=== PATIENT | female | born 1965 | race Hispanic/Latino ===

== ENCOUNTER 2019-03-13 00:55 | Observation (INO) | payer BC, OTHER, SELFPAY ==
[2019-03-13] MEDS ORDERED: ONDANSETRON 4 MG (ODT) TAB ONE (01:28)
[2019-03-13] MEDS ORDERED: ACETAMINOPHEN 500 MG TAB ONE (01:28)
[2019-03-13 02:01] LABS: Urine Bacteria LOADED /HPF (<20); Urine Culture Reflex Order REFLEXED
[2019-03-13] MEDS ORDERED: CEFTRIAXONE/SWI 1gm 1 GM/10 ML SYR ONE ×2 (02:22→03:14)
[2019-03-13] MEDS ORDERED: NA CHLORIDE 0.9% 2,000 ML ONE (02:22)
[2019-03-13 02:33] LABS: Absolute Lymphocytes (CBC) 0.4 K/uL (0.7-4.9); Basophils % 0.5 % (0-1.3); Hematocrit 43.7 % (36.0-45.0); Lymphocytes % 5.6 % (15.3-44.8); MPV 10.4 fL (7.6-11.3); RBC Red Blood Cell Count 4.65 M/uL (3.86-4.86)
[2019-03-13 02:38] LABS: Protime INR 1.03
[2019-03-13 02:51] LABS: ALT/SGPT 22 U/L (12-78); AST/SGOT 19 U/L (15-37); Albumin 3.2 g/dL (3.4-5.0); Alkaline Phosphatase 79 U/L (45-117); BUN Blood Urea Nitrogen 9 mg/dL (7-18); Bicarbonate 25 mmol/L (21-32); Bilirubin Direct 0.2 mg/dL (0-0.2); Bilirubin Total 0.6 mg/dL (0.2-1.0); CKMB Creatine Kinase MB < 1.0 ng/mL (0.3-3.6); Creatine Phosphokinase 62 U/L (26-192); Glucose Level 118 mg/dL (74-106); Lipase 79 U/L (73-393); Potassium 3.6 mmol/L (3.5-5.1); Protein, Total 7.9 g/dL (6.4-8.2); Sodium Level 139 mmol/L (136-145); Troponin (Emerg Dept Use Only) < 0.02 ng/mL (0.0-0.045)
[2019-03-13 02:55] LABS: Blood Morphology Comment NOT SEEN (NOT SEEN); Platelet Estimate DECR; Urine White Blood Cell Casts OK
--- NOTE | 2019-03-13 03:09 | EDPHYS ---
Physician Documentation [facility] Name: Gaby Wheeler Age: 53 yrs Sex: Female : 1965 Arrival Date: 03/13/2019 Time: 00:59 Bed 8 Private MD: ED Physician Estevan Disla HPI: 03/13 01:57 This 53 yrs old Female presents to ER via Ambulatory with complaints of Fever, rusty Doesn't Feel Right. 01:57 The patient reports fever, that was measured at 102 degrees Fahrenheit. Onset: The rusty symptoms/episode began/occurred 3 day(s) ago. Modifying factors: there are no obvious modifying factors. Associated signs and symptoms: Pertinent positives: arthralgias, backache, chills, cough. Severity of symptoms: At their worst the symptoms were. The patient has not experienced similar symptoms in the past. 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 - Social history:: Smoking status: Patient/guardian denies using tobacco. - Ebola Screening: : Patient negative for fever greater than or equal to 101.5 degrees Fahrenheit, and additional compatible Ebola Virus Disease symptoms. - Family history:: not pertinent. ROS: 01:57 Eyes: Negative for injury, pain, redness, and discharge, ENT: Negative for injury, rusty pain, and discharge, Neck: Negative for injury, pain, and swelling, Cardiovascular: Negative for chest pain, palpitations, and edema, Respiratory: Negative for shortness of breath, cough, wheezing, and pleuritic chest pain, Abdomen/GI: Negative for abdominal pain, nausea, vomiting, diarrhea, and constipation, Back: Negative for injury and pain, : Negative for injury, bleeding, discharge, and swelling, MS/Extremity: Negative for injury and deformity, Skin: Negative for injury, rash, and discoloration, Neuro: Negative for headache, weakness, numbness, tingling, and seizure, Psych: Negative for depression, anxiety, suicide ideation, homicidal ideation, and hallucinations, Allergy/Immunology: Negative for hives, rash, and allergies, Endocrine: Negative for neck swelling, polydipsia, polyuria, polyphagia, and marked weight changes, Hematologic/Lymphatic: Negative for swollen nodes, abnormal bleeding, and unusual bruising. 01:57 Constitutional: Positive for body aches, chills, malaise. Exam: :57 Constitutional: This is a well developed, well nourished patient who is awake, alert, rusty and in no acute distress. Head/Face: Normocephalic, atraumatic. Eyes: Pupils equal round and reactive to light, extra-ocular motions intact. Lids and lashes normal. Conjunctiva and sclera are non-icteric and not injected. Cornea within normal limits. Periorbital areas with no swelling, redness, or edema. ENT: Nares patent. No nasal discharge, no septal abnormalities noted. Tympanic membranes are normal and external auditory canals are clear. Oropharynx with no redness, swelling, or masses, exudates, or evidence of obstruction, uvula midline. Mucous membranes moist. Neck: Trachea midline, no thyromegaly or masses palpated, and no cervical lymphadenopathy. Supple, full range of motion without nuchal rigidity, or vertebral point tenderness. No Meningismus. Chest/axilla: Normal chest wall appearance and motion. Nontender with no deformity. No lesions are appreciated. Respiratory: Lungs have equal breath sounds bilaterally, clear to auscultation and percussion. No rales, rhonchi or wheezes noted. No increased work of breathing, no retractions or nasal flaring. Abdomen/GI: Soft, non-tender, with normal bowel sounds. No distension or tympany. No guarding or rebound. No evidence of tenderness throughout. Back: No spinal tenderness. No costovertebral tenderness. Full range of motion. Skin: Warm, dry with normal turgor. Normal color with no rashes, no lesions, and no evidence of cellulitis. MS/ Extremity: Pulses equal, no cyanosis. Neurovascular intact. Full, normal range of motion. Neuro: Awake and alert, GCS 15, oriented to person, place, time, and situation. Cranial nerves II-XII grossly intact. Motor strength 5/5 in all extremities. Sensory grossly intact. Cerebellar exam normal. Normal gait. Psych: Awake, alert, with orientation to person, place and time. Behavior, mood, and affect are within normal limits. 01:57 Cardiovascular: Rate: tachycardic, Rhythm: regular. Vital Signs: 01:13 BP 149 / 96; Pulse 147; Resp 20 S; Temp 100.4(O); Pulse Ox 100% on R/A; Weight 77.11 kg jd3 (R); Height 5 ft. 1 in. (154.94 cm) (R); Pain 7/10; 01:23 Pulse 123; jd3 02:49 BP 127 / 80; Pulse 109; Resp 17 S; Pulse Ox 98% on R/A; jd3 04:16 BP 110 / 70; Pulse 97; Resp 17 S; Temp 98.0(TE); Pulse Ox 98% on R/A; jd3 01:13 Body Mass Index 32.12 (77.11 kg, 154.94 cm) jd3 01:13 pt coughing and restless jd3 01:23 pt sitting still resting in bed. jd3 MDM: 01:26 Patient medically screened. [facility] 03:05 Data reviewed: vital signs, nurses notes, lab test result(s), EKG, radiologic studies, [facility] CT scan, plain films. 03/13 01:11 Order name: Flu; Complete Time: 03:02 03/13 01:11 Order name: Strep; Complete Time: 03:02 03/13 01:37 Order name: Urine Microscopic Only; Complete Time: 03:02 ar 03/13 01:39 Order name: Basic Metabolic Panel; Complete Time: 03:02 [facility] 03/13 01:39 Order name: Blood Culture Adult (2) [facility] 03/13 01:39 Order name: CBC with Diff; Complete Time: 03:02 [facility] 03/13 01:39 Order name: Ckmb; Complete Time: 03:02 [facility] 03/13 01:39 Order name: CPK; Complete Time: 03:02 [facility] 03/13 01:39 Order name: Lactate; Complete Time: 03:02 [facility] 03/13 01:39 Order name: LFT's; Complete Time: 03:02 [facility] 03/13 01:39 Order name: Lipase; Complete Time: 03:02 [facility] 03/13 01:39 Order name: Procalcitonin; Complete Time: 03:02 [facility] 03/13 01:39 Order name: Protime (+inr); Complete Time: 03:02 [facility] 03/13 01:39 Order name: Ptt, Activated; Complete Time: 03:02 [facility] 03/13 01:37 Order name: Urine Dipstick-Ancillary (obtain specimen); Complete Time: 01:36 [facility] 03/13 01:37 Order name: Urine Test (obtain specimen); Complete Time: 01:36 [facility] 03/13 01:39 Order name: Troponin (emerg Dept Use Only); Complete Time: 03:02 [facility] 03/13 01:39 Order name: Chest Single View XRAY [facility] 03/13 01:40 Order name: CT Stone Protocol [facility] 03/13 01:46 Order name: Throat Culture [facility] 03/13 02:03 Order name: Urine Culture [facility] 03/13 02:55 Order name: CBC Smear Scan; Complete Time: 03:02 [facility] 03/13 04:20 Order name: Comprehensive Metabolic Panel [facility] 03/13 04:21 Order name: CONS Pharmacy Consult [facility] 03/13 04:21 Order name: CONS Physician Consult [facility] 03/13 01:39 Order name: Accucheck; Complete Time: 02:31 [facility] 03/13 01:39 Order name: Cardiac monitoring; Complete Time: 02:47 [facility] 03/13 01:39 Order name: EKG - Nurse/Tech; Complete Time: 02:47 [facility] 03/13 01:39 Order name: IV Saline Lock - Large Bore; Complete Time: 02:31 [facility] 03/13 01:39 Order name: Labs collected and sent; Complete Time: 02:31 [facility] 03/13 01:39 Order name: O2 Per Protocol; Complete Time: 02:31 [facility] 03/13 01:39 Order name: O2 Sat Monitoring; Complete Time: 02:31 [facility] 03/13 01:39 Order name: Urine Dipstick-Ancillary (obtain specimen); Complete Time: 02:31 [facility] Administered Medications: 01:28 Drug: Zofran 4 mg Route: PO; jd3 02:25 Follow up: Response: No adverse reaction jd3 01:29 Drug: Tylenol 1000 mg Route: PO; jd3 02:25 Follow up: Response: No adverse reaction jd3 02:32 Drug: NS 0.9% (30 ml/kg) 30 ml/kg Route: IV; Rate: bolus; Site: right forearm; jd3 04:25 Follow up: Response: No adverse reaction; IV Status: Completed infusion; IV Intake: jd3 2000ml 02:32 Drug: Rocephin 1 grams Route: IV; Rate: per protocol; Site: right forearm; jd3 02:35 Follow up: Response: No adverse reaction; IV Status: Completed infusion jd3 03:16 Drug: Rocephin 1 grams Route: IV; Rate: per protocol; Site: right forearm; jd3 03:19 Follow up: Response: No adverse reaction; IV Status: Completed infusion jd3 Disposition: 03/13/19 03:08 Hospitalization ordered by Nettie John for Inpatient Admission. Preliminary diagnosis are Fever, unspecified, Acute tubulo-interstitial nephritis, Weakness. - Bed requested for Telemetry/MedSurg (Inpatient). - Status is Inpatient Admission. jd3 - Condition is Stable. - Problem is new. - Symptoms have improved. UTI on Admission? Yes Signatures: Dispatcher [employer] EDMS Margot Smiley RN RN mw Anderson, Corey, MD MD cha Davies, Jonathon, RN RN jd3 Robles, Autumn ar5 Corrections: (The following items were deleted from the chart) 04:03 03:08 Hospitalization Ordered by Nettie John MD for Inpatient Admission. Preliminary mw diagnosis is Fever, unspecified; Acute tubulo-interstitial nephritis; Weakness. Bed requested for Telemetry/MedSurg (Inpatient). Status is Inpatient Admission. Condition is Stable. Problem is new. Symptoms have improved. UTI on Admission? Yes. rusty 04:35 04:03 03/13/2019 03:08 Hospitalization Ordered by Nettie John MD for Inpatient jd3 Admission. Preliminary diagnosis is Fever, unspecified; Acute tubulo-interstitial nephritis; Weakness. Bed requested for Telemetry/MedSurg (Inpatient). Status is Inpatient Admission. Condition is Stable. Problem is new. Symptoms have improved. UTI on Admission? Yes. mw
--- NOTE | 2019-03-13 03:09 | ER ---
Nurse's Notes [facility] Name: Gaby Wheeler Age: 53 yrs Sex: Female : 1965 Arrival Date: 03/13/2019 Time: 00:59 Bed 8 Private MD: Diagnosis: Fever, unspecified;Acute tubulo-interstitial nephritis;Weakness Presentation: 03/13 01:09 Presenting complaint: Patient states: "I have had a headache since Friday as well as jd3 chills and general body aches. I last took Ibuprofen at 1730 on 03/12/19.". Transition of care: patient was not received from another setting of care. Onset of symptoms was March 10, 2019. Risk Assessment: Do you want to hurt yourself or someone else? Patient reports no desire to harm self or others. Initial Sepsis Screen: Does the patient meet any 2 criteria? HR > 90 bpm. No. Patient's initial sepsis screen is negative. Does the patient have a suspected source of infection? No. Patient's initial sepsis screen is negative. Care prior to arrival: None. 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 - Social history:: Smoking status: Patient/guardian denies using tobacco. - Ebola Screening: : Patient negative for fever greater than or equal to 101.5 degrees Fahrenheit, and additional compatible Ebola Virus Disease symptoms. - Family history:: not pertinent. Screenin:14 Abuse screen: Denies threats or abuse. Nutritional screening: No deficits noted. jd3 Tuberculosis screening: No symptoms or risk factors identified. Fall Risk Ambulatory Aid- None/Bed Rest/Nurse Assist (0 pts). Gait- Normal/Bed Rest/Wheelchair (0 pts) Mental Status- Oriented to own ability (0 pts). Total Bright Fall Scale indicates No Risk (0-24 pts). Assessment: 01:29 General: Appears in no apparent distress. uncomfortable, Behavior is calm, cooperative, jd3 appropriate for age. Pain: Complains of pain in head Quality of pain is described as aching, pressure. Neuro: Level of Consciousness is awake, alert, obeys commands, Oriented to person, place, time, situation. Cardiovascular: Denies chest pain, Heart tones S1 S2 present Capillary refill < 3 seconds Patient's skin is warm and dry. Respiratory: Reports cough that is persistent Airway is patent Respiratory effort is even, unlabored, Respiratory pattern is regular, symmetrical, Breath sounds are clear bilaterally. Denies shortness of breath. GI: Abdomen is round non-distended, Bowel sounds present X 4 quads. Abd is soft and non tender X 4 quads. Reports nausea, Patient currently denies abdominal pain, vomiting. : No signs and/or symptoms were reported regarding the genitourinary system. EENT: No signs and/or symptoms were reported regarding the EENT system. Derm: Skin is intact, Skin is dry, Skin is normal, Skin temperature is warm. Musculoskeletal: Circulation, motion, and sensation intact. Range of motion: intact in all extremities. 02:49 Reassessment: Patient appears in no apparent distress at this time. Patient and/or jd3 family updated on plan of care and expected duration. Pain level reassessed. Patient is alert, oriented x 3, equal unlabored respirations, skin warm/dry/pink. Patient states feeling better. 04:16 Reassessment: Patient appears in no apparent distress at this time. Patient and/or jd3 family updated on plan of care and expected duration. Pain level reassessed. Patient is alert, oriented x 3, equal unlabored respirations, skin warm/dry/pink. Patient states feeling better. Vital Signs: 01:13 BP 149 / 96; Pulse 147; Resp 20 S; Temp 100.4(O); Pulse Ox 100% on R/A; Weight 77.11 kg jd3 (R); Height 5 ft. 1 in. (154.94 cm) (R); Pain 7/10; 01:23 Pulse 123; jd3 02:49 BP 127 / 80; Pulse 109; Resp 17 S; Pulse Ox 98% on R/A; jd3 04:16 BP 110 / 70; Pulse 97; Resp 17 S; Temp 98.0(TE); Pulse Ox 98% on R/A; jd3 01:13 Body Mass Index 32.12 (77.11 kg, 154.94 cm) jd3 01:13 pt coughing and restless jd3 01:23 pt sitting still resting in bed. jd3 ED Course: 00:59 Patient arrived in ED. cl3 01:09 Sage Carroll, JERALD is Primary Nurse. jd3 01:11 Triage completed. jd3 01:14 Arm band placed on. jd3 01:14 Patient has correct armband on for positive identification. Bed in low position. Call jd3 light in reach. Side rails up X 1. 01:26 Estevan Disla MD is Attending Physician. rusty 02:12 Inserted saline lock: 20 gauge in right forearm, using aseptic technique. Blood jd3 collected. 02:41 CT Stone Protocol In Process Unspecified. EDMS 03:06 Chest Single View XRAY In Process Unspecified. EDMS 03:06 Nettie John MD is Hospitalizing Provider. rusty 04:27 No provider procedures requiring assistance completed. Patient admitted, IV remains in jd3 place. Administered Medications: 01:28 Drug: Zofran 4 mg Route: PO; jd3 02:25 Follow up: Response: No adverse reaction jd3 01:29 Drug: Tylenol 1000 mg Route: PO; jd3 02:25 Follow up: Response: No adverse reaction jd3 02:32 Drug: NS 0.9% (30 ml/kg) 30 ml/kg Route: IV; Rate: bolus; Site: right forearm; jd3 04:25 Follow up: Response: No adverse reaction; IV Status: Completed infusion; IV Intake: jd3 2000ml 02:32 Drug: Rocephin 1 grams Route: IV; Rate: per protocol; Site: right forearm; jd3 02:35 Follow up: Response: No adverse reaction; IV Status: Completed infusion jd3 03:16 Drug: Rocephin 1 grams Route: IV; Rate: per protocol; Site: right forearm; jd3 03:19 Follow up: Response: No adverse reaction; IV Status: Completed infusion jd3 Intake: 04:25 IV: 2000ml; Total: 2000ml. jd3 Outcome: 03:08 Decision to Hospitalize by Provider. rusty 04:27 Admitted to Med/surg accompanied by tech, via wheelchair, room 427, with chart, Report jd3 called to Emani MARQUES 04:27 Condition: stable 04:27 Instructed on the need for admit, Demonstrated understanding of instructions. 04:35 Patient left the ED. jd3 Signatures: Dispatcher [employer] Estevan Urbina MD MD cha Davies, Jonathon, RN RN Ade Augustin cl3 Corrections: (The following items were deleted from the chart) 01:18 01:13 BP 163 / 111; Pulse 147bpm; Resp 20bpm; Spontaneous; Pulse Ox 100% RA; Temp jd3 100.4F Oral; 77.11 kg Reported; Height 5 ft. 1 in. Reported; BMI: 32.1; Pain 7/10; jd3 01:23 01:13 BP 149 / 96; Pulse 136bpm; Resp 20bpm; Spontaneous; Pulse Ox 100% RA; Temp 100.4F jd3 Oral; 77.11 kg Reported; Height 5 ft. 1 in. Reported; BMI: 32.1; Pain 7/10; jd3
[2019-03-13] MEDS ORDERED: MORPHINE 2 MG/ML SYR IV PRN (04:18)
[2019-03-13] MEDS ORDERED: ONDANSETRON 4 MG/2 ML VIAL IV PRN (04:18)
[2019-03-13 04:53] VITALS: BMI 30.8
[2019-03-13] MEDS: NA CHLORIDE 0.9% 1,000 ML IV SCH ×4 (04:57→23:53)
[2019-03-13] MEDS ORDERED: ACETAMINOPHEN 650MG/RECT SUPP PR ONE (05:26)
--- NOTE | 2019-03-13 06:45 | P.HP ---
Certification for Inpatient Patient admitted to: Observation With expected LOS: <2 Midnights Patient will require the following post-hospital care: None Practitioner: I am a practitioner with admitting privileges, knowledge of patient current condition, hospital course, and medical plan of care. Services: Services provided to patient in accordance with Admission requirements found in Title 42 Section 412.3 of the Code of Federal Regulations Patient History Date of Service: 03/13/19 Reason for admission: Febrile/UTI/pyelonephritis History of Present Illness: Patient is a 53-year-old female with a history of a prior left-sided nephrectomy for renal mass. Patient came to the hospital with abdominal pain/ headache/fever. Patient has been having headaches for the last couple of days. Patient's symptoms were worsening and was having some generalized body aches as well as flank tenderness. Patient started having fevers at home, and these were up to 102. Pain was generalized and she was feeling nauseated and not really able to take anything down. Decision was made to come into the ER for further evaluation. In the ER patient had CT stone protocol which revealed right perinephric stranding. Patient was felt to have pyelonephritis with fever of 102 him was admitted to the hospital for further treatment. No evidence of kidney stones noted on the CT scan. Chest x-ray was unremarkable. Blood cultures and urine cultures are pending at this time. Allergies No Known Allergies Allergy (Verified 07/19/15 15:04) Home Medications: Levothyroxine [Synthroid*] 1 tab PO DAILY 03/13/19 Lisinopril 1 tab PO DAILY 03/13/19 Simvastatin 1 tab PO DAILY 03/13/19 - Past Medical/Surgical History Has patient received pneumonia vaccine in the past: No Diabetic: No -: hypothyroidism -: HTN -: Renal mass 07/21 -: Cholecystectomy -: Tonsillectomy -: Laparoscopic surgery on fallopian tubes -: Bilateral tubal ligation -: Renal mass 07/21 (kidney removed) - Family History Father Medical History: Other (see notes) Notes: cirrrosis Mother Medical History: Hypertension, Diabetes, Kidney disease Notes: ESRD - Social History Smoking Status: Never smoker Alcohol use: Yes CD- Drugs: No Caffeine use: Yes Place of Residence: Home Review of Systems 10-point ROS is otherwise unremarkable Physical Examination - Vital Signs Temperature: 103 F Blood Pressure: 142/91 Pulse: 107 Respirations: 16 Pulse Ox (%): 99 - Physical Exam General: Alert, In no apparent distress, Oriented x3 HEENT: Atraumatic, PERRLA, Mucous membr. moist/pink, EOMI, Sclerae nonicteric Neck: Supple, 2+ carotid pulse no bruit, No LAD, Without JVD or thyroid abnormality Respiratory: Clear to auscultation bilaterally, Normal air movement Cardiovascular: Regular rate/rhythm, Normal S1 S2, No murmurs Gastrointestinal: Normal bowel sounds, Soft and benign, Non-distended, Tenderness (Mild right-sided tenderness) Musculoskeletal: No clubbing, No swelling, No tenderness Integumentary: No rashes Neurological: Normal gait, Normal speech, Normal strength at 5/5 x4 extr, Normal tone, Sensation intact, Cranial nerves 3-12 intact, Normal affect Lymphatics: No axilla or inguinal lymphadenopathy - Studies Laboratory Data (last 24 hrs) 03/13/19 02:12: PT 12.1, INR 1.03, APTT 29.6 03/13/19 02:12: WBC 7.7, Hgb 14.6, Hct 43.7, Plt Count 101 L 03/13/19 02:12: Sodium 139, Potassium 3.6, BUN 9, Creatinine 1.16, Glucose 118 H , Total Bilirubin 0.6, AST 19, ALT 22, Alkaline Phosphatase 79, Lipase 79 Microbiology Data (last 24 hrs): 03/13/19 01:09 Throat Group A Streptococcus Rapid Screen - Final 03/13/19 01:09 Nasopharnyx Influenza Type A Antigen Screen - Final 03/13/19 01:09 Nasopharnyx Influenza Type B Antigen Screen - Final Assessment & Plan - Problems (Diagnosis) (1) Pyelonephritis of right kidney Current Visit: Yes Status: Acute (2) History of left nephrectomy Current Visit: Yes Status: Acute (3) Fever Current Visit: Yes Status: Acute - Plan Plan: 1. IV hydration 2. Pain control 3. Antipyretics 4. IV antibiotics 5. Urine and blood culture pending 6. Monitor hemodynamics closely 7. Monitor renal function closely 8. Diet as tolerated 9. GI and DVT prophylaxis Discharge Plan: Home Plan to discharge in: Greater than 2 days - Advance Directives Does patient have a Living Will: No Does patient have a Durable POA for Healthcare: No - Code Status/Comfort Care Code Status Assessed: Yes Code Status: Full Code Critical Care: No Time Spent Managing PTS Care (In Minutes): 45
[2019-03-13] MEDS ORDERED: ACETAMINOPHEN 500 MG TAB PO ONE (06:47)
--- NOTE | 2019-03-13 11:16 | P.PN ---
Subjective Date of Service: 03/13/19 Chief Complaint: Febrile/UTI/pyelonephritis. hx of left neprhectomy for mass 2016 Subjective: Doing well (feel fine , now afebrile -wants to eat - no nx or vx , nio flank pain now) Review of Systems 10-point ROS is otherwise unremarkable Physical Examination - Vital Signs Temperature: 98.1 F Blood Pressure: 112/67 Pulse: 112 Respirations: 20 Pulse Ox (%): 97 - Physical Exam General: Alert, In no apparent distress, Oriented x3 HEENT: Atraumatic, Normocephalic, PERRLA, Mucous membr. moist/pink Neck: Supple, 2+ carotid pulse no bruit, JVD not distended Respiratory: Clear to auscultation bilaterally, Normal air movement Cardiovascular: No edema, Normal pulses, Regular rate/rhythm Gastrointestinal: Normal bowel sounds, Soft and benign, No tenderness Integumentary: No rashes, No breakdown Neurological: Normal gait, Normal speech External genitalia: No edema, No masses, Non-tender - Studies Laboratory Data (last 24 hrs) 03/13/19 02:12: PT 12.1, INR 1.03, APTT 29.6 03/13/19 02:12: WBC 7.7, Hgb 14.6, Hct 43.7, Plt Count 101 L 03/13/19 02:12: Sodium 139, Potassium 3.6, BUN 9, Creatinine 1.16, Glucose 118 H , Total Bilirubin 0.6, AST 19, ALT 22, Alkaline Phosphatase 79, Lipase 79 Microbiology Data (last 24 hrs): 03/13/19 01:09 Throat Group A Streptococcus Rapid Screen - Final 03/13/19 01:09 Nasopharnyx Influenza Type A Antigen Screen - Final 03/13/19 01:09 Nasopharnyx Influenza Type B Antigen Screen - Final Medications List Reviewed: Yes Assessment & Plan - Problems (Diagnosis) (1) History of left nephrectomy Current Visit: Yes Status: Acute (2) Pyelonephritis of right kidney Current Visit: Yes Status: Acute (3) Hypothyroid Current Visit: No Status: Acute Discharge Plan: Home Plan to discharge in: 48 Hours - Code Status/Comfort Care Code Status Assessed: Yes Code Status: Full Code Physician Review: Patient Assessed, Agree with Above Assessment and Plan Physician Review Additional Text: # Right pyelo - noted on CT with UTI on UA -follow urine cx - will start abx with levaquin now -c/w IVF - c/w tylenol prn # HTN -controlled # DVT prop -sc hep # Dispo - will dc home after urine c/s to adjust abx obtained pt and spouse at bedside d/w Time Spent Managing Pts Care (In Minutes): 30
--- NOTE | 2019-03-13 11:21 | RAD REPORT ---
EXAM DESCRIPTION: [facility] Single View03/13/2019 3:06 am CLINICAL HISTORY: cough COMPARISON: none FINDINGS: The lungs appear clear of acute infiltrate. The heart is normal size IMPRESSION: No acute abnormalities displayed
[2019-03-13] MEDS: Levofloxacin 750mg IV 750 MG/150 ML BAG IV SCH (11:46)
[2019-03-13] MEDS: ACETAMINOPHEN 500 MG TAB PO PRN ×2 (15:35→20:35)
--- NOTE | 2019-03-13 17:18 | EKG ---
Test Date: 2019-03-13 Test Time: 02:41:25 Collections Clerk: KENN MEASUREMENT RESULTS: Intervals: Rate: 107 MT: 138 QRSD: 70 QT: 334 QTc: 445 [place]: P: 59 MT: 138 QRS: 29 T: 44 INTERPRETIVE STATEMENTS: Sinus tachycardia with premature atrial complexes Otherwise normal ECG Compared to ECG 11/01/2011 15:24:27 Atrial premature complex(es) now present Sinus rhythm no longer present Electronically Signed On 03-13-19 17:17:25 EDGER FEEDER by Ronald Philip
[2019-03-13] MEDS ORDERED: ATORVASTATIN 10 MG TAB PO SCH (21:00)
[2019-03-13 23:31] VITALS: O2SAT 100
[2019-03-14] MEDS: ACETAMINOPHEN 500 MG TAB PO PRN ×2 (02:54→14:08)
[2019-03-14 06:15] LABS: Absolute Lymphocytes (CBC) 0.9 K/uL (0.7-4.9); Basophils % 0.3 % (0-1.3); Hematocrit 36.3 % (36.0-45.0); Lymphocytes % 15.5 % (15.3-44.8); MPV 10.9 fL (7.6-11.3); RBC Red Blood Cell Count 3.88 M/uL (3.86-4.86)
[2019-03-14] MEDS ORDERED: LEVOTHYROXINE SOD 0.1 MG TAB PO SCH (06:30)
[2019-03-14 06:33] LABS: Albumin 2.6 g/dL (3.4-5.0); Bilirubin Total 0.4 mg/dL (0.2-1.0); Potassium 3.3 mmol/L (3.5-5.1); Protein, Total 6.5 g/dL (6.4-8.2)
[2019-03-14 06:52] LABS: Blood Morphology Comment NOT SEEN (NOT SEEN); Platelet Estimate DECR
[2019-03-14] MEDS ORDERED: lisinopriL 10 MG TAB PO SCH (09:00)
[2019-03-14] MEDS ORDERED: HOME MED 1 EA UNK (Simvastatin [Simvastatin] 1 TAB) PO SCH (09:00)
[2019-03-14] MEDS ORDERED: HOME MED 1 EA UNK (Lisinopril [Lisinopril] 1 TAB) PO SCH (09:00)
[2019-03-14] MEDS: Levofloxacin 750mg IV 750 MG/150 ML BAG IV SCH (12:00)
--- NOTE | 2019-03-14 12:19 | P.DS ---
Admission Date: 03/13/19 Discharge Date: 03/14/19 Disposition: DC HOME/HOME HEALTH CARE Reason for Admission: Febrile/UTI/pyelonephritis. 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 She was started on antibiotics . Her urine cx grow mixed [place] but her rapid strep screen was positive despite absence of any respiratory symptoms . she has been started on levaquin now for 10 days course . She remained afebrile with improvement in her symptoms and wbc trend . she will be dc home today Vital Signs/Physical Exam: Temp Pulse Resp BP Pulse Ox 97.6 F 80 18 128/64 96 03/14/19 08:00 03/14/19 08:57 03/14/19 08:00 03/14/19 08:57 03/14/19 08:00 General: Alert, In no apparent distress, Oriented x3 HEENT: Atraumatic, Normocephalic Neck: Supple, 2+ carotid pulse no bruit Respiratory: Clear to auscultation bilaterally, Normal air movement Cardiovascular: No edema, Regular rate/rhythm, Normal S1 S2 Gastrointestinal: Normal bowel sounds, Soft and benign Neurological: Normal gait, Normal speech, Normal strength at 5/5 x4 extr Laboratory Data at Discharge: WBC 6.1 K/uL (4.3-10.9) D 03/14/19 05:37 Hgb 12.4 g/dL (12.0-15.0) 03/14/19 05:37 Hct 36.3 % (36.0-45.0) D 03/14/19 05:37 Plt Count 88 K/uL (152-406) L 03/14/19 05:37 PT 12.1 SECONDS (9.5-12.5) 03/13/19 02:12 INR 1.03 03/13/19 02:12 APTT 29.6 SECONDS (24.3-36.9) 03/13/19 02:12 Sodium 140 mmol/L (136-145) 03/14/19 05:37 Potassium 3.3 mmol/L (3.5-5.1) L 03/14/19 05:37 BUN 6 mg/dL (7-18) L 03/14/19 05:37 Creatinine 0.95 mg/dL (0.55-1.3) 03/14/19 05:37 Glucose 97 mg/dL (74-106) 03/14/19 05:37 Total Bilirubin 0.4 mg/dL (0.2-1.0) 03/14/19 05:37 AST 20 U/L (15-37) 03/14/19 05:37 ALT 21 U/L (12-78) 03/14/19 05:37 Alkaline Phosphatase 60 U/L (45-117) 03/14/19 05:37 Lipase 79 U/L (73-393) 03/13/19 02:12 Home Medications: Levothyroxine [Synthroid*] 1 tab PO DAILY 03/13/19 Simvastatin 1 tab PO DAILY 03/13/19 lisinopriL [Lisinopril] 1 tab PO DAILY 03/13/19 Levofloxacin [Levaquin] 500 mg PO DAILY #10 tablet 03/14/19 New Medications: Levofloxacin [Levaquin] 500 mg PO DAILY #10 tablet Patient Discharge Instructions: continue regular fluid intake Diet: Low sodium Activity: Ad rose Time spent managing pt's care (in minutes): 35
[2019-03-14 14:11] VITALS: BP 129/86; TEMP 98.4
--- NOTE | 2019-03-16 15:15 | RAD REPORT ---
EXAM DESCRIPTION: CT - Stone Protocol - 03/13/2019 6:14 am CLINICAL HISTORY: Abd pain;Flank pain;Fever TECHNIQUE: Contiguous axial images obtained through the abdomen and pelvis without IV contrast. Praneeth nal and sagittal reformatted images were provided. This exam was performed according to our departmental dose-optimization program, which includes autom ated exposure control, adjustment of the mA and/or kV according to patient size and/or use of iterati ve reconstruction technique. COMPARISON: None available for comparison. FINDINGS: Lung bases: Clear Liver: The liver is enlarged. Gallbladder and biliary system: Prior cholecystectomy. Pancreas: Grossly unremarkable Spleen: Grossly unremarkable Adrenals: Unremarkable Kidneys: The left kidney is surgically absent. Minimal right perinephric stranding. No calculi. No hy dronephrosis. Bowel: Moderate stool within the proximal large bowel. Colonic diverticula without adjacent inflammat ory change. No obstruction. No appreciable mucosal thickening. Appendix: Normal caliber appendix. No findings to suggest acute appendicitis. Urinary bladder: Moderate circumferential urinary bladder wall thickening. Reproductive: 2.4 x 2.1 x 2.2 cm left adnexal cyst. Nabothian cysts at the level of the cervix. The r ight ovary is unremarkable as visualized. Lymph nodes: No pathologically enlarged lymph nodes. Peritoneum: No focal fluid collection. No free air. Vessels: Minimal atherosclerotic disease. No abdominal aortic aneurysm. Abdominal wall: Tiny fat-containing umbilical hernia. Bones: Multilevel spondylosis. No acute fracture. IMPRESSION: 1. Mild right perinephric stranding. This is nonspecific and may be chronic. Acute sup erimposed inflammatory process not excluded. 2. Moderate circumferential urinary bladder wall thickening. Please correlate clinically for cystit is. 3. 2.4 cm probably benign left ovarian cyst. No follow-up imaging is recommended. Reference: J Am C oll Radiol 2013;10:675-681 4. Other findings as above. Electronically signed by: Jus Miguel MD 03/13/2019 3:12 AM [employer] Due to temporary technical issues with the PACS/Fluency reporting system, reports are being signed by the in house radiologist as a courtesy to ensure prompt reporting. The interpreting radiologist is f ully responsible for the content of the report.
== END 2019-03-14 14:42 | disposition home or self-care (01) ==
LOC: ER 00:55 → ERHOLD 04:22 → 4TH 04:25
PROVIDERS: ADMIT Hospitalist; ATTEND Hospitalist
DX: N10 Acute pyelonephritis (principal); E03.9 Hypothyroidism, unspecified; I10 Essential (primary) hypertension; Z90.5 Acquired absence of kidney
CPT/HCPCS: 36415; 71045; 74176; 76377; 80048; 80053; 80076; 81015; 82550; 82553; 83605; 83690; 84145; 84484; 85025; 85610; 85730; 87040; 87070; 87077; 87081; 87086; 87088; 87186; 87804; 93005; 96361; 96365; 96366; 96374; 96375; 99285; G0378; J0696; J2405; J7030

== ENCOUNTER 2020-03-02 15:34 | Emergency (ER) | payer SELFPAY ==
[2020-03-02] MEDS ORDERED: ONDANSETRON 4 MG/2 ML VIAL ONE (16:14)
[2020-03-02] MEDS ORDERED: MORPHINE 2 MG/ML SYR ONE (16:14)
[2020-03-02 16:22] LABS: Urine Bacteria <20 /HPF (<20); Urine RBC <5 /HPF (NONE SEEN)
[2020-03-02 16:22] LABS: Urine Blood 1+ (NEG); Urine Glucose NEGATIVE (NEG); Urine Protein NEGATIVE (NEG); Urine Specific Gravity 1.015 (1.005-1.030); Urine pH 6.5 (5.0-7.0)
[2020-03-02 16:23] LABS: Absolute Lymphocytes (CBC) 0.8 K/uL (0.7-4.9); Basophils % 0.6 % (0-1.3); Hematocrit 40.4 % (36.0-45.0); Lymphocytes % 9.9 % (15.3-44.8); MPV 10.5 fL (7.6-11.3); RBC Red Blood Cell Count 4.51 M/uL (3.86-4.86)
[2020-03-02 16:40] LABS: Albumin 3.8 g/dL (3.4-5.0); Bilirubin Direct 0.1 mg/dL (0-0.2); Bilirubin Total 0.7 mg/dL (0.2-1.0); Potassium 3.5 mmol/L (3.5-5.1); Protein, Total 8.7 g/dL (6.4-8.2)
--- NOTE | 2020-03-02 17:18 | RAD REPORT ---
EXAM DESCRIPTION: CT - Abdomen Pelvis Wo Contrast - 03/02/2020 4:58 pm CLINICAL HISTORY: Abdominal pain COMPARISON: 2019 TECHNIQUE: Computed axial tomography of the abdomen and pelvis was obtained. IV and oral contrast we re not requested. All CT scans are performed using dose optimization technique as appropriate and may include automated exposure control or mA/KV adjustment according to patient size. FINDINGS: The evaluation of solid organs, vessels and bowel is limited secondary to the lack of con trast administration. Cholecystectomy. Left nephrectomy The liver, spleen, pancreas, adrenals and right kidney appear grossly normal. The appendix is normal. Diverticula stem from the colon. Mild stranding adjacent to the sigmoid colon. 4 centimeter ground-glass opacity right lower lobe 7.5 x 3.7 centimeter left adnexal mass IMPRESSION: Mild sigmoid diverticulitis 7.5 x 3.7 centimeter left adnexal mass. Ultrasound recommended Mild right lower lobe ground-glass opacity may indicate pneumonia or pneumonitis.
[2020-03-02] MEDS ORDERED: METRONIDAZOLE 500mg IVPB 500 MG/100 ML BAG IV ONE (17:55)
--- NOTE | 2020-03-02 18:39 | RAD REPORT ---
EXAM DESCRIPTION: US - Transvaginal Study Probe - 03/02/2020 6:23 pm CLINICAL HISTORY: Pelvic pain COMPARISON: CT abdomen March 02, 2020 FINDINGS: The uterus measures 9 x 4 x 4cm. A fibroid is not seen. The endometrial stripe measures 3 millimeters The right ovary was not visualized secondary to overlying bowel gas. The right adnexal unremarkable The left ovary measures 9 x 5 x 3 centimeters. It contains blood flow. Several complex cystic contain ing low level echoes. The largest measures 4.2 centimeters No significant free fluid is seen. IMPRESSION: Enlarged left ovary. It contains multiple complex cysts. Low level echoes indicate that these probably are hemorrhagic cysts. The largest measures 4.2 centimeters. It is recommended that the patient a followup ultrasound in a couple of months to assess stability/re solution
--- NOTE | 2020-03-02 18:45 | EDPHYS ---
Physician Documentation [facility] Name: Gaby Wheeler Age: 54 yrs Sex: Female : 1965 Arrival Date: 03/02/2020 Time: 15:36 Bed 19 Private MD: ED Physician Nettie Finch HPI: 03/02 16:00 This 54 yrs old Female presents to ER via Ambulatory with complaints of cp Abdominal Pain. 16:00 The patient presents with abdominal pain in the lower abdomen, in the left lower cp quadrant. Onset: The symptoms/episode began/occurred 2 day(s) ago. Associated signs and symptoms: Pertinent positives: nausea, Pertinent negatives: constipation, diarrhea, dysuria, hematuria, vomiting. The symptoms are described as constant. Historical: - Allergies: 15:46 No Known Allergies; jd3 - Home Meds: 15:46 lisinopril 30 mg Oral tab 1 tab once daily [Active]; jd3 - PMHx: 15:46 Hypertension; Hypothyroidism; jd3 - PSHx: 15:46 Cholecystectomy; Tubal ligation; left kidney removed; jd3 - Immunization history:: Adult Immunizations up to date. - Social history:: Smoking status: Patient denies any tobacco usage or history of. ROS: 16:01 Constitutional: Negative for body aches, fever, poor PO intake. cp 16:01 Cardiovascular: Negative for chest pain. 16:01 Respiratory: Negative for cough, shortness of breath, wheezing. 16:01 Abdomen/GI: Positive for abdominal pain, nausea, of the suprapubic area and left lower quadrant, Negative for vomiting, diarrhea, constipation. 16:01 All other systems are negative. Exam: 16:04 Head/Face: Normocephalic, atraumatic. cp 16:04 Constitutional: The patient appears in no acute distress, alert, awake, non-toxic, well developed, well nourished. 16:04 Eyes: Periorbital structures: appear normal, Conjunctiva: normal, no exudate, no injection, Sclera: no appreciated abnormality, Lids and lashes: appear normal, bilaterally. 16:04 ENT: External ear(s): are unremarkable, Nose: is normal, Posterior pharynx: Airway: no evidence of obstruction, patent. 16:04 Chest/axilla: Inspection: normal, Palpation: is normal, no crepitus, no tenderness. 16:04 Cardiovascular: Rate: tachycardic, Rhythm: regular. 16:04 Respiratory: the patient does not display signs of respiratory distress. 16:04 Abdomen/GI: Inspection: abdomen appears normal, Bowel sounds: active, all quadrants, Palpation: soft, in all quadrants, mild abdominal tenderness, in the suprapubic area and left lower quadrant, rebound tenderness, is not appreciated, voluntary guarding, is not appreciated, involuntary guarding, is not appreciated. 16:04 Back: CVA tenderness, is absent. Vital Signs: 15:45 BP 122 / 91; Pulse 106; Resp 18 S; Temp 99.4(O); Pulse Ox 97% on R/A; Weight 80.74 kg jd3 (R); Height 5 ft. 1 in. (154.94 cm) (R); Pain 6/10; 17:00 BP 113 / 80; Pulse 100; Resp 18; Pulse Ox 100% ; bp 18:00 BP 114 / 83; Pulse 101; Resp 16; Pulse Ox 100% ; bp 15:45 Body Mass Index 33.63 (80.74 kg, 154.94 cm) jd3 MDM: 15:44 Patient medically screened. cp 16:00 Differential diagnosis: diverticulitis, non-specific abd pain, Pyelonephritis, cp Ureterolithiasis, urinary tract infection, ovarian cyst, ovarian mass. 18:45 Data reviewed: vital signs, nurses notes, lab test result(s), radiologic studies, CT cp scan, ultrasound. 18:45 Counseling: I had a detailed discussion with the patient and/or guardian regarding: the cp historical points, exam findings, and any diagnostic results supporting the discharge/admit diagnosis, lab results, radiology results, the need for outpatient follow up, a news reporter, an OB/Gyne specialist, to return to the emergency department if symptoms worsen or persist or if there are any questions or concerns that arise at home. Response to treatment: the patient's symptoms have markedly improved after treatment, and as a result, I will discharge patient. ED course: VSS. Pain improved with meds. Will discharge to home for continued monitoring. 03/02 15:48 Order name: Basic Metabolic Panel; Complete Time: 16:47 cp 03/02 16:48 Interpretation: Normal except: CRE 1.53; GFR 36. cp 03/02 15:48 Order name: CBC with Diff; Complete Time: 16:47 cp 03/02 16:48 Interpretation: Normal except: MCV 89.6; PLT 124; ANKITA% 84.4; LYM% 9.9. cp 03/02 15:48 Order name: Hepatic Function; Complete Time: 16:47 cp 03/02 15:48 Order name: Lipase; Complete Time: 16:47 cp 03/02 15:48 Order name: Urine Microscopic Only; Complete Time: 16:47 cp 03/02 16:18 Order name: Urine Dipstick--Ancillary (enter results); Complete Time: 16:47 eb 03/02 16:18 Order name: Urine --Ancillary (enter results); Complete Time: 16:47 03/02 16:24 Order name: Urine Culture EDCO 03/02 16:59 Order name: Abdomen ; Complete Time: 17:22 [facility] 03/02 17:24 Order name: US Transvaginal Study (Probe); Complete Time: 18:40 03/02 15:48 Order name: IV Saline Lock; Complete Time: 15:58 03/02 15:48 Order name: Labs collected and sent; Complete Time: 15:58 03/02 15:48 Order name: Urine Dipstick-Ancillary (obtain specimen); Complete Time: 16:11 03/02 15:48 Order name: Urine Test (obtain specimen); Complete Time: 16:11 cp Administered Medications: 16:00 Drug: Zofran (Ondansetron) 4 mg Route: IVP; Site: right antecubital; bp 19:00 Follow up: Response: No adverse reaction bp 16:00 Drug: morphine 2 mg Route: IVP; Site: right antecubital; bp 18:59 Follow up: Response: Pain is decreased bp 17:35 Drug: metroNIDAZOLE 500 mg Volume: 100 ml; Route: IVPB; Infused Over: 30 mins; Site: bp right antecubital; 18:59 Follow up: IV Status: Completed infusion; IV Intake: 100ml bp 17:46 CANCELLED (Physician Discretion): Cipro 500 mg PO once cp 18:50 Drug: Hydrocodone-Acetaminophen (7.5 mg-325 mg) 1 tabs Route: PO; bp 18:57 Follow up: Response: Pain is decreased bp 18:50 Drug: Cipro 500 mg Route: PO; bp 18:57 Follow up: Response: Medication administered at discharge. bp Disposition: 19:05 Chart complete. cp 03/03 11:09 Co-signature as Attending Physician, Nettie Finch MD. ma2 Disposition: 03/02/20 18:45 Discharged to Home. Impression: Diverticulitis of large intestine without perforation or abscess without bleeding, Unspecified ovarian cysts - left. - Condition is Stable. - Discharge Instructions: High-Fiber Diet, Diverticulitis, Ovarian Cyst. - Prescriptions for Zofran 4 mg Oral Tablet - take 1 tablet by ORAL route every 12 hours As needed; 20 tablet. Cipro 500 mg Oral Tablet - take 1 tablet by ORAL route every 12 hours for 10 days; 20 tablet. Metronidazole 500 mg Oral Tablet - take 1 tablet by ORAL route every 8 hours; 30 tablet. Tylenol- Codeine #3 300-30 mg Oral Tablet - take 2 tablets by ORAL route every 8 hours As needed; 15 tablet. - Medication Reconciliation Form, Thank You Letter, Antibiotic Education, Prescription Opioid Use form. - Follow up: Carolyn Rangel MD; When: 1 week; Reason: left ovarian cysts. Follow up: David Giles MD; When: 2 - 3 days; Reason: diverticulitis. - Problem is new. - Symptoms have improved. Signatures: Dispatcher [employer] EDMS Estevan Dominguez PA PA cp Davies, Jonathon, RN RN jd3 Peltier, Brian, RN RN bp Alzahri, Mohammad, MD MD ma2 Corrections: (The following items were deleted from the chart) 03/02 16:59 15:49 Abdomen Pelvis W Con+CT.RAD.BRZ ordered. EDCO EDMS 17:46 17:46 Cipro 500 mg PO once ordered. cp cp 19:00 18:45 03/02/2020 18:45 Discharged to Home. Impression: Diverticulitis of large bp intestine without perforation or abscess without bleeding; Unspecified ovarian cysts - left. Condition is Stable. Forms are Medication Reconciliation Form, Thank You Letter, Antibiotic Education, Prescription Opioid Use. Follow up: Carolyn Rangel; When: 1 week; Reason: left ovarian cysts. Follow up: David Giles; When: 2 - 3 days; Reason: diverticulitis. Problem is new. Symptoms have improved. cp
--- NOTE | 2020-03-02 18:45 | ER ---
Nurse's Notes [facility] Name: Gaby Wheeler Age: 54 yrs Sex: Female : 1965 Arrival Date: 03/02/2020 Time: 15:36 Bed 19 Private MD: Diagnosis: Diverticulitis of large intestine without perforation or abscess without bleeding;Unspecified ovarian cysts-left Presentation: 03/02 15:44 Chief complaint: Patient states: "I am having lower stomach pain and nausea since jd3 Friday.". Coronavirus screen: At this time, the client does not indicate any symptoms associated with coronavirus-19. Ebola Screen: Patient negative for fever greater than or equal to 101.5 degrees Fahrenheit, and additional compatible Ebola Virus Disease symptoms. Initial Sepsis Screen: Does the patient meet any 2 criteria? No. Patient's initial sepsis screen is negative. Does the patient have a suspected source of infection? No. Patient's initial sepsis screen is negative. Risk Assessment: Do you want to hurt yourself or someone else? Patient reports no desire to harm self or others. Onset of symptoms was February 28, 2020. 15:44 Method Of Arrival: Ambulatory j 15:44 Acuity: RAFA 3 jd3 Triage Assessment: 15:45 General: Appears in no apparent distress. uncomfortable, obese, Behavior is calm, bp cooperative, appropriate for age. Pain: Complains of pain in left lower quadrant and suprapubic area. EENT: No deficits noted. Neuro: No deficits noted. Cardiovascular: Rhythm is sinus tachycardia. Respiratory: No deficits noted. GI: Abdomen is non-distended, Reports lower abdominal pain, nausea. : No signs and/or symptoms were reported regarding the genitourinary system. Derm: No deficits noted. Musculoskeletal: No deficits noted. Historical: - Allergies: 15:46 No Known Allergies; jd3 - Home Meds: 15:46 lisinopril 30 mg Oral tab 1 tab once daily [Active]; jd3 - PMHx: 15:46 Hypertension; Hypothyroidism; jd3 - PSHx: 15:46 Cholecystectomy; Tubal ligation; left kidney removed; jd3 - Immunization history:: Adult Immunizations up to date. - Social history:: Smoking status: Patient denies any tobacco usage or history of. Screenin:45 Abuse screen: Denies threats or abuse. Denies injuries from another. Nutritional bp screening: No deficits noted. Tuberculosis screening: No symptoms or risk factors identified. Fall Risk None identified. Assessment: 15:45 General: SEE TRIAGE NOTE. bp 17:00 Reassessment: Patient appears in no apparent distress at this time. No changes from bp previously documented assessment. Patient is alert, oriented x 3, equal unlabored respirations, skin warm/dry/pink. PT RETURNED FROM CT. 17:30 Reassessment: U/S PENDING FOR R/O TORSION. bp 18:09 Reassessment: Patient appears in no apparent distress at this time. No changes from bp previously documented assessment. U/S AT B/S. 18:57 Reassessment: PT D/C HOME AMBULATORY, DX WITH DIVERTICULITIS WITHOUT PERFORATION. bp Vital Signs: 15:45 BP 122 / 91; Pulse 106; Resp 18 S; Temp 99.4(O); Pulse Ox 97% on R/A; Weight 80.74 kg jd3 (R); Height 5 ft. 1 in. (154.94 cm) (R); Pain 6/10; 17:00 BP 113 / 80; Pulse 100; Resp 18; Pulse Ox 100% ; bp 18:00 BP 114 / 83; Pulse 101; Resp 16; Pulse Ox 100% ; bp 15:45 Body Mass Index 33.63 (80.74 kg, 154.94 cm) jd3 ED Course: 15:36 Patient arrived in ED. ds1 15:38 Estevan Dominguez PA is PHCP. cp 15:38 Nettie Finch MD is Attending Physician. cp 15:45 Triage completed. jd3 15:45 Patient has correct armband on for positive identification. Bed in low position. Call bp light in reach. Side rails up X2. 15:46 Arm band placed on. jd3 15:57 Shimon Owens, JERALD is Primary Nurse. bp 16:05 Inserted saline lock: 20 gauge in right antecubital area, using aseptic technique. dh4 Blood collected. 16:59 Abdomen In Process Unspecified. EDMS 18:23 US Transvaginal Study (Probe) In Process Unspecified. EDMS 18:44 Carolyn Rangel MD is Referral Physician. cp 18:44 David Giles MD is Referral Physician. cp 18:57 No provider procedures requiring assistance completed. IV discontinued, intact, bp bleeding controlled, No redness/swelling at site. Pressure dressing applied. Administered Medications: 16:00 Drug: Zofran (Ondansetron) 4 mg Route: IVP; Site: right antecubital; bp 19:00 Follow up: Response: No adverse reaction bp 16:00 Drug: morphine 2 mg Route: IVP; Site: right antecubital; bp 18:59 Follow up: Response: Pain is decreased bp 17:35 Drug: metroNIDAZOLE 500 mg Volume: 100 ml; Route: IVPB; Infused Over: 30 mins; Site: bp right antecubital; 18:59 Follow up: IV Status: Completed infusion; IV Intake: 100ml bp 17:46 CANCELLED (Physician Discretion): Cipro 500 mg PO once cp 18:50 Drug: Hydrocodone-Acetaminophen (7.5 mg-325 mg) 1 tabs Route: PO; bp 18:57 Follow up: Response: Pain is decreased bp 18:50 Drug: Cipro 500 mg Route: PO; bp 18:57 Follow up: Response: Medication administered at discharge. bp Intake: 18:59 IV: 100ml; Total: 100ml. bp Outcome: 18:45 Discharge ordered by MD. cp 18:57 Discharged to home ambulatory. bp 18:57 Condition: stable 18:57 Discharge instructions given to patient, Instructed on discharge instructions, follow up and referral plans. medication usage, Demonstrated understanding of instructions, follow-up care, medications, Prescriptions given X 4. 19:00 Patient left the ED. bp Addendum: 03/06/2020 07:47 Addendum: Culture Results: Positive urine culture. No further action required. Bacteria s s sensitive to prescribed antibiotic. Signatures: [facility]patcher [facility] Sonya Herman ds1 Cari Sanchez RN RN ss Estevan Dominguez, MARIE PA Sage Salazar RN RN Shimon Simental RN RN Ha Romo 4 Corrections: (The following items were deleted from the chart) 03/02 16:59 16:58 In radiology for Abdomen Pelvis W Con+CT.RAD.BRZ. EDGA EDMS
[2020-03-02] MEDS ORDERED: CIPROFLOXACIN HCL 500 MG TAB ONE (19:04)
[2020-03-02] MEDS ORDERED: HYDROCODONE/APAP 7.5/325 MG TAB ONE (19:05)
[2020-03-02 21:29] VITALS: TEMP 99.4
[2020-03-02 21:32] VITALS: O2SAT 100
[2020-03-02 21:34] VITALS: BP 114/83
== END 2020-03-02 19:00 | disposition home or self-care (01) ==
LOC: ER 15:34
DX: K57.32 Diverticulitis of large intestine without perforation or abscess without bleeding (principal); N83.202 Unspecified ovarian cyst, left side; I10 Essential (primary) hypertension; E03.9 Hypothyroidism, unspecified
CPT/HCPCS: 36415; 74176; 76830; 80048; 80076; 81003; 81015; 81025; 83690; 85025; 87077; 87086; 87088; 87186; 96365; 96375; 99284; J2270; J2405

== ENCOUNTER 2020-03-14 07:23 | Emergency (ER) | payer SELFPAY ==
[2020-03-14] MEDS ORDERED: KETOROLAC 30 MG/ML INJ ONE (07:58)
--- NOTE | 2020-03-14 08:25 | EDPHYS ---
Physician Documentation [facility] Name: Gaby Wheeler Age: 54 yrs Sex: Female : 1965 Arrival Date: 03/14/2020 Time: 07:24 Bed 18 Private MD: ED Physician Nettie Finch HPI: 03/14 07:49 This 54 yrs old Female presents to ER via Wheelchair with complaints of Knee ma2 Pain. 07:49 The patient presents with decreased range of motion. The complaints affect the medial ma2 aspect of left knee. Onset: The symptoms/episode began/occurred gradually, 2 day(s) ago. Associated signs and symptoms: Pertinent negatives numbness, swelling, tingling, vomiting, warmth. Severity of symptoms: At their worst the symptoms were moderate, in the emergency department the symptoms are unchanged. The patient has not experienced similar symptoms in the past. Historical: - Allergies: 07:42 No Known Allergies; iw - Home Meds: 07:42 None [Active]; iw - PMHx: 07:42 Hypertension; Hypothyroidism; iw - PSHx: 07:42 Cholecystectomy; Tubal ligation; left kidney removed; iw - Immunization history:: Adult Immunizations not up to date. - Social history:: Smoking status: Patient denies any tobacco usage or history of. Patient/guardian denies using alcohol, street drugs, The patient lives with family. - Family history:: not pertinent. ROS: 07:49 Constitutional: Negative for fever, chills, and weight loss. ma2 07:49 All other systems are negative. Exam: 07:49 Constitutional: This is a well developed, well nourished patient who is awake, alert, ma2 and in no acute distress. Head/Face: Normocephalic, atraumatic. Eyes: Pupils equal round and reactive to light, extra-ocular motions intact. Lids and lashes normal. Conjunctiva and sclera are non-icteric and not injected. Cornea within normal limits. Periorbital areas with no swelling, redness, or edema. ENT: Nares patent. No nasal discharge, no septal abnormalities noted. Tympanic membranes are normal and external auditory canals are clear. Oropharynx with no redness, swelling, or masses, exudates, or evidence of obstruction, uvula midline. Mucous membranes moist. Neck: Trachea midline, no thyromegaly or masses palpated, and no cervical lymphadenopathy. Supple, full range of motion without nuchal rigidity, or vertebral point tenderness. No Meningismus. Chest/axilla: Normal chest wall appearance and motion. Nontender with no deformity. No lesions are appreciated. Cardiovascular: Regular rate and rhythm with a normal S1 and S2. No gallops, murmurs, or rubs. Normal PMI, no JVD. No pulse deficits. Respiratory: Lungs have equal breath sounds bilaterally, clear to auscultation and percussion. No rales, rhonchi or wheezes noted. No increased work of breathing, no retractions or nasal flaring. Abdomen/GI: Soft, non-tender, with normal bowel sounds. No distension or tympany. No guarding or rebound. No evidence of tenderness throughout. Skin: Warm, dry with normal turgor. Normal color with no rashes, no lesions, and no evidence of cellulitis. MS/ Extremity: Pulses equal, no cyanosis. Neurovascular intact. Full, normal range of motion. Neuro: Awake and alert, GCS 15, oriented to person, place, time, and situation. Cranial nerves II-XII grossly intact. Motor strength 5/5 in all extremities. Sensory grossly intact. Cerebellar exam normal. Normal gait. Vital Signs: 07:40 BP 140 / 90; Pulse 89; Resp 16 S; Temp 97.3; Pulse Ox 100% on R/A; Weight 80.74 kg; iw Height 5 ft. 1 in. (154.94 cm); Pain 10/10; 08:56 BP 116 / 82; Pulse 77; Resp 16; Temp 97.5; Pulse Ox 100% ; bp 07:40 Body Mass Index 33.63 (80.74 kg, 154.94 cm) iw MDM: 07:32 Patient medically screened. ma2 07:49 Differential diagnosis: dislocation, contusion, abrasion, tendonitis. ma2 08:24 Data reviewed: vital signs, nurses notes. Counseling: I had a detailed discussion with ma2 the patient and/or guardian regarding: the historical points, exam findings, and any diagnostic results supporting the discharge/admit diagnosis, the presence of at least one elevated blood pressure reading (>120/80) during this emergency department visit, the need for outpatient follow up. Response to treatment: the patient's symptoms have markedly improved after treatment. 03/14 08:38 Order name: IVAN GAONA Administered Medications: 07:49 Drug: TORadol 60 mg Route: IM; Site: right gluteus; bp 08:58 Follow up: Response: Pain is decreased bp Disposition: 03/14/20 08:24 Discharged to Home. Impression: Pain in left knee. - Condition is Stable. - Discharge Instructions: Knee Pain, [id number]. - Prescriptions for Diclofenac Sodium 75 mg Oral Tablet Sustained Release - take 1 tablet by ORAL route 2 times per day; 30 tablet. - Work release form, Medication Reconciliation Form, Thank You Letter, Antibiotic Education, Prescription Opioid Use form. - Follow up: Private Physician; When: Tomorrow; Reason: Continuance of care. Signatures: Dispatcher [employer] Deisi Chamberlain RN RN iw Peltier, Brian, RN RN Nettie Rodríguez MD MD ma2 Corrections: (The following items were deleted from the chart) 08:58 08:24 03/14/2020 08:24 Discharged to Home. Impression: Pain in left knee. Condition is bp Stable. Prescriptions for Diclofenac Sodium 75 mg Oral Tablet Sustained Release - take 1 tablet by ORAL route 2 times per day; 30 tablet. and Forms are Medication Reconciliation Form, Thank You Letter, Antibiotic Education, Prescription Opioid Use. Follow up: Private Physician; When: Tomorrow; Reason: Continuance of care. ma2
--- NOTE | 2020-03-14 08:25 | ER ---
Nurse's Notes [facility] Name: Gaby Wheeler Age: 54 yrs Sex: Female : 1965 Arrival Date: 03/14/2020 Time: 07:24 Bed 18 Private MD: Diagnosis: Pain in left knee Presentation: 03/14 07:40 Chief complaint: Patient states: left knee pain since Friday, has swelling and felt a iw pop, can't put weight on it. Coronavirus screen: At this time, the client does not indicate any symptoms associated with coronavirus-19. Ebola Screen: Patient negative for fever greater than or equal to 101.5 degrees Fahrenheit, and additional compatible Ebola Virus Disease symptoms Patient denies exposure to infectious person. Patient denies travel to an Ebola-affected area in the 21 days before illness onset. No symptoms or risks identified at this time. Initial Sepsis Screen: Does the patient meet any 2 criteria? No. Patient's initial sepsis screen is negative. Does the patient have a suspected source of infection? No. Patient's initial sepsis screen is negative. Risk Assessment: Do you want to hurt yourself or someone else? Patient reports no desire to harm self or others. Onset of symptoms was March 12, 2020. 07:40 Method Of Arrival: Wheelchair iw 07:40 Acuity: RAFA 4 iw Triage Assessment: 07:45 General: Appears distressed, uncomfortable, obese, Behavior is cooperative, appropriate bp for age, anxious. Pain: Complains of pain in left knee. EENT: No deficits noted. Neuro: No deficits noted. Cardiovascular: No deficits noted. Respiratory: No deficits noted. GI: No signs and/or symptoms were reported involving the gastrointestinal system. : No signs and/or symptoms were reported regarding the genitourinary system. Derm: No deficits noted. Musculoskeletal: Range of motion: limited in left knee Reports pain in left knee. Historical: - Allergies: 07:42 No Known Allergies; iw - Home Meds: 07:42 None [Active]; iw - PMHx: 07:42 Hypertension; Hypothyroidism; iw - PSHx: 07:42 Cholecystectomy; Tubal ligation; left kidney removed; iw - Immunization history:: Adult Immunizations not up to date. - Social history:: Smoking status: Patient denies any tobacco usage or history of. Patient/guardian denies using alcohol, street drugs, The patient lives with family. - Family history:: not pertinent. Screenin:45 Abuse screen: Denies threats or abuse. Denies injuries from another. Nutritional bp screening: No deficits noted. Tuberculosis screening: No symptoms or risk factors identified. Fall Risk None identified. Assessment: 07:45 General: SEE TRIAGE NOTE. bp 08:56 Reassessment: PT D/C HOME AMBULATORY WITH FAMILY, DX WITH LEFT KNEE PAIN. bp Vital Signs: 07:40 BP 140 / 90; Pulse 89; Resp 16 S; Temp 97.3; Pulse Ox 100% on R/A; Weight 80.74 kg; iw Height 5 ft. 1 in. (154.94 cm); Pain 10/10; 08:56 BP 116 / 82; Pulse 77; Resp 16; Temp 97.5; Pulse Ox 100% ; bp 07:40 Body Mass Index 33.63 (80.74 kg, 154.94 cm) iw ED Course: 07:24 Patient arrived in ED. ag5 07:32 Nettie Finch MD is Attending Physician. maSue 07:35 Shimon Owens, RN is Primary Nurse. bp 07:41 Triage completed. iw 07:42 Arm band placed on. iw 07:45 Patient has correct armband on for positive identification. Bed in low position. Call bp light in reach. Side rails up X2. 08:56 No provider procedures requiring assistance completed. Patient did not have IV access bp during this emergency room visit. Administered Medications: 07:49 Drug: TORadol 60 mg Route: IM; Site: right gluteus; bp 08:58 Follow up: Response: Pain is decreased bp Outcome: 08:24 Discharge ordered by . maSue 08:56 Discharged to home ambulatory. bp 08:56 Condition: stable 08:56 Discharge instructions given to patient, Instructed on discharge instructions, follow up and referral plans. medication usage, Demonstrated understanding of instructions, follow-up care, medications, Prescriptions given X 1. 08:58 Patient left the ED. bp Signatures: Deisi Hall RN JERALD Shimon Owens RN RN bp Alzahri, Mohammad, MD MD ma2 Gaskin, Ajare ag5
--- NOTE | 2020-03-14 08:37 | RAD REPORT ---
EXAM DESCRIPTION: RAD - Knee Left 3 View - 03/14/2020 8:27 am CLINICAL HISTORY: Left knee pain FINDINGS: No fracture or dislocation is seen. No significant bone or joint abnormality seen
== END 2020-03-14 08:58 | disposition home or self-care (01) ==
LOC: ER 07:23
DX: M25.562 Pain in left knee (principal); I10 Essential (primary) hypertension
CPT/HCPCS: 96372; 99283

== ENCOUNTER 2020-04-13 22:39 | Inpatient (IN) | payer BC, SELFPAY ==
[2020-04-13] MEDS ORDERED: ONDANSETRON 4 MG/2 ML VIAL ONE (23:48)
[2020-04-13] MEDS ORDERED: NA CHLORIDE 0.9% 3,000 ML ONE (23:48)
[2020-04-13 23:59] LABS: Absolute Lymphocytes (CBC) 0.5 K/uL (0.7-4.9); Basophils % 0.2 % (0-1.3); Hematocrit 42.9 % (36.0-45.0); Lymphocytes % 11.7 % (15.3-44.8); MPV 9.6 fL (7.6-11.3); RBC Red Blood Cell Count 4.67 M/uL (3.86-4.86)
[2020-04-14 00:16] LABS: ALT/SGPT 28 U/L (12-78); AST/SGOT 53 U/L (15-37); Alkaline Phosphatase 103 U/L (45-117); Amylase 64 U/L (25-115); BUN Blood Urea Nitrogen 18 mg/dL (7-18); Bicarbonate 20 mmol/L (21-32); Bilirubin Direct 0.2 mg/dL (0-0.2); Bilirubin Total 0.9 mg/dL (0.2-1.0); CKMB Creatine Kinase MB 4.4 ng/mL (0.3-3.6); Creatine Phosphokinase 637 U/L (26-192); Glucose Level 81 mg/dL (74-106); Lipase 139 U/L (73-393); Protein, Total 8.8 g/dL (6.4-8.2); Sodium Level 134 mmol/L (136-145); Troponin (Emerg Dept Use Only) < 0.02 ng/mL (0.0-0.045)
[2020-04-14 00:28] LABS: Protime INR 1.01
[2020-04-14 00:54] LABS: Urine Blood TRACE (NEG); Urine Glucose NEGATIVE (NEG); Urine Protein 2+ (NEG); Urine Specific Gravity 1.015 (1.005-1.030); Urine pH 5.5 (5.0-7.0)
[2020-04-14 01:13] LABS: Barbiturates NEGATIVE (NEGATIVE); Benzodiazepines NEGATIVE (NEGATIVE); Cocaine NEGATIVE (NEGATIVE); METHAMPHETAM NEGATIVE (NEGATIVE); Methadone NEGATIVE (NEGATIVE); Opiates NEGATIVE (NEGATIVE); Phencyclidine NEGATIVE (NEGATIVE); THC Cannibis NEGATIVE (NEGATIVE)
[2020-04-14] MEDS ORDERED: POTASSIUM CL SA 10 MEQ TAB PO ONE (01:23)
[2020-04-14] MEDS ORDERED: KCL 20 MEQ/100 mL IVPB 20 MEQ/100 ML BAG IV ONE (01:24)
[2020-04-14] MEDS ORDERED: CIPROFLOXACIN 400mg IV 400 MG/200 ML BAG IV ONE (01:24)
[2020-04-14 01:46] LABS: Urine Amorphous Sediment 2+ /HPF (NONE SEEN); Urine Bacteria >50 /HPF (<20); Urine Coarse Granular Casts FEW /LPF (NONE SEEN); Urine Mucus 2+ /HPF (NONE SEEN)
[2020-04-14] MEDS ORDERED: ONDANSETRON 4 MG/2 ML VIAL ONE (03:02)
--- NOTE | 2020-04-14 05:45 | EDPHYS ---
Physician Documentation [facility] Name: Gaby Wheeler Age: 54 yrs Sex: Female : 1965 Arrival Date: 04/13/2020 Time: 22:44 Bed 2 Private MD: ED Physician Chan Zuluaga HPI: 04/13 23:43 This 54 yrs old Female presents to ER via Wheelchair with complaints of pkl Nausea, Chills. 23:43 The patient presents with abdominal pain in the lower abdomen. Onset: The pkl symptoms/episode began/occurred just prior to arrival, 2 hour(s) ago. Associated signs and symptoms: Pertinent positives: nausea, vomiting, and diarrhea. diagnosed with Diverticulitis 2 months ago. Historical: - Allergies: 23:28 No Known Allergies; sg - PMHx: 23:28 Hypertension; Hypothyroidism; sg - PSHx: 23:28 Cholecystectomy; Tubal ligation; left kidney removed; sg - Immunization history:: Adult Immunizations not up to date. - Social history:: Smoking status: Patient denies any tobacco usage or history of. ROS: 23:43 Eyes: Negative for injury, pain, redness, and discharge, ENT: Negative for injury, pkl pain, and discharge, Neck: Negative for injury, pain, and swelling, Cardiovascular: Negative for chest pain, palpitations, and edema, Respiratory: Negative for shortness of breath, cough, wheezing, and pleuritic chest pain. 23:43 Abdomen/GI: Positive for abdominal pain, of the right lower quadrant and left lower quadrant. 23:43 Abdomen/GI: Positive for nausea, vomiting, and diarrhea. 23:43 Back: Negative for acute changes. pkl 23:43 : Negative for urinary symptoms. 23:43 MS/extremity: Negative for acute changes. 23:43 Skin: Negative for rash. 23:43 Neuro: Negative for altered mental status. Exam: 23:43 Head/Face: Normocephalic, atraumatic. Eyes: Pupils equal round and reactive to light, pkl extra-ocular motions intact. Lids and lashes normal. Conjunctiva and sclera are non-icteric and not injected. Cornea within normal limits. Periorbital areas with no swelling, redness, or edema. ENT: Nares patent. No nasal discharge, no septal abnormalities noted. Tympanic membranes are normal and external auditory canals are clear. Oropharynx with no redness, swelling, or masses, exudates, or evidence of obstruction, uvula midline. Mucous membranes moist. Neck: Trachea midline, no thyromegaly or masses palpated, and no cervical lymphadenopathy. Supple, full range of motion without nuchal rigidity, or vertebral point tenderness. No Meningismus. Chest/axilla: Normal chest wall appearance and motion. Nontender with no deformity. No lesions are appreciated. Cardiovascular: Regular rate and rhythm with a normal S1 and S2. No gallops, murmurs, or rubs. Normal PMI, no JVD. No pulse deficits. Respiratory: Lungs have equal breath sounds bilaterally, clear to auscultation and percussion. No rales, rhonchi or wheezes noted. No increased work of breathing, no retractions or nasal flaring. 23:43 Abdomen/GI: Bowel sounds: normal, Palpation: soft, mild abdominal tenderness, in the right lower quadrant and left lower quadrant. 23:43 Back: Exam negative for acute changes. 23:43 : Exam negative for acute changes. 23:43 Musculoskeletal/extremity: Exam is negative for acute changes. 23:43 Skin: Exam negative for rash. 23:43 Neuro: Orientation: is normal, Mentation: is normal, Cranial nerves: grossly normal, Motor: is normal. Vital Signs: 23:23 BP 90 / 58; Pulse 146; Resp 18; Temp 97.7; Pulse Ox 100% on R/A; Weight 83.91 kg (R); sg Pain 8/10; 23:54 BP 83 / 65; Pulse 142; Resp 18; Pulse Ox 95% on R/A; mg2 04/14 01:01 BP 108 / 75; Pulse 128; Resp 18; Pulse Ox 98% on R/A; mg2 02:13 BP 108 / 79; Pulse 131; Resp 18; Pulse Ox 100% on R/A; mg2 03:27 BP 114 / 79; Pulse 130; Resp 18; Pulse Ox 97% on R/A; mg2 MDM: 04/13 23:35 Patient medically screened. pkl 04/14 05:40 Data reviewed: vital signs, nurses notes, lab test result(s), radiologic studies, CT pkl scan. ED course: Talked to Dr. Gallardo, admit to hospitalist ( Dr. Vasquez Curtis ). 04/13 23:39 Order name: Amylase, Serum; Complete Time: 01:00 mg2 04/13 23:39 Order name: Basic Metabolic Panel; Complete Time: :00 mg2 04/13 23:39 Order name: Blood Culture Adult (2) mg2 04/13 23:39 Order name: CBC with Diff; Complete Time: 01:00 mg2 04/13 23:39 Order name: Ckmb; Complete Time: 01:00 mg2 04/13 23:39 Order name: CPK; Complete Time: 01:00 mg2 04/13 23:39 Order name: Lactate; Complete Time: 01:00 mg2 04/13 23:39 Order name: LFT's; Complete Time: :00 mg2 04/13 23:39 Order name: Lipase; Complete Time: :00 mg2 04/13 23:39 Order name: Procalcitonin; Complete Time: 01:00 mg2 04/13 23:39 Order name: Protime (+inr); Complete Time: 01:00 mg2 04/13 23:39 Order name: Ptt, Activated; Complete Time: 01:00 mg2 04/13 23:39 Order name: Troponin (emerg Dept Use Only); Complete Time: 01:00 mg2 04/13 23:39 Order name: Urine Microscopic Only; Complete Time: 02:52 mg2 04/13 23:39 Order name: Chest Single View XRAY mg2 04/13 23:40 Order name: ETOH Level; Complete Time: 01:00 mg2 04/13 23:40 Order name: UDS; Complete Time: 02:52 mg2 04/13 23:46 Order name: Glucose, Ancillary Testing; Complete Time: 01:00 EDMS 04/14 00:51 Order name: Urine Dipstick--Ancillary (enter results); Complete Time: 01:00 mw2 04/14 01:47 Order name: Urine Culture EDMS 04/14 02:36 Order name: Abdomen EDMS 04/14 03:49 Order name: Lactate Sepsis 2 HR Follow-up; Complete Time: 04:25 EDMS 04/14 05:29 Order name: COVID-19 pkl 04/14 05:29 Order name: Flu pkl 04/14 06:50 Order name: COVID-19/FLU A+B EDMS 04/14 08:57 Order name: Lactate EDMS 04/13 23:39 Order name: Accucheck; Complete Time: 23:42 mg2 04/13 23:39 Order name: Cardiac monitoring; Complete Time: 23:42 mg2 04/13 23:39 Order name: EKG - Nurse/Tech; Complete Time: 23:50 mg2 04/13 23:39 Order name: IV Saline Lock - Large Bore; Complete Time: 23:43 mg2 04/13 23:39 Order name: Labs collected and sent; Complete Time: 23:43 mg2 04/13 23:39 Order name: O2 Per Protocol; Complete Time: 23:43 mg2 04/13 23:39 Order name: O2 Sat Monitoring; Complete Time: 23:43 mg2 04/13 23:39 Order name: Urine Dipstick-Ancillary (obtain specimen); Complete Time: : mg2 Administered Medications: 04/13 23:42 Drug: NS 0.9% (30 ml/kg) 30 ml/kg Route: IV; Rate: bolus; Site: right antecubital; mg2 23:42 Drug: Zofran (Ondansetron) 4 mg Route: IVP; Site: right antecubital; mg2 04/14 01:01 Follow up: Response: No adverse reaction mg2 01:14 Drug: Ciprofloxacin 400 mg Volume: 200 ml; Route: IVPB; Infused Over: 60 mins; Site: mg2 right antecubital; 02:13 Follow up: Response: No adverse reaction; IV Status: Completed infusion; IV Intake: rr5 200ml 01:15 Drug: Potassium Chloride 20 mEq Route: IV; Rate: calculated rate; Site: right mg2 antecubital; 06:16 Follow up: Response: No adverse reaction mg2 01:15 Drug: K-Dur 40 mEq Route: PO; mg2 06:15 Follow up: Response: No adverse reaction mg2 05:40 Drug: Zosyn 3.375 grams Route: IVPB; Infused Over: 60 mins; Site: right antecubital; mg2 Disposition: 04/14/20 05:44 Hospitalization ordered by Vasquez Curtis for Inpatient Admission. Preliminary diagnosis is Acute sigmoid diverticulitis with localized perforation. - Bed requested for Telemetry/MedSurg (Inpatient). - Status is Inpatient Admission. jl7 - Condition is Stable. - Problem is new. - Symptoms are unchanged. Signatures: Dispatcher [employer] EDMaxx Gomez RN Chan Lloyd MD MD pkl Mateo Kumar, KALSOMINER-C KALSOMINER-Cla1 Lyn Rankin, JERALD RN cg En Neri RN RN jl7 Gabrielle Davison Michele, RN RN [facility] Vasquez Miranda RN rr5 Corrections: (The following items were deleted from the chart) 02:36 0107 23:42 Abdomen Pelvis W Con+CT.RAD.BRZ ordered. EDME EDMS 04/14 05:56 05:30 Influenza Screen (A ordered. EDMS EDMS 05:57 05:30 CORONAVIRUS ordered. EDME EDMS 06:29 05:44 Hospitalization Ordered by Vasquez Curtis MD for Inpatient Admission. Preliminary cg diagnosis is Acute sigmoid diverticulitis with localized perforation. Bed requested for Telemetry/MedSurg (Inpatient). Status is Inpatient Admission. Condition is Stable. Problem is new. Symptoms are unchanged. pk 08:00 06:29 04/14/2020 05:44 Hospitalization Ordered by Vasquez Curtis MD for Inpatient eb Admission. Preliminary diagnosis is Acute sigmoid diverticulitis with localized perforation. Bed requested for [facility] ER HOLD. Status is Inpatient Admission. Condition is Stable. Problem is new. Symptoms are unchanged. cg 12:06 08:00 04/14/2020 05:44 Hospitalization Ordered by Vasquez Curtis MD for Inpatient jl7 Admission. Preliminary diagnosis is Acute sigmoid diverticulitis with localized perforation. Bed requested for Telemetry/MedSurg (Inpatient). Status is Inpatient Admission. Condition is Stable. Problem is new. Symptoms are unchanged. eb
--- NOTE | 2020-04-14 05:45 | ER ---
Nurse's Notes [facility] Name: Gaby Wheeler Age: 54 yrs Sex: Female : 1965 Arrival Date: 04/13/2020 Time: 22:44 Bed 2 Private MD: Diagnosis: Acute sigmoid diverticulitis with localized perforation Presentation: 04/13 23:23 Chief complaint: Patient states: around 9 pm tonight I started having lower abdominal sg cramping with nausea and diarrhea. I took some left over flagyl and cipro because I didn't finish the abx, then I had 4 beers I didn't even think about the alcohol and flagyl not mixing. I have also had some chills but no fever. 23:23 Acuity: RAFA 3 sg 23:23 Coronavirus screen: Client denies travel out of the [place] in the last 14 days. diarrhea, sg nausea, Client presents with at least one sign or symptom that may indicate coronavirus-19. Standard/surgical mask placed on the client. Provider contacted for isolation considerations. Ebola Screen: Patient negative for fever greater than or equal to 101.5 degrees Fahrenheit, and additional compatible Ebola Virus Disease symptoms Patient denies exposure to infectious person. Patient denies travel to an Ebola-affected area in the 21 days before illness onset. No symptoms or risks identified at this time. Initial Sepsis Screen: Does the patient meet any 2 criteria? Systolic BP < 90 mmHg. HR > 90 bpm. Does the patient have a suspected source of infection? Yes: Acute abdominal pain. Risk Assessment: Do you want to hurt yourself or someone else? Patient reports no desire to harm self or others. Onset of symptoms was April 13, 2020. Care prior to arrival: None. Transition of care: patient was not received from another setting of care. 23:23 Method Of Arrival: Wheelchair sg Historical: - Allergies: 23:28 No Known Allergies; sg - PMHx: 23:28 Hypertension; Hypothyroidism; sg - PSHx: 23:28 Cholecystectomy; Tubal ligation; left kidney removed; sg - Immunization history:: Adult Immunizations not up to date. - Social history:: Smoking status: Patient denies any tobacco usage or history of. Screenin:27 Abuse screen: Denies threats or abuse. Denies injuries from another. Nutritional sg screening: No deficits noted. Tuberculosis screening: No symptoms or risk factors identified. Never had TB. Fall Risk None identified. Assessment: 23:27 Reassessment: a code sepsis has been activated. sg 23:31 General: Appears in no apparent distress. comfortable, Behavior is calm, cooperative. mg2 Pain: Complains of pain in abdomen. Neuro: Level of Consciousness is awake, alert, obeys commands, Oriented to person, place, time, situation. Cardiovascular: Capillary refill < 3 seconds Patient's skin is warm and dry. Respiratory: Airway is patent Respiratory effort is even, unlabored, Respiratory pattern is regular, symmetrical. GI: Abdomen is non-distended, Reports lower abdominal pain, upper abdominal pain, nausea. : No signs and/or symptoms were reported regarding the genitourinary system. EENT: No signs and/or symptoms were reported regarding the EENT system. Derm: Skin is intact, is healthy with good turgor, Skin is pink, warm \T\ dry. normal. Musculoskeletal: Circulation, motion, and sensation intact. Capillary refill < 3 seconds. 04/14 02:14 Reassessment: Patient appears in no apparent distress at this time. Patient and/or mg2 family updated on plan of care and expected duration. Pain level reassessed. Patient is alert, oriented x 3, equal unlabored respirations, skin warm/dry/pink. 03:02 Reassessment: ct infomed patient completed oral contrast. mg2 03:27 Reassessment: Patient appears in no apparent distress at this time. Patient and/or mg2 family updated on plan of care and expected duration. Pain level reassessed. Patient is alert, oriented x 3, equal unlabored respirations, skin warm/dry/pink. Vital Signs: 04/13 23:23 BP 90 / 58; Pulse 146; Resp 18; Temp 97.7; Pulse Ox 100% on R/A; Weight 83.91 kg (R); sg Pain 8/10; 23:54 BP 83 / 65; Pulse 142; Resp 18; Pulse Ox 95% on R/A; mg2 04/14 01:01 BP 108 / 75; Pulse 128; Resp 18; Pulse Ox 98% on R/A; mg2 02:13 BP 108 / 79; Pulse 131; Resp 18; Pulse Ox 100% on R/A; mg2 03:27 BP 114 / 79; Pulse 130; Resp 18; Pulse Ox 97% on R/A; mg2 ED Course: 04/13 22:44 Patient arrived in ED. cl3 23:17 Genaro Sahni, RN is Primary Nurse. mg2 23:24 Triage completed. sg 23:26 Arm band placed on. sg 23:30 Inserted saline lock: 20 gauge in right antecubital area, using aseptic technique. mg2 Blood collected. 23:31 Patient has correct armband on for positive identification. mg2 23:31 No provider procedures requiring assistance completed. mg2 23:35 Chan Zuluaga MD is Attending Physician. pkl 23:41 phototypesetting equipment monitor on. Pulse ox on. NIBP on. mh5 23:52 EKG done, by ED staff, reviewed by Chan Zuluaga MD. mh5 04/14 00:08 Chest Single View XRAY In Process Unspecified. EDMS 00:27 Notified ED physician of a critical lab result(s). Lactate 2.6. sg 00:50 Straight cath inserted, using sterile technique, 16 Fr. mg2 04:37 Abdomen In Process Unspecified. EDMS 05:42 Vasquez Curtis MD is Hospitalizing Provider. pkl 06:19 Patient admitted, IV remains in place. mg2 07:00 Report received from JERALD Thakkar. jl7 Administered Medications: 04/13 23:42 Drug: NS 0.9% (30 ml/kg) 30 ml/kg Route: IV; Rate: bolus; Site: right antecubital; mg2 23:42 Drug: Zofran (Ondansetron) 4 mg Route: IVP; Site: right antecubital; mg2 04/14 01:01 Follow up: Response: No adverse reaction mg2 01:14 Drug: Ciprofloxacin 400 mg Volume: 200 ml; Route: IVPB; Infused Over: 60 mins; Site: mg2 right antecubital; 02:13 Follow up: Response: No adverse reaction; IV Status: Completed infusion; IV Intake: rr5 200ml 01:15 Drug: Potassium Chloride 20 mEq Route: IV; Rate: calculated rate; Site: right mg2 antecubital; 06:16 Follow up: Response: No adverse reaction mg2 01:15 Drug: K-Dur 40 mEq Route: PO; mg2 06:15 Follow up: Response: No adverse reaction mg2 05:40 Drug: Zosyn 3.375 grams Route: IVPB; Infused Over: 60 mins; Site: right antecubital; mg2 Intake: 02:13 IV: 200ml; Total: 200ml. rr5 Outcome: 05:44 Decision to Hospitalize by Provider. dana 12:05 Admitted to Med/surg accompanied by tech, via wheelchair, room 217, with chart, Report jl7 called to JERALD Randolph 12:05 Condition: stable 12:05 Discharge instructions given to patient, Instructed on the need for admit, Demonstrated understanding of instructions. 12:06 Patient left the ED. ninfa Signatures: Dispatcher [employer] EDMaxx Gomez, RN RN sg Chan Zuluaga MD MD pkl Martinez, Maria En Figueroa RN RN jl7 Genaro Sahni RN RN mg2 Vasquez Miranda RN RN rr5 Ade Walters cl3 Corrections: (The following items were deleted from the chart) 06:19 01:00 Straight cath inserted, using sterile technique, 16 Fr. mg2 mg2
[2020-04-14] MEDS ORDERED: PIPER/TAZO/NS 3.375gm 3.375 GM/100 ML BAG ONE ×2 (05:47→09:08)
[2020-04-14] MEDS: NA CHLORIDE 0.9% 1,000 ML IV SCH ×3 (06:43→16:35)
[2020-04-14] MEDS ORDERED: ONDANSETRON 4 MG/2 ML VIAL IV PRN (06:43)
[2020-04-14] MEDS ORDERED: HYDROMORPHONE HCL 1 MG/ML INJ IV PRN (06:43)
[2020-04-14] MEDS ORDERED: ACETAMINOPHEN 650MG/RECT SUPP PR PRN (06:43)
[2020-04-14 06:50] LABS: SARS-COV-2 RT PCR NEGATIVE (NEGATIVE)
[2020-04-14 07:03] VITALS: BMI 34.9
--- NOTE | 2020-04-14 07:11 | P.HP ---
Certification for Inpatient Patient admitted to: Inpatient With expected LOS: >2 Midnights Practitioner: I am a practitioner with admitting privileges, knowledge of patient current condition, hospital course, and medical plan of care. Services: Services provided to patient in accordance with Admission requirements found in Title 42 Section 412.3 of the Code of Federal Regulations Patient History Date of Service: 04/14/20 Reason for admission: acute sigmoid diverticulitis with perforation History of Present Illness: 54yo F, PMH: HTN, Hypothyroidism who presents to ED with abdominal pain since 9pm yesterday, associated with chills and nausea. Pain is a dull/achy feeling. She reports feels similar but worse compared to prior episodes of diverticulitis. She denies vomiting, diarrhea, chest pain, shortness of breath. Her last bowel movement was yesterday and reportedly normal. In the ED, she was noted to be hypotensive 80s/60s. She had leftover Cipro and Flagyl from prior episode and took 1 of each along with drinking 2-4 beers. Labwork notable for elevated creatinine (1.8), hypokalemia, mild acidosis, and elevated pro calcitonin. Allergies No Known Allergies Allergy (Verified 07/19/15 15:04) Home Medications: Levothyroxine [Synthroid*] 1 tab PO DAILY 03/13/19 Simvastatin 1 tab PO DAILY 03/13/19 Losartan Potassium 50 mg PO DAILY 04/14/20 - Past Medical/Surgical History Diabetic: No -: hypothyroidism -: HTN -: Renal mass 07/21 -: Cholecystectomy -: Tonsillectomy -: Laparoscopic surgery on fallopian tubes -: Bilateral tubal ligation -: Renal mass 07/21 (kidney removed) - Family History Father -: Other (see notes) Notes: cirrrosis Mother -: Hypertension, Diabetes, Kidney disease Notes: ESRD - Social History Smoking Status: Never smoker Alcohol use: Yes CD- Drugs: No Caffeine use: Yes Place of Residence: Home Review of Systems 10-point ROS is otherwise unremarkable Physical Examination - Physical Exam General: Alert, In no apparent distress, Oriented x3 HEENT: Sclerae nonicteric Respiratory: Clear to auscultation bilaterally, Normal air movement Cardiovascular: No edema, Regular rate/rhythm Gastrointestinal: Hypoactive, Soft and benign, Tenderness (lower abdomen) Musculoskeletal: No tenderness Integumentary: No rashes, No significant lesion Neurological: Normal speech, Normal affect - Studies Laboratory Data (last 24 hrs) 04/13/20 23:50: PT 11.9, INR 1.01, APTT 23.7 L 04/13/20 23:30: WBC 4.4, Hgb 14.2, Hct 42.9, Plt Count 174 04/13/20 23:30: Sodium 134 L, Potassium 3.0 L, BUN 18, Creatinine 1.88 H, Glucose 81, Total Bilirubin 0.9, AST 53 H, ALT 28, Alkaline Phosphatase 103, Amylase 64, Lipase 139 Assessment and Plan - Advance Directives Does patient have a Living Will: No Does patient have a Durable POA for Healthcare: No Physician Review Additional Text: Sepsis secondary to Acute Sigmoid Diverticulitis with perforation h/o diverticulitis HTN Hypothyroidism b/l ground glass opacities was hypotensive and tachycardic on presentation to ED, BP responded well to sepsis bolus repeat lactate NPO, IVF, continue Zosyn general surgery consulted serial abdominal exams, pain control hold home BP meds b/l GGOs - negative rapid COVID test, pt denies SOB, no cough VTE: SCDs Code: full Dispo: hospitalization > 2days, anticipate dc home Time Spent Managing Pts Care (In Minutes): 60
[2020-04-14] MEDS ORDERED: NA CHLORIDE 0.9% 1,000 ML ONE (07:29)
[2020-04-14] MEDS ORDERED: INFLUENZA VACCINE (for 3y+) 0.5 ML DOSE IMVAC ONE (08:00)
--- NOTE | 2020-04-14 08:53 | RAD REPORT ---
EXAM DESCRIPTION: RAD - Chest Single View - 04/14/2020 12:03 am CLINICAL HISTORY: MALAISE Chest pain. COMPARISON: Chest Single View dated 03/13/2019 FINDINGS: Portable technique limits examination quality. The lungs are grossly clear. The heart is normal in size. No displaced fractures. IMPRESSION: No acute intrathoracic process suspected.
[2020-04-14] MEDS: PIPER/TAZO/NS 3.375gm 3.375 GM/100 ML BAG IVPB SCH ×2 (09:00→16:35)
[2020-04-14] MEDS ORDERED: HYDROMORPHONE HCL 1 MG/ML INJ ONE (09:08)
--- NOTE | 2020-04-14 09:26 | CON ---
Date of Consultation: 04/14/2020 Brief Hpi: The patient is a 54-year-old female, who presents to the hospital with a recurrent episod e of sigmoid diverticulitis. Her first episode was back in 2016. She had a colonoscopy which confir med the diagnosis at that time with Dr. Barrera. She subsequently developed several [facility] of [facility]i culitis[facility] She was started on Cipro and Flagyl, but stat es she felt better after she went home and did not complete the course of antibiotics. She continued to not modify her diet and had worsening pain yesterday. She drank alcohol to confound the situatio n late last evening and her pain got significantly worse and as such, she came to the emergency room with the above-stated complaints. Past Medical History: Significant for hypertension, hypothyroidism. She had a left kidney tumor, ch olelithiasis and recurrent diverticulitis. Past Surgical History: Cholecystectomy, tubal ligation, left nephrectomy, tonsillectomy, laparoscopi c surgery on fallopian tubes and bilateral/tubal ligation. Family History: Significant for cirrhosis in her father. Diabetes, kidney disease and end-stage peggy al disease in her mother. Home Medications: Include Synthroid, simvastatin, lisinopril. Allergies: NO KNOWN DRUG ALLERGIES. Social History: She admits to tobacco usage and alcohol usage recreationally. She denies recreation al drug use. Review of Systems: Ten-point review of systems other than HPI, denies. Physical Examination: Vital Signs: At the time of examination, her pulse is 98, respiratory rate is 20, SpO2 98% on room a ir. General: She is awake, alert, oriented. Psychiatric: She is appropriate conversive. HEENT: Normocephalic. Sclerae icteric. Mucous membranes moist. Oropharynx clear. Neck: Supple. No JVD. Chest: Normal expansion and excursion. Pulmonary: Clear to auscultation bilaterally but decreased breath sounds bilaterally. Abdomen: Soft with minimal left lower quadrant tenderness to palpation. No rebound. No guarding. No focal peritonitis. Obese generally. There are well-healed surgical scars evident. There are no peritoneal signs. Extremities: No clubbing, cyanosis, or edema. Skin: Warm, dry. Laboratory Data: Reveals a white blood count 4.4, hemoglobin is 14.2, hematocrit 42.9, platelet coun t is 174, neutrophils 87%. Her PT 11.9, INR 1.01, PTT is 23.7. Sodium is 134, potassium 3.0, chlori de 101, carbon dioxide 20, BUN 18, creatinine 1.8, glucose is 81. Lactic acid was 2.6. On admission , total bilirubin 0.9, direct bilirubin 0.2, AST 53, ALT 28, alkaline phosphatase 103. Her lipase wa s 139. Procalcitonin 0.6. Her UA showed 10 to 20 squamous cells. The white blood cells evident gre ater than 50 bacteria consistent with UTI. COVID was negative. Serum alcohol level is 27 with the n ormal range being less than 10. She had imaging performed, which included CT abdomen and pelvis, whi ch was officially read as acute sigmoid diverticulitis with localized perforation. There may be an i ntramural abscess. There were increased multifocal ground-glass infiltrates in the visualized lung b ases, could be typical appearance of COVID pneumonia, although other etiologies are possible. Assessment And Plan: This is a 54-year-old female who presents with recurrent episodes of sigmoid di verticulitis with micro perforation. Because her clinical exam is unconcerning at this time, I recom mend n.p.o., nonoperative management with IV fluids, hydration, electrolyte correction, medical manag ement, and antibiotics with Zosyn 3.375 IV q.6. Renal dosing as needed and serial exams. I have exp lained the risks, benefits, and alternatives of the above-stated plan. The patient agrees to as kun cated. The patient will need a colonoscopy as an outpatient. I have reviewed this with the patient as well. She can follow up with Dr. Barrera or myself, but I have referred her to see Dr. Barrera for this apparently. Additionally, she agrees to get a colonoscopy as an outpatient should she continue this episode and successfully be treated with nonope rative management. SIDNEY/PARAG Voice ID: [id number] Report ID: [id number]
--- NOTE | 2020-04-14 11:20 | RAD REPORT ---
EXAM DESCRIPTION: Abdomen Pelvis Wo Contrast ADDENDUM #1 Receipt of report is confirmed by Dr. Zuluaga at 5:28 AM 04/14/2020. Electronically signed by: Anamika Ashley MD 04/14/2020 7:08 AM SENIOR MEDICAL DIRECTOR End of Addendum CLINICAL HISTORY: ABD PAIN TECHNIQUE: Axial computed tomography images of the abdomen and pelvis without intravenous contrast. Sagittal and coronal reformatted images were created and reviewed. This CT exam was performed usi ng one or more of the following dose reduction techniques: automated exposure control, adjustment o f the mA and/or kV according to patient size, and/or use of iterative reconstruction technique. Ora l contrast was administered. COMPARISON: 03/02/2020 FINDINGS: Limitations: None. Lung bases: Increased groundglass infiltrates present in the lung bases. Pleural space: No abnormality noted. Heart: No abnormality noted. Mediastinum: No abnormality noted. ABDOMEN: Liver: Lack of intravenous contrast limits detection of some masses. No abnormality noted. Gallbladder and bile ducts: No calcified stones or surrounding fluid. Pancreas: Lack of intravenous contrast limits detection of some masses. No pancreatic mass, ca lcification, inflammation or ductal dilation noted. Spleen: No abnormality noted. Adrenals: Visualized portions appear normal. Kidneys and ureters: Left nephrectomy. Right kidney appears normal. Stomach and bowel: There is moderate thickening and mild surrounding inflammation of the proxima l sigmoid colon. There is a focus of heterogeneous low-density which may be within the proximal sig moid wall image 61/100. There are diverticula. There are multiple collections of extraluminal gas along the mesenteric surface of the inflamed sigmoid. PELVIS: Appendix: No findings to suggest acute appendicitis. Bladder: Appears normal for the degree of filling. No stones or inflammation. No large mass. Masses may not be detected in the absence of opacification. Reproductive: No abnormalities noted. ABDOMEN and PELVIS: Intraperitoneal space: No free intraperitoneal air or fluid. Bones/joints: No acute change noted. Soft tissues: No abnormality noted. Vasculature: No abdominal aortic aneurysm. Lymph nodes: No pathologically enlarged lymph nodes. IMPRESSION: 1. There is acute sigmoid diverticulitis with localized perforation. There may be an intramural abscess. Consider further assessment with IV contrast. 2. There are increased multifocal groundglass infiltrates in the visualized lung bases. Infiltrat es have the typical appearance of covid pneumonia although other infectious etiologies are possible. Electronically signed by: Anamika Ashley MD 04/14/2020 5:18 AM SENIOR MEDICAL DIRECTOR Due to temporary technical issues with the PACS/Fluency reporting system, reports are being signed by the in house radiologist without review as a courtesy to ensure prompt reporting. The interpreting r adiologist is fully responsible for the content of the report.
--- NOTE | 2020-04-14 16:52 | P.INFCA ---
Sepsis Focused Assessment - Focused Assessment Complete? Sepsis Focused Assessment Completed?: Yes - Sepsis Screen Result Severe Sepsis: Positive Septic Shock: Negative - Evaluation Current stage of sepsis: Ruled out Reason for ruling out sepsis: blood pressure and HR improved with IVF - Vital Signs Reviewed: Yes Temperature: 96.9 F Heart rate: 93 Blood Pressure: 121/76 Respiratory Rate: 18 O2 Sat by Pulse Oximetry: 96 - Examination Heart: Regular rate/rhythm Lungs: Clear bilaterally Peripheral pulses: 3+ Normal Peripheral pulse location: Radial Capillary refill: <2 Seconds Skin examination: Normal turgor
[2020-04-14] MEDS ORDERED: KCL 20 MEQ/100 mL IVPB 20 MEQ/100 ML BAG IV SCH (22:00)
--- NOTE | 2020-04-14 22:32 | EKG ---
Test Date: 2020-04-13 Test Time: 23:46:56 Senior C Software Engineer: RYAN MEASUREMENT RESULTS: Intervals: Rate: 138 WV: 150 QRSD: 70 QT: 374 QTc: 566 [place]: P: 53 WV: 150 QRS: 78 T: 59 INTERPRETIVE STATEMENTS: Sinus tachycardia Otherwise normal ECG Compared to ECG 03/13/2019 02:41:25 Atrial premature complex(es) no longer present Electronically Signed On 04-14-20 22:29:35 CORRECTIONS SERGEANT by Chico Lund
[2020-04-15] MEDS: PIPER/TAZO/NS 3.375gm 3.375 GM/100 ML BAG IVPB SCH ×3 (00:31→16:11)
[2020-04-15] MEDS: NA CHLORIDE 0.9% 1,000 ML IV SCH ×4 (04:50→21:50)
[2020-04-15 06:09] LABS: Absolute Lymphocytes (CBC) 1.1 K/uL (0.7-4.9); Basophils % 0.4 % (0-1.3); Hematocrit 34.6 % (36.0-45.0); Lymphocytes % 8.8 % (15.3-44.8); MPV 10.5 fL (7.6-11.3); RBC Red Blood Cell Count 3.74 M/uL (3.86-4.86)
[2020-04-15 06:26] LABS: Magnesium 1.8 mg/dL (1.8-2.4); Potassium 3.3 mmol/L (3.5-5.1)
[2020-04-15] MEDS ORDERED: MAGNESIUM SULFATE 1 gm IVPB 1 GM/100 ML BAG IV ONE (08:00)
[2020-04-15] MEDS: KCL 20 MEQ/100 mL IVPB 20 MEQ/100 ML BAG IV SCH ×2 (09:36→11:58)
[2020-04-15 10:22] LABS: Blood Morphology Comment NOT SEEN (NOT SEEN); Platelet Estimate ADEQ
--- NOTE | 2020-04-15 16:03 | P.PN ---
Subjective Date of Service: 04/15/20 Chief Complaint: acute sigmoid diverticulitis with perforation Subjective: Other (slight improvement. feeling better, less pain. +BM today with some abdominal pain. no nausea. thirsty) Review of Systems 10-point ROS is otherwise unremarkable Physical Examination - Vital Signs Temperature: 97.3 F Blood Pressure: 132/86 Pulse: 101 Respirations: 18 Pulse Ox (%): 99 - Physical Exam General: Alert, In no apparent distress HEENT: Sclerae nonicteric Respiratory: Clear to auscultation bilaterally Cardiovascular: No edema, Regular rate/rhythm Gastrointestinal: Soft and benign, Non-distended, Tenderness (mild-mod LLQ) Musculoskeletal: No tenderness Integumentary: No significant lesion Neurological: Normal speech, Normal affect Assessment & Plan Physician Review Additional Text: Sepsis secondary to Acute Sigmoid Diverticulitis with perforation h/o diverticulitis HTN Hypothyroidism b/l ground glass opacities was hypotensive and tachycardic on presentation to ED, BP responded well to sepsis bolus repeat lactate improved NPO, IVF, continue Zosyn, can give ice chips general surgery consulted serial abdominal exams, pain control hold home BP meds for now b/l GGOs - negative rapid COVID test, pt denies SOB, no cough UA appears contaminated, no urinary symptoms VTE: lovenox Code: full Dispo: hospitalization > 2days, anticipate dc home Time Spent Managing Pts Care (In Minutes): 35
[2020-04-15] MEDS ORDERED: KCL 20 MEQ/100 mL IVPB 20 MEQ/100 ML BAG IV SCH (22:00)
[2020-04-16] MEDS: PIPER/TAZO/NS 3.375gm 3.375 GM/100 ML BAG IVPB SCH ×3 (00:15→16:24)
[2020-04-16] MEDS: NA CHLORIDE 0.9% 1,000 ML IV SCH (04:16)
[2020-04-16 05:56] LABS: Absolute Lymphocytes (CBC) 1.5 K/uL (0.7-4.9); Basophils % 0.3 % (0-1.3); Hematocrit 33.7 % (36.0-45.0); MPV 9.9 fL (7.6-11.3); RBC Red Blood Cell Count 3.68 M/uL (3.86-4.86)
[2020-04-16 06:34] LABS: Magnesium 2.3 mg/dL (1.8-2.4); Potassium 3.5 mmol/L (3.5-5.1)
[2020-04-16] MEDS ORDERED: D5 0.45 NS 1,000 ML IV SCH (07:00)
[2020-04-16] MEDS ORDERED: KCL 20 MEQ/100 mL IVPB 20 MEQ/100 ML BAG IV SCH (07:00)
[2020-04-16] MEDS: ENOXAPARIN 40 MG/0.4 ML SQ SCH (08:04)
--- NOTE | 2020-04-16 11:45 | RAD REPORT ---
EXAM DESCRIPTION: RAD - Abdomen Acute Series - 04/16/2020 7:56 am CLINICAL HISTORY: sigmoid diverticulitis, local perf Abdominal pain COMPARISON: Chest Single View dated 04/13/2020; Chest Single View dated 03/13/2019; Abdomen Pelvis Wo Contrast dated 04/14/2020 FINDINGS: The lungs are clear. The heart is normal size. No free intraperitoneal air or bowel obstruction. Cholecystectomy clips. No pathologic calcifications . IMPRESSION: No acute abnormality detected.
[2020-04-16] MEDS: D5 0.45 NS 1,000 ML IV SCH ×2 (16:25→22:03)
--- NOTE | 2020-04-16 16:58 | P.PN ---
Subjective Date of Service: 04/16/20 Chief Complaint: acute sigmoid diverticulitis with perforation Subjective: Improving (Abdominal x-ray with no free air. Patient feeling significantly better. She reports no pain since yesterday. Remains afebrile.) Review of Systems 10-point ROS is otherwise unremarkable Physical Examination - Vital Signs Temperature: 97.6 F Blood Pressure: 142/94 Pulse: 82 Respirations: 18 Pulse Ox (%): 97 - Physical Exam General: Alert, In no apparent distress HEENT: Sclerae nonicteric Respiratory: Clear to auscultation bilaterally Cardiovascular: No edema, Regular rate/rhythm Gastrointestinal: Soft and benign, Non-distended, No tenderness Musculoskeletal: No tenderness Integumentary: No rashes Neurological: Normal speech, Normal affect - Studies Microbiology Data (last 24 hrs): 04/14/20 00:45 Clean Catch Urine Magazine Count - Final <10,000 CFU/ML. 04/14/20 00:45 Clean Catch Urine - Final MIXED SHAWN. Assessment & Plan Physician Review Additional Text: Sepsis secondary to Acute Sigmoid Diverticulitis with perforation h/o diverticulitis A KI HTN Hypothyroidism b/l ground glass opacities was hypotensive and tachycardic on presentation to ED, BP responded well to sepsis bolus Pain significantly improved, start clear liquid diet, had IV fluids to 50 cc/hr Continue Zosyn General surgery consulted Serial abdominal exams A KI likely prerenal, has improved with IV fluid hydration. b/l GGOs - negative rapid COVID test, pt denies SOB, no cough UA appears contaminated, no urinary symptoms VTE: lovenox Code: full Dispo: hospitalization > 2days, anticipate dc home Time Spent Managing Pts Care (In Minutes): 35
[2020-04-17] MEDS: PIPER/TAZO/NS 3.375gm 3.375 GM/100 ML BAG IVPB SCH ×2 (00:43→09:48)
[2020-04-17 05:12] LABS: Absolute Lymphocytes (CBC) 1.8 K/uL (0.7-4.9); Basophils % 0.5 % (0-1.3); Hematocrit 34.6 % (36.0-45.0); Lymphocytes % 18.4 % (15.3-44.8); MPV 9.8 fL (7.6-11.3)
[2020-04-17 05:13] LABS: Magnesium 2.5 mg/dL (1.8-2.4); Potassium 3.6 mmol/L (3.5-5.1)
[2020-04-17] MEDS ORDERED: POTASSIUM 25 MEQ EFFERV TAB PO ONE (09:00)
[2020-04-17] MEDS: ENOXAPARIN 40 MG/0.4 ML SQ SCH (09:00)
--- NOTE | 2020-04-17 10:37 | P.PN ---
Subjective Date of Service: 04/17/20 Chief Complaint: acute sigmoid diverticulitis with perforation Subjective: Improving (Patient now pain free, feeling well) Physical Examination - Vital Signs Temperature: 97.1 F Blood Pressure: 144/93 Pulse: 84 Respirations: 16 Pulse Ox (%): 94 - Physical Exam General: Alert, In no apparent distress, Cooperative HEENT: Mucous membr. moist/pink Gastrointestinal: Soft and benign, No tenderness, No masses, No rebound, No guarding - Studies Microbiology Data (last 24 hrs): 04/14/20 00:45 Clean Catch Urine [place] Count - Final <10,000 CFU/ML. 04/14/20 00:45 Clean Catch Urine - Final MIXED SHAWN. Assessment And Plan - Current Problems (Diagnosis) (1) Diverticulitis Onset Date: 07/20/15 Current Visit: No Status: Acute Plan: - Advance to low residue diet - continue 2 weeks of antibiotics - follow up in clinic for colonoscopy - Physician Review Additional Text: Sepsis secondary to Acute Sigmoid Diverticulitis with perforation h/o diverticulitis A KI HTN Hypothyroidism b/l ground glass opacities was hypotensive and tachycardic on presentation to ED, BP responded well to sepsis bolus Pain significantly improved, start clear liquid diet, had IV fluids to 50 cc/hr Continue Zosyn General surgery consulted Serial abdominal exams A KI likely prerenal, has improved with IV fluid hydration. b/l GGOs - negative rapid COVID test, pt denies SOB, no cough UA appears contaminated, no urinary symptoms VTE: lovenox Code: full Dispo: hospitalization > 2days, anticipate dc home
[2020-04-17 11:11] VITALS: O2SAT 96
[2020-04-17 11:59] VITALS: BP 145/98; TEMP 97.4
--- NOTE | 2020-04-20 13:19 | P.DS ---
Admission Date: 04/14/20 Discharge Date: 04/17/20 Disposition: ROUTINE DISCHARGE Discharge Condition: GOOD Reason for Admission: acute sigmoid diverticulitis with localized perforation Consultations: General Surgery - Dr. Gallardo Procedures: CXR (04/13): No acute intrathoracic process suspected. Lungs are grossly clear. CT Abd/Pelvis (04/13): Acute sigmoid diverticulitis with localized perforation. There may be an intramural abscess. Increased multifocal groundglass infiltrates int he visualized lung bases. Infiltrates have the typical appearance of COVID pneuomonia although other infectious etiologies are possible. Acute Abd Series (04/16): No acute abnormality detected Problem List: Sepsis secondary to Acute Sigmoid Diverticulitis with perforation h/o diverticulitis DOREEN on CKDII HTN Hypothyroidism b/l ground glass opacities Brief History of Present Illness: 54yo F, PMH: HTN, Hypothyroidism who presents to ED with abdominal pain since 9pm yesterday, associated with chills and nausea. Pain is a dull/achy feeling. She reports feels similar but worse compared to prior episodes of diverticulitis. She denies vomiting, diarrhea, chest pain, shortness of breath. Her last bowel movement was yesterday and reportedly normal. In the ED, she was noted to be hypotensive 80s/60s. She had leftover Cipro and Flagyl from p rior episode and took 1 of each along with drinking 2-4 beers. Labwork notable for elevated creatinine (1.8), hypokalemia, mild acidosis, and elevated pro calcitonin. CT revealed acute sigmoid diverticulitis with localized perforation. Hospital Course: Patient was admitted, received IVF, antibiotics, and general surgery was consulted. She was medically managed and had resolution of pain. Her diet was advanced to low residue / soft diet which she tolerated well. She remained afebrile, her inflammatory markers were downtrending and she was discharged home with 2 weeks of antibiotics. She is to f/u with Dr. Gallardo in ~2 weeks. Her Cr improved from ~1.8 to 1.3 with IVF hydration, indicating a prerenal /hypovolemia cause of her DOREEN. Her Cr remained ~1.3 which may be her baseline. It was recommended to f/u with PCP in the next few weeks to further monitor. CT on admission revealed b/l GGOs with appearance similar to that of COVID-19 pneumonia, however patient's rapid PCR was negative, denied any SOB or cough, and she was not treated for COVID-19. Vital Signs/Physical Exam: Temp Pulse Resp BP Pulse Ox 97.4 F 85 16 145/98 H 97 04/17/20 11:59 04/17/20 11:59 04/17/20 11:59 04/17/20 11:59 04/17/20 11:59 General: Alert, In no apparent distress, Oriented x3 HEENT: Sclerae nonicteric Respiratory: Clear to auscultation bilaterally, Normal air movement Cardiovascular: No edema, Regular rate/rhythm Gastrointestinal: Soft and benign, Non-distended, No tenderness Musculoskeletal: No tenderness Integumentary: No rashes Neurological: Normal speech, Normal affect Laboratory Data at Discharge: WBC 9.6 K/uL (4.3-10.9) D 04/17/20 04:15 Hgb 11.8 g/dL (12.0-15.0) L 04/17/20 04:15 Hct 34.6 % (36.0-45.0) L 04/17/20 04:15 Plt Count 148 K/uL (152-406) L 04/17/20 04:15 PT 11.9 SECONDS (9.5-12.5) 04/13/20 23:50 INR 1.01 04/13/20 23:50 APTT 23.7 SECONDS (24.3-36.9) L 04/13/20 23:50 Sodium 139 mmol/L (136-145) 04/17/20 04:15 Potassium 3.6 mmol/L (3.5-5.1) 04/17/20 04:15 BUN 7 mg/dL (7-18) 04/17/20 04:15 Creatinine 1.37 mg/dL (0.55-1.3) H 04/17/20 04:15 Glucose 111 mg/dL (74-106) H 04/17/20 04:15 Magnesium 2.5 mg/dL (1.8-2.4) H 04/17/20 04:15 Total Bilirubin 0.9 mg/dL (0.2-1.0) 04/13/20 23:30 AST 53 U/L (15-37) H 04/13/20 23:30 ALT 28 U/L (12-78) 04/13/20 23:30 Alkaline Phosphatase 103 U/L (45-117) 04/13/20 23:30 Amylase 64 U/L (25-115) 04/13/20 23:30 Lipase 139 U/L (73-393) 04/13/20 23:30 Home Medications: Levothyroxine [Synthroid*] 1 tab PO DAILY 03/13/19 Simvastatin 1 tab PO DAILY 03/13/19 Losartan Potassium 50 mg PO DAILY 04/14/20 levoFLOXacin [Levaquin] 750 mg PO DAILY 14 Days #14 tab 04/17/20 metroNIDAZOLE [Flagyl] 500 mg PO Q8H 14 Days #42 tablet 04/17/20 New Medications: metroNIDAZOLE [Flagyl] 500 mg PO Q8H 14 Days #42 tablet levoFLOXacin [Levaquin] 750 mg PO DAILY 14 Days #14 tab Patient Discharge Instructions: you were diagnosed with sigmoid diverticulitis with a contained perforation. You are discharged home with 2 weeks of antibiotics. Please follow up with Dr. Gallardo in 2 weeks. Diet: Regular (low residue diete) Activity: Ad rose Followup: Kip Gallardo MD [ACTIVE - CAN ADMIT] - NONE,NONE [Primary Care Provider] - Time spent managing pt's care (in minutes): 45
== END 2020-04-17 15:23 | disposition home or self-care (01) | DRG 872 ==
LOC: ER 22:39 → ERHOLD 04-14 06:03 → 2ND 04-14 08:30
PROVIDERS: ADMIT Hospitalist; ATTEND Hospitalist
DX: A41.9 Sepsis, unspecified organism (principal); K57.20 Diverticulitis of large intestine with perforation and abscess without bleeding; E87.2 Acidosis; N17.9 Acute kidney failure, unspecified; I12.9 Hypertensive chronic kidney disease with stage 1 through stage 4 chronic kidney disease, or unspecified chronic kidney disease; N18.2 Chronic kidney disease, stage 2 (mild); E87.6 Hypokalemia; E03.9 Hypothyroidism, unspecified; Z90.49 Acquired absence of other specified parts of digestive tract; Z98.51 Tubal ligation status; Z79.890 Hormone replacement therapy; Z79.899 Other long term (current) drug therapy; Z20.822 Contact with and (suspected) exposure to COVID-19
CPT/HCPCS: 0240U; 36415; 51702; 71045; 74022; 74176; 80048; 80076; 80307; 80320; 81003; 81015; 82150; 82550; 82553; 82947; 83605; 83690; 83735; 84132; 84145; 84484; 85025; 85610; 85730; 86140; 87040; 87086; 87088; 93005; 96365; 96375; 99285; J0744; J1170; J1650; J2405; J2543; J3475; J3480; J7030; J7799

== ENCOUNTER 2020-06-19 18:21 | Inpatient (IN) | payer BC ==
[2020-06-19] MEDS ORDERED: NA CHLORIDE 0.9% 1,000 ML ONE (22:29)
[2020-06-19] MEDS ORDERED: ONDANSETRON 4 MG/2 ML VIAL ONE (22:29)
[2020-06-19] MEDS ORDERED: MORPHINE 4 MG/ML SYR ONE (22:29)
[2020-06-19 22:52] LABS: Absolute Lymphocytes (CBC) 1.7 K/uL (0.7-4.9); Basophils % 0.6 % (0-1.3); Hematocrit 36.9 % (36.0-45.0); Lymphocytes % 9.9 % (15.3-44.8); MPV 9.8 fL (7.6-11.3); RBC Red Blood Cell Count 4.04 M/uL (3.86-4.86)
[2020-06-19 23:06] LABS: Albumin 3.4 g/dL (3.4-5.0); Bilirubin Direct 0.3 mg/dL (0-0.2); Bilirubin Total 0.9 mg/dL (0.2-1.0); Potassium 3.5 mmol/L (3.5-5.1); Protein, Total 9.8 g/dL (6.4-8.2)
[2020-06-20] MEDS ORDERED: MORPHINE 4 MG/ML SYR ONE (00:45)
--- NOTE | 2020-06-20 00:45 | ER ---
Nurse's Notes [facility] Name: Gaby Wheeler Age: 54 yrs Sex: Female : 1965 Arrival Date: 06/19/2020 Time: 18:25 Bed 7 Private MD: Diagnosis: Diverticulitis of large intestine with perforation and abscess without bleeding Presentation: 06/19 19:07 Chief complaint: Patient states: Lower abdominal pain, in the middle started Friday and ca1 has gotten worse since. Reports N/V/constipation. Coronavirus screen: Client denies travel out of the [place] in the last 14 days. nausea, vomiting. Client presents with at least one sign or symptom that may indicate coronavirus-19. Standard/surgical mask placed on the client. Provider contacted for isolation considerations. Ebola Screen: Patient negative for fever greater than or equal to 101.5 degrees Fahrenheit, and additional compatible Ebola Virus Disease symptoms Patient denies exposure to infectious person. Patient denies travel to an Ebola-affected area in the 21 days before illness onset. No symptoms or risks identified at this time. Initial Sepsis Screen: Does the patient meet any 2 criteria? No. Patient's initial sepsis screen is negative. Does the patient have a suspected source of infection? No. Patient's initial sepsis screen is negative. Risk Assessment: Do you want to hurt yourself or someone else? Patient reports no desire to harm self or others. Onset of symptoms was June 19, 2020. 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 - Social history:: Smoking status: Patient denies any tobacco usage or history of. Screenin:10 Abuse screen: Denies threats or abuse. Denies injuries from another. Nutritional rr5 screening: No deficits noted. Tuberculosis screening: No symptoms or risk factors identified. Fall Risk IV access (20 points). Total Bright Fall Scale indicates No Risk (0-24 pts). Assessment: 22:09 General: Appears in no apparent distress. uncomfortable, Behavior is calm, cooperative, rr5 appropriate for age. Pain: Complains of pain in abdomen. Neuro: Level of Consciousness is awake, alert, obeys commands, Oriented to person, place, time. Cardiovascular: Capillary refill < 3 seconds Patient's skin is warm and dry. Respiratory: Airway is patent Respiratory effort is even, unlabored, Respiratory pattern is regular, symmetrical. GI: Abdomen is round Abd is soft and non tender Reports lower abdominal pain, constipation, nausea, vomiting. : No signs and/or symptoms were reported regarding the genitourinary system. EENT: No signs and/or symptoms were reported regarding the EENT system. Derm: Skin is intact, is healthy with good turgor, Skin temperature is warm. Musculoskeletal: Capillary refill < 3 seconds. 23:02 Reassessment: Patient appears in no apparent distress at this time. Patient is alert, rr5 oriented x 3, equal unlabored respirations, skin warm/dry/pink. Patient states symptoms have improved. 06/20 00:00 Reassessment: Patient and/or family updated on plan of care and expected duration. Pain ea level reassessed. Patient is alert, oriented x 3, equal unlabored respirations, skin warm/dry/pink. 02:00 Reassessment: Patient and/or family updated on plan of care and expected duration. Pain ea level reassessed. Patient is alert, oriented x 3, equal unlabored respirations, skin warm/dry/pink. Vital Signs: 06/19 19:07 BP 126 / 85; Pulse 124; Resp 16 S; Temp 100(TE); Pulse Ox 97.1% on R/A; Weight 77.11 kg ca1 (R); Height 5 ft. 1 in. (154.94 cm) (R); Pain 10/10; 22:16 BP 121 / 75; Pulse 116; Resp 17; Pulse Ox 98% ; rr5 22:50 BP 101 / 71; Pulse 116; Resp 18; Pulse Ox 100% ; ea 06/20 00:30 BP 109 / 79; Pulse 105; Resp 18; Pulse Ox 99% ; ea 01:00 BP 108 / 76; Pulse 106; Resp 16; Pulse Ox 98% on R/A; ea 04:00 BP 111 / 79; Pulse 111; Resp 19; Pulse Ox 100% on R/A; ea 06/19 19:07 Body Mass Index 32.12 (77.11 kg, 154.94 cm) ca1 ED Course: 06/19 18:25 Patient arrived in ED. mr 19:09 Triage completed. ca1 19:10 Arm band placed on right wrist. ca1 22:00 Inserted saline lock: 20 gauge in right antecubital area, using aseptic technique. rr5 ,using aseptic technique. inserted by armida MARQUES Blood collected. 22:04 Estevan Dominguez PA is PHCP. cp 22:04 Cody Vazquez MD is Attending Physician. cp 22:07 Vasquez Miranda RN is Primary Nurse. rr5 22:10 Patient has correct armband on for positive identification. Placed in gown. Bed in low rr5 position. Call light in reach. Pulse ox on. NIBP on. 23:51 CT Abd/Pelvis - IV Contrast Only In Process Unspecified. EDMS 06/20 00:44 Vasquez Curtis MD is Hospitalizing Provider. cp 01:40 Inserted saline lock: 20 gauge in left hand, using aseptic technique. rr5 01:40 First set of blood cultures drawn by me. rr5 05:58 No provider procedures requiring assistance completed. Patient admitted, IV remains in ea place. 07:45 Awaiting: RN on 4th floor unavailable for report at this time. tw2 08:42 Report given to JERALD Clarke. tw2 Administered Medications: 06/19 22:10 Drug: NS 0.9% 1000 ml Route: IV; Rate: 1 bolus; Site: right antecubital; rr5 23:00 Follow up: Response: No adverse reaction; IV Status: Completed infusion; IV Intake: rr5 1000ml 22:11 Drug: Zofran (Ondansetron) 4 mg Route: IVP; Site: right antecubital; rr5 23:10 Follow up: Response: No adverse reaction rr5 22:13 Drug: morphine 4 mg {Note: rass 0.} Route: IVP; Site: right antecubital; rr5 23:15 Follow up: Response: No adverse reaction; Pain is decreased; RASS: Alert and Calm (0) rr5 23:10 Drug: NS 0.9% 1000 ml Route: IV; Rate: 1 bolus; Site: right antecubital; ea 06/20 01:39 Follow up: Response: No adverse reaction; IV Status: Completed infusion; IV Intake: ea 1000ml 00:39 Dru.375 grams of (Zosyn 3.375 grams, NS 0.9% 100 ml) Route: IVPB; Infused Over: 60 rr5 mins; Site: right antecubital; 01:41 Follow up: Response: No adverse reaction; IV Status: Completed infusion ea 00:39 Drug: morphine 4 mg {Note: rass 0.} Route: IVP; Site: right antecubital; rr5 01:41 Follow up: Response: No adverse reaction ea 01:30 Drug: Dilaudid 0.5 mg {Note: rass 0.} Route: IVP; Site: right antecubital; rr5 06:01 Follow up: Response: No adverse reaction ea 01:52 Drug: NS 0.9% 1000 ml Route: IV; Rate: 100 ml/hr; Site: right antecubital; rr5 06:02 Follow up: Response: No adverse reaction; IV Status: Infusion continued upon admission ea Intake: 06/19 23:00 IV: 1000ml; Total: 1000ml. rr5 06/20 01:39 IV: 1000ml; Total: 2000ml. ea Outcome: 00:45 Decision to Hospitalize by Provider. cp 05:58 Admitted to ER Hold. Please see [facility] for further documentation. ea 05:58 Condition: stable 05:58 Instructed on the need for admit, Demonstrated understanding of instructions. 08:56 Patient left the ED. tw2 Signatures: Dispatcher [employer] Cate Elizabeth Corey, PA PA cp Wise, Tara, RN RN tw2 Armida Peterson RN RN ea Roque, Raymond RN RN rr5 Faby Paz RN RN ca1
--- NOTE | 2020-06-20 00:45 | EDPHYS ---
Physician Documentation [facility] Name: Gaby Wheeler Age: 54 yrs Sex: Female : 1965 Arrival Date: 06/19/2020 Time: 18:25 Bed 7 Private MD: ED Physician Cody Vazquez HPI: 06/19 22:10 This 54 yrs old Female presents to ER via Ambulatory with complaints of cp Abdominal Pain, Vomiting, Constipation. 22:10 The patient presents with abdominal pain in the lower abdomen. Onset: The cp symptoms/episode began/occurred 3 day(s) ago. The symptoms do not radiate. Associated signs and symptoms: Pertinent positives: constipation, nausea, Pertinent negatives: blood in stools, diarrhea, dysuria, fever, vomiting. The symptoms are described as constant. 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 - Social history:: Smoking status: Patient denies any tobacco usage or history of. ROS: 22:11 Constitutional: Negative for body aches, chills, fever, poor PO intake. cp 22:11 Cardiovascular: Negative for chest pain, edema, palpitations. 22:11 Respiratory: Negative for cough, shortness of breath, wheezing. 22:11 Abdomen/GI: Positive for abdominal pain, nausea, constipation, Negative for vomiting, diarrhea, black/tarry stool, rectal bleeding. 22:11 Back: Negative for radiated pain. 22:11 : Negative for urinary symptoms. 22:11 Neuro: Negative for altered mental status. 22:11 All other systems are negative. Exam: 22:12 Head/Face: Normocephalic, atraumatic. cp 22:12 Constitutional: The patient appears in no acute distress, alert, awake, non-toxic, well developed, well nourished, uncomfortable. 22:12 Eyes: Periorbital structures: appear normal, Conjunctiva: normal, no exudate, no injection, Sclera: no appreciated abnormality, Lids and lashes: appear normal, bilaterally. 22:12 ENT: External ear(s): are unremarkable, Nose: is normal, Mouth: Lips: moist, Oral mucosa: moist, Posterior pharynx: Airway: no evidence of obstruction, patent. 22:12 Chest/axilla: Inspection: normal, Palpation: is normal, no crepitus, no tenderness. 22:12 Cardiovascular: Rate: tachycardic, Rhythm: regular, Edema: is not appreciated, JVD: is not appreciated. 22:12 Respiratory: the patient does not display signs of respiratory distress, Respirations: normal, no use of accessory muscles, no retractions, labored breathing, is not present, Breath sounds: are clear throughout, no decreased breath sounds, no stridor, no wheezing. 22:12 Abdomen/GI: Inspection: abdomen appears normal, Bowel sounds: active, all quadrants, Palpation: soft, in all quadrants, moderate abdominal tenderness, in the suprapubic area, rebound tenderness, is not appreciated, involuntary guarding, is not appreciated. Vital Signs: 19:07 BP 126 / 85; Pulse 124; Resp 16 S; Temp 100(TE); Pulse Ox 97.1% on R/A; Weight 77.11 kg ca1 (R); Height 5 ft. 1 in. (154.94 cm) (R); Pain 10/10; 22:16 BP 121 / 75; Pulse 116; Resp 17; Pulse Ox 98% ; rr5 22:50 BP 101 / 71; Pulse 116; Resp 18; Pulse Ox 100% ; ea 06/20 00:30 BP 109 / 79; Pulse 105; Resp 18; Pulse Ox 99% ; ea 01:00 BP 108 / 76; Pulse 106; Resp 16; Pulse Ox 98% on R/A; ea 04:00 BP 111 / 79; Pulse 111; Resp 19; Pulse Ox 100% on R/A; ea 06/19 19:07 Body Mass Index 32.12 (77.11 kg, 154.94 cm) ca1 MDM: 06/19 22:09 Patient medically screened. cp 23:00 Differential diagnosis: appendicitis, bowel obstruction, diverticulitis, non-specific cp abd pain, Pyelonephritis, Ureterolithiasis, urinary tract infection. 06/20 00:53 Physician consultation: Zach Lake MD was contacted at 00:45, regarding consult, cp patient's condition, and will see patient later today, wants IV antibiotics and patient admitted to hospitalist. 00:55 Data reviewed: vital signs, nurses notes, lab test result(s), radiologic studies, CT cp scan, and as a result, I will admit patient. Counseling: I had a detailed discussion with the patient and/or guardian regarding: the historical points, exam findings, and any diagnostic results supporting the discharge/admit diagnosis, lab results, radiology results, the need for further work-up and treatment in the hospital. Physician consultation: Mateo GLORIA was contacted at 00:50, regarding admission, to the medical/surgical unit. patient's condition. 06/19 19:45 Order name: Basic Metabolic Panel tw4 06/19 19:45 Order name: CBC with Diff tw4 06/19 19:45 Order name: Hepatic Function; Complete Time: 23:54 tw4 06/19 23:54 Interpretation: Normal except: AST 73; ALK 211; BILID 0.3; TP 9.8; GLOB 6.4; A/G 0.5. cp 06/19 19:45 Order name: Lipase; Complete Time: 23:54 tw4 06/19 22:05 Order name: Urine Microscopic Only 06/19 23:34 Order name: Basic Metabolic Panel; Complete Time: 23:54 EDIL 06/19 23:34 Order name: CBC with Automated Diff; Complete Time: 23:54 EDMS 06/19 23:55 Interpretation: Normal except: WBC 17.20; ANKITA% 82.8; LYM% 9.9; NEUT A 14.2. cp 06/20 00:34 Order name: Urine Dipstick--Ancillary (enter results) tt3 06/20 00:34 Order name: Urine --Ancillary (enter results) tt3 06/20 00:47 Order name: COVID-19 : Document "Date of Symptom Onset" if Symptomatic. rr5 06/20 01:02 Order name: Lactate la1 06/20 01:34 Order name: Blood Culture Adult (2) la1 06/20 02:01 Order name: Urine Culture EDIL 06/20 02:31 Order name: SARS-COV-2 RT PCR EDMS 06/20 04:15 Order name: CBC with Automated Diff EDMS 06/20 04:15 Order name: CBC with Automated Diff EDMS 06/20 04:15 Order name: CBC with Automated Diff EDMS 06/20 04:16 Order name: Urinalysis EDMS 06/20 04:16 Order name: CBC with Automated Diff EDMS 06/20 04:16 Order name: CBC with Automated Diff EDMS 06/20 04:16 Order name: CBC with Automated Diff EDMS 06/20 04:16 Order name: Comprehensive Metabolic Panel EDMS 06/20 04:16 Order name: Comprehensive Metabolic Panel EDMS 06/20 04:16 Order name: Comprehensive Metabolic Panel EDMS 06/20 04:16 Order name: Comprehensive Metabolic Panel EDMS 06/20 04:16 Order name: Comprehensive Metabolic Panel EDMS 06/20 04:16 Order name: Magnesium EDMS 06/20 04:16 Order name: Magnesium EDMS 06/20 04:16 Order name: Magnesium EDMS 06/19 19:45 Order name: IV Saline Lock; Complete Time: 22:16 tw4 06/19 19:45 Order name: Labs collected and sent; Complete Time: 22:16 tw4 06/19 22:05 Order name: Urine Test (obtain specimen); Complete Time: 00:40 cp 06/19 22:05 Order name: Urine Dipstick-Ancillary (obtain specimen); Complete Time: 00:40 cp 06/19 22:15 Order name: CT Abd/Pelvis - IV Contrast Only cp 06/20 00:44 Order name: NPO; Complete Time: 00:45 cp 06/20 04:15 Order name: CONS Physician Consult EDMS 06/20 04:15 Order name: NPO EDMS 06/20 04:16 Order name: Magnesium EDMS 06/20 04:16 Order name: Magnesium EDMS Administered Medications: 06/19 22:10 Drug: NS 0.9% 1000 ml Route: IV; Rate: 1 bolus; Site: right antecubital; rr5 23:00 Follow up: Response: No adverse reaction; IV Status: Completed infusion; IV Intake: rr5 1000ml 22:11 Drug: Zofran (Ondansetron) 4 mg Route: IVP; Site: right antecubital; rr5 23:10 Follow up: Response: No adverse reaction rr5 22:13 Drug: morphine 4 mg {Note: rass 0.} Route: IVP; Site: right antecubital; rr5 23:15 Follow up: Response: No adverse reaction; Pain is decreased; RASS: Alert and Calm (0) rr5 23:10 Drug: NS 0.9% 1000 ml Route: IV; Rate: 1 bolus; Site: right antecubital; ea 06/20 01:39 Follow up: Response: No adverse reaction; IV Status: Completed infusion; IV Intake: ea 1000ml 00:39 Dru.375 grams of (Zosyn 3.375 grams, NS 0.9% 100 ml) Route: IVPB; Infused Over: 60 rr5 mins; Site: right antecubital; 01:41 Follow up: Response: No adverse reaction; IV Status: Completed infusion ea 00:39 Drug: morphine 4 mg {Note: rass 0.} Route: IVP; Site: right antecubital; rr5 01:41 Follow up: Response: No adverse reaction ea 01:30 Drug: Dilaudid 0.5 mg {Note: rass 0.} Route: IVP; Site: right antecubital; rr5 06:01 Follow up: Response: No adverse reaction ea 01:52 Drug: NS 0.9% 1000 ml Route: IV; Rate: 100 ml/hr; Site: right antecubital; rr5 06:02 Follow up: Response: No adverse reaction; IV Status: Infusion continued upon admission ea Disposition: 01:00 Chart complete. gabriela 06/21 08:23 Co-signature as Attending Physician, Cody Vazquez MD I agree with the assessment and tw4 plan of care. Disposition: 06/20/20 00:45 Hospitalization ordered by Vasquez Curtis for Inpatient Admission. Preliminary diagnosis is Diverticulitis of large intestine with perforation and abscess without bleeding. - Bed requested for Telemetry/MedSurg (Inpatient). - Status is Inpatient Admission. tw2 - Condition is Stable. - Problem is new. - Symptoms have improved. Signatures: Dispatcher [employer] EDMS Margot Smiley RN RN Maxx Keyes RN Estevan Franco PA PA cp Wise, Tara, RN RN tw2 Arimda Peterson RN RN ea Wadley, Terrence, MD MD tw4 Vasquez Miranda RN RN rr5 Acob, Faby, RN RN ca1 Corrections: (The following items were deleted from the chart) 03 01:38 00:48 CORONAVIRUS ordered. EDMS EDMS 02:04 00:45 Hospitalization Ordered by Vasquez Curtis MD for Inpatient Admission. Preliminary sg diagnosis is Diverticulitis of large intestine with perforation and abscess without bleeding. Bed requested for Telemetry/MedSurg (Inpatient). Status is Inpatient Admission. Condition is Stable. Problem is new. Symptoms have improved. cp 06:27 02:04 06/20/2020 00:45 Hospitalization Ordered by Vasquez Curtis MD for Inpatient mw Admission. Preliminary diagnosis is Diverticulitis of large intestine with perforation and abscess without bleeding. Bed requested for [facility] ER HOLD. Status is Inpatient Admission. Condition is Stable. Problem is new. Symptoms have improved. sg 08:56 06:27 06/20/2020 00:45 Hospitalization Ordered by Vasquez Curtis MD for Inpatient tw2 Admission. Preliminary diagnosis is Diverticulitis of large intestine with perforation and abscess without bleeding. Bed requested for Telemetry/MedSurg (Inpatient). Status is Inpatient Admission. Condition is Stable. Problem is new. Symptoms have improved. mw
[2020-06-20] MEDS ORDERED: PIPER/TAZO/NS 3.375gm 3.375 GM/100 ML BAG ONE (00:49)
[2020-06-20 01:07] LABS: Urine Specific Gravity 1.015 (1.005-1.030)
[2020-06-20 01:08] LABS: Urine Blood NEGATIVE (NEG); Urine Glucose NEGATIVE (NEG); Urine Protein NEGATIVE (NEG)
[2020-06-20] MEDS ORDERED: NA CHLORIDE 0.9% 1,000 ML ONE ×3 (01:34→05:28)
[2020-06-20] MEDS ORDERED: HYDROMORPHONE HCL 0.5 MG/0.5 ML INJ ONE (01:36)
--- NOTE | 2020-06-20 01:58 | P.HP ---
Certification for Inpatient Patient admitted to: Inpatient With expected LOS: >2 Midnights Patient will require the following post-hospital care: None Practitioner: I am a practitioner with admitting privileges, knowledge of patient current condition, hospital course, and medical plan of care. Services: Services provided to patient in accordance with Admission requirements found in Title 42 Section 412.3 of the Code of Federal Regulations <Mateo Kumar - Last Filed: 06/20/20 01:55> Patient History Date of Service: 06/20/20 Primary Care Provider: [facility] Reason for admission: Diverticulitis with abscess History of Present Illness: 54-year-old female with history of hypertension, hyperlipidemia, hypothyroidism, diverticulitis presents emergency department for abdominal pain. Patient reports lower abdominal pain worsening over the course of the last 3 days. Patient with history of diverticulitis with perforation/abscess which was medically managed in the past. Workup in the emergency department reveals white blood cell count 17.2 CT significant for complex hypodense fluid collection within the left adnexa closely communicated with the sigmoid colon with minimal surrounding left pericolonic inflammation. Findings suspicious for residual acute diverticulitis and diverticular abscess. General surgery was consulted while patient is in the emergency department, patient will be admitted for further evaluation and management. Patient without severe sepsis or septic shoc k at this time. - Past Medical/Surgical History Diabetic: No -: hypothyroidism -: HTN -: Renal mass 07/21 -: Diverticulitis with abscess/perforation -: Cholecystectomy -: Tonsillectomy -: Laparoscopic surgery on fallopian tubes -: Bilateral tubal ligation -: Renal mass 07/21 (kidney removed) Psychosocial/ Personal History: Patient lives at home with her family - Family History Father -: Other (see notes) Notes: cirrrosis Mother -: Hypertension, Diabetes, Kidney disease Notes: ESRD - Social History Smoking Status: Never smoker Alcohol use: Yes CD- Drugs: No Caffeine use: Yes Place of Residence: Home <Mateo Kumar - Last Filed: 06/20/20 01:55> Date of Service: 06/20/20 <Vasquez Curtis - Last Filed: 06/20/20 13:27> Allergies No Known Allergies Allergy (Verified 07/19/15 15:04) Home Medications: Levothyroxine [Synthroid*] 1 tab PO DAILY 03/13/19 Simvastatin 1 tab PO DAILY 03/13/19 Losartan Potassium 50 mg PO DAILY 04/14/20 levoFLOXacin [Levaquin] 750 mg PO DAILY 14 Days #14 tab 04/17/20 metroNIDAZOLE [Flagyl] 500 mg PO Q8H 14 Days #42 tablet 04/17/20 Review of Systems Gastrointestinal: Abdominal Pain, Constipation, Other (Patient reports small amount of bright red blood with her most recent bowel movement.) Genitourinary: Frequency <Mateo Kumar - Last Filed: 06/20/20 01:55> Physical Examination - Physical Exam General: Alert, In no apparent distress HEENT: Atraumatic, PERRLA, Mucous membr. moist/pink Neck: Supple, 2+ carotid pulse no bruit, No LAD Respiratory: Clear to auscultation bilaterally, Normal air movement Cardiovascular: Regular rate/rhythm, Normal S1 S2 Gastrointestinal: Normal bowel sounds, Non-distended, No masses, No rebound, No guarding, Tenderness (Mild left lower quadrant and suprapubic tenderness) Musculoskeletal: No tenderness Integumentary: No rashes Neurological: Normal speech, Normal strength at 5/5 x4 extr, Normal tone, Normal affect - Studies Laboratory Data (last 24 hrs) 06/19/20 22:30: WBC 17.20 H, Hgb 12.3, Hct 36.9, Plt Count 232 06/19/20 22:30: Sodium 136, Potassium 3.5, BUN 11, Creatinine 1.16, Glucose 96, Total Bilirubin 0.9, AST 73 H, ALT 63, Alkaline Phosphatase 211 H, Lipase 72 L <Mateo Kumar - Last Filed: 06/20/20 01:55> - Studies Laboratory Data (last 24 hrs) 06/19/20 22:30: WBC 17.20 H, Hgb 12.3, Hct 36.9, Plt Count 232 06/19/20 22:30: Sodium 136, Potassium 3.5, BUN 11, Creatinine 1.16, Glucose 96, Total Bilirubin 0.9, AST 73 H, ALT 63, Alkaline Phosphatase 211 H, Lipase 72 L <Vasquez Curtis - Last Filed: 06/20/20 13:27> Assessment and Plan - Plan Assessment Abdominal pain, leukocytosis secondary to Acute diverticulitis with abscess Hypertension, hyperlipidemia, hypothyroidism Plan Abdominal pain, leukocytosis secondary to Acute diverticulitis with abscess: NPO, IV antibiotics with Zosyn, p.r.n. pain and nausea medications. General surgery consulted, appreciate further input from general surgery. DVT prophylaxis with SCDs in case of need for surgical intervention. Hypertension, hyperlipidemia, hypothyroidism: Chronic, stable. Will need to hold home medications at this time, restart when appropriate. Discharge Plan: Home Plan to discharge in: 72 Hours - Advance Directives Does patient have a Living Will: No Does patient have a Durable POA for Healthcare: No - Code Status/Comfort Care Code Status Assessed: Yes (Full code) Critical Care: No Time Spent Managing Pts Care (In Minutes): 55 <Mateo Kumar - Last Filed: 06/20/20 01:55> - Plan Plan of care reviewed as noted above by Mateo Kumar and agree with plan. Acute diverticulitis with possible abscess. Similar presentation ~2 months ago NPO, IV antibiotics, General Surgery consulted pt feels slightly better this morning - slight nausea, pain controlled with pain medication so far <Vasquez Curtis - Last Filed: 06/20/20 13:27>
[2020-06-20 02:00] LABS: Urine Bacteria 20-50 /HPF (<20); Urine RBC <5 /HPF (NONE SEEN)
[2020-06-20] MEDS ORDERED: HYDROMORPHONE HCL 1 MG/ML INJ IV PRN (04:15)
[2020-06-20] MEDS: NA CHLORIDE 0.9% 1,000 ML IV SCH ×3 (04:15→16:03)
[2020-06-20] MEDS: ONDANSETRON 4 MG/2 ML VIAL IV PRN ×4 (04:27→23:45)
[2020-06-20] MEDS ORDERED: HYDROMORPHONE HCL 1 MG/ML INJ ONE ×2 (04:47→07:53)
[2020-06-20 05:29] VITALS: BMI 29.5
[2020-06-20 05:43] LABS: Absolute Lymphocytes (CBC) 1.4 K/uL (0.7-4.9); Basophils % 0.3 % (0-1.3); Hematocrit 31.3 % (36.0-45.0); MPV 9.2 fL (7.6-11.3); RBC Red Blood Cell Count 3.38 M/uL (3.86-4.86)
[2020-06-20 05:58] LABS: Albumin 2.5 g/dL (3.4-5.0); Bilirubin Total 1.6 mg/dL (0.2-1.0); Magnesium 2.2 mg/dL (1.8-2.4); Potassium 3.7 mmol/L (3.5-5.1); Protein, Total 7.3 g/dL (6.4-8.2)
[2020-06-20] MEDS: PIPER/TAZO/NS 3.375gm 3.375 GM/100 ML BAG IVPB SCH ×4 (06:30→17:00)
[2020-06-20] MEDS ORDERED: KCL 20 MEQ/100 mL IVPB 20 MEQ/100 ML BAG IV SCH (09:00)
[2020-06-20] MEDS: HYDROMORPHONE HCL 1 MG/ML INJ IV PRN ×4 (10:12→23:44)
--- NOTE | 2020-06-20 11:49 | RAD REPORT ---
EXAM DESCRIPTION: CT - Abdomen Pelvis W Contrast - 06/20/2020 6:22 am CLINICAL HISTORY: 54 years, Female, lower abdomen pain COMPARISON: 04/14/2020-03/02/2020 TECHNIQUE: Contrast-enhanced images of the abdomen and pelvis were performed utilizing 5 mm slice th ickness at 5 mm interval reconstruction from the lung bases to the ischial tuberosities after the adm inistration of IV contrast. In addition multiplanar reformats in the coronal and sagittal plane were obtained and reviewed. An individualized dose optimization technique, Automated Exposure Control, was utilized for the perfo rmed procedure. FINDINGS: The lung bases demonstrate to be clear. The liver, pancreas, spleen and adrenal glands demonstrate to be unremarkable, no focal lesions are n oted. Surgical clips within the gallbladder fossa corresponding to previous cholecystectomy. There is no significant biliary duct dilatation. The right kidney demonstrate normal uptake of contrast media. No nephrolithiasis and/or hydronephro sis was identified. There is a status post left nephrectomy and possible adrenalectomy. Grossly the unopacified stomach, small bowel and large bowel demonstrate to be within normal limits. There is no evidence for bowel dilatation and/or free air. The appendix is unremarkable. Again there is a complex hypodense lesion within the left adnexa close communicated with the sigmoid colon minima l surrounding left pericolonic inflammatory changes, best identified on axial image 61/[id number]/94 and c oronal image 47/[id number]/122 findings suggest communication with a diverticulum on coronal CT series im age 52/122 and axial image 61/94-63/94 for which diverticular abscess could be of consideration, less likely adnexal lesion. The urinary bladder demonstrate to be unremarkable. The uterus is unremarkable. The aorta demonst rate to be normal. There is no retroperitoneal lymphadenopathy. There is no evidence for ascites. T he rest of the soft tissue and bony structures are within normal limits. IMPRESSION: Again there is a complex hypodense fluid collection within the left adnexa close communi cated with the sigmoid colon minimal surrounding left pericolonic inflammatory changes, suspicious fo r residual acute diverticulitis and diverticular abscess. Status post left nephrectomy and possible adrenalectomy. Status post cholecystectomy. Electronically signed by: Demarco Granger MD 06/20/2020 12:08 AM CDT Due to temporary technical issues with the PACS/Fluency reporting system, reports are being signed by the in house radiologist without review as a courtesy to ensure prompt reporting. The interpreting r adiologist is fully responsible for the content of the report.
[2020-06-20] MEDS ORDERED: ACETAMINOPHEN 500 MG TAB PO PRN (16:28)
--- NOTE | 2020-06-20 20:05 | RAD REPORT ---
EXAM DESCRIPTION: US - Transvaginal Study Probe - 06/20/2020 7:52 pm CLINICAL HISTORY: rule out ovarian abscess vs diverticular abscess Pelvic pain. COMPARISON: Transvaginal Study Probe dated 03/02/2020; Abdomen Pelvis W Contrast dated 06/19/2020; Abdomen Pelvis Wo Contrast dated 03/02/2020; Abdomen Pelvis Wo Contrast dated 04/14/2020 FINDINGS: The uterus is normal in size, shape and echotexture. The uterus measures 8.9 x 3.4 cm. Sma ll fibroid suspected submucosal location the inferior aspect uterus 12 mm. The endometrial stripe measures 3 mm, normal. Complex appearing collection is present in the left adnexa. This collection measures approximately 7. 5 x 5.6 cm. Neither ovary could be well seen due to excessive bowel gas shadowing. IMPRESSION: Complex left adnexal collection is noted measuring 7.5 x 5.6 cm. This may represent adiel diverticular abscess.Neither ovary could be identified confidently by ultrasound due to excessive sha dowing. MRI female pelvis protocol may be of value for better visualization of the gynecologic struct ures.
--- NOTE | 2020-06-20 21:52 | CON ---
Date of Consultation: 06/20/2020 Brief History Of Present Illness: The patient is a 54-year-old female known to me from prev ious admission in February, who was admitted at that time with an episode of diverticulitis with dive rticular abscess in the area of the sigmoid colon. She was treated with antibiotics, improved subseq uently and was discharged home on p.o. antibiotics. She did well and ultimately became pain-free and she was instructed to follow up with Dr. Barrera for followup colonoscopy or my clinic to discuss furth er workup for her diverticulitis including colonoscopy. However, she did not schedule colonoscopy wi either myself or Dr. Barrera and as such, she returns with recurrence of her abdominal pain beginning approximately 2 to 3 days ago. It was similarly located in the left lower quadrant. She has had de creased bowel function, increasing abdominal pain similar to her previous episode. Past Medical History: Significant for hypothyroidism, hypertension, renal mass, diverticulitis with abscess. Past Surgical History: Cholecystectomy, tonsillectomy, laparoscopic surgery, fallopian tubes, bilate ral tubal ligation. She has had a nephrectomy. Social History: She denies smoking. She drank alcohol previous, but denies current use. She denies recreational drug use. Family History: Significant for hypertension, diabetes, and kidney disease in her mother as well as end-stage renal disease and father had cirrhosis. Allergies: NO KNOWN DRUG ALLERGIES. Home Medications: Included Synthroid, simvastatin, losartan, Levaquin and Flagyl. Levaquin and Flag yl were completed back in April. Review of Systems: Ten-point review of systems other than HPI, she admits to abdominal pain and constipation and a small amount of bright red blood per rectum on her last bowel movement, which was firm at that time. She has increased urination as well. Physical Examination: Vital Signs: At the time of my examination, her vital signs were a BMI of 29. Her blood pressure 14 1/83, heart rate was 113, respiratory rate 18, temperature 100.7, SpO2 95% on room air. General: She is awake, alert, oriented. Psychiatric: She is appropriate, conversive. HEENT: Normocephalic. Sclerae anicteric. Mucous membranes are moist. Oropharynx clear. Neck: Supple without JVD. Chest: Normal expansion and excursion. Cardiovascular: Regular rhythm but increased rate with mild tachycardia. Abdomen: Soft with mild left lower quadrant tenderness to palpation. No focal peritonitis. No rebo und. No guarding. Extremities: No clubbing, cyanosis, or edema. Skin: Warm and dry. Laboratory Data: Reveals a white blood count of 13.7, hemoglobin of 10.0, hematocrit of 31.3, platel et count was 178. Her neutrophils are 81%. Her sodium of 140, potassium 3.7, chloride 108, carbon d ioxide 25, BUN 9, creatinine 0.9, glucose was 105. Lactic acid of 0.8. Her total bilirubin was 1.6. Her direct component is 0.3. 60, alkaline phosphatase 176, lipase is 72 on admission. UA is currently pending, but she had 20 to 50 bacteria evident. Her COVID was negative. Her imaging included a CT of the abdomen and pelvis, officially read as complex hypodense fluid collection withi n the left adnexa, close communication with the sigmoid colon. Minimal surrounding left pericolonic inflammatory changes suspicious for residual acute diverticulitis and diverticular abscess, status po st left nephrectomy, possible adrenalectomy, status post cholecystectomy. Assessment And Plan: This is a 54-year-old female who comes in with signs and symptoms of possible d iverticular abscess/adnexal fluid collection. 1.IV fluid hydration. 2.Antibiotic coverage, Zosyn 3.375 IV q.6. 3.Serial abdominal exams. 4.We will consider transvaginal ultrasound to better define the fluid collection to see if there is any evidence of a communication or association with the adnexal fluid collection. I have explained t he risks, benefits, and alternatives of the above stated plan. The patient agrees to proceed as kun cated. I have already discussed the plan for outpatient colonoscopy and reiterated the need to have this done should she complete this course of antibiotics and improve without need for emergency surge ry. The patient agreed to proceed as indicated. Thank you for this interesting consult. SIDNEY/PARAG Voice ID: [id number] Report ID: [id number]
[2020-06-21] MEDS: HYDROMORPHONE HCL 1 MG/ML INJ IV PRN ×8 (01:55→22:47)
[2020-06-21] MEDS: PIPER/TAZO/NS 3.375gm 3.375 GM/100 ML BAG IVPB SCH ×3 (01:56→17:49)
[2020-06-21] MEDS: NA CHLORIDE 0.9% 1,000 ML IV SCH ×3 (02:58→13:35)
[2020-06-21 05:44] LABS: Absolute Lymphocytes (CBC) 1.3 K/uL (0.7-4.9); Basophils % 0.1 % (0-1.3); Lymphocytes % 7.6 % (15.3-44.8); MPV 8.8 fL (7.6-11.3); RBC Red Blood Cell Count 3.07 M/uL (3.86-4.86)
[2020-06-21 06:02] LABS: Albumin 2.4 g/dL (3.4-5.0); Bilirubin Total 1.2 mg/dL (0.2-1.0); Magnesium 2.1 mg/dL (1.8-2.4); Protein, Total 7.3 g/dL (6.4-8.2)
[2020-06-21] MEDS ORDERED: ERTAPENEM SODIUM 1 GM VIAL IVPB ONE (08:38)
[2020-06-21] MEDS ORDERED: ERTAPENEM NA 1 GM in NA CHLORIDE 0.9% 100 ML IVPB ONE (09:00)
--- NOTE | 2020-06-21 10:08 | P.PN ---
Subjective Date of Service: 06/21/20 Primary Care Provider: [place] rojas Chief Complaint: Diverticulitis with abscess Subjective: New changes (Patient continues to have LLQ abdominal pain, no significant change, no nausea. emesis.) Physical Examination - Vital Signs Temperature: 99.2 F Blood Pressure: 108/71 Pulse: 114 Respirations: 19 Pulse Ox (%): 94 - Physical Exam General: Alert, In no apparent distress, Cooperative HEENT: Normocephalic Gastrointestinal: Other (soft, mild LLQ TTP, ND, no guarding, no rebound. ) Musculoskeletal: No clubbing, No swelling, No contractures, No erythema, No tenderness Neurological: Normal gait, Normal speech Assessment And Plan - Current Problems (Diagnosis) (1) Pericolonic abscess due to diverticulitis Current Visit: Yes Status: Acute Plan: - continue zosyn - administer one dose of invanz 1 gram - serial exams - pelvic MRI to better define pelvic abscess - diverticular vs ovarian pathology - continue medical management (2) Diverticulitis Onset Date: 07/20/15 Current Visit: No Status: Acute
[2020-06-21 10:48] LABS: Blood Morphology Comment NOT SEEN (NOT SEEN); Platelet Estimate ADEQ; White Blood Cell Scan OK (OK)
[2020-06-21] MEDS ORDERED: INFLUENZA VACCINE (for 3y+) 0.5 ML DOSE IMVAC ONE (11:00)
[2020-06-21] MEDS: ONDANSETRON 4 MG/2 ML VIAL IV PRN (11:06)
[2020-06-21] MEDS ORDERED: NA CHLORIDE 0.9% 1,000 ML IV SCH (14:43)
--- NOTE | 2020-06-21 14:48 | P.PN ---
Subjective Date of Service: 06/21/20 Primary Care Provider: [place] rojas Chief Complaint: Diverticulitis with abscess Subjective: Other (nausea improved, but pain continues, feels pain med is not lasting long enough. but states she is able to fall asleep, but awakens to pain. WBC higher today) Review of Systems 10-point ROS is otherwise unremarkable Physical Examination - Vital Signs Temperature: 99 F Blood Pressure: 120/76 Pulse: 107 Respirations: 18 Pulse Ox (%): 96 Assessment & Plan Physician Review Additional Text: Physical Exam Gen: appears uncomfortable HEENT: Normal conjunctiva, sclerae anicteric CV: Regular rate and rhythm, no murmur Pulm: Clear to auscultation bilaterally, no wheeze Abd: mod TTP in lower abdomen / suprapubic region, no rebound Ext: no edema, no rash Problem List: Abdominal pain, leukocytosis secondary to Acute diverticulitis with possible abscess Hypertension Hyperlipidemia Hypothyroidism -NPO, IV zosyn, dilaudid for pain control -general surgery - Dr. Gallardo consulted - MRI pelvis ordered for today to further delineate abscess/mass in the pelvis. Recommended 1 dose of Invanz today as well given worsening leukocytosis -continue to monitor closely -will decrease IVF today 150 -> 100 ml/hr Dispo: anticipate dc home in 2-3 days Time Spent Managing Pts Care (In Minutes): 35
[2020-06-21] MEDS ORDERED: LORazepam 2 MG/ML VIAL IV ONE (15:32)
--- NOTE | 2020-06-21 17:04 | RAD REPORT ---
EXAM DESCRIPTION: MRI - Pelvis W/Wo Cont - 06/21/2020 4:23 pm CLINICAL HISTORY: eval lower pelvis mass COMPARISON: Transvaginal Study Probe dated 06/20/2020; Abdomen Pelvis W Contrast dated 06/19/2020 TECHNIQUE: Multiplanar imaging of the pelvis performed using T1 weighted, T1 stir, T2 and T1 fat sat uration sequencing. Post-contrast T1 fat saturation sequencing performed. A 17 milliliter MultiHance contrast volume was utilized. FINDINGS: Prior imaging shows left adnexal mass. Patient has a past history of tubal ligation. Right deviation of the uterus is identified. There are multiple small to moderate size nabothian cyst s identifiable. Right ovarian tissue is difficult to uniquely identified. Fluid-filled structures jaci ng the right lateral superior margin of the uterus appear to be a serpiginous tubular structure. A ri ght-sided hydrosalpinx is suspected. There is no wall thickening edema or enhancement characteristics . The large left adnexal mass seen on prior imaging is seen to be a dilated tubular structure. Internal content is more heterogeneous than seen on the right. Post-contrast imaging shows the there is enhan cement along the wall of this tubular mass complex. Separate ovarian tissue is difficult to identifie d. Edema and enhancement is seen in the soft tissues immediately adjacent to the large tubular mass. No abnormal free fluid collection. Diverticulosis is present in the sigmoid colon. Grider of the sigmo id colon are prominent there is questionable low-level enhancement along the wall of the sigmoid colo n. The colon abuts the complex tubular mass of the adnexa. Any enhancement of the colon wall is far l ess pronounced than seen in the tubular mass. IMPRESSION: Previously detailed 7-8 centimeter complex left adnexal masses seen on MR imaging as a d ilated tubular mass with vigorous enhancement of the grider and surrounding tissues. Left-sided salpingitis/ pyosalpinx is favored. Diverticular abscess is not currently suspected. Patient does have sigmoid diverticulosis and some low level signal and enhancement of the sigmoid col on suspected to be secondary to the TR[employer]IC process. Ovarian tissue is not clearly defined.
[2020-06-21 21:39] VITALS: O2SAT 94
[2020-06-21 21:40] VITALS: BP 147/85; TEMP 99
--- NOTE | 2020-06-21 22:14 | P.DS ---
Admission Date: 06/20/20 Discharge Date: 06/21/20 Primary Care Provider: Matthew xie Disposition: TRANSFER TO [facility] Discharge Condition: FAIR Reason for Admission: Diverticulitis with abscess Consultations: General surgery: Dr. Gallardo Procedures: CT abdomen pelvis FINDINGS: The lung bases demonstrate to be clear. The liver, pancreas, spleen and adrenal glands demonstrate to be unremarkable, no focal lesions are noted. Surgical clips within the gallbladder fossa corresponding to previous cholecystectomy. There is no significant biliary duct dilatation. The right kidney demonstrate normal uptake of contrast media. No nephrolithiasis and/or hydronephrosis was identified. There is a status post left nephrectomy and possible adrenalectomy. Grossly the unopacified stomach, small bowel and large bowel demonstrate to be within normal limits. There is no evidence for bowel dilatation and/or free air. The appendix is unremarkable. Again there is a complex hypodense lesion within the left adnexa close communicated with the sigmoid colon minimal surrounding left pericolonic inflammatory changes, best identified on axial image 61/94- 70/94 and coronal image 47/[id number]/122 findings suggest communication with a diverticulum on coronal CT series image 51/122 and axial image 61/94-63/94 for which diverticular abscess could be of consideration, less likely adnexal lesion. The urinary bladder demonstrate to be unremarkable. The uterus is unremarkable. The aorta demonstrate to be normal. There is no retroperitoneal lymphadenopathy. There is no evidence for ascites. The rest of the soft tissue and bony structures are within normal limits. IMPRESSION: Again there is a complex hypodense fluid collection within the left adnexa close communicated with the sigmoid colon minimal surrounding left pericolonic inflammatory changes, suspicious for residual acute diverticulitis and diverticular abscess. Status post left nephrectomy and possible adrenalectomy. Status post cholecystectomy. Transvaginal ultrasound FINDINGS: The uterus is normal in size, shape and echotexture. The uterus measures 8.9 x 3.4 cm. Small fibroid suspected submucosal location the inferior aspect uterus 12 mm. The endometrial stripe measures 3 mm, normal. Complex appearing collection is present in the left adnexa. This collection measures approximately 7.5 x 5.6 cm. Neither ovary could be well seen due to excessive bowel gas shadowing. IMPRESSION: Complex left adnexal collection is noted measuring 7.5 x 5.6 cm. This may represent peridiverticular abscess.Neither ovary could be identified confidently by ultrasound due to excessive shadowing. MRI female pelvis protocol may be of value for better visualization of the gynecologic structures. Pelvic MRI FINDINGS: Prior imaging shows left adnexal mass. Patient has a past history of tubal ligation. Right deviation of the uterus is identified. There are multiple small to moderate size nabothian cysts identifiable. Right ovarian tissue is difficult to uniquely identified. Fluid-filled structures along the right lateral superior margin of the uterus appear to be a serpiginous tubular structure. A right-sided hydrosalpinx is suspected. There is no wall thickening edema or enhancement characteristics. The large left adnexal mass seen on prior imaging is seen to be a dilated tu bular structure. Internal content is more heterogeneous than seen on the right. Post-contrast imaging shows the there is enhancement along the wall of this tubular mass complex. Separate ovarian tissue is difficult to identified. Edema and enhancement is seen in the soft tissues immediately adjacent to the large tubular mass. No abnormal free fluid collection. Diverticulosis is present in the sigmoid colon. Grider of the sigmoid colon are prominent there is questionable low-level enhancement along the wall of the sigmoid colon. The colon abuts the complex tubular mass of the adnexa. Any enhancement of the colon wall is far less pronounced than seen in the tubular mass. IMPRESSION: Previously detailed 7-8 centimeter complex left adnexal masses seen on MR imaging as a dilated tubular mass with vigorous enhancement of the grider and surrounding tissues. Left-sided salpingitis/ pyosalpinx is favored. Diverticular abscess is not currently suspected. Patient does have sigmoid diverticulosis and some low level signal and enhancement of the sigmoid colon suspected to be secondary to the DRIVE THRU ORDER TAKER process. Ovarian tissue is not clearly defined. Medical problem list Abdominal pain, leukocytosis secondary to Acute salpingitis verses pyosalpinx Hypertension Hyperlipidemia Hypothyroidism Brief History of Present Illness: 54-year-old female with history of hypertension, hyperlipidemia, hypothyroidism, diverticulitis presents emergency department for abdominal pain. Patient reports lower abdominal pain worsening over the course of the last 3 days. Patient with history of diverticulitis with perforation/abscess which was medically managed in the past. Workup in the emergency department reveals white blood cell count 17.2 CT significant for complex hypodense fluid collection within the left adnexa closely communicated with the sigmoid colon with minimal surrounding left pericolonic inflammation. Findings suspicious for residual acute diverticulitis and diverticular abscess. General surgery was consulted while patient is in the emergency department, patient will be admitted for further evaluation and management. Patient without severe sepsis or septic shock at this time. Hospital Course: Patient was admitted to the hospital for suspected diverticulitis with abscess without perforation or hemorrhage. Patient was started on IV Zosyn on day of admission, patient was seen by general surgery next day who reviewed CT scan and was questioning the diagnosis of diverticular abscess, pelvic ultrasound was ordered which was ambiguous but recommended MRI of the pelvis, MRI pelvis performed which demonstrated suspected salpingitis verses pyosalpinx, there was no diverticulitis noted. Patient required DRIVE THRU ORDER TAKER surgery services, on-call clutch mechanic was consulted and stated that patient would benefit from transfer for higher level of care. Case was discussed with patient who is amenable with transfer to [facility] for further management of her care. Patient stable at this time on the general medical floor. Blood pressure 130/76, heart rate 98, respiratory rate 18 temperature 99. Patient awake, alert, oriented x3, still with some suprapubic in generalized lower abdominal pain/tenderness without guarding rebound tenderness noted. Patient accepted to [facility] for further management. Vital Signs/Physical Exam: Temp Pulse Resp BP Pulse Ox 99.0 F 105 H 17 147/85 H 94 06/21/20 20:00 06/21/20 20:00 06/21/20 21:06 06/21/20 20:00 06/21/20 21:06 General: Alert, In no apparent distress HEENT: Atraumatic, PERRLA, EOMI Neck: Supple, JVD not distended Respiratory: Clear to auscultation bilaterally, Normal air movement Cardiovascular: Regular rate/rhythm, Normal S1 S2 Capillary refill: <2 Seconds Gastrointestinal: Normal bowel sounds, No rebound, No guarding, Tenderness Musculoskeletal: No tenderness Integumentary: No rashes Neurological: Normal speech, Normal tone, Normal affect Lymphatics: No axilla or inguinal lymphadenopathy Laboratory Data at Discharge: WBC 17.50 K/uL (4.3-10.9) H D 06/21/20 05:14 Hgb 9.5 g/dL (12.0-15.0) L 06/21/20 05:14 Hct 28.0 % (36.0-45.0) L 06/21/20 05:14 Plt Count 187 K/uL (152-406) 06/21/20 05:14 Sodium 140 mmol/L (136-145) 06/21/20 05:14 Potassium 4.0 mmol/L (3.5-5.1) 06/21/20 05:14 BUN 6 mg/dL (7-18) L 06/21/20 05:14 Creatinine 0.92 mg/dL (0.55-1.3) 06/21/20 05:14 Glucose 88 mg/dL (74-106) 06/21/20 05:14 Magnesium 2.1 mg/dL (1.8-2.4) 06/21/20 05:14 Total Bilirubin 1.2 mg/dL (0.2-1.0) H 06/21/20 05:14 AST 24 U/L (15-37) 06/21/20 05:14 ALT 39 U/L (12-78) 06/21/20 05:14 Alkaline Phosphatase 154 U/L (45-117) H 06/21/20 05:14 Lipase 72 U/L (73-393) L 06/19/20 22:30 Home Medications: Levothyroxine [Synthroid*] 1 tab PO DAILY 03/13/19 Simvastatin 1 tab PO DAILY 03/13/19 Lisinopril [Zestril] 1 tab PO DAILY 06/20/20 Physician Discharge Instructions: Patient was admitted to the hospital for suspected diverticulitis with abscess without perforation or hemorrhage. Patient was started on IV Zosyn on day of admission, patient was seen by general surgery next day who reviewed CT scan and was questioning the diagnosis of diverticular abscess, pelvic ultrasound was ordered which was ambiguous but recommended MRI of the pelvis, MRI pelvis performed which demonstrated suspected salpingitis verses pyosalpinx, there was no diverticulitis noted. Patient required DRIVE THRU ORDER TAKER surgery services, on-call clutch mechanic was consulted and stated that patient would benefit from transfer for higher level of care. Case was discussed with patient who is amenable with transfer to [facility] for further management of her care. Patient stable at this time on the general medical floor. Blood pressure 130/76, heart rate 98, respiratory rate 18 temperature 99. Patient awake, alert, oriented x3, still with some suprapubic in generalized lower abdominal pain/tenderness without guarding rebound tenderness noted. Patient accepted to [facility] for further management. Diet: npo Activity: Bedrest Followup: NONE,NONE [Primary Care Provider] - Time spent managing pt's care (in minutes): 55
== END 2020-06-21 23:00 | disposition short-term general hospital (02) | DRG 759 ==
LOC: ER 18:21 → ERHOLD 06-20 04:15 → 4TH 06-20 07:40
PROVIDERS: ADMIT Hospitalist; ATTEND Hospitalist
DX: N70.01 Acute salpingitis (principal); I10 Essential (primary) hypertension; E78.5 Hyperlipidemia, unspecified; K59.00 Constipation, unspecified; E03.9 Hypothyroidism, unspecified; Z79.890 Hormone replacement therapy; Z79.899 Other long term (current) drug therapy; Z90.49 Acquired absence of other specified parts of digestive tract; Z98.51 Tubal ligation status; Z20.822 Contact with and (suspected) exposure to COVID-19
CPT/HCPCS: 36415; 72197; 74177; 76830; 80048; 80053; 80076; 81003; 81015; 81025; 83605; 83690; 83735; 85025; 87040; 87086; 87088; 96361; 96365; 96375; 99285; A9577; J1170; J1335; J2405; J2543; J3480; J7030; Q9967; U0003

== ENCOUNTER 2021-01-28 11:37 | Emergency (ER) | payer BC ==
--- NOTE | 2021-01-28 12:18 | ER ---
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 No new foods or meds. No cough or fever. Coronavirus screen: Vaccine status: Patient reports being unvaccinated. Client denies travel out of the [place] in the last 14 days. At this time, the client does not indicate any symptoms associated with coronavirus-19. Ebola Screen: Patient denies travel to an Ebola-affected area in the 21 days before illness onset. Onset: The symptoms/episode began/occurred suddenly. Anaphylaxis evaluation, no signs or symptoms of anaphylaxis were noted. Initial Sepsis Screen: Does the patient meet any 2 criteria? No. Patient's initial sepsis screen is negative. Does the patient have a suspected source of infection? No. Patient's initial sepsis screen is negative. Risk Assessment: Do you want to hurt yourself or someone else? Patient reports no desire to harm self or others. Onset of symptoms was January 28, 2021. 11:49 Method Of Arrival: Ambulatory 1 11:49 Acuity: RAFA 4 ll1 Triage Assessment: 13:05 General: Appears in no apparent distress. Behavior is calm, cooperative. 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 - Social history:: Smoking status: Patient denies any tobacco usage or history of. - Family history:: not pertinent. Screenin:55 Abuse screen: Denies threats or abuse. Denies injuries from another. Nutritional ch5 screening: No deficits noted. Tuberculosis screening: No symptoms or risk factors identified. Fall Risk None identified. Assessment: 11:53 Respiratory: No deficits noted. Reports itching and swelling in face. ch5 12:23 Pain: Denies pain. Respiratory: Airway is patent Trachea midline Respiratory effort is tw5 even, unlabored, Breath sounds are clear. Respiratory: Airway Trachea Respiratory effort is. GI: EENT: Throat is clear with gag reflex present. 13:02 Reassessment: Patient states feeling better. Patient states symptoms have improved. tw5 Vital Signs: 11:49 Resp 17; Temp 98.4; Weight 76.2 kg; Height 5 ft. 1 in. (154.94 cm); Pain 0/10; ll1 11:53 BP 165 / 114; Pulse 114; Resp 22; Temp 98; Pulse Ox 96% ; Pain 0/10; ch5 12:23 BP 130 / 78; Pulse 106; Resp 18; Pulse Ox 96% on R/A; tw5 13:02 BP 139 / 87; Pulse 107; Resp 14; Temp 98.9; Pulse Ox 96% on R/A; Pain 0/10; tw5 11:49 Body Mass Index 31.74 (76.20 kg, 154.94 cm) ll1 ED Course: 11:40 Patient arrived in ED. ds1 11:44 Estevan Disla MD is Attending Physician. rusty 11:45 Roger Alvarez RN is Primary Nurse. ch5 11:47 Patient has correct armband on for positive identification. Placed in gown. Bed in low mh5 position. Call light in reach. Side rails up X 1. Warm blanket given. hall monitor on. Pulse ox on. NIBP on. 11:52 Triage completed. ll1 11:55 No provider procedures requiring assistance completed. Inserted saline lock: 20 gauge ch5 in right hand, using aseptic technique. 12:15 Axel Hernandez MD is Referral Physician. rusty 13:02 IV discontinued, intact, bleeding controlled, No redness/swelling at site. Pressure tw5 dressing applied. 13:05 Arm band placed on. tw5 Administered Medications: 12:25 Drug: prednisoLONE Liquid 60 mg Route: PO; tw5 13:04 Follow up: Response: No adverse reaction tw5 12:28 Drug: Benadryl (diphenhydrAMINE) 50 mg Route: IVP; Site: right hand; tw5 13:04 Follow up: Response: No adverse reaction tw5 12:28 Drug: SOLU-Medrol (methylPrednisoLONE) 125 mg Route: IVP; Site: right hand; tw5 13:04 Follow up: Response: No adverse reaction tw5 12:30 Drug: Pepcid (famotidine) 40 mg Route: IVP; Site: right hand; tw5 13:04 Follow up: Response: No adverse reaction tw5 Outcome: 12:17 Discharge ordered by . rusty 13:04 Discharged to home ambulatory, with family. tw5 13:04 Condition: good 13:04 Discharge instructions given to patient, Instructed on discharge instructions, follow up and referral plans. medication usage, Demonstrated understanding of instructions, Prescriptions given X 4. 13:05 Patient left the ED. tw5 Signatures: Estevan Disla MD MD cha Sanford, Demi dsJackelin Bauer 5 Estefania Walters RN RN ll1 Roger Alvarez RN RN ch5 Armando, Pham tw5
--- NOTE | 2021-01-28 12:18 | EDPHYS ---
Physician Documentation [facility] Name: Gaby Wheeler Age: 55 yrs Sex: Female : 1965 Arrival Date: 01/28/2021 Time: 11:40 Bed 2 Private MD: RICARDO Physician Estevan Disla HPI: 01/28 12:09 This 55 yrs old Female presents to ER via Ambulatory with complaints of rusty Allergic Reaction. 12:09 The patient presents with localized swelling. Onset: The symptoms/episode rusty began/occurred just prior to arrival. Associated signs and symptoms: The patient has no apparent associated signs or symptoms. Possible causes: CUCUMBERS, LEMON. At home the patient or guardian has treated the symptoms with nothing. The patient has not experienced similar symptoms in the past. 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 - Social history:: Smoking status: Patient denies any tobacco usage or history of. - Family history:: not pertinent. ROS: 12:09 Constitutional: Negative for fever, chills, and weight loss, Eyes: Negative for injury, rusty pain, redness, and discharge, Neck: Negative for injury, pain, and swelling, Cardiovascular: Negative for chest pain, palpitations, and edema, Respiratory: Negative for shortness of breath, cough, wheezing, and pleuritic chest pain, Abdomen/GI: Negative for abdominal pain, nausea, vomiting, diarrhea, and constipation, Back: Negative for injury and pain, : Negative for injury, bleeding, discharge, and swelling, MS/Extremity: Negative for injury and deformity, Skin: Negative for injury, rash, and discoloration, Neuro: Negative for headache, weakness, numbness, tingling, and seizure, Psych: Negative for depression, anxiety, suicide ideation, homicidal ideation, and hallucinations, Allergy/Immunology: Negative for hives, rash, and allergies, Endocrine: Negative for neck swelling, polydipsia, polyuria, polyphagia, and marked weight changes, Hematologic/Lymphatic: Negative for swollen nodes, abnormal bleeding, and unusual bruising. 12:09 ENT: Positive for rhinorrhea, SUBMENTAL SWELLING. Exam: 12:09 Constitutional: This is a well developed, well nourished patient who is awake, alert, rusty and in no acute distress. Eyes: Pupils equal round and reactive to light, extra-ocular motions intact. Lids and lashes normal. Conjunctiva and sclera are non-icteric and not injected. Cornea within normal limits. Periorbital areas with no swelling, redness, or edema. ENT: Nares patent. No nasal discharge, no septal abnormalities noted. Tympanic membranes are normal and external auditory canals are clear. Oropharynx with no redness, swelling, or masses, exudates, or evidence of obstruction, uvula midline. Mucous membranes moist. Neck: Trachea midline, no thyromegaly or masses palpated, and no cervical lymphadenopathy. Supple, full range of motion without nuchal rigidity, or vertebral point tenderness. No Meningismus. Chest/axilla: Normal chest wall appearance and motion. Nontender with no deformity. No lesions are appreciated. Cardiovascular: Regular rate and rhythm with a normal S1 and S2. No gallops, murmurs, or rubs. Normal PMI, no JVD. No pulse deficits. Respiratory: Lungs have equal breath sounds bilaterally, clear to auscultation and percussion. No rales, rhonchi or wheezes noted. No increased work of breathing, no retractions or nasal flaring. Abdomen/GI: Soft, non-tender, with normal bowel sounds. No distension or tympany. No guarding or rebound. No evidence of tenderness throughout. Back: No spinal tenderness. No costovertebral tenderness. Full range of motion. Skin: Warm, dry with normal turgor. Normal color with no rashes, no lesions, and no evidence of cellulitis. MS/ Extremity: Pulses equal, no cyanosis. Neurovascular intact. Full, normal range of motion. Neuro: Awake and alert, GCS 15, oriented to person, place, time, and situation. Cranial nerves II-XII grossly intact. Motor strength 5/5 in all extremities. Sensory grossly intact. Cerebellar exam normal. Normal gait. Psych: Awake, alert, with orientation to person, place and time. Behavior, mood, and affect are within normal limits. 12:09 Head/face: Noted is swelling, that is mild, of the right jaw and left jaw. Vital Signs: 11:49 Resp 17; Temp 98.4; Weight 76.2 kg; Height 5 ft. 1 in. (154.94 cm); Pain 0/10; ll1 11:53 BP 165 / 114; Pulse 114; Resp 22; Temp 98; Pulse Ox 96% ; Pain 0/10; ch5 12:23 BP 130 / 78; Pulse 106; Resp 18; Pulse Ox 96% on R/A; tw5 13:02 BP 139 / 87; Pulse 107; Resp 14; Temp 98.9; Pulse Ox 96% on R/A; Pain 0/10; tw5 11:49 Body Mass Index 31.74 (76.20 kg, 154.94 cm) ll1 MDM: 11:44 Patient medically screened. rusty 12:14 Differential diagnosis: anaphylaxis, angioedema, bronchospasm, Hereditary Angioedema rusty Mastocystosis non IgE mediated drug reaction Status Asthmaticus urticaria, Vocal Cord Dysfunction. Data reviewed: vital signs, nurses notes. Data interpreted: cardiac monitor: rate is 114 beats/min, rhythm is regular, Pulse oximetry: on room air is 96 %. Counseling: I had a detailed discussion with the patient and/or guardian regarding: the historical points, exam findings, and any diagnostic results supporting the discharge/admit diagnosis, the need for outpatient follow up, for definitive care, an allergy/licensing specialist, a family practitioner. Administered Medications: 12:25 Drug: prednisoLONE Liquid 60 mg Route: PO; tw5 13:04 Follow up: Response: No adverse reaction tw5 12:28 Drug: Benadryl (diphenhydrAMINE) 50 mg Route: IVP; Site: right hand; tw5 13:04 Follow up: Response: No adverse reaction tw5 12:28 Drug: SOLU-Medrol (methylPrednisoLONE) 125 mg Route: IVP; Site: right hand; tw5 13:04 Follow up: Response: No adverse reaction tw5 12:30 Drug: Pepcid (famotidine) 40 mg Route: IVP; Site: right hand; tw5 13:04 Follow up: Response: No adverse reaction tw5 Disposition Summary: 01/28/21 12:17 Discharge Ordered Location: Home rusty Problem: new rusty Symptoms: have improved rusty Condition: Stable rusty Diagnosis - Allergy to other foods rusty - Other allergy rusty Followup: rusty - With: Private Physician - When: 2 - 3 days - Reason: Recheck today's complaints, Continuance of care, Re-evaluation by your physician Followup: rusty - With: Axel Hernandez MD - When: 2 - 3 days - Reason: Recheck today's complaints, Re-evaluation by your physician Discharge Instructions: - Discharge Summary Sheet rusty - Allergies, Adult rusty - Food Allergy rusty - Angioedema rusty - Angioedema, [id number] [facility] - Food Choices for Other Food Allergens [facility] Forms: - Medication Reconciliation Form [facility] - Thank You Letter [facility] - Antibiotic Education [facility] - Prescription Opioid Use [facility] Prescriptions: - EpiPen 2-Santana - inject 1 applicatorful by SUBCUTANEOUS route as directed; 1 Applicator; [facility] Refills: 0, Product Selection Permitted - Benadryl 25 mg Oral Capsule - take 2 capsule by ORAL route every 6 hours As needed; 36 tablet; Refills: 0, [facility] Product Selection Permitted - Pepcid 20 mg Oral Tablet - take 1 tablet by ORAL route every 12 hours for 15 days; 30 tablet; Refills: 0, [facility] Product Selection Permitted - Prednisone 20 mg Oral Tablet - take 2 tablets by ORAL route once daily for 5 days; 10 tablet; Refills: 0, [facility] Product Selection Permitted Signatures: Estevan Disla MD MD cha Lewis, Lynsay, RN RN ll1 Pham Robetrs tw5
[2021-01-28] MEDS ORDERED: prednisoLONE 15 MG/5 ML OSYR ONE (12:45)
[2021-01-28] MEDS ORDERED: METHYLPREDNISOLONE 125 MG INJ ONE (12:45)
[2021-01-28] MEDS ORDERED: FAMOTIDINE 20 MG/2 ML VIAL IV ONE (12:45)
[2021-01-28] MEDS ORDERED: DIPHENHYDRAMINE 50 MG/ML VIAL ONE (12:45)
[2021-01-28 13:28] VITALS: O2SAT 96
[2021-01-28 13:31] VITALS: BP 139/87; TEMP 98.9
== END 2021-01-28 13:05 | disposition home or self-care (01) ==
LOC: ER 11:37
DX: T78.1XXA Other adverse food reactions, not elsewhere classified, initial encounter (principal); X58.XXXA Exposure to other specified factors, initial encounter
CPT/HCPCS: 96375; 96374; 99284; J1200; J2930; J7510

== ENCOUNTER 2021-07-22 04:40 | Emergency (ER) | payer BC, SELFPAY ==
[2021-07-22] MEDS ORDERED: NA CHLORIDE 0.9% 2,000 ML ONE (06:05)
[2021-07-22] MEDS ORDERED: MORPHINE 4 MG/ML SYR ONE ×2 (06:05→08:12)
[2021-07-22] MEDS ORDERED: ONDANSETRON 4 MG/2 ML VIAL ONE (06:05)
[2021-07-22 06:30] LABS: Albumin 3.5 g/dL (3.4-5.0); Bilirubin Total 0.7 mg/dL (0.2-1.0); Potassium 3.8 mmol/L (3.5-5.1); Protein, Total 8.8 g/dL (6.4-8.2)
[2021-07-22 06:31] LABS: Absolute Lymphocytes (CBC) 1.7 K/uL (0.7-4.9); Hematocrit 44.6 % (36.0-45.0); Lymphocytes % 12.3 % (15.3-44.8); MPV 8.9 fL (7.6-11.3); RBC Red Blood Cell Count 4.91 M/uL (3.86-4.86)
[2021-07-22 06:44] LABS: Protime INR 1.06
[2021-07-22] MEDS ORDERED: METRONIDAZOLE 500mg IVPB 500 MG/100 ML BAG IV ONE (06:46)
[2021-07-22] MEDS ORDERED: CIPROFLOXACIN 400mg IV 400 MG/200 ML BAG IV ONE (06:46)
[2021-07-22 07:27] LABS: Urine Blood Trace-intact (Negative); Urine Glucose Negative (Negative); Urine Protein Negative (Negative); Urine Specific Gravity 1.015 (1.005-1.030)
[2021-07-22 07:32] LABS: Urine Specific Gravity/Preg 1.015 (1.005-1.030)
[2021-07-22 07:35] LABS: Urine Bacteria <20 /HPF (<20); Urine RBC <5 /HPF (NONE SEEN)
[2021-07-22] MEDS ORDERED: NA CHLORIDE 0.9% 1,000 ML ONE (07:56)
[2021-07-22] MEDS ORDERED: CEFTRIAXONE 1000 MG/VIAL ONE (07:56)
[2021-07-22] MEDS ORDERED: NA CHLORIDE 0.9% 500 ML ONE (08:12)
[2021-07-22 08:19] LABS: SARS-COV-2 RT PCR NEGATIVE (NEGATIVE)
--- NOTE | 2021-07-22 08:29 | RAD REPORT ---
EXAM DESCRIPTION: CT - Abdomen Pelvis W Contrast - 07/22/2021 6:31 am CLINICAL HISTORY: Abdominal pain COMPARISON: 2020 TECHNIQUE: Computed axial tomography of the abdomen pelvis was obtained. 100 cc Isovue-300 was admin istered intravenously. Oral contrast was not requested which limits evaluation of bowel. All CT scans are performed using dose optimization technique as appropriate and may include automated exposure control or mA/KV adjustment according to patient size. FINDINGS: Hepatomegaly with fatty infiltration. Cholecystectomy Spleen, pancreas and adrenals unremarkable Left nephrectomy 3.4 centimeter intermediate density mass right kidney. Diverticula stem from the colon. Mild stranding adjacent to the sigmoid colon. 4.5 centimeter heterog eneous mass left at adnexa. It probably contains a small amount of air. It contains low and intermedi ate density areas. 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 Unusual appearing infection is anothe r consideration and should be correlated clinically and with appropriate lab. Mild sigmoid diverticulitis. 4.5 centimeter heterogeneous mass within the left adnexal abuts the sigm oid colon. This may represent an abscess secondary to the diverticulitis. However, as it has decrease d in size from the prior exam it is possible that this is a chronic phlegmonous collection.
--- NOTE | 2021-07-22 08:48 | ER ---
Nurse's Notes [facility] Name: Gaby Wheeler Age: 55 yrs Sex: Female : 1965 Arrival Date: 07/22/2021 Time: 04:44 Bed 19 Private MD: Diagnosis: Abdominal tenderness;Fever, unspecified;Elevated white blood cell count;Diverticulitis of large intestine with perforation and abscess without bleeding-4.5 cm mass/phlegmonous, left adenxal;Other specified disorders of kidney and ureter-3.4 cm right renal mass Presentation: 07/22 04:53 Chief complaint: Chief complaint: Patient states: "I have a history of diverticulitis, tw5 this feels like every other time I have had it". Coronavirus screen: Vaccine status: Patient reports being unvaccinated. Ebola Screen: Patient negative for fever greater than or equal to 101.5 degrees Fahrenheit, and additional compatible Ebola Virus Disease symptoms Patient denies exposure to infectious person. Patient denies travel to an Ebola-affected area in the 21 days before illness onset. Initial Sepsis Screen: Does the patient meet any 2 criteria? RR > 20 per min. HR > 90 bpm. Does the patient have a suspected source of infection? Yes: Acute abdominal pain. Initial Sepsis Screen: If YES to both, name of provider notified: Kee Curtis MD Risk Assessment: Do you want to hurt yourself or someone else? Patient reports no desire to harm self or others. Onset of symptoms was July 21, 2021. 04:53 Acuity: RAFA 3 tw5 04:53 Method Of Arrival: Ambulatory tw5 Triage Assessment: 04:53 General: Appears uncomfortable, ill, Behavior is calm, cooperative, appropriate for age.tw5 04:57 Pain: Complains of pain in suprapubic area Pain currently is 10 out of 10 on a pain tw5 scale. GI: Reports nausea, vomiting. 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 - Social history:: Smoking status: Patient denies any tobacco usage or history of. - Family history:: not pertinent. - Hospitalizations: : No recent hospitalization is reported. Screenin:37 Abuse screen: Denies threats or abuse. Denies injuries from another. Nutritional kaiser screening: No deficits noted. Tuberculosis screening: No symptoms or risk factors identified. Fall Risk None identified. IV access (20 points). Assessment: 05:10 General: See triage assessment.. ll3 06:30 Reassessment: Pt sates when she wiped after giving a urine sample she had blood on the ll3 toilet paper, states she hasn't had a menstrual cycle in years. 07:37 GI: Bowel sounds present X 4 quads. Abd is soft Abdomen is tender to palpation. kaiser Vital Signs: 04:53 BP 164 / 99; Pulse 143; Resp 20; Temp 98.7(O); Pulse Ox 96% on R/A; Weight 81.65 kg; tw5 Height 5 ft. 0 in. (152.40 cm); Pain 10/10; 06:40 Temp 100.4(O); ll3 07:36 BP 131 / 84; Pulse 120; Resp 18; Pulse Ox 96% on R/A; kaiser 04:53 Body Mass Index 35.15 (81.65 kg, 152.40 cm) tw5 ED Course: 04:44 Patient arrived in ED. bp1 04:56 Triage completed. tw5 04:57 Arm band placed on right wrist. tw5 04:59 Kee Curtis MD is Attending Physician. rn 06:06 Inserted saline lock: 22 gauge in right forearm, using aseptic technique. Blood ds4 collected. 06:32 CT Abd/Pelvis - IV Contrast Only In Process Unspecified. EDMS 07:03 Booker Hodges, JERALD is Primary Nurse. ll3 07:28 Attending Physician role handed off by Kee Curtis MD rusty 07:28 Estevan Disla MD is Attending Physician. rusty 07:37 Patient has correct armband on for positive identification. Bed in low position. kaiser 07:37 No provider procedures requiring assistance completed. Inserted saline lock: 20 gauge kaiser in left antecubital area, using aseptic technique. 07:38 Urine --Ancillary (enter results) Sent. kaiser 07:38 COVID-19/FLU A+B (Document "Date of Onset" if Symptomatic) Sent. kaiser 10:04 Patient transferred, IV remains in place. kaiser Administered Medications: 06:15 Drug: NS 0.9% (30 ml/kg) 30 ml/kg Route: IV; Rate: bolus; Site: right wrist; ll3 09:11 Follow up: IV Status: Completed infusion kaiser 06:15 Drug: morphine 4 mg Route: IVP; Site: right wrist; ll3 07:38 Follow up: Response: No adverse reaction kaiser 06:16 Drug: Zofran (Ondansetron) 4 mg Route: IVP; Site: right wrist; ll3 08:37 Follow up: Response: No adverse reaction kaiser 07:20 Drug: Flagyl (metroNIDAZOLE) 500 mg Volume: 100 ml; Route: IVPB; Rate: 200 ml/hr; ll3 Infused Over: 30 mins; Site: right forearm; 09:11 Follow up: IV Status: Completed infusion kaiser 07:38 Drug: Cipro (ciprofloxacin) 400 mg Volume: 200 ml; Route: IVPB; Infused Over: 60 mins; kaiser Site: left antecubital; 09:11 Follow up: IV Status: Completed infusion kaiser 08:30 Drug: Rocephin (cefTRIAXone) 2 grams Route: IV; Rate: per protocol; Site: left kaiser antecubital; 09:10 Follow up: IV Status: Completed infusion kaiser 10:00 CANCELLED (Duplicate Order): morphine 4 mg Sub-Q once; RASS on ADMIN: Combtv4, Very kaiser Agttd3, Agttd2, Rstlss1, AlertClm0, Drwsy-1, Lt Sdtn-2, Mod Sdtn-3, Dp Sdtn-4, UnArsble-5 10:01 Drug: morphine 4 mg Route: IVP; Site: left antecubital; kaiser 10:01 Follow up: Response: No adverse reaction kaiser Outcome: 08:47 ER care complete, transfer ordered by . rusty 10:04 Transferred to [facility]. kaiser 10:04 Condition: good 10:04 Instructed on the need for transfer. 10:09 Patient left the ED. kaiser Signatures: Dispatcher [employer] EDMS Estevan Disla MD MD cha Nieto, Roman, MD MD rn Swanson, Donovan ds4 Tara Barlow Tiffany tw5 Booker Hodges RN RN ll3 Faith Lynn RN RN kaiser Corrections: (The following items were deleted from the chart) 04:57 04:53 Chief complaint: tw5 tw5 07:15 07:04 Temp 100.4F Oral; christine3 3
--- NOTE | 2021-07-22 08:48 | EDPHYS ---
Physician Documentation [facility] Name: Gaby Wheeler Age: 55 yrs Sex: Female : 1965 Arrival Date: 07/22/2021 Time: 04:44 Bed 19 Private MD: RICARDO Physician Estevan Disla HPI: 07/22 05:15 This 55 yrs old Female presents to ER via Ambulatory with complaints of rn Abdominal Pain. 05:15 The patient presents with abdominal pain in the lower abdomen, in the left lower rn quadrant. Onset: The symptoms/episode began/occurred yesterday. The symptoms do not radiate. Associated signs and symptoms: Pertinent positives: nausea and vomiting, Pertinent negatives: blood in stools, fever. The symptoms are described as crampy, intermittent, sharp. Modifying factors: The symptoms are alleviated by nothing, the symptoms are aggravated by movement, touching the area. Severity of pain: At its worst the pain was moderate in the emergency department the pain is unchanged. The patient has experienced similar episodes in the past. The patient has not recently seen a physician. Pt reports thinks has diverticulitis again, states this would be 6th episode. No previous surgery for diverticulitis. Reports chills and malaise. No blood in stool. . 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 - Social history:: Smoking status: Patient denies any tobacco usage or history of. - Family history:: not pertinent. - Hospitalizations: : No recent hospitalization is reported. ROS: 05:15 Constitutional: + chills Eyes: Negative for injury, pain, redness, and discharge, ENT: rn Negative for injury, pain, and discharge, Cardiovascular: Negative for chest pain, palpitations, and edema, Respiratory: Negative for shortness of breath, cough, wheezing, and pleuritic chest pain, Abdomen/GI: + abd pain with nausea/vomiting Back: Negative for injury and pain, : Negative for injury, bleeding, discharge, and swelling, MS/Extremity: Negative for injury and deformity, Skin: Negative for injury, rash, and discoloration, Neuro: Negative for headache, numbness, tingling, and seizure. Exam: 05:15 Constitutional: This is a well developed, well nourished patient who is awake, alert, rn appears to be in pain Head/Face: Normocephalic, atraumatic. Eyes: Periorbital areas with no swelling, redness, or edema. ENT: dry MM Cardiovascular: Tachycardic, regular. No pulse deficits. Respiratory: No increased work of breathing, no retractions or nasal flaring. Abdomen/GI: soft, + suprapubic and LLQ tenderness, no rebound Skin: Warm, dry MS/ Extremity: Pulses equal, no cyanosis. Neuro: Awake and alert, GCS 15 Vital Signs: 04:53 BP 164 / 99; Pulse 143; Resp 20; Temp 98.7(O); Pulse Ox 96% on R/A; Weight 81.65 kg; tw5 Height 5 ft. 0 in. (152.40 cm); Pain 10/10; 06:40 Temp 100.4(O); ll3 07:36 BP 131 / 84; Pulse 120; Resp 18; Pulse Ox 96% on R/A; kaiser 04:53 Body Mass Index 35.15 (81.65 kg, 152.40 cm) tw5 MDM: 04:59 Patient medically screened. rn 07/22 05:01 Order name: CBC with Diff; Complete Time: 08:05 rn 07/22 05:01 Order name: CMP; Complete Time: 08:05 rn 07/22 05:01 Order name: Lipase; Complete Time: 08:05 rn 07/22 05:01 Order name: Blood Culture Adult (2) rn 07/22 05:01 Order name: Lactate; Complete Time: 08:05 rn 07/22 05:01 Order name: Protime (+inr); Complete Time: 08:05 rn 07/22 05:01 Order name: Ptt, Activated; Complete Time: 08:05 rn 07/22 05:01 Order name: Urine Culture rn 07/22 05:01 Order name: Urine Microscopic Only; Complete Time: 08:05 rn 07/22 05:01 Order name: COVID-19/FLU A+B (Document "Date of Onset" if Symptomatic); Complete Time: rn 08:39 07/22 07:27 Order name: Urine Dipstick-Ancillary; Complete Time: 08:05 EDMS 07/22 07:28 Order name: Urine --Ancillary (enter results) em1 07/22 08:19 Order name: Lactate kaiser 07/22 05:01 Order name: CT Abd/Pelvis - IV Contrast Only; Complete Time: 08:39 rn 07/22 05:01 Order name: IV Saline Lock; Complete Time: 06:05 rn 07/22 05:01 Order name: Labs collected and sent; Complete Time: 06:06 rn 07/22 05:01 Order name: Accucheck; Complete Time: 06:56 rn 07/22 05:01 Order name: Cardiac monitoring; Complete Time: 06:56 rn 07/22 05:01 Order name: EKG - Nurse/Tech; Complete Time: 06:05 rn 07/22 05:01 Order name: IV Saline Lock - Large Bore; Complete Time: 06:05 rn 07/22 05:01 Order name: O2 Per Protocol; Complete Time: 06:05 rn 07/22 05:01 Order name: O2 Sat Monitoring; Complete Time: 06:05 rn 07/22 05:01 Order name: Urine Dipstick-Ancillary (obtain specimen); Complete Time: 07:39 rn Administered Medications: 06:15 Drug: NS 0.9% (30 ml/kg) 30 ml/kg Route: IV; Rate: bolus; Site: right wrist; ll3 09:11 Follow up: IV Status: Completed infusion kaiser 06:15 Drug: morphine 4 mg Route: IVP; Site: right wrist; ll3 07:38 Follow up: Response: No adverse reaction kaiser 06:16 Drug: Zofran (Ondansetron) 4 mg Route: IVP; Site: right wrist; ll3 08:37 Follow up: Response: No adverse reaction kaiser 07:20 Drug: Flagyl (metroNIDAZOLE) 500 mg Volume: 100 ml; Route: IVPB; Rate: 200 ml/hr; ll3 Infused Over: 30 mins; Site: right forearm; 09:11 Follow up: IV Status: Completed infusion kaiser 07:38 Drug: Cipro (ciprofloxacin) 400 mg Volume: 200 ml; Route: IVPB; Infused Over: 60 mins; kaiser Site: left antecubital; 09:11 Follow up: IV Status: Completed infusion kaiser 08:30 Drug: Rocephin (cefTRIAXone) 2 grams Route: IV; Rate: per protocol; Site: left kaiser antecubital; 09:10 Follow up: IV Status: Completed infusion kaiser 10:00 CANCELLED (Duplicate Order): morphine 4 mg Sub-Q once; RASS on ADMIN: Combtv4, Very kaiser Agttd3, Agttd2, Rstlss1, AlertClm0, Drwsy-1, Lt Sdtn-2, Mod Sdtn-3, Dp Sdtn-4, UnArsble-5 10:01 Drug: morphine 4 mg Route: IVP; Site: left antecubital; kaiser 10:01 Follow up: Response: No adverse reaction kaiser Disposition Summary: 07/22/21 08:47 Transfer Ordered Transfer Location: [facility] Reason: Higher level of care rusty Condition: Fair rusty Problem: new rusty Symptoms: have improved rusty Accepting Physician: to [facility](07/22/21 10:09) kaiser Diagnosis - Abdominal tenderness rusty - Fever, unspecified rusty - Elevated white blood cell count rusty - Diverticulitis of large intestine with perforation and abscess without bleeding - rusty 4.5 cm mass/phlegmonous, left adenxal - Other specified disorders of kidney and ureter - 3.4 cm right renal mass rusty Forms: - Medication Reconciliation Form rusty - SBAR form rusty Signatures: Dispatcher [employer] Estevan Urbina MD MD cha Nieto, Roman, MD MD rn Wood, Tiffany [facility] Booker Hodges RN RN [facility] Jose De JesusStagerFaith RN RN kaiser Corrections: (The following items were deleted from the chart) 10:00 09:59 morphine 4 mg Sub-Q once; RASS on ADMIN: Combtv4, Very Agttd3, Agttd2, Rstlss1, kaiser AlertClm0, Drwsy-1, Lt Sdtn-2, Mod Sdtn-3, Dp Sdtn-4, UnArsble-5 ordered. kaiser 10:09 08:47 to [facility] kaiser
[2021-07-22 10:35] VITALS: O2SAT 96
[2021-07-22 10:36] VITALS: TEMP 100.4
[2021-07-22 10:37] VITALS: BP 131/84
== END 2021-07-22 10:09 | disposition short-term general hospital (02) ==
LOC: ER 04:40
DX: K57.20 Diverticulitis of large intestine with perforation and abscess without bleeding (principal); N28.89 Other specified disorders of kidney and ureter; D72.829 Elevated white blood cell count, unspecified; R50.9 Fever, unspecified; I10 Essential (primary) hypertension
CPT/HCPCS: 0240U; 36415; 74177; 80053; 81003; 81015; 81025; 83605; 83690; 85025; 85610; 85730; 87040; 87086; 87088; 93005; 99285; J0744; J2405; J7030; J7040; Q9967

== ENCOUNTER 2021-10-18 11:50 | Emergency (ER) | payer SELFPAY ==
[2021-10-18] MEDS ORDERED: ACETAMINOPHEN 500 MG TAB ONE (12:19)
[2021-10-18] MEDS ORDERED: ONDANSETRON 4 MG (ODT) TAB ONE (12:19)
[2021-10-18] MEDS ORDERED: IBUPROFEN 200 MG TAB PO ONE (12:29)
[2021-10-18] MEDS ORDERED: BEBTELOVIMAB 175 MG/2 ML VIAL IV ONE (13:48)
--- NOTE | 2021-10-18 14:38 | ER ---
Nurse's Notes [facility] Name: Gaby Wheeler Age: 56 yrs Sex: Female : 1965 Arrival Date: 10/18/2021 Time: 11:55 Bed 9 Private MD: Diagnosis: COVID 19 infection;Nausea with vomiting, unspecified Presentation: 10/18 12:04 Chief complaint: Patient states: nausea, chill, headaches, achy since last night. iw Coronavirus screen: Client presents with at least one sign or symptom that may indicate coronavirus-19. Ebola Screen: Patient negative for fever greater than or equal to 101.5 degrees Fahrenheit, and additional compatible Ebola Virus Disease symptoms Patient denies exposure to infectious person. Patient denies travel to an Ebola-affected area in the 21 days before illness onset. No symptoms or risks identified at this time. Initial Sepsis Screen: Does the patient meet any 2 criteria? No. Patient's initial sepsis screen is negative. Does the patient have a suspected source of infection? No. Patient's initial sepsis screen is negative. Risk Assessment: Do you want to hurt yourself or someone else? Patient reports no desire to harm self or others. Onset of symptoms was October 18, 2021. 12:04 Method Of Arrival: Ambulatory iw 12:04 Acuity: RAFA 4 iw Triage Assessment: 15:13 General: Appears in no apparent distress. comfortable, Behavior is calm, cooperative, ld1 appropriate for age. Pain: Denies pain. 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 - Social history:: Smoking status: Patient denies any tobacco usage or history of. Screenin:34 Abuse screen: Denies threats or abuse. Denies injuries from another. Nutritional ld1 screening: No deficits noted. Tuberculosis screening: No symptoms or risk factors identified. Fall Risk None identified. Assessment: 12:34 Reassessment: See triage assessment. ld1 13:40 Reassessment: Pt gave verbal consent for Bebtelovimab infusion. ld1 Vital Signs: 12:04 BP 129 / 88; Pulse 125; Resp 16; Temp 98.4; Pulse Ox 98% on R/A; iw 14:02 BP 129 / 84; Pulse 104; Resp 18; Pulse Ox 98% on R/A; ld1 14:35 BP 126 / 81; Pulse 93; Resp 18; Pulse Ox 96% on R/A; ld1 15:12 BP 124 / 83; Pulse 91; Resp 18; Pulse Ox 96% on R/A; ld1 ED Course: 11:55 Patient arrived in ED. am2 12:05 Triage completed. iw 12:05 Arm band placed on. iw 12:09 Agustín Medina MD is Attending Physician. jr11 12:10 Linh Chand RN is Primary Nurse. ld1 12:34 Patient has correct armband on for positive identification. Bed in low position. Call ld1 light in reach. Side rails up X2. youth nutritional monitor on. Pulse ox on. NIBP on. Door closed. Noise minimized. Warm blanket given. 12:34 No provider procedures requiring assistance completed. ld1 14:02 Inserted saline lock: 20 gauge in right antecubital area, using aseptic technique. ld1 15:13 IV discontinued, intact, bleeding controlled, No redness/swelling at site. ld1 Administered Medications: 12:20 Drug: Zofran (Ondansetron) 4 mg Route: PO; iw 12:25 Not Given (Physician Discretion): Tylenol 1000 mg PO once iw 12:25 Drug: Ibuprofen 600 mg Route: PO; iw 14:02 Drug: misc 175 mg Route: IV; Rate: calculated rate; Site: right antecubital; ld1 Medication: 12:34 VIS not applicable for this client. ld1 Outcome: 14:38 Discharge ordered by . jr11 15:13 Discharged to home ambulatory, with family. ld1 15:13 Condition: stable 15:13 Discharge instructions given to patient, Instructed on discharge instructions, follow up and referral plans. medication usage, Demonstrated understanding of instructions, follow-up care, medications, Prescriptions given X 1. 15:13 Patient left the ED. ld1 Signatures: Deisi Hall RN RN iw Nuvia Matson am2 Linh Chand RN RN ld1 Agustín Medina MD MD jr11 Corrections: (The following items were deleted from the chart) 12:20 12:20 Tylenol 1000 mg PO iw iw
--- NOTE | 2021-10-18 14:38 | EDPHYS ---
Physician Documentation [facility] Name: Gaby Wheeler Age: 56 yrs Sex: Female : 1965 Arrival Date: 10/18/2021 Time: 11:55 Bed 9 Private MD: ED Physician Agustín Medina HPI: 10/18 13:25 This 56 yrs old Female presents to ER via Ambulatory with complaints of r/o jr11 covid. 13:25 Patient is a 56-year-old female here with runny nose congestion body aches, dry cough, jr11 for 1 day, has been tested positive on home exam for COVID-19. Patient is unvaccinated. Patient also with nausea, had 1 episode of emesis, no chest pain or shortness of breath.. Onset: The symptoms/episode began/occurred 2 day(s) ago. Severity of symptoms: At their worst the symptoms were moderate in the emergency department the symptoms are unchanged. 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 - Social history:: Smoking status: Patient denies any tobacco usage or history of. ROS: 13:25 All other systems are negative. jr11 Exam: 13:25 Constitutional: This is a well developed, well nourished patient who is awake, alert, jr11 and in no acute distress. Head/Face: Normocephalic, atraumatic. Eyes: Extra-ocular motions intact. Lids and lashes normal. Conjunctiva and sclera are non-icteric and not injected. Cornea within normal limits. Periorbital areas with no swelling, redness, or edema. ENT: Nares patent. No nasal discharge, no septal abnormalities noted. Oropharynx with no redness, swelling, or masses, exudates, or evidence of obstruction, uvula midline. Mucous membranes moist. Neck: Trachea midline, no thyromegaly or masses palpated, and no cervical lymphadenopathy. Supple, full range of motion without nuchal rigidity, or vertebral point tenderness. No Meningismus. Cardiovascular: tachy RRR Respiratory: Lungs have equal breath sounds bilaterally, clear to auscultation and percussion. No rales, rhonchi or wheezes noted. No increased work of breathing, no retractions or nasal flaring. Abdomen/GI: Soft, non-tender, with normal bowel sounds. No distension or tympany. No guarding or rebound. No evidence of tenderness throughout. Back: No spinal tenderness. No costovertebral tenderness. Full range of motion. Skin: Warm, dry with normal turgor. Normal color with no rashes, no lesions, and no evidence of cellulitis. MS/ Extremity: Pulses equal, no cyanosis. Neurovascular intact. Full, normal range of motion. Neuro: Awake and alert, GCS 15, oriented to person, place, time, and situation. No gross motor or sensory deficits. Vital Signs: 12:04 BP 129 / 88; Pulse 125; Resp 16; Temp 98.4; Pulse Ox 98% on R/A; iw 14:02 BP 129 / 84; Pulse 104; Resp 18; Pulse Ox 98% on R/A; ld1 14:35 BP 126 / 81; Pulse 93; Resp 18; Pulse Ox 96% on R/A; ld1 15:12 BP 124 / 83; Pulse 91; Resp 18; Pulse Ox 96% on R/A; ld1 MDM: 12:09 Patient medically screened. jr11 13:25 Differential Diagnosis flu, COVID 19. Data reviewed: vital signs, nurses notes. ED jr11 course: Patient is a 56-year-old female with COVID-19 exposure, likely infection, given that she is unvaccinated, has risk factors of recent surgical procedure with an ostomy, will give monoclonal treatment. ER warnings given will be given with strict return precautions.. 10/18 12:10 Order name: SARS-COV-2 RT PCR (Document "Date of Onset" if Symptomatic) eb Administered Medications: 12:20 Drug: Zofran (Ondansetron) 4 mg Route: PO; iw 12:25 Not Given (Physician Discretion): Tylenol 1000 mg PO once iw 12:25 Drug: Ibuprofen 600 mg Route: PO; iw 14:02 Drug: misc 175 mg Route: IV; Rate: calculated rate; Site: right antecubital; ld1 Disposition Summary: 07/14/22 14:38 Discharge Ordered Location: Home jr11 Condition: Stable jr11 Diagnosis - COVID 19 infection jr11 - Nausea with vomiting, unspecified jr11 Discharge Instructions: - Discharge Summary Sheet jr11 - Nausea and Vomiting, Adult, [id number] jr11 - COVID-19 jr11 - 10 Things You Can Do to Manage Your COVID-19 Symptoms at Home - [facility] [facility] [place] jr11 Forms: - Medication Reconciliation Form jr11 - Thank You Letter jr11 - Antibiotic Education jr11 - Prescription Opioid Use jr11 Prescriptions: - Zofran 4 mg Oral Tablet - take 1 tablet by ORAL route every 12 hours As needed; 6 tablet; Refills: 0, jr11 Product Selection Permitted Signatures: Dispatcher [employer] Deisi Chamberlain RN RN iw Linh Chand RN RN ld1 Agustín Medina MD MD jr11
[2021-10-18 15:24] VITALS: TEMP 98.4
[2021-10-18 15:33] VITALS: O2SAT 96
[2021-10-18 15:39] VITALS: BP 124/83
== END 2021-10-18 15:13 | disposition home or self-care (01) ==
LOC: ER 11:50
DX: U07.1 COVID-19 (principal); I10 Essential (primary) hypertension
CPT/HCPCS: 99284; Q0162; U0003

== ENCOUNTER 2024-12-27 03:03 | Emergency (ER) | payer BC, SELFPAY ==
--- OUTSIDE RECORDS SUMMARY | 2024-12-27 03:25 | XMS REPORT | Continuity of Care Document ---
Author Name Unknown Address [address] [facility] [address] [place] [address] Organization [facility] [place] Address [address] [facility] [address] [place] [address] Care Team Providers Care Outbound Telemarketing Representative Name Role Phone Dhruv-Susanna TILLEY, [facility] Primary Care Physician + [phone] HERMES ALONSO Attending Clinician Unavailable HERMES ALONSO Attending Clinician Unavailable TERENCE BURKS Attending Clinician Unavailable LAWANDA CARLOS Attending Clinician Unavailable SUHAIL QUINN Attending Clinician Unavailable KANDI LOJA Attending Clinician UnavailGIRISH Harmon Attending Clinician Unavailable CJ MATTHEW Attending Clinician Unavailable CJ MATTHEW Attending Clinician Unavailable Kandi Loja MD Attending Clinician [phone] Girish Ramirez MD Attending Clinician +[phone] Hermes Alonso MD Attending Clinician +[phone] Pal Nunez MD Attending Clinician [phone] Alexandria TILLEY, Brent Gwendolyn Attending Clinician [phone] Jonathon Voss MD Attending Clinician [phone] More Gutiérrez MD Attending Clinician Itz MARQUES, Faith Lipscomb Attending Clinician Unavaila wilder Po, [facility] Main Attending Clinician Unavailelvia Garcia MD, [place] Attending Clinician [phone] Mary Bojorquez MD Attending Clinician [phone] NITISH MANCILLA Attending Clinician Unavailab AURY Turner Attending Clinician Unavailable Doctor Unassigned, [place] Attending Clinician U navailable OBSAM, RO[place] Attending Clinician Unavailab mikal GARCIA, [place] Attending Clinician Unavailab Cali Kruse Attending Clinician Unavailable Unknown, Attending Attending Clinician Unavailab Kerrie Jerez MD Attending Clinician [phone] KERRIE BERNAL Attending Clinician Unavailable KERRIE BERNAL Attending Clinician Unavailable Fani White Attending Clinician [phone] RENAE MACARIO Attending Clinician Unavailab RENAE Stovall Attending Clinician Unavailab Renae Stovall DO Attending Clinician [phone] FANI WHITE Attending Clinician Unavailable Justo TILLEY, Bella Whitney Attending Clinician Unavaila PEGGY Mahan Attending Clinician Unavaila Suhail Phelps MD Attending Clinician [phone] Vtc-Lab Attending Clinician Unavailable Kaycee Cuevas MD Attending Clinician [phone] KAYCEE CUEVAS Attending Clinician Unavail able Jmua Brown MD Attending Clinician + [phone] JUMA BROWN Attending Clinician Unavaila JUMA Melendrez Attending Clinician Unavaila Shawna Moeller Attending Clinician BONITA Lazar Attending Clinician Unavailable BONITA BAE Attending Clinician Unavailable [facility] Sleep Lab Attending Clinician Unavaila Bonita Carrillo MD Attending Clinician [phone] NINA JUNIOR Attending Clinician Unavailable Mili Jang NP Attending Clinician [phone] MILI JANG Attending Clinician Unavailable Lucy Murray Attending Clinician [phone] Lab, Ang - Db Attending Clinician Unavailable BONILLA MORROW Attending Clinician Nu olegario Morrow MD, Bonilla Aguillon Attending Clinician Pob, [facility] Main Attending Clinician Unavailabl e Doctor Unassigned, [place] Attending Clinician U navailable 2, [facility] Attending Clinician Unavailable LUCY GRANT Attending Clinician Unavailable Vitaliy TILLEY, Terence Attending Clinician [phone] Pcp, Patient Does Not Have A Attending Clinician Reed TILLEY, Elzbieta Attending Clinician [phone] ELZBIETA MCBRIDE Attending Clinician Unavailable Vtc-Lab Attending Clinician Unavailable Nallely TILLEY, [place] Attending Clinician [phone] Agnieszka Musa LVN Attending Clinician [phone] Gennaro MARQUES, Latrice Attending Clinician Unava judy Laird MD, Chan Whitney Attending Clinician [phone] Bradly Singh Attending Clinician +[phone] Only, [facility] Test Attending Clinician Unavailable Zuri Ferrell RN Attending Clinician Unavailab Max Plummer Attending Clinician + [phone] MAX NIELSON Attending Clinician Unavaila FERNANDO Abdalla Attending Clinician Unavailable Fernando Elena MD Attending Clinician [phone] Shakira Treadwell Attending Clinician [phone] Lillian Hughes RN Attending Clinician UnavailJordyn Carrillo MD Attending Clinician +[phone] Only, [facility] Test Attending Clinician Unavailable Cherri Saucedo MD Attending Clinician + [phone] CONNIE GRIFFIN Attending Clinician Unavailable Annel Trevino MD Attending Clinician [phone] INDU SPICER Attending Clinician Unavailelvia Spicer AGNIndu Mayorga Attending Clinician [phone] Night1, Vls-Fqhlx-5vs Yr Res Attending Clinician Unavailable Nichelle Casas Attending Clinician [phone] Justo TILLEY, Bella Whitney Attending Clinician [phone] PAUL FERGUSON Attending Clinician Unavailable Deonte TILLEY, Ming Attending Clinician [phone] BRADLY GARCIA Attending Clinician Unavailelvia Rodriguez RN, Elizabeth Abdullahi Attending Clinician Unavail able Salas TILLEY, Smiley Malloy Attending Clinician + [phone] Jose TILLEY, Jaylen Attending Clinician [phone] Moises Milligan CRNA Attending Clinician +[phone] Krys Saunders DO Attending Clinician [phone] Shimon Reddy CRNA Attending Clinician [phone] Hi Nam MD Attending Clinician + [phone] Angie TILLEY, Nia Phillips Attending Clinician + [phone] Paris MARQUES, Marjorie Leslie Attending Clinician Unavailable Judah Brito Attending Clinician Unavailable HI NAM Attending Clinician Unavailab Shimon Jean Baptiste MD Attending Clinician +[phone] Jhoana TILLEY, Lawanda Attending Clinician +[phone] TIERRA SHANNON Admitting Clinician Unava ilHERMES Ma Admitting Clinician Unavailable TERENCE BURKS Admitting Clinician Unavailable LAWANDA CARLOS Admitting Clinician Unavailable Pal Nunez MD Admitting Clinician + [phone] AURY BARRERA Admitting Clinician Unavailable KANDI LOJA Admitting Clinician Unavailabl man OBI-SUSANNA ROOPA Admitting Clinician Unavailab FANI Fisher Admitting Clinician Unavailable BONILLA MORROW Admitting Clinician Nu Bonilla Simon MD Admitting Clinician Vitaliy TILLEY, Terence Admitting Clinician [phone] LUIS ALBERTO MARISCAL Admitting Clinician Unavailable CHERRI SAUCEDO Admitting Clinician Unacindy Saucedo MD, Cherri Thakkar Admitting Clinician + [phone] Bella Kemp MD Admitting Clinician [phone] Deonte TILLEY, Ming Admitting Clinician [phone] Jhoana TILLEY, Lawanda Admitting Clinician Payers Payer Name Policy Type Policy Number Effective Date Expirati on Date Source [facility] [id number] 2023 00:00:00 2024-04 00:00:00 [facility] [id number] 2020 00:00:00 Problems Condition Name Condition Details Condition Category Status Onset Date Resolution Date Last Treatment Date Treating Clinician Comments Source Hypoxia Hypoxia Disease Active 9-05 00:00: 00 [facility] Pancreatic mass Pancreatic mass Disease Active 11-22 00:00: 00 [facility] 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 Disease Active 10-19 00:00: 00 [facility] Elevated liver enzymes Elevated liver enzymes Disease Active 09-24 00:00: 00 [facility] Vitamin D deficiency Vitamin D deficiency Disease Active 09-24 00:00: 00 [facility] Class 1 obesity due to excess calories with serious comorbidit y and body mass index (BMI) of 33.0 to 33.9 in adult Class 1 obesity due to excess calories with serious comorbidit y and body mass index (BMI) of 33.0 to 33.9 in adult Disease Active 09-24 00:00: 00 [facility] Acquired hypothyroi dism Acquired hypothyroi dism Disease Active 09-24 00:00: 00 [facility] Essential hypertensi on Essential hypertensi on Disease Active 09-24 00:00: 00 [facility] Type 2 diabetes mellitus without complicati on, without long-term current use of insulin Type 2 diabetes mellitus without complicati on, without long-term current use of insulin Disease Active 09-24 00:00: 00 [facility] Elevated hemoglobin Elevated hemoglobin Disease Active 09-24 00:00: 00 [facility] MARCO (obstructi ve sleep apnea) MARCO (obstructi ve sleep apnea) Disease Active 6-20 00:00: 00 [facility] Type 2 diabetes mellitus without complicati on, without long-term current use of insulin Type 2 diabetes mellitus without complicati on, without long-term current use of insulin Disease Active 6-20 00:00: 00 [facility] Cancer of right kidney Cancer of right kidney Disease Active 2-21 00:00: 00 [facility] Renal cell carcinoma, unspecifie d laterality Renal cell carcinoma, unspecifie d laterality Disease Active 1-03 00:00: 00 Overview: Formattin g of this note might be different from the original. Added automatic ally from request for surgery [id number] [facility] Colostomy status Colostomy status Disease Active 2021-04 0-04 00:00: 00 [facility] Right renal mass Right renal mass Disease Active 9-29 00:00: 00 [facility] Solitary kidney, acquired Solitary kidney, acquired Disease Active 9-29 00:00: 00 [facility] Colostomy in place Colostomy in place Disease Active 9-19 00:00: 00 Overview: Formattin g of this note might be different from the original. Added automatic ally from request for surgery [id number] [facility] Sigmoid diverticul itis Sigmoid diverticul itis Disease Active 5-16 00:00: 00 [facility] Obesity (BMI 30-39.9) Obesity (BMI 30-39.9) Disease Active 3-31 00:00: 00 [facility] Tubo-ovari an abscess Tubo-ovari an abscess Disease Active 3-18 00:00: 00 [facility] Large bowel obstructio n Large bowel obstructio n Disease Resolve d 5-16 00:00: 00 2022-01-03 00:00:00 2022-01-03 11:12:47 Overview: Formattin g of this note might be different from the original. Added automatic ally from request for surgery [id number] [facility] Diverticul itis Diverticul itis Disease Resolve d 4-17 00:00: 00 2022-01-03 00:00:00 2022-01-03 11:13:01 [facility] TOA (tubo-ovar ronaldo abscess) TOA (tubo-ovar ronaldo abscess) Disease Resolve d 8-06 00:00: 00 2022-01-03 00:00:00 2022-01-03 11:12:51 [facility] Diverticul itis of large intestine without perforatio n or abscess without bleeding Diverticul itis of large intestine without perforatio n or abscess without bleeding Disease Resolve d 7-21 00:00: 00 2022-01-03 00:00:00 2022-01-03 11:12:59 [facility] Intractabl e abdominal pain Intractabl e abdominal pain Disease Resolve d 6-30 00:00: 00 2022-01-03 00:00:00 2022-01-03 11:12:41 [facility] Phlegmon Phlegmon Disease Resolve d 6-07 00:00: 00 2022-01-03 00:00:00 2022-01-03 11:12:39 [facility] Encounter for screening colonoscop y Encounter for screening colonoscop y Disease Resolve d 4-28 00:00: 00 2022-01-03 00:00:00 2022-01-03 11:12:53 Overview: Formattin g of this note might be different from the original. Added automatic ally from request for surgery [id number] [facility] Allergies, Adverse Reactions, Alerts Allergy Name Allergy Type Status Severity Reaction(s) Onset Date Inactive Date Treating Clinician Comments Source IODINATE D CONTRAST MEDIA Drug Class Active ITCHING 08-02 00:00: 00 [facility] Iodinate d Contrast Media Propensi ty to adverse reaction s Active Itching 08-02 00:00: 00 [facility] METFORMI N DRUG INGREDI Active Other-Cmnt 01-04 00:00: 00 [facility] Metformi n Propensi ty to adverse reaction s Active Other - See comments 01-04 00:00: 00 gastritis [facility] NO KNOWN ALLERGIE S Drug Class Active [facility] Social History Social Habit Start Date Stop Date Quantity Comments Source History SDOH Social Connections Get Together [facility] History SDOH Social Connections [facility] SDOH Social Connections Membership [facility] History SDOH Social Connections Meetings [facility] History of Occupation [facility] Alcoholic beverage intake 2024-11-18 00:00:00 2024-11-18 00:00:00 .29 /d [facility] History of Social function 2024-07-21 00:00:00 2024-07-21 00:00:00 [facility] Alcohol intake 2023-07-22 00:00:00 2023-07-22 00:00:00 .29 /d [facility] Exposure to SARS-CoV-2 (event) 2022-09-13 00:00:00 2022-09-23 17:12:00 Not sure [facility] History SDOH Alcohol Frequency 2022-04-28 00:00:00 2022-04-28 00:00:00 1 [facility] History SDOH Alcohol Std Drinks 2022-04-28 00:00:00 2022-04-28 00:00:00 0 [facility] History SDOH Alcohol Binge 2022-04-28 00:00:00 2022-04-28 00:00:00 1 [facility] History SDOH Social Connections Phone 2022-04-28 00:00:00 2022-04-28 00:00:00 5 [facility] History SDOH Social Connections Living 2022-04-28 00:00:00 2022-04-28 00:00:00 3 [facility] History SDOH Physical Activity DPW 2022-04-28 00:00:00 2022-04-28 00:00:00 0 [facility] History SDOH Physical Activity MPS 2022-04-28 00:00:00 2022-04-28 00:00:00 0 [facility] History SDOH Financial 2022-04-28 00:00:00 2022-04-28 00:00:00 3 [facility] History SDOH Food Worry 2022-04-28 00:00:00 2022-04-28 00:00:00 2 [facility] History SDOH Food Scarcity 2022-04-28 00:00:00 2022-04-28 00:00:00 2 [facility] History SDOH Transport Med 2022-04-28 00:00:00 2022-04-28 00:00:00 2 [facility] History SDOH Transport Non-Med 2022-04-28 00:00:00 2022-04-28 00:00:00 2 [facility] Tobacco Comment 2021-12-21 00:00:00 2021-12-21 00:00:00 Non smoker [facility] Tobacco use and exposure 2021-12-21 00:00:00 2021-12-21 00:00:00 Smokeless tobacco non-user [facility] Education 2020-09-11 00:00:00 2020-09-11 00:00:00 11 [facility] Alcohol Comment 2020-07-05 00:00:00 2020-07-05 00:00:00 couple beers after work daily [facility] Sex assigned at 1965 00:00:00 1965 00:00:00 [facility] Smoking Status Start Date Stop Date Source Never smoked tobacco [facility] Medications Ordered Medication Name Filled Medication Name Start Date Stop Date Current Medication? Ordering Clinician Indication Dosage Frequency Signature (SIG) Comments Components Source lactulose (CEPHULAC) solution 30 mL lactulose (CEPHULAC) solution 30 mL 12-13 14:00: 00 12-13 20:40 :27 Yes 30mL 30 mL, Oral, DAILY, First dose on Fri12/13/24 at 0900, Until Discontinu ed, Routine [facility] acetaminoph en 500 mg tablet acetaminoph en 500 mg tablet 12-13 00:00: 00 Yes [id number] 1000mg Take 2 tablets by mouth in the morning and 2 tablets at noon and 2 tablets before bedtime. [facility] methocarbam oL 750 mg tablet methocarbam oL 750 mg tablet 12-13 00:00: 00 01-25 04:59 :00 Yes [id number] 750mg Take 1 tablet by mouth every 6 hours. [facility] pregabalin 75 mg capsule pregabalin 75 mg capsule 12-13 00:00: 00 01-13 04:59 :00 Yes [id number] 75mg Take 1 capsule by mouth in the morning and 1 capsule at noon and 1 capsule before bedtime. [facility] acetaminoph en (TYLENOL) tablet 1,000 mg acetaminoph en (TYLENOL) tablet 1,000 mg 12-12 19:00: 00 Yes 1000mg 1,000 mg, Oral, Q8H, First dose (after last modificati on) on 12/12/24 at 1400, Until Discontinu ed, Routine [facility] FENTanyl (PF) (SUBLIMAZE) injection 25 mcg FENTanyl (PF) (SUBLIMAZE) injection 25 mcg 12-12 17:00: 00 12-12 16:17 :00 Yes 25ug 25 mcg, Slow IV Push, ONCE, 1 dose, On 12/12/24 at 1200, Routine [facility] magnesium sulfate in water 2 gram/50 mL (4 %) infusion 2 g magnesium sulfate in water 2 gram/50 mL (4 %) infusion 2 g 12-11 15:30: 00 12-11 17:06 :00 Yes 2g 2 g, Intravenou s, ONCE, 1 dose, On 12/11/24 at 1030, 50 mL [facility] insulin glargine (LANTUS U-100) injection 35 unit [id number] 9-06 14:00: 00 12-13 20:40 :27 Yes 35U 35 unit, Subcutaneo us, DAILY, First dose (after last modificati on) on 12/11/24 at 0900, Until Discontinu ed, Routine [facility] insulin lispro (human) (HumaLOG U-100) injection 12 unit [id number] 9-06 12:30: 00 12-13 20:40 :27 Yes 12U 12 unit, Subcutaneo us, TIDAC, First dose (after last modificati on) on 12/11/24 at 0730, Until Discontinu ed, Routine [facility] HYDROmorpho ne (DILAUDID) tablet 4 mg HYDROmorpho ne (DILAUDID) tablet 4 mg 12-11 11:33: 19 12-13 20:40 :27 Yes 4mg 4 mg, Oral, Q4HPRN, Starting on 12/11/24 at 0633, Until 12/13/24 at 1540, Routine, pain scale 4-10 [facility] methocarbam oL (ROBAXIN) tablet 750 mg methocarbam oL (ROBAXIN) tablet 750 mg 12-10 23:00: 00 Yes 750mg 750 mg, Oral, Q6H, First dose on Fri12/10/24 at 1800, Until Discontinu ed, Routine [facility] HYDROmorpho ne (DILAUDID) tablet 2 mg HYDROmorpho ne (DILAUDID) tablet 2 mg 12-10 22:09: 03 12-11 11:33 :39 Yes 2mg 2 mg, Oral, Q4HPRN, Starting on Fri12/10/24 at 1709, Until 12/11/24 at 0633, Routine, pain scale 4-10 [facility] HYDROmorpho ne (DILAUDID) injection 0.2 mg HYDROmorpho ne (DILAUDID) injection 0.2 mg 12-10 22:08: 39 12-12 12:38 :56 Yes .2mg 0.2 mg, Slow IV Push, Q6HPRN, Starting on Fri12/10/24 at 1708, Until Fri12/12/24 at 0738, Routine, Pain (scale 7-10), second line, Is this medication approved by a Faculty level provider? 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 Restricted medication : [facility] insulin lispro (human) (HumaLOG U-100) injection 10 unit [id number] 9-05 21:30: 00 12-11 04:56 :12 Yes 10U 10 unit, Subcutaneo us, TIDAC, First dose (after last modificati on) on Fri12/10/24 at 1630, Until Discontinu ed, Routine [facility] tc 99m-albumin (DRAXIMAGE MAA) injection 4.8 millicurie 12-10 20:30: 00 12-10 20:42 :00 No [id number] 4.8mCi 4.8 millicurie , Intravenou s, ONCE, 1 dose, On Fri12/10/24 at 1530, Routine [facility] tc 99m-penteti c acid (DRAXIMAGE DTPA) injection 29.9 millicurie 12-10 20:15: 00 12-10 20:00 :00 No [id number] 29.9mCi 29.9 millicurie , Inhalation , ONCE, 1 dose, On Fri12/10/24 at 1515, Routine [facility] lactated ringers IV infusion 1,000 mL 12-10 19:30: 00 12-11 19:29 :00 No 1000mL at 100 mL/hr, 1,000 mL, IV Infusion, CONTINUOUS , Starting on Fri12/10/24 at 1430, Until 12/11/24 at 1429, Routine [facility] lactated ringers IV infusion 500 mL 12-10 15:30: 00 12-10 15:00 :00 No 500mL at 999 mL/hr, 500 mL, IV Infusion, ONCE, 1 dose, On Fri12/10/24 at 1030, STAT [facility] insulin glargine (LANTUS U-100) injection 25 unit [id number] 9-04 16:45: 00 12-10 17:10 :55 Yes 25U 25 unit, Subcutaneo us, DAILY, First dose (after last modificati on) on Fri12/09/24 at 1145, Until Discontinu ed, Routine [facility] insulin lispro (human) (HumaLOG U-100) injection 8 unit [id number] 9-04 16:30: 00 12-10 17:10 :55 Yes 8U 8 unit, Subcutaneo us, TIDAC, First dose (after last modificati on) on Fri12/09/24 at 1130, Until Discontinu ed, Routine [facility] oxyCODONE immediate release tablet 10 mg oxyCODONE immediate release tablet 10 mg 12-09 15:09: 50 12-10 22:09 :48 Yes 10mg 10 mg, Oral, Q4HPRN, Starting on Fri12/09/24 at 1009, Until Fri12/10/24 at 1709, Routine, Pain (scale 4-6), forestry faculty member 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 Restricted medication : [facility] morpHINE (4 mg/mL) injection 4 mg morpHINE (4 mg/mL) injection 4 mg 12-09 15:09: 42 12-10 22:09 :48 Yes 4mg 4 mg, Slow IV Push, Q4HPRN, Starting on Fri12/09/24 at 1009, Until Fri12/10/24 at 1709, Routine, Pain (scale 7-10) [facility] insulin glargine (LANTUS U-100) injection 15 unit [id number] 9-04 01:00: 00 12-09 13:23 :44 Yes 15U 15 unit, Subcutaneo us, BID, First dose (after last modificati on) on Fri12/08/24 at 2000, Until Discontinu ed, Routine [facility] diazePAM (VALIUM) tablet 5 mg diazePAM (VALIUM) tablet 5 mg 12-08 21:30: 00 12-10 22:09 :48 Yes 5mg 5 mg, Oral, TID, First dose on Fri12/08/24 at 1630, Until Discontinu ed, Routine [facility] pregabalin (LYRICA) capsule 75 mg pregabalin (LYRICA) capsule 75 mg 12-08 19:00: 00 Yes 75mg 75 mg, Oral, Q8H, First dose on Fri12/08/24 at 1400, Until Discontinu ed, Routine [facility] Sliding Scale Insulin - Lispro (HumaLOG) [id number] 9-03 17:00: 00 12-13 20:40 :27 Yes Subcutaneo us, TID MEALS+HS, First dose (after last modificati on) on Fri12/08/24 at 1200, Until Discontinu ed, Routine [facility] insulin lispro (human) (HumaLOG U-100) injection 5 unit [id number] 9-03 16:30: 00 12-09 13:23 :44 Yes 5U 5 unit, Subcutaneo us, TIDAC, First dose (after last modificati on) on Fri12/08/24 at 1130, Until Discontinu ed, [facility] polyethylen e glycol 3350 powder 17 g polyethylen e glycol 3350 powder 17 g 12-08 14:00: 00 12-13 20:40 :27 Yes 17g 17 g, Oral, DAILY, First dose on Fri12/08/24 at 0900, Until Discontinu ed, Routine [facility] enoxaparin (LOVENOX) injection 40 mg enoxaparin (LOVENOX) injection 40 mg 12-08 14:00: 00 12-13 20:40 :27 Yes 40mg 40 mg, Subcutaneo us, DAILY, First dose on Fri12/08/24 at 0900, Until Discontinu ed, Routine [facility] docusate (COLACE) capsule 100 mg docusate (COLACE) capsule 100 mg 12-08 14:00: 00 12-13 20:40 :27 Yes 100mg 100 mg, Oral, DAILY, First dose on Fri12/08/24 at 0900, Until Discontinu ed, Routine [facility] spironolact one (ALDACTONE) tablet 150 mg spironolact one (ALDACTONE) tablet 150 mg 12-08 14:00: 00 12-11 03:04 :05 Yes 150mg 150 mg, Oral, DAILY, First dose on Fri12/08/24 at 0900, Until Discontinu ed, Routine [facility] losartan (COZAAR) tablet 50 mg losartan (COZAAR) tablet 50 mg 12-08 14:00: 00 12-11 03:04 :05 Yes 50mg 50 mg, Oral, DAILY, First dose on Fri12/08/24 at 0900, Until Discontinu ed, Routine [facility] magnesium oxide (MAG-OX 400) 400 mg (241.3 mg magnesium) tablet 800 mg magnesium oxide (MAG-OX 400) 400 mg (241.3 mg magnesium) tablet 800 mg 12-08 14:00: 00 12-09 14:20 :00 Yes 800mg 800 mg, Oral, DAILY, 2 doses, First dose on Fri12/08/24 at 0900, Last dose on Fri12/09/24 at 0900, [facility] glargine (LANTUS U-100) injection 10 unit [id number] 9-03 13:00: 00 12-08 15:54 :29 Yes 10U 10 unit, Subcutaneo us, BID, First dose (after last modificati on) on Fri12/08/24 at 0800, Until Discontinu ed, Routine [facility] insulin lispro (human) (HumaLOG U-100) injection 4 unit [id number] 9-03 12:30: 00 12-08 15:54 :29 Yes 4U 4 unit, Subcutaneo us, TIDAC, First dose (after last modificati on) on Fri12/08/24 at 0730, Until Discontinu ed, [facility] levothyroxi ne (SYNTHROID) tablet 125 mcg levothyroxi ne (SYNTHROID) tablet 125 mcg 12-08 11:00: 00 12-13 20:40 :27 Yes 125ug 125 mcg, Oral, QAM-0600, First dose on Fri12/08/24 at 0600, Until Discontinu ed, Routine [facility] insulin NPH (HUMULIN N) injection 5 unit insulin NPH (HUMULIN N) injection 5 unit 12-08 09:15: 00 12-08 08:43 :00 Yes 5U 5 unit, Subcutaneo us, ONCE, 1 dose, On Fri12/08/24 at 0415, Routine [facility] HYDROcodone -acetaminop hen (NORCO 5) 5-325 mg tablet 1 tablet HYDROcodone -acetaminop hen (NORCO 5) 5-325 mg tablet 1 tablet 12-08 08:49: 52 12-09 15:10 :13 Yes 1{tbl} 1 tablet, Oral, Q6HPRN, Starting on Fri12/08/24 at 0349, Until Fri12/09/24 at 1010, Routine, Pain (scale 4-6) [facility] Sliding Scale Insulin - Lispro (HumaLOG) 256387 5663-0 9-03 02:00: 00 12-08 15:54 :29 Yes Subcutaneo us, TID MEALS+HS, First dose on Fri12/07/24 at 2100, Until Discontinu ed, Routine [facility] insulin glargine (LANTUS U-100) injection 10 unit [id number] 0678-0 9-03 02:00: 00 12-08 12:17 :51 Yes 10U 10 unit, Subcutaneo us, QHS, First dose on Fri12/07/24 at 2100, Until Discontinu ed, Routine [facility] gabapentin (NEURONTIN) capsule 100 mg gabapentin (NEURONTIN) capsule 100 mg 12-08 01:00: 00 12-08 15:59 :12 Yes 100mg 100 mg, Oral, TID, First dose on Fri12/07/24 at 2000, Until Discontinu ed, Routine [facility] glucagon HCL injection 1 mg 12-08 00:17: 12 12-13 20:40 :27 No 1mg 1 mg, Intramuscu lar, PRN, Starting on Fri12/07/24 at 1917, Until Fri12/13/24 at 1540, CARI, Low blood sugar, Blood Glucose < or = 70 mg/dL and patient is NPO, unable to swallow or has mental changes. [facility] dextrose 50 % in water (D50W) injection 25 mL 12-08 00:17: 12 12-13 20:40 :27 No 25mL 25 mL, Slow IV Push, PRN, Starting on Fri12/07/24 at 1917, Until Fri12/13/24 at 1540, CARI, Blood Glucose < or = 70 mg/dL and patient is NPO, unable to swallow or has mental status changes. [facility] polyethylen e glycol 3350 powder 17 g polyethylen e glycol 3350 powder 17 g 12-08 00:16: 06 12-13 20:40 :27 Yes 17g 17 g, Oral, QDAILYPRN, Starting on Fri12/07/24 at 1916, Until Fri12/13/24 at 1540, Routine, Constipati on [facility] insulin regular human (HUMULIN R) injection 10 unit 12-08 00:15: 00 12-08 00:09 :00 No 10U 10 unit, IV Push, ONCE, 1 dose, On Fri12/07/24 at 1915, STAT, Indication for insulin: Other (see comments), Other (please specify): Blood glucose 318mg/dl [facility] insulin regular human (HUMULIN R) injection 3 unit 12-07 23:45: 00 12-07 22:51 :00 No 3U 3 unit, Subcutaneo us, ONCE, 1 dose, On Fri12/07/24 at 1845, Routine, Indication for insulin: Hyperglyce shazia [facility] acetaminoph en (TYLENOL) tablet 650 mg acetaminoph en (TYLENOL) tablet 650 mg 12-07 23:00: 00 12-12 12:40 :08 Yes 650mg 650 mg, Oral, Q6H, First dose on Fri12/07/24 at 1800, Until Discontinu ed, Routine [facility] ondansetron (ZOFRAN (PF)) injection 4 mg ondansetron (ZOFRAN (PF)) injection 4 mg 12-07 21:31: 49 12-13 20:40 :27 Yes 4mg 4 mg, Slow IV Push, Q6HPRN, Starting on Fri12/07/24 at 1631, Until 12/13/24 at 1540, Administer over 2-5 Minutes, 2 mL [facility] naloxone (NARCAN) injection 0.4 mg 12-07 21:31: 39 12-13 20:40 :27 No .4mg 0.4 mg, Slow IV Push, PRN, Starting on Fri12/07/24 at 1631, Until 12/13/24 at 1540, Routine, Sedation/R espiratory Depression [facility] morpHINE (4 mg/mL) injection 4 mg morpHINE (4 mg/mL) injection 4 mg 12-07 21:28: 04 12-09 15:10 :13 Yes 4mg 4 mg, Slow IV Push, Q3HPRN, Starting on Fri12/07/24 at 1628, Until Gretta 12/09/24 at 1010, Routine, Pain (scale 7-10) [facility] bupivacaine (preserv free) (SENSORCAIN E MPF) 0.25 % (2.5 mg/mL) injection 12-07 20:37: 00 12-07 22:23 :09 No PRN, Starting on Fri12/07/24 at 1537, Until Fri12/07/24 at 1723, Routine, Intra-op [facility] BUPivacaine liposome (PF) (EXPAREL (PF)) 1.3 % (13.3 mg/mL) injection 12-07 20:37: 00 12-07 22:23 :09 No PRN, Starting on Fri12/07/24 at 1537, Until Fri12/07/24 at 1723, Routine, Intra-op [facility] thrombin topical solution 12-07 17:10: 00 12-07 22:23 :09 No PRN, Starting on Fri12/07/24 at 1210, Until Fri12/07/24 at 1723, Routine, Intra-op [facility] vancomycin (VANCOCIN) injection 12-07 17:09: 00 12-07 22:23 :09 No PRN, Starting on Fri12/07/24 at 1209, Until Fri12/07/24 at 1723, Routine, Intra-op [facility] lidocaine-e pinephrine (XYLOCAINE WITH EPINEPHRINE ) 0.5 %-1:200,000 injection 12-07 16:20: 00 12-07 22:23 :09 No PRN, Starting on Fri12/07/24 at 1120, Until Fri12/07/24 at 1723, Routine, Intra-op [facility] scopolamine transdermal (TRANSDERM- SCOP) patch 1.5 mg 12-07 13:42: 46 12-07 15:43 :48 No 1.5mg 1.5 mg, Transderma l (Apply To Skin), Administer over 72 Hours, Q72H, First dose on Fri12/07/24 at 0845, Until Discontinu ed, Routine, DSU Pre-op [facility] pregabalin (LYRICA) 50 mg capsule 11-26 00:00: 00 12-13 00:00 :00 No [id number] 50mg Take 1 capsule by mouth in the morning and 1 capsule in the evening. [facility] gadobenate dimeglumine (MULTIHANCE -15 mL) injection 15.34 mL 11-25 20:15: 00 11-25 20:00 :00 No [id number] .2mL/kg 15.34 mL (0.2 mL/kg ?76.7 kg), Intravenou s, ONCE, 1 dose, On Gretta 11/25/24 at 1515, Routine [facility] gabapentin 100 mg capsule 2025-0 8-13 00:00: 00 Yes [id number] 100mg Take 1 capsule by mouth in the morning and 1 capsule at noon and 1 capsule in the evening. [facility] sodium,pota ssium,mag sulfates 17.5-3.13-1 .6 gram 10-19 00:00: 00 10-20 04:59 :00 No [id number] 177mL Take 177 mL by mouth once now for 1 dose. [facility] levothyroxi ne 125 mcg tablet 10-18 00:00: 00 Yes [id number] 125ug Take 1 tablet by mouth every morning. [facility] predniSONE 50 mg tablet 10-18 00:00: 00 12-10 00:00 :00 No [id number] 50mg Take 1 tablet by mouth 3 times daily as needed for Other or Itching (contrast allergy). [facility] diazePAM (VALIUM) 10 mg tablet 10-18 00:00: 00 10-19 04:59 :00 No [id number] 10mg Take 1 tablet by mouth once now for 1 dose. [facility] spironolact one 50 mg tablet 09-02 00:00: 00 Yes [id number] 150mg Take 3 tablets by mouth in the morning. [facility] benzoyl peroxide 10 % external wash 09-02 00:00: 00 12-10 00:00 :00 No [id number] Apply daily to the armpits and groin in the shower [facility] clindamycin 1 % lotion 09-02 00:00: 00 12-10 00:00 :00 No [id number] Apply to affected area(s) 2 times daily. [facility] doxycycline hyclate 100 mg tablet 09-02 00:00: 00 12-10 00:00 :00 No [id number] 100mg Take 1 tablet by mouth in the morning and 1 tablet in the evening. [facility] gallium-68 dotatate (NETSPOT) injection 5.17 millicurie 08-25 17:08: 00 08-25 17:10 :00 No [id number] 5.17mCi 5.17 millicurie , Intravenou s, ONCE, 1 dose, On Fri08/25/24 at 1230, Routine [facility] predniSONE 50 mg tablet 08-03 00:00: 00 08-08 04:59 :00 No [id number] 50mg Take 1 tablet by mouth in the morning for 4 days. [facility] diphenhydrA MINE (BENADRYL) tablet 25 mg 08-02 20:15: 00 08-02 20:06 :00 No 25mg 25 mg, Oral, ONCE, 1 dose, On Fri08/02/24 at 1515, CARI [facility] dexamethaso ne sod phos PF injection 10 mg 08-02 20:15: 08-02 20:07 :00 No 10mg 10 mg, Oral, ONCE, 1 dose, On Fri08/02/24 at 1515, 1 mL [facility] famotidine (PEPCID AC) tablet 20 mg 08-02 20:15: 00 08-02 20:06 :00 No 20mg 20 mg, Oral, ONCE, 1 dose, On Fri08/02/24 at 1515, CARI [facility] iopamidol (ISOVUE 370-500 mL) injection 83 mL 08-02 19:31: 00 08-02 19:31 :00 No [id number] 83mL 83 mL, Intravenou s, ONCE, 1 dose, On Fri08/02/24 at 1445, Routine [facility] pioglitazon e (ACTOS) 30 mg tablet 07-16 00:00: 00 Yes [id number] 30mg Take 1 tablet by mouth in the morning. [facility] levothyroxi ne 125 mcg tablet 07-16 00:00: 00 Yes [id number] 125ug Take 1 tablet by mouth every morning. [facility] clindamycin 1 % lotion 06-03 00:00: 00 09-02 00:00 :00 No [id number] Apply to affected area(s) 2 (two) times daily. [facility] benzoyl peroxide 10 % external wash 06-03 00:00: 00 09-02 00:00 :00 No [id number] Apply daily to the armpits and groin in the shower [facility] doxycycline hyclate 100 mg tablet 06-03 00:00: 00 09-02 00:00 :00 No [id number] 100mg Take 1 tablet by mouth in the morning and 1 tablet in the evening. [facility] spironolact one 50 mg tablet 06-03 00:00: 00 09-02 00:00 :00 No [id number] 100mg Take 2 tablets by mouth in the morning. Start taking 1 tablet daily, then in 2 weeks, increase to 2 tablets daily. [facility] ondansetron 4 mg disintegrat ing tablet 05-12 00:00: 00 Yes [id number] 4mg Take 1 tablet by mouth every 12 (twelve) hours as needed for Nausea and Vomiting (N/V). [facility] mupirocin 2 % ointment 05-12 00:00: 00 08-09 00:00 :00 No [id number] Apply to area(s) 3 (three) times daily. [facility] nystatin 100,000 unit/gram powder 05-12 00:00: 00 08-09 00:00 :00 No [id number] Apply to area(s) 2 (two) times daily. [facility] glipiZIDE 5 mg tablet 05-11 00:00: 00 Yes [id number] 5mg Take 1 tablet by mouth 2 (two) times daily before breakfast and dinner. [facility] levothyroxi ne 125 mcg tablet 1- 00:00: 00 07-15 00:00 :00 No [id number] 125ug Take 1 tablet by mouth every morning. [facility] glipiZIDE 5 mg tablet 2023-04 00:00: 00 05-08 00:00 :00 No [id number] 5mg Take 1 tablet by mouth 2 (two) times daily before breakfast and dinner. [facility] levothyroxi ne 125 mcg tablet 2023-04 00:00: 00 Yes [id number] 125ug Take 1 tablet by mouth every morning. [facility] pioglitazon e (ACTOS) 30 mg tablet 01-04 00:00: 00 07-15 00:00 :00 No [id number] 30mg Take 1 tablet by mouth in the morning. [facility] mupirocin 2 % ointment 01-04 00:00: 05-12 00:00 :00 No [id number] Apply to area(s) 3 (three) times daily. [facility] nystatin 100,000 unit/gram powder 01-04 00:00: 05-12 00:00 :00 No [id number] Apply to area(s) 2 (two) times daily. [facility] semaglutide (OZEMPIC) 0.25 mg or 0.5 mg (2 mg/3 mL) PnIj 01-04 00:00: 00 02-04 04:59 :00 No [id number] .25mg inject 0.25 mg under the skin weekly for 30 days. [facility] losartan 50 mg tablet 11-02 00:00: 00 Yes [id number] 50mg Take 1 tablet by mouth in the morning. [facility] LOSARTAN 25 mg tablet 16 00:00: 00 11-02 00:00 :00 No [id number] TAKE ONE TABLET BY MOUTH EVERY MORNING [facility] semaglutide (OZEMPIC) 0.25 mg or 0.5 mg (2 mg/3 mL) PnIj 10-19 00:00: 00 12-19 04:59 :00 No [id number] inject 0.25 mg under the skin weekly for 30 days, THEN 0.5 mg weekly for 30 days. [facility] semaglutide (OZEMPIC) 0.25 mg or 0.5 mg (2 mg/3 mL) PnIj 10-15 00:00: 00 10-19 00:00 :00 No [id number] inject 0.25 mg under the skin weekly for 30 days, THEN 0.5 mg weekly for 30 days. [facility] ergocalcife rol, vitamin d2, 1,250 mcg (50,000 unit) capsule 09-24 00:00: 00 11-17 00:00 :00 No [id number] 68912K Take 1 capsule by mouth weekly. [facility] glipiZIDE 5 mg tablet 09-24 00:00: 00 02-05 00:00 :00 No [id number] 5mg Take 1 tablet by mouth 2 (two) times daily before breakfast and dinner. [facility] levothyroxi ne 125 mcg tablet 09-24 00:00: 00 01-13 00:00 :00 No [id number] 125ug Take 1 tablet by mouth every morning. [facility] metFORMIN 850 mg tablet 09-21 00:00: 00 09-24 00:00 :00 No [id number] Take 1 tablet by mouth every evening for 5 days, THEN 1 tablet 2 (two) times daily with meals for 90 days. [facility] ERGOCALCIFE ROL, VITAMIN D2, 1,250 mcg (50,000 unit) capsule 08-10 00:00: 00 09-24 00:00 :00 No [id number] TAKE 1 CAPSULE BY MOUTH ONCE WEEKLY [facility] LOSARTAN POTASSIUM, BULK, MISC 06-23 14:35: 08 06-23 00:00 :00 No [facility] metFORMIN 850 mg tablet 06-23 00:00: 00 09-21 00:00 :00 No [id number] Take 1 tablet by mouth every evening for 5 days, THEN 1 tablet 2 (two) times daily with meals for 90 days. [facility] ergocalcife rol, vitamin d2, 1,250 mcg (50,000 unit) capsule 06-15 00:00: 00 08-10 00:00 :00 No [id number] 52853D Take 1 capsule by mouth weekly. [facility] LOSARTAN 25 mg tablet 06-10 00:00: 00 10-20 00:00 :00 No [id number] TAKE ONE TABLET BY MOUTH EVERY MORNING [facility] LOSARTAN POTASSIUM, BULK, [facility] 05-29 14:08: 15 Yes [facility] sulfamethox azole-trime thoprim (BACTRIM DS) 800-160 mg per tablet 05-29 00:00: 00 06-15 00:00 :00 No [id number] 1{tbl} Take 1 tablet by mouth in the morning and 1 tablet in the evening. [facility] levothyroxi ne 150 mcg tablet 2022-04 00:00: 00 09-24 00:00 :00 No [id number] TAKE ONE TABLET BY MOUTH EVERY MORNING [facility] levothyroxi ne 150 mcg tablet 2022-04 0- 00:00: 00 04-02 00:00 :00 No [id number] TAKE ONE TABLET BY MOUTH EVERY MORNING [facility] LOSARTAN POTASSIUM, BULK, [facility] 06 11:47: 56 Yes [facility] LOSARTAN 25 mg tablet 8- 00:00: 00 06-10 00:00 :00 No [id number] TAKE ONE TABLET BY MOUTH EVERY MORNING [facility] LEVOTHYROXI NE 150 mcg tablet 8-02 00:00: 00 01-06 00:00 :00 No [id number] TAKE ONE TABLET BY MOUTH EVERY MORNING [facility] levothyroxi ne 150 mcg tablet 6-07 00:00: 00 11-06 00:00 :00 No [id number] 150ug Take 1 tablet by mouth every morning. [facility] losartan 25 mg tablet 15 00:00: 00 11-06 00:00 :00 No [id number] TAKE ONE TABLET BY MOUTH EVERY MORNING [facility] LOSARTAN POTASSIUM, BULK, MISC 05-28 10:50: 55 Yes [facility] levothyroxi ne 150 mcg tablet 05-14 00:00: 00 09-11 00:00 :00 No [id number] 150ug Take 1 tablet by mouth every morning. [facility] losartan 25 mg tablet 05-14 00:00: 00 06-19 00:00 :00 No [id number] 25mg Take 1 tablet by mouth in the morning. [facility] LOSARTAN POTASSIUM, BULK, MISC 04-30 14:38: 09 Yes [facility] KCL (KLOR-CON M20) tablet 40 mEq 04-30 14:15: 00 04-30 14:19 :00 No 40meq 40 mEq, Oral, ONCE, 1 dose, On Fri04/30/22 at 0815, Routine [facility] levothyroxi ne (SYNTHROID) tablet 150 mcg 04-30 12:00: 00 Yes 150ug 150 mcg, Oral, QAM-0600, First dose on Fri04/30/22 at 0600, Until Discontinu ed, Routine [facility] pantoprazol e 40 mg EC tablet 04-30 00:00: 00 05-31 05:59 :00 No [id number] 40mg Take 1 tablet by mouth in the morning for 30 days. [facility] polyethylen e glycol 3350 17 gram powder 04-30 00:00: 00 05-11 05:59 :00 No [id number] 17g Take 1 Packet by mouth in the morning for 10 days. [facility] pantoprazol e (PROTONIX) EC tablet 40 mg 04-29 15:00: 00 Yes 40mg 40 mg, Oral, DAILY, First dose on Fri04/29/22 at 0900, Until Discontinu ed, Routine [facility] polyethylen e glycol 3350 powder 17 g 04-29 15:00: 00 Yes 17g 17 g, Oral, DAILY, First dose on Fri04/29/22 at 0900, Until Discontinu ed, Routine [facility] LOSARTAN POTASSIUM, BULK, MISC 04-29 14:35: 55 Yes [facility] lactated ringers IV infusion 500 mL 04-29 06:00: 00 04-29 06:20 :00 No 500mL at 999 mL/hr, 500 mL, Intravenou s, ONCE, 1 dose, On Fri04/29/22 at 0000, Routine [facility] cefTRIAXone (ROCEPHIN) 2,000 mg in water for injection, sterile 20 mL SIVP syringe 04-29 04:00: 00 04-29 05:55 :26 No 2000mg 2,000 mg, Intravenou s, Q24H ABX, 4 doses, First dose on Fri04/28/22 at 2200, Last dose on Fri05/01/22 at 2200, 20 mL
Reas on for Anti-Infec tive: Documented Infection< br>Documen beatriz Infection Site: Urine
D uration of Therapy: 7 days [facility] ondansetron (ZOFRAN (PF)) injection 4 mg 04-29 03:30: 00 04-29 02:51 :00 No 4mg 4 mg, Slow IV Push, ONCE, On Fri04/28/22 at 2130, For 1 dose
Do ses of ondansetro n 16 mg and above need to be administer ed via IV piggyback. For Dose >=24mg ECG monitoring is advisable.
[facility] ondansetron (ZOFRAN (PF)) injection 4 mg 04-29 01:00: 00 04-29 00:12 :00 No 4mg 4 mg, Slow IV Push, ONCE, On Fri04/28/22 at 1900, For 1 dose
Do ses of ondansetro n 16 mg and above need to be administer ed via IV piggyback. For Dose >=24mg ECG monitoring is advisable.
[facility] HYDROcodone -acetaminop hen 5-325 mg tablet 04-29 00:00: 00 06-15 00:00 :00 No [id number] 1{tbl} Take 1 tablet by mouth every 6 (six) hours as needed for Pain (scale 7-10) for up to 15 doses. Indication s: acute pain [facility] cyclobenzap rine 5 mg tablet 04-29 00:00: 00 05-21 05:59 :00 No [id number] 5mg Take 1 tablet by mouth in the morning and 1 tablet at noon and 1 tablet in the evening. Do all this for 21 days. [facility] gabapentin 300 mg capsule 04-29 00:00: 00 05-21 05:59 :00 No [id number] 300mg Take 1 capsule by mouth at bedtime for 21 days. [facility] lactated ringers IV infusion 500 mL 04-29 00:00: 00 04-29 00:08 :00 No 500mL at 999 mL/hr, 500 mL, Intravenou s, ONCE, 1 dose, On Fri04/28/22 at 1800, Routine [facility] HYDROcodone -acetaminop hen (NORCO 5) 5-325 mg tablet 1 tablet 04-28 22:07: 05 Yes 1{tbl} 1 tablet, Oral, Q6HPRN, Starting on Fri04/28/22 at 1607, Until Discontinu ed, Routine, Pain (scale 7-10) [facility] lactated ringers IV infusion 500 mL 04-28 18:45: 00 04-28 19:06 :00 No 500mL at 999 mL/hr, 500 mL, Intravenou s, ONCE, 1 dose, On Fri04/28/22 at 1245, Routine [facility] lactated ringers IV infusion 1,000 mL 04-28 18:11: 00 04-29 18:47 :02 No 1000mL at 100 mL/hr, 1,000 mL, IV Infusion, CONTINUOUS , Starting on 04/28/22 at 1215, Until 04/29/22 at 1247, CARI [facility] lidocaine (LIDODERM) 5 % (700 mg/patch) patch 1 Patch 04-28 15:30: 00 04-29 05:35 :00 No 1{patch } 1 Patch, Topical, Administer over 12 Hours, ONCE, 1 dose, On Fri04/28/22 at 0930, Routine [facility] acetaminoph en (TYLENOL) tablet 650 mg 04-28 14:45: 00 Yes 650mg 650 mg, Oral, Q6H, First dose on Fri04/28/22 at 0845, Until Discontinu ed, Routine [facility] gabapentin (NEURONTIN) capsule 300 mg 04-28 03:00: 00 05-03 02:59 :00 No 300mg 300 mg, Oral, QHS, 5 doses, First dose on 04/27/22 at 2100, Last dose on Fri05/01/22 at 2100, Routine [facility] cyclobenzap rine (FLEXERIL) tablet 5 mg 04-28 02:00: 00 Yes 5mg 5 mg, Oral, TID, First dose on 04/27/22 at 2000, Until Discontinu ed, Routine [facility] NaCl 0.9% (NS) IV infusion 1,000 mL 04-28 00:15: 00 04-28 13:50 :27 No 1000mL at 50 mL/hr, IV Infusion, CONTINUOUS , Starting on 04/27/22 at 1815, Until Fri04/28/22 at 0750, Routine [facility] HYDROcodone -acetaminop hen (NORCO 5) 5-325 mg tablet 1 tablet 04-27 23:10: 13 04-28 22:07 :44 No 1{tbl} 1 tablet, Oral, Q6HPRN, Starting on 04/27/22 at 1710, Until Fri04/28/22 at 1607, Routine, Pain (scale 4-6), Pain (scale 7-10) [facility] acetaminoph en ADULT [facility] injection 1,000 mg 04-27 21:45: 00 04-27 23:12 :00 No 1000mg 1,000 mg, IV Infusion, at 400 mL/hr Administer over 15 Minutes, ONCE, 1 dose, On 04/27/22 at 1545, Routine
Indicatio n: Perioperat lashaun Patient [facility] HYDROcodone -acetaminop hen (HYCET) 7.5-325 mg/15 mL solution 5 mg 04-27 19:32: 37 04-27 20:52 :59 No 5mg 5 mg, Oral, Q4HPRN, Starting on 04/27/22 at 1332, Until 04/27/22 at 1452, Routine, Pain (scale 1-3), Pain (scale 7-10), Pain (scale 4-6) [facility] FENTanyl 1000 mcg/100 mL 0.9% NaCl [employer] 04-27 14:15: 00 04-27 20:52 :59 No Patient Bolus Dose: 10 mcg
Loc kout Interval: 10 Minutes
Basal Rate: 0 mcg/hr
Four Hour Dose Limit: 200 mcg
IV Infusion, 100 mL, CONTINUOUS , Starting on 04/27/22 at 0815, Until 04/27/22 at 1452 [facility] acetaminoph en ADULT ([facility] injection 1,000 mg 04-27 13:30: 00 04-27 13:09 :00 No 1000mg 1,000 mg, IV Infusion, at 400 mL/hr Administer over 15 Minutes, ONCE, 1 dose, On 04/27/22 at 0730, Routine
Indicatio n: Perioperat lashaun Patient [facility] lactated ringers IV infusion 250 mL 04-27 10:45: 00 04-27 10:45 :00 No 250mL at 999 mL/hr, 250 mL, Intravenou s, ONCE, 1 dose, On 04/27/22 at 0445, Routine [facility] magnesium sulfate in water 2 gram/50 mL (4 %) infusion 2 g 04-27 09:15: 00 04-27 10:48 :00 No 2g 2 g, IV Piggyback, Administer over 60 Minutes, ONCE, 1 dose, On 04/27/22 at 0315, CARI [facility] lactated ringers IV infusion 1,000 mL 04-27 04:00: 00 04-27 18:29 :01 No 1000mL at 75 mL/hr, 1,000 mL, IV Infusion, CONTINUOUS , Starting on Fri04/26/22 at 2200, Until 04/27/22 at 1229, Routine [facility] levothyroxi ne (SYNTHROID) injection 100 mcg 04-27 02:45: 00 04-27 03:07 :00 No 100ug 100 mcg, Intravenou s, ONCE, 1 dose, On Fri04/26/22 at 2045, Routine [facility] chlorhexidi ne (PERIDEX) 0.12 % mouthwash 15 mL 04-27 02:00: 00 Yes 15mL 15 mL, Oral (Swish And Spit Out), BID, First dose on Fri04/26/22 at 1999, Until Discontinu ed, Routine [facility] famotidine (PEPCID (PF)) injection 20 mg 04-27 02:00: 00 04-28 14:30 :44 No 20mg 20 mg, Slow IV Push, Q12H, 6 doses, First dose on Fri04/26/22 at 1999, Last dose on Fri04/29/22 at 0800, Routine
Indicatio n for use: Mechanical Ventilatio n > 48 hours [facility] propofoL IV infusion 04-27 01:48: 33 04-27 14:40 :56 No 5ug/kg/ min 5-50 mcg/kg/min ?77.5 kg (2.325-23. 25 mL/hr, rounded to 2.33-23.25 mL/hr), IV Infusion, TITRATE, Sedation-R ASS score (-1 to -2), Starting on Fri04/26/22 at 1948
In itiate infusion at 10 mcg/kg/min and titrate by 5 mcg/kg/min every 30 seconds to 10 minutes to goal sedation score. Maximum dose = 50 mcg/kg/min . If goal not maintained at maximum allowed dose, contact prescriber . &amp ;nbsp;Tubi ng and unused portions of vials should be discarded after 12 hours.
[facility] FENTanyl PF (SUBLIMAZE (PF)) injection 12.5 mcg 04-27 01:45: 17 04-27 20:52 :59 No 12.5ug 12.5 mcg, Slow IV Push, Q1HPRN, Starting on Fri04/26/22 at 1945, Until 04/27/22 at 1452, Routine, Pain (scale 7-10) [facility] tranexamic acid (CYKLOKAPRO N) 1,000 mg in NaCl 0.9% (NS) 10 mL piggyback 04-26 20:31: 00 04-26 23:38 :58 No IV Piggyback, CONTINUOUS PRN, Starting on Fri04/26/22 at 1431, Until Discontinu ed, Administer over 60 Minutes, 10 mL, Intra-op [facility] Transfuse Plasma (in units)~As soon as possible; Infuse Each Unit Over: 1 Hour 04-26 20:26: 29 04-26 23:38 :57 No Routine [facility] Transfuse Plasma (in units)~As soon as possible; Infuse Each Unit Over: 1 Hour 04-26 20:25: 08 04-26 23:38 :57 No Routine [facility] Transfuse Packed RBC (in units)~As soon as possible; Infuse Each Unit Over: 2 Hours 04-26 20:21: 31 04-26 23:38 :57 No Routine [facility] NORepinephr ine (LEVOPHED) 4 mg in NaCl 0.9% (NS) 250 mL infusion 04-26 19:39: 00 04-26 23:38 :58 No IV Infusion, CONTINUOUS PRN, Starting on Fri04/26/22 at 1339, Intra-op [facility] Transfuse Packed RBC (in units)~As soon as possible; Infuse Each Unit Over: 2 Hours 04-26 19:38: 13 04-26 23:38 :57 No Routine [facility] NORepinephr ine (LEVOPHED) injection 04-26 19:33: 00 04-26 23:38 :58 No Intravenou s, ONCE INTRA PROCEDURE, Starting on Fri04/26/22 at 1333, Until Discontinu ed, Routine, Intra-op [facility] Transfuse Packed RBC (in units)~As soon as possible; Infuse Each Unit Over: 2 Hours 04-26 19:31: 49 04-26 23:38 :57 No Routine [facility] albumin (ALBUTEIN 5 %) 5 % injection 04-26 19:26: 00 04-26 23:38 :58 No IV Infusion, CONTINUOUS PRN, Starting on Fri04/26/22 at 1326, Until Discontinu ed, [facility] 100 mg/mL (10%) syringe 04-26 18:53: 00 04-26 23:38 :58 No Intravenou s, ONCE INTRA PROCEDURE, Starting on Fri04/26/22 at 1253, Until Discontinu ed, Routine, Intra-op [facility] acetaminoph en ADULT (OFIRMEV) injection 04-26 18:35: 00 04-26 23:38 :58 No IV Infusion, Administer over 15 Minutes, ONCE INTRA PROCEDURE, Starting on Fri04/26/22 at 1235, Until Discontinu ed, Routine, Intra-op [facility] sodium bicarbonate 4.2 % (0.5 mEq/mL) injection 04-26 18:05: 00 04-26 23:38 :58 No Slow IV Push, ONCE INTRA PROCEDURE, Starting on Fri04/26/22 at 1205, Until Discontinu ed, Routine, Intra-op [facility] Transfuse Packed RBC (in units)~On hold for procedure; 04/26/2022; Infuse Each Unit Over: 2 Hours 04-26 17:09: 50 04-26 23:38 :57 No CARI [facility] Transfuse Packed RBC (in units)~On hold for procedure; 04/26/2022; Infuse Each Unit Over: 2 Hours 04-26 17:08: 24 04-26 23:38 :57 No CARI [facility] PHENYLephri ne 1000 mcg/10 mL in 0.9% NaCl syringe 04-26 16:28: 00 04-26 23:38 :58 No Slow IV Push, CONTINUOUS PRN, Starting on Fri04/26/22 at 1028, Until Discontinu ed, Routine, Intra-op [facility] PHENYLephri ne 1000 mcg/10 mL in 0.9% NaCl syringe 04-26 16:14: 00 04-26 23:38 :58 No Slow IV Push, ONCE INTRA PROCEDURE, Starting on Fri04/26/22 at 1014, Until Discontinu ed, Routine, Intra-op [facility] ketamine (KETALAR) injection 04-26 15:59: 00 04-26 23:38 :58 No Intravenou s, ONCE INTRA PROCEDURE, Starting on Fri04/26/22 at 0959, Until Discontinu ed, Routine, Intra-op [facility] dexamethaso ne (DECADRON PHOSPHATE) injection 04-26 15:48: 00 04-26 23:38 :58 No IV Push, ONCE INTRA PROCEDURE, Starting on Fri04/26/22 at 0948, Until Discontinu ed, Routine, Intra-op [facility] ceFAZolin (ANCEF) injection 04-26 15:45: 00 04-26 23:38 :58 No Slow IV Push, ONCE INTRA PROCEDURE, Starting on Fri04/26/22 at 0945, Until Discontinu ed, CARI, [facility]-op [facility] HYDROmorphO ne (DILAUDID) injection 04-26 15:38: 00 04-26 23:38 :58 No Slow IV Push, ONCE INTRA PROCEDURE, Starting on Fri04/26/22 at 0938, Until Discontinu ed, Routine, Intra-op [facility] albumin (ALBUMINAR 25%) 25 % injection 04-26 15:15: 00 04-26 23:38 :58 No IV Infusion, CONTINUOUS PRN, Starting on Fri04/26/22 at 0915, Until Discontinu ed, Intra-op [facility] electrolyte -A (PLASMALYTE -A) IV infusion 04-26 15:15: 00 04-26 23:38 :58 No IV Infusion, CONTINUOUS PRN, Starting on Fri04/26/22 at 0915, Until Discontinu ed, Routine, Intra-op [facility] bupivacaine (preserv free) (SENSORCAIN E MPF) 0.25 % (2.5 mg/mL) injection 04-26 15:05: 00 04-27 00:00 :32 No PRN, Starting on Fri04/26/22 at 0905, Until Fri04/26/22 at 1800, Routine, Intra-op [facility] propofoL IV infusion 04-26 14:55: 00 04-26 23:38 :58 No Intravenou s, ONCE INTRA PROCEDURE, Starting on Fri04/26/22 at 0855, Until Discontinu ed, Routine, Intra-op [facility] lactated ringers IV infusion 04-26 14:55: 00 04-26 23:38 :58 No IV Infusion, CONTINUOUS PRN, Starting on Fri04/26/22 at 0855, Until Discontinu ed, Routine, Intra-op [facility] FENTanyl PF (SUBLIMAZE (PF)) injection 04-26 14:54: 00 04-26 23:38 :58 No Slow IV Push, ONCE INTRA PROCEDURE, Starting on Fri04/26/22 at 0854, Until Discontinu ed, Routine, Intra-op [facility] rocuronium (ZEMURON) injection 04-26 14:54: 00 04-26 23:38 :58 No IV Push, ONCE INTRA PROCEDURE, Starting on Fri04/26/22 at 0854, Until Discontinu ed, Routine, Intra-op [facility] lidocaine 1% (XYLOCAINE) 100 mg/10 mL (1 %) injection 04-26 14:54: 00 04-26 23:38 :58 No Slow IV Push, ONCE INTRA PROCEDURE, Starting on Fri04/26/22 at 0854, Until Discontinu ed, Routine, Intra-op [facility] midazolam (VERSED) injection 04-26 14:45: 00 04-26 23:38 :58 No IV Push, ONCE INTRA PROCEDURE, Starting on Fri04/26/22 at 0845, Until Discontinu ed, Routine, Intra-op [facility] sodium chloride 0.9 % irrigation solution 04-26 14:30: 00 04-27 00:00 :32 No PRN, Starting on Fri04/26/22 at 0830, Until Fri04/26/22 at 1800, Intra-op [facility] LOSARTAN POTASSIUM, BULK, MISC 04-26 06:01: 44 Yes [facility] LOSARTAN POTASSIUM, BULK, MISC 04-23 08:39: 37 Yes [facility] levothyroxi ne 150 mcg tablet 04-23 00:00: 00 05-14 00:00 :00 No [id number] 150ug Take 1 tablet by mouth every morning. [facility] losartan 25 mg tablet 04-23 00:00: 00 05-14 00:00 :00 No [id number] 25mg Take 1 tablet by mouth in the morning. [facility] iopamidol (ISOVUE 370-500 mL) injection 85 mL 2021-04 21:15: 00 03-07 20:21 :00 No [id number] 85mL 85 mL, Intravenou s, ONCE, 1 dose, On Gretta 03/07/22 at 1515, [facility]LOV[facility]OX[facility] 40 mg 2021-04 21:00: 00 Yes 40mg 40 mg, Subcutaneo us, Q24H, First dose on 01/12/22 at 1600, Until Discontinu ed, [facility] LOSARTAN POTASSIUM, BULK, MISC 2021-04 16:11: 26 Yes [facility] acetaminoph en 325 mg tablet 2021-04 00:00: 00 01-13 04:59 :00 No [id number] 650mg Take 2 tablets by mouth every 6 (six) hours. [facility] celecoxib 200 mg capsule 2021-04 00:00: 00 02-12 05:59 :00 No [id number] 200mg Take 1 capsule by mouth in the morning for 30 days. [facility] gabapentin 300 mg capsule 2021-04 00:00: 00 02-12 05:59 :00 No [id number] 300mg Take 1 capsule by mouth every 8 (eight) hours for 30 days. [facility] methocarbam oL 500 mg tablet 2021-04 00:00: 00 02-12 05:59 :00 No [id number] 500mg Take 1 tablet by mouth every 8 (eight) hours for 30 days. [facility] HYDROcodone -acetaminop hen 5-325 mg tablet 2021-04 00:00: 00 01-20 04:59 :00 No [id number] 1{tbl} Take 1 tablet by mouth every 6 (six) hours as needed for Pain (scale 7-10) for up to 7 days. Indication s: acute pain [facility] NaCl 0.9% (NS) bolus infusion 500 mL 2021-04 17:15: 00 01-11 16:34 :49 No 500mL at 999 mL/hr, 500 mL, IV Piggyback, ONCE, 1 dose, On 01/11/22 at 1215, Routine [facility] NaCl 0.9% (NS) bolus infusion 500 mL 2021-04 0 00:45: 00 01-11 01:23 :00 No 500mL at 999 mL/hr, 500 mL, IV Piggyback, ONCE, 1 dose, On Gretta 01/10/22 at 1945, STAT [facility] magnesium sulfate in water 4 gram/50 mL (8 %) IV Piggyback 4 g 2021-04 01:45: 00 01-10 02:19 :00 No 4g 4 g, IV Piggyback, ONCE, 1 dose, On Fri01/09/22 at 2045, Routine [facility] alvimopan (ENTEREG) capsule 12 mg 2021-04 01:00: 00 01-16 12:59 :00 No 12mg 12 mg, Oral, BID, 13 doses, First dose (after last modificati on) on Fri01/09/22 at 1999, Last dose on Fri01/15/22 at 1999, Routine
Restricte d use approved by: TERENCE BURKS R. - SURGERY/GE DARA [facility] HYDROcodone -acetaminop hen (NORCO 5) 5-325 mg tablet 1 tablet 2021-04 22:29: 47 Yes 1{tbl} 1 tablet, Oral, Q6HPRN, Starting on Fri01/09/22 at 1729, Until Discontinu ed, Routine, Pain (scale 7-10) [facility] acetaminoph en (TYLENOL) tablet 650 mg 2021-04 21:00: 00 Yes 650mg 650 mg, Oral, Q6H, First dose on Fri01/09/22 at 1600, Until Discontinu ed, Routine [facility] celecoxib (CELEBREX) capsule 200 mg 2021-04 14:00: 00 Yes 200mg 200 mg, Oral, DAILY, First dose on Fri01/09/22 at 0900, Until Discontinu ed, Routine [facility] pantoprazol e (PROTONIX) EC tablet 40 mg 2021-04 14:00: 00 Yes 40mg 40 mg, Oral, DAILY, First dose on Fri01/09/22 at 0900, Until Discontinu ed, Routine
Indicatio n for use: None of the above [facility] allopurinoL (ZYLOPRIM) tablet 100 mg 2021-04 14:00: 00 Yes 100mg 100 mg, Oral, DAILY, First dose on Fri01/09/22 at 0900, Until Discontinu ed, Routine [facility] lactated ringers IV infusion 1,000 mL 2021-04 13:15: 00 01-09 13:40 :00 No 1000mL at 999 mL/hr, 1,000 mL, Intravenou s, ONCE, 1 dose, On Fri01/09/22 at 0815, CARI [facility] levothyroxi ne (SYNTHROID) tablet 150 mcg 2021-04 11:00: 00 Yes 150ug 150 mcg, Oral, QAM-0600, First dose on Fri01/09/22 at 0600, Until Discontinu ed, Routine [facility] ketorolac (TORADOL) injection 15 mg 2021-04 23:00: 00 01-09 16:59 :00 No 15mg 15 mg, Slow IV Push, Q6H, 3 doses, First dose (after last modificati on) on Fri01/08/22 at 1800, Last dose on Fri01/09/22 at 0600, Routine [facility] acetaminoph en ADULT (OFIRMEV) injection 1,000 mg 2021-04 23:00: 00 01-09 16:29 :00 No 1000mg 1,000 mg, IV Infusion, at 400 mL/hr Administer over 15 Minutes, Q6H, 4 doses, First dose on Fri01/08/22 at 1800, Last dose on Fri01/09/22 at 1200, Routine
Indicatio n: Perioperat lashaun Patient [facility] enoxaparin (LOVENOX) injection 40 mg 2021-04 0 22:00: 00 Yes 40mg 40 mg, Subcutaneo us, DAILY, First dose on Fri01/08/22 at 1700, Until Discontinu ed, Routine [facility] Sliding Scale Insulin-Reg ular + Fsbg Testing 2021-04 0- 21:30: 00 01-09 19:46 :49 No Subcutaneo us, AC+HS, First dose on Fri01/08/22 at 1630, Until Discontinu ed, Routine [facility] methocarbam oL (ROBAXIN) tablet 500 mg 2021-04 0-04 19:00: 00 Yes 500mg 500 mg, Oral, Q8H, First dose on Fri01/08/22 at 1400, Until Discontinu ed, Routine [facility] gabapentin (NEURONTIN) capsule 300 mg 2021-04 0 19:00: 00 Yes 300mg 300 mg, Oral, Q8H, First dose on Fri01/08/22 at 1400, Until Discontinu ed, Routine [facility] D5W 0.45% NaCl (1/2NS) 1 L + KCL 20 mEq 2021-04 0- 18:45: 00 01-09 13:12 :42 No IV Infusion, at 75 mL/hr, CONTINUOUS , Starting on Fri01/08/22 at 1345, Until Fri01/09/22 at 0812, Routine [facility] ketorolac (TORADOL) injection 15 mg 2021-04 0 18:45: 00 01-08 22:46 :48 No 15mg 15 mg, Intramuscu lar, Q6H, 4 doses, First dose on Fri01/08/22 at 1345, Last dose on Fri01/09/22 at 0600, Routine [facility] FENTanyl PF (SUBLIMAZE (PF)) injection 25 mcg 2021-04 004 18:37: 31 Yes 25ug 25 mcg, Slow IV Push, Q5MIN PRN, 4 doses, Starting on Fri01/08/22 at 1337, Until Discontinu ed, Routine, Pain (scale 4-6), PACU [facility] glucagon (GLUCAGEN DIAGNOSTIC KIT) injection 1 mg 2021-04 0-04 18:29: 41 Yes 1mg 1 mg, Intramuscu lar, PRN, Starting on Fri01/08/22 at 1329, Until Discontinu ed, CARI, Blood Glucose < or = 70 mg/dL and patient is unable to swallow or has mental changes. [facility] dextrose 50 % in water (D50W) injection 25 mL 2021-04 18:29: 41 Yes 25mL 25 mL, Slow IV Push, PRN, Starting on Fri01/08/22 at 1329, Until Discontinu ed, CARI, Blood Glucose < or = 70 mg/dL and patient is unable to swallow or has mental status changes. [facility] ondansetron (ZOFRAN (PF)) injection 4 mg 2021-04 18:28: 18 Yes 4mg 4 mg, Slow IV Push, Q6HPRN, Starting on Fri01/08/22 at 1328, Until Discontinu ed, Routine, Nausea and Vomiting (N/V) [facility] naloxone (NARCAN) injection 0.1 mg 2021-04 18:23: 35 Yes .1mg 0.1 mg, Slow IV Push, PRN - SEE INSTRUCTIO NS, Starting on Fri01/08/22 at 1323, Until Discontinu ed, Routine, Sedation/R espiratory Depression [facility] morpHINE (2 mg/mL) injection 2 mg 2021-04 18:23: 35 Yes 2mg 2 mg, Slow IV Push, Q4HPRN, Starting on Fri01/08/22 at 1323, Until Discontinu ed, Routine, Pain (scale 7-10) [facility] LOSARTAN POTASSIUM, BULK, MISC 2021-04 13:30: 11 Yes [facility] alvimopan (ENTEREG) capsule 12 mg 2021-04 09:45: 00 01-08 10:46 :00 No 12mg 12 mg, Oral, ONCE, 1 dose, On Fri01/08/22 at 0445, Routine
Restricte d use approved by: TERENCE BURKS R. - SURGERY/GE DARA [facility] celecoxib (CELEBREX) capsule 200 mg 2021-04 09:43: 42 01-08 10:46 :00 No 200mg 200 mg, Oral, O.R. HOLDING ONCE, 1 dose, Starting on Fri01/08/22 at 0443, Until Discontinu ed, Routine, Pain, DSU Pre-op [facility] acetaminoph en (TYLENOL) tablet 1,000 mg 2021-04 0 09:43: 42 01-08 10:46 :00 No 1000mg 1,000 mg, Oral, O.R. HOLDING ONCE, 1 dose, Starting on Fri01/08/22 at 0443, Until Discontinu ed, Routine, Surgery / Procedure, DSU Pre-op [facility] gabapentin (NEURONTIN) tablet 600 mg 2021-04 09:43: 42 01-08 10:45 :00 No 600mg 600 mg, Oral, O.R. HOLDING ONCE, 1 dose, Starting on Fri01/08/22 at 0443, Until Discontinu ed, Routine, Surgery/Pr ocedure, DSU Pre-op [facility] LOSARTAN POTASSIUM, BULK, [facility] 01-02 11:41: 41 Yes [facility] LOSARTAN [facility]OT[facility]UM[facility] 12-21 11:42: 53 Yes [facility] neomycin 500 mg tablet 12-21 00:00: 00 01-12 00:00 :00 No [id number] Take 2 tablets by mouth at 4pm, 2 tablets at 5pm, and 2 tablets at 10pm the day before your surgery. [facility] metroNIDAZO LE (FLAGYL) 500 mg tablet 12-21 00:00: 00 01-12 00:00 :00 No [id number] Take 2 tablets by mouth at 4pm, 2 tablets at 5pm, and 2 tablets at 10pm the day before your surgery [facility] levothyroxi ne 150 mcg tablet 09-21 00:00: 00 04-23 00:00 :00 No [id number] 150ug Take 1 tablet by mouth every morning. [facility] allopurinoL 100 mg tablet 09-21 00:00: 00 01-25 00:00 :00 No [id number] 100mg Take 1 tablet by mouth daily. [facility] losartan 25 mg tablet 6-17 00:00: 00 08-20 00:00 :00 No [id number] 25mg Take 1 tablet by mouth daily. [facility] pantoprazol e 40 mg EC tablet 6-10 00:00: 00 10-15 04:59 :00 No [id number] 40mg Take 1 tablet by mouth daily for 30 days. [facility] Immunizations Ordered Immunization Name Filled Immunization Name Date Status Comments Source Zoster Vaccine Recombinant 2024-05-12 00:00:00 Completed Pneumococcal 20 Conjugate, PCV20 (Prevnar 20) 2023-06-24 00:00:00 Completed [facility] Pneumococcal 20 Conjugate, PCV20 (Prevnar 20) 2023-06-24 00:00:00 Completed [facility] Pneumococcal 20 Conjugate, PCV20 (Prevnar 20) 2023-06-24 00:00:00 Completed [facility] Pneumococcal 20 Conjugate, PCV20 (Prevnar 20) Unknown Completed [facility] Pneumococcal 20 Conjugate, PCV20 (Prevnar 20) Unknown Completed [facility] Pneumococcal 20 Conjugate, PCV20 (Prevnar 20) Unknown Completed [facility] Pneumococcal 20 Conjugate, PCV20 (Prevnar 20) Unknown Completed [facility] Pneumococcal 20 Conjugate, PCV20 (Prevnar 20) Unknown Completed [facility] Pneumococcal 20 Conjugate, PCV20 (Prevnar 20) Unknown Completed [facility] Pneumococcal 20 Conjugate, PCV20 (Prevnar 20) Unknown Completed [facility] Pneumococcal 20 Conjugate, PCV20 (Prevnar 20) Unknown Completed [facility] Pneumococcal 20 Conjugate, PCV20 (Prevnar 20) Unknown Completed [facility] Pneumococcal 20 Conjugate, PCV20 (Prevnar 20) Unknown Completed [facility] Pneumococcal 20 Conjugate, PCV20 (Prevnar 20) Unknown Completed [facility] Pneumococcal 20 Conjugate, PCV20 (Prevnar 20) Unknown Completed [facility] Pneumococcal 20 Conjugate, PCV20 (Prevnar 20) Unknown Completed [facility] Pneumococcal 20 Conjugate, PCV20 (Prevnar 20) Unknown Completed [facility] Pneumococcal 20 Conjugate, PCV20 (Prevnar 20) Unknown Completed [facility] Pneumococcal 20 Conjugate, PCV20 (Prevnar 20) Unknown Completed [facility] Pneumococcal 20 Conjugate, PCV20 (Prevnar 20) Unknown Completed [facility] Pneumococcal 20 Conjugate, PCV20 (Prevnar 20) Unknown Completed [facility] Pneumococcal 20 Conjugate, PCV20 (Prevnar 20) Unknown Completed [facility] Pneumococcal 20 Conjugate, PCV20 (Prevnar 20) Unknown Completed [facility] Pneumococcal 20 Conjugate, PCV20 (Prevnar 20) Unknown Completed [facility] Pneumococcal 20 Conjugate, PCV20 (Prevnar 20) Unknown Completed [facility] Pneumococcal 20 Conjugate, PCV20 (Prevnar 20) Unknown Completed [facility] Vital Signs Vital Name Observation Time Observation Value Comments S ource Respiratory rate 2024-12-20 16:08:00 14 /min [facility] Body height 2024-12-20 16:08:00 152.4 cm [facility] Body weight 2024-12-20 16:08:00 75.297 kg [facility] BMI 2024-12-20 16:08:00 32.42 kg/m2 [facility] Systolic blood pressure 2024-12-13 17:14:00 131 mm[Hg] [facility] Diastolic blood pressure 2024-12-13 17:14:00 94 mm[Hg] [facility] Heart rate 2024-12-13 17:14:00 98 /min [facility] Respiratory rate 2024-12-13 17:14:00 12 /min [facility] Oxygen saturation in Arterial blood by Pulse oximetry 2024-12-13 17:14:00 95 /min [facility] Body temperature 2024-12-13 12:44:00 36.22 Irma [facility] Body height 2024-12-08 02:54:00 152.4 cm [facility] Body weight 2024-12-08 02:54:00 75.297 kg [facility] BMI 2024-12-08 02:54:00 32.42 kg/m2 [facility] Systolic blood pressure 2024-12-08 01:02:00 145 mm[Hg] [facility] Diastolic blood pressure 2024-12-08 01:02:00 89 mm[Hg] [facility] Heart rate 2024-12-08 01:02:00 127 /min [facility] Body temperature 2024-12-08 01:02:00 36.5 Irma [facility] Respiratory rate 2024-12-08 01:02:00 19 /min [facility] Oxygen saturation in Arterial blood by Pulse oximetry 2024-12-08 01:02:00 100 /min [facility] Body height 2024-12-07 13:38:00 152.4 cm [facility] Body weight 2024-12-07 13:38:00 75.5 kg [facility] BMI 2024-12-07 13:38:00 32.42 kg/m2 [facility] Respiratory rate 2024-11-29 16:44:00 16 /min [facility] Body height 2024-11-29 16:44:00 152.4 cm [facility] Body weight 2024-11-29 16:44:00 76.658 kg [facility] BMI 2024-11-29 16:44:00 33.01 kg/m2 [facility] Systolic blood pressure 2024-11-22 18:26:00 163 mm[Hg] [facility] Diastolic blood pressure 2024-11-22 18:26:00 101 mm[Hg] [facility] Heart rate 2024-11-22 18:26:00 95 /min [facility] Body temperature 2024-11-22 18:24:00 36.72 Irma [facility] Respiratory rate 2024-11-22 18:24:00 18 /min [facility] Body height 2024-11-22 18:24:00 152.4 cm [facility] Body weight 2024-11-22 18:24:00 76.658 kg [facility] BMI 2024-11-22 18:24:00 33.01 kg/m2 [facility] Oxygen saturation in Arterial blood by Pulse oximetry 2024-11-22 18:24:00 95 /min [facility] Systolic blood pressure 2024-11-17 18:04:00 106 mm[Hg] [facility] Diastolic blood pressure 2024-11-17 18:04:00 71 mm[Hg] [facility] Heart rate 2024-11-17 18:04:00 76 /min [facility] Respiratory rate 2024-11-17 18:04:00 13 /min [facility] Oxygen saturation in Arterial blood by Pulse oximetry 2024-11-17 18:04:00 98 /min [facility] Body temperature 2024-11-17 17:49:00 35.06 Irma [facility] Body height 2024-11-17 14:00:00 152.4 cm [facility] Body weight 2024-11-17 14:00:00 74.662 kg [facility] BMI 2024-11-17 14:00:00 32.15 kg/m2 [facility] Systolic blood pressure 2024-11-17 17:34:00 101 mm[Hg] [facility] Diastolic blood pressure 2024-11-17 17:34:00 75 mm[Hg] [facility] Heart rate 2024-11-17 17:34:00 96 /min [facility] Respiratory rate 2024-11-17 17:34:00 18 /min [facility] Oxygen saturation in Arterial blood by Pulse oximetry 2024-11-17 17:34:00 98 /min [facility] Body temperature 2024-11-17 14:00:00 35.78 Irma [facility] Body height 2024-11-17 14:00:00 152.4 cm [facility] Body weight 2024-11-17 14:00:00 74.662 kg [facility] BMI 2024-11-17 14:00:00 32.15 kg/m2 [facility] Systolic blood pressure 2024-10-19 19:39:00 161 mm[Hg] Dr. Loja Notified [facility] Diastolic blood pressure 2024-10-19 19:39:00 110 mm[Hg] Dr. Loja Notified [facility] Heart rate 2024-10-19 19:39:00 111 /min [facility] Body temperature 2024-10-19 19:38:00 36.39 Irma [facility] Respiratory rate 2024-10-19 19:38:00 18 /min [facility] Body height 2024-10-19 19:38:00 152.4 cm [facility] Body weight 2024-10-19 19:38:00 75.887 kg [facility] BMI 2024-10-19 19:38:00 32.67 kg/m2 [facility] Oxygen saturation in Arterial blood by Pulse oximetry 2024-10-19 19:38:00 95 /min [facility] Respiratory rate 2024-10-18 16:26:00 12 /min [facility] Body height 2024-10-18 16:26:00 152.4 cm [facility] Body weight 2024-10-18 16:26:00 77.565 kg [facility] BMI 2024-10-18 16:26:00 33.40 kg/m2 [facility] Systolic blood pressure 2024-10-04 17:49:00 129 mm[Hg] [facility] Diastolic blood pressure 2024-10-04 17:49:00 87 mm[Hg] [facility] Heart rate 2024-10-04 17:46:00 120 /min [facility] Body temperature 2024-10-04 17:46:00 36.67 Irma [facility] Body height 2024-10-04 17:46:00 152.4 cm [facility] Body weight 2024-10-04 17:46:00 77.792 kg [facility] BMI 2024-10-04 17:46:00 33.49 kg/m2 [facility] Oxygen saturation in Arterial blood by Pulse oximetry 2024-10-04 17:46:00 95 /min [facility] Systolic blood pressure 2024-09-09 19:30:00 142 mm[Hg] [facility] Diastolic blood pressure 2024-09-09 19:30:00 88 mm[Hg] [facility] Heart rate 2024-09-09 19:30:00 106 /min [facility] Body temperature 2024-09-09 19:30:00 36.17 Irma [facility] Respiratory rate 2024-09-09 19:30:00 16 /min [facility] Body weight 2024-09-09 19:30:00 77.7 kg [facility] BMI 2024-09-09 19:30:00 33.45 kg/m2 [facility] Systolic blood pressure 2024-09-06 18:52:00 130 mm[Hg] [facility] Diastolic blood pressure 2024-09-06 18:52:00 88 mm[Hg] [facility] Heart rate 2024-09-06 18:49:00 118 /min [facility] Body temperature 2024-09-06 18:49:00 37.22 Ir[place] [facility] Body height 2024-09-06 18:49:00 152.4 cm [facility] Body weight 2024-09-06 18:49:00 78.274 kg [facility] BMI 2024-09-06 18:49:00 33.70 kg/m2 [facility] Oxygen saturation in Arterial blood by Pulse oximetry 2024-09-06 18:49:00 97 /min [facility] Systolic blood pressure 2024-08-09 18:51:00 130 mm[Hg] [facility] Diastolic blood pressure 2024-08-09 18:51:00 91 mm[Hg] [facility] Heart rate 2024-08-09 18:51:00 103 /min [facility] Respiratory rate 2024-08-09 18:50:00 18 /min [facility] Body height 2024-08-09 18:50:00 152.4 cm [facility] Body weight 2024-08-09 18:50:00 81.602 kg [facility] BMI 2024-08-09 18:50:00 35.13 kg/m2 [facility] Oxygen saturation in Arterial blood by Pulse oximetry 2024-08-09 18:50:00 96 /min [facility] Systolic blood pressure 2024-08-02 21:10:00 156 mm[Hg] [facility] Diastolic blood pressure 2024-08-02 21:10:00 97 mm[Hg] [facility] Heart rate 2024-08-02 21:10:00 92 /min [facility] Body temperature 2024-08-02 21:10:00 36.83 [place] [facility] Respiratory rate 2024-08-02 21:10:00 18 /min [facility] Oxygen saturation in Arterial blood by Pulse oximetry 2024-08-02 21:10:00 99 /min [facility] Body height 2024-08-02 20:00:00 152.4 cm [facility] Body weight 2024-08-02 20:00:00 82.781 kg [facility] BMI 2024-08-02 20:00:00 35.64 kg/m2 [facility] Systolic blood pressure 2024-07-21 16:29:00 150 mm[Hg] [facility] Diastolic blood pressure 2024-07-21 16:29:00 96 mm[Hg] [facility] Heart rate 2024-07-21 16:23:00 106 /min [facility] Body temperature 2024-07-21 16:23:00 36.67 [place] [facility] Respiratory rate 2024-07-21 16:23:00 16 /min [facility] Body weight 2024-07-21 16:23:00 82.101 kg [facility] BMI 2024-07-21 16:23:00 35.35 kg/m2 [facility] Oxygen saturation in Arterial blood by Pulse oximetry 2024-07-21 16:23:00 94 /min [facility] Systolic blood pressure 2024-05-12 18:51:00 138 mm[Hg] [facility] Diastolic blood pressure 2024-05-12 18:51:00 89 mm[Hg] [facility] Heart rate 2024-05-12 18:50:00 102 /min [facility] Body temperature 2024-05-12 18:50:00 35.89 [place] [facility] Respiratory rate 2024-05-12 18:50:00 18 /min [facility] Body height 2024-05-12 18:50:00 152.4 cm [facility] Body weight 2024-05-12 18:50:00 82.101 kg [facility] BMI 2024-05-12 18:50:00 35.35 kg/m2 [facility] Oxygen saturation in Arterial blood by Pulse oximetry 2024-05-12 18:50:00 98 /min [facility] Systolic blood pressure 2024-02-12 19:48:00 117 mm[Hg] [facility] Diastolic blood pressure 2024-02-12 19:48:00 82 mm[Hg] [facility] Heart rate 2024-02-12 19:48:00 112 /min [facility] Body temperature 2024-02-12 19:48:00 36.06 Ir[place] [facility] Respiratory rate 2024-02-12 19:48:00 17 /min [facility] Body height 2024-02-12 19:48:00 152.4 cm [facility] Body weight 2024-02-12 19:48:00 80.423 kg [facility] BMI 2024-02-12 19:48:00 34.63 kg/m2 [facility] Oxygen saturation in Arterial blood by Pulse oximetry 2024-02-12 19:48:00 98 /min [facility] Systolic blood pressure 2024-01-05 19:30:00 138 mm[Hg] [facility] Diastolic blood pressure 2024-01-05 19:30:00 87 mm[Hg] [facility] Heart rate 2024-01-05 19:30:00 114 /min [facility] Body temperature 2024-01-05 19:30:00 36.33 [place] [facility] Respiratory rate 2024-01-05 19:30:00 18 /min [facility] Body height 2024-01-05 19:30:00 152.4 cm [facility] Body weight 2024-01-05 19:30:00 79.062 kg [facility] BMI 2024-01-05 19:30:00 34.04 kg/m2 [facility] Oxygen saturation in Arterial blood by Pulse oximetry 2024-01-05 19:30:00 98 /min [facility] Systolic blood pressure 2023-12-24 18:48:00 125 mm[Hg] [facility] Diastolic blood pressure 2023-12-24 18:48:00 86 mm[Hg] [facility] Heart rate 2023-12-24 18:48:00 94 /min [facility] Respiratory rate 2023-12-24 18:48:00 16 /min [facility] Body height 2023-12-24 18:48:00 152.4 cm [facility] Body weight 2023-12-24 18:48:00 80.151 kg [facility] BMI 2023-12-24 18:48:00 34.51 kg/m2 [facility] Oxygen saturation in Arterial blood by Pulse oximetry 2023-12-24 18:48:00 98 /min [facility] Systolic blood pressure 2023-11-03 17:56:00 124 mm[Hg] [facility] Diastolic blood pressure 2023-11-03 17:56:00 85 mm[Hg] [facility] Heart rate 2023-11-03 17:54:00 90 /min [facility] Body temperature 2023-11-03 17:54:00 36.28 [place] [facility] Body height 2023-11-03 17:54:00 152.4 cm [facility] Body weight 2023-11-03 17:54:00 80.287 kg [facility] BMI 2023-11-03 17:54:00 34.57 kg/m2 [facility] Oxygen saturation in Arterial blood by Pulse oximetry 2023-11-03 17:54:00 98 /min [facility] Systolic blood pressure 2023-09-25 19:12:00 138 mm[Hg] [facility] Diastolic blood pressure 2023-09-25 19:12:00 96 mm[Hg] [facility] Heart rate 2023-09-25 19:09:00 112 /min [facility] Body temperature 2023-09-25 19:09:00 36.89 [place] [facility] Respiratory rate 2023-09-25 19:09:00 18 /min [facility] Body height 2023-09-25 19:09:00 152.4 cm [facility] Body weight 2023-09-25 19:09:00 79.289 kg [facility] BMI 2023-09-25 19:09:00 34.14 kg/m2 [facility] Oxygen saturation in Arterial blood by Pulse oximetry 2023-09-25 19:09:00 98 /min [facility] Systolic blood pressure 2023-07-22 20:07:00 150 mm[Hg] [facility] Diastolic blood pressure 2023-07-22 20:07:00 89 mm[Hg] [facility] Heart rate 2023-07-22 20:07:00 98 /min [facility] Body temperature 2023-07-22 20:07:00 36.89 [place] [facility] Body weight 2023-07-22 20:07:00 78.518 kg [facility] BMI 2023-07-22 20:07:00 33.81 kg/m2 [facility] Oxygen saturation in Arterial blood by Pulse oximetry 2023-07-22 20:07:00 94 /min [facility] Systolic blood pressure 2023-06-24 19:16:00 137 mm[Hg] [facility] Diastolic blood pressure 2023-06-24 19:16:00 88 mm[Hg] [facility] Heart rate 2023-06-24 19:15:00 102 /min [facility] Body temperature 2023-06-24 19:15:00 36.78 [place] [facility] Respiratory rate 2023-06-24 19:15:00 18 /min [facility] Body height 2023-06-24 19:15:00 152.4 cm [facility] Body weight 2023-06-24 19:15:00 76.839 kg [facility] BMI 2023-06-24 19:15:00 33.08 kg/m2 [facility] Oxygen saturation in Arterial blood by Pulse oximetry 2023-06-24 19:15:00 97 /min [facility] Systolic blood pressure 2023-06-16 20:47:00 154 mm[Hg] [facility] Diastolic blood pressure 2023-06-16 20:47:00 100 mm[Hg] [facility] Heart rate 2023-06-16 20:47:00 101 /min [facility] Body temperature 2023-06-16 20:44:00 36 [place] [facility] Body height 2023-06-16 20:44:00 152.4 cm [facility] Body weight 2023-06-16 20:44:00 77.61 kg [facility] BMI 2023-06-16 20:44:00 33.42 kg/m2 [facility] Oxygen saturation in Arterial blood by Pulse oximetry 2023-06-16 20:44:00 99 /min [facility] Systolic blood pressure 2023-05-29 20:07:00 127 mm[Hg] [facility] Diastolic blood pressure 2023-05-29 20:07:00 87 mm[Hg] [facility] Heart rate 2023-05-29 19:53:00 112 /min [facility] Body temperature 2023-05-29 19:53:00 36.28 [place] [facility] Respiratory rate 2023-05-29 19:53:00 18 /min [facility] Body height 2023-05-29 19:53:00 152.4 cm [facility] Body weight 2023-05-29 19:53:00 77.111 kg [facility] BMI 2023-05-29 19:53:00 33.20 kg/m2 [facility] Systolic blood pressure 2022-11-26 17:38:00 130 mm[Hg] [facility] Diastolic blood pressure 2022-11-26 17:38:00 86 mm[Hg] [facility] Heart rate 2022-11-26 17:38:00 111 /min [facility] Body temperature 2022-11-26 17:38:00 36.94 [place] [facility] Respiratory rate 2022-11-26 17:38:00 18 /min [facility] Body height 2022-11-26 17:38:00 154.9 cm [facility] Body weight 2022-11-26 17:38:00 75.297 kg [facility] BMI 2022-11-26 17:38:00 31.37 kg/m2 [facility] Oxygen saturation in Arterial blood by Pulse oximetry 2022-11-26 17:38:00 98 /min [facility] Systolic blood pressure 2022-09-24 21:08:00 130 mm[Hg] [facility] Diastolic blood pressure 2022-09-24 21:08:00 86 mm[Hg] [facility] Heart rate 2022-09-24 21:08:00 98 /min [facility] Body temperature 2022-09-24 21:07:00 36.22 [place] [facility] Body height 2022-09-24 21:07:00 152.4 cm [facility] Body weight 2022-09-24 21:07:00 75.615 kg [facility] BMI 2022-09-24 21:07:00 32.56 kg/m2 [facility] Oxygen saturation in Arterial blood by Pulse oximetry 2022-09-24 21:07:00 97 /min [facility] Systolic blood pressure 2022-08-20 20:25:00 120 mm[Hg] [facility] Diastolic blood pressure 2022-08-20 20:25:00 82 mm[Hg] [facility] Heart rate 2022-08-20 20:25:00 96 /min [facility] Body temperature 2022-08-20 20:25:00 36.39 [place] [facility] Respiratory rate 2022-08-20 20:25:00 18 /min [facility] Body height 2022-08-20 20:25:00 152.4 cm [facility] Body weight 2022-08-20 20:25:00 74.163 kg [facility] BMI 2022-08-20 20:25:00 31.93 kg/m2 [facility] Oxygen saturation in Arterial blood by Pulse oximetry 2022-08-20 20:25:00 99 /min [facility] Systolic blood pressure 2022-07-22 15:52:00 131 mm[Hg] [facility] Diastolic blood pressure 2022-07-22 15:52:00 87 mm[Hg] [facility] Heart rate 2022-07-22 15:52:00 92 /min [facility] Body temperature 2022-07-22 15:52:00 36.89 [place] [facility] Respiratory rate 2022-07-22 15:52:00 16 /min [facility] Body height 2022-07-22 15:52:00 152.4 cm [facility] Body weight 2022-07-22 15:52:00 72.031 kg [facility] BMI 2022-07-22 15:52:00 31.01 kg/m2 [facility] Oxygen saturation in Arterial blood by Pulse oximetry 2022-07-22 15:52:00 97 /min [facility] Systolic blood pressure 2022-07-15 16:07:00 136 mm[Hg] [facility] Diastolic blood pressure 2022-07-15 16:07:00 83 mm[Hg] [facility] Heart rate 2022-07-15 16:03:00 74 /min [facility] Body temperature 2022-07-15 16:03:00 36.56 [place] [facility] Respiratory rate 2022-07-15 16:03:00 16 /min [facility] Body height 2022-07-15 16:03:00 152.4 cm [facility] Body weight 2022-07-15 16:03:00 72.984 kg [facility] BMI 2022-07-15 16:03:00 31.42 kg/m2 [facility] Oxygen saturation in Arterial blood by Pulse oximetry 2022-07-15 16:03:00 99 /min [facility] Systolic blood pressure 2022-05-28 16:50:00 124 mm[Hg] [facility] Diastolic blood pressure 2022-05-28 16:50:00 80 mm[Hg] [facility] Heart rate 2022-05-28 16:50:00 86 /min [facility] Body temperature 2022-05-28 16:50:00 36.94 [place] [facility] Respiratory rate 2022-05-28 16:50:00 16 /min [facility] Body height 2022-05-28 16:50:00 152.4 cm [facility] Body weight 2022-05-28 16:50:00 72.031 kg [facility] BMI 2022-05-28 16:50:00 31.01 kg/m2 [facility] Oxygen saturation in Arterial blood by Pulse oximetry 2022-05-28 16:50:00 99 /min [facility] Systolic blood pressure 2022-05-14 19:49:00 119 mm[Hg] [facility] Diastolic blood pressure 2022-05-14 19:49:00 88 mm[Hg] [facility] Heart rate 2022-05-14 19:49:00 106 /min [facility] Body temperature 2022-05-14 19:46:00 35.94 [place] [facility] Body height 2022-05-14 19:46:00 152.4 cm [facility] Body weight 2022-05-14 19:46:00 73.211 kg [facility] BMI 2022-05-14 19:46:00 31.52 kg/m2 [facility] Oxygen saturation in Arterial blood by Pulse oximetry 2022-05-14 19:46:00 99 /min [facility] Systolic blood pressure 2022-04-30 17:25:00 153 mm[Hg] [facility] Diastolic blood pressure 2022-04-30 17:25:00 99 mm[Hg] [facility] Heart rate 2022-04-30 17:25:00 110 /min [facility] Body temperature 2022-04-30 17:25:00 37 [place] [facility] Respiratory rate 2022-04-30 17:25:00 16 /min [facility] Oxygen saturation in Arterial blood by Pulse oximetry 2022-04-30 17:25:00 94 /min [facility] Body height 2022-04-26 12:04:00 152.4 cm [facility] Body weight 2022-04-26 12:04:00 77.5 kg [facility] BMI 2022-04-26 12:04:00 33.37 kg/m2 [facility] Respiratory rate 2022-04-26 12:21:00 16 /min [facility] Systolic blood pressure 2022-04-26 12:04:00 151 mm[Hg] [facility] Diastolic blood pressure 2022-04-26 12:04:00 87 mm[Hg] [facility] Heart rate 2022-04-26 12:04:00 93 /min [facility] Body temperature 2022-04-26 12:04:00 36.17 [place] [facility] Body height 2022-04-26 12:04:00 152.4 cm [facility] Body weight 2022-04-26 12:04:00 77.5 kg [facility] BMI 2022-04-26 12:04:00 33.37 kg/m2 [facility] Oxygen saturation in Arterial blood by Pulse oximetry 2022-04-26 12:04:00 99 /min [facility] Systolic blood pressure 2022-04-23 16:29:00 150 mm[Hg] [facility] Diastolic blood pressure 2022-04-23 16:29:00 96 mm[Hg] [facility] Heart rate 2022-04-23 16:20:00 83 /min [facility] Body temperature 2022-04-23 16:20:00 36.17 [place] [facility] Body weight 2022-04-23 16:20:00 77.111 kg [facility] BMI 2022-04-23 16:20:00 33.20 kg/m2 [facility] Oxygen saturation in Arterial blood by Pulse oximetry 2022-04-23 16:20:00 98 /min [facility] Systolic blood pressure 2022-04-04 17:15:00 150 mm[Hg] [facility] Diastolic blood pressure 2022-04-04 17:15:00 94 mm[Hg] [facility] Heart rate 2022-04-04 17:13:00 86 /min [facility] Body temperature 2022-04-04 17:13:00 36.67 [place] [facility] Body height 2022-04-04 17:13:00 152.4 cm [facility] Body weight 2022-04-04 17:13:00 76.204 kg [facility] BMI 2022-04-04 17:13:00 32.81 kg/m2 [facility] Systolic blood pressure 2022-01-25 16:13:00 127 mm[Hg] [facility] Diastolic blood pressure 2022-01-25 16:13:00 75 mm[Hg] [facility] Heart rate 2022-01-25 16:13:00 89 /min [facility] Body height 2022-01-25 16:13:00 152.4 cm [facility] Body weight 2022-01-25 16:13:00 74.526 kg [facility] BMI 2022-01-25 16:13:00 32.09 kg/m2 [facility] Oxygen saturation in Arterial blood by Pulse oximetry 2022-01-25 16:13:00 98 /min [facility] Systolic blood pressure 2022-01-12 17:33:00 116 mm[Hg] [facility] Diastolic blood pressure 2022-01-12 17:33:00 73 mm[Hg] [facility] Heart rate 2022-01-12 17:33:00 93 /min [facility] Body temperature 2022-01-12 17:33:00 36.39 [place] [facility] Respiratory rate 2022-01-12 17:33:00 17 /min [facility] Oxygen saturation in Arterial blood by Pulse oximetry 2022-01-12 17:33:00 99 /min [facility] Body weight 2022-01-12 08:00:00 81.738 kg [facility] BMI 2022-01-12 08:00:00 35.19 kg/m2 [facility] Body height 2022-01-08 21:47:00 152.4 cm [facility] Systolic blood pressure 2022-01-08 10:54:00 170 mm[Hg] [facility] Diastolic blood pressure 2022-01-08 10:54:00 90 mm[Hg] [facility] Heart rate 2022-01-08 10:20:00 102 /min [facility] Body temperature 2022-01-08 10:20:00 36.89 [place] [facility] Respiratory rate 2022-01-08 10:20:00 18 /min [facility] Body height 2022-01-08 10:20:00 152.4 cm [facility] Body weight 2022-01-08 10:20:00 74 kg [facility] BMI 2022-01-08 10:20:00 31.86 kg/m2 [facility] Oxygen saturation in Arterial blood by Pulse oximetry 2022-01-08 10:20:00 99 /min [facility] Systolic blood pressure 2022-01-03 15:30:00 142 mm[Hg] [facility] Diastolic blood pressure 2022-01-03 15:30:00 95 mm[Hg] [facility] Heart rate 2022-01-03 15:30:00 96 /min [facility] Body temperature 2022-01-03 15:30:00 36.72 [place] [facility] Body height 2022-01-03 15:30:00 152.4 cm [facility] Body weight 2022-01-03 15:30:00 76.658 kg [facility] BMI 2022-01-03 15:30:00 33.01 kg/m2 [facility] Systolic blood pressure 2021-12-21 16:36:00 144 mm[Hg] [facility] Diastolic blood pressure 2021-12-21 16:36:00 92 mm[Hg] [facility] Heart rate 2021-12-21 16:36:00 118 /min [facility] Body temperature 2021-12-21 16:36:00 37 [place] [facility] Respiratory rate 2021-12-21 16:36:00 20 /min [facility] Body height 2021-12-21 16:36:00 152.4 cm [facility] Body weight 2021-12-21 16:36:00 76.885 kg [facility] BMI 2021-12-21 16:36:00 33.10 kg/m2 [facility] Oxygen saturation in Arterial blood by Pulse oximetry 2021-12-21 16:36:00 97 /min [facility] Procedures Procedure Date / Time Performed Performing Clinician Source POCT GLUCOSE (AUTOMATED) 2024-12-13 17:13:00 [facility] [facility] POCT GLUCOSE (AUTOMATED) 2024-12-13 12:41:00 Brent Ibrahim [facility] POCT GLUCOSE (AUTOMATED) 2024-12-13 02:08:00 More Gutiérrez [facility] POCT GLUCOSE (AUTOMATED) 2024-12-12 22:19:00 More Gutiérrez [facility] POCT GLUCOSE (AUTOMATED) 2024-12-12 17:32:00 More Gutiérrez [facility] POCT GLUCOSE (AUTOMATED) 2024-12-12 13:13:00 More Gutiérrez [facility] POCT GLUCOSE (AUTOMATED) 2024-12-12 01:25:00 More Gutiérrez [facility] POCT GLUCOSE (AUTOMATED) 2024-12-11 22:23:00 More Gutiérrez [facility] POCT GLUCOSE (AUTOMATED) 2024-12-11 17:16:00 More Gutiérrez [facility] DUPLEX VENOUS LEGS BILATERAL - BY VASCULAR LAB 2024-12-11 15:07:00 Beatriz Matthewsea [facility] POCT GLUCOSE (AUTOMATED) 2024-12-11 13:32:00 More Gutiérrez [facility] MAGNESIUM 2024-12-11 10:31:00 Wilfredo [facility] BASIC METABOLIC PANEL (NA, K , CL, CO2, GLUCOSE, BUN, CREATININE, CA) 2024-12-11 10:31:00 Wilfredo [facility] CBC WITHOUT DIFF 2024-12-11 10:31:00 Wilfredo [facility] POCT GLUCOSE (AUTOMATED) 2024-12-11 01:40:00 Shanika [facility] POCT GLUCOSE (AUTOMATED) 2024-12-10 22:26:00 Shanika [facility] AC PANEL 20 + LACTIC ACID 2024-12-10 21:36:00 Beatriz Matthewsea [facility] NM LUNG VENTILATION AND PERFUSION 12-10 20:54:00 Wilfredo [facility] POCT GLUCOSE (AUTOMATED) 2024-12-10 17:34:00 Shanika [facility] XR CHEST 1 VW 2024-12-10 16:16:12 Wilfredo [facility] MAGNESIUM 2024-12-10 15:51:00 Wilfredo [facility] BASIC METABOLIC PANEL (NA, K , CL, CO2, GLUCOSE, BUN, CREATININE, CA) 2024-12-10 15:51:00 Wilfredo [facility] CBC WITHOUT DIFF 2024-12-10 15:51:00 Wilfredo [facility] HB ECG ROUTINE & RHYTHM STRIP 2024-12-10 15:11:14 Wilfredo [facility] POCT GLUCOSE (AUTOMATED) 2024-12-10 13:20:00 Mougourgrady [facility] POCT GLUCOSE (AUTOMATED) 2024-12-10 01:17:00 Mougouris, [facility] POCT GLUCOSE (AUTOMATED) 2024-12-09 22:16:00 Mougouris, [facility] POCT GLUCOSE (AUTOMATED) 2024-12-09 16:18:00 Mougouris, [facility] POCT GLUCOSE (AUTOMATED) 2024-12-09 12:06:00 [facility] WITH DIFF 2024-12-09 10:38:00 Ibrahim, [facility] POCT GLUCOSE (AUTOMATED) 2024-12-09 01:34:00 Ibrahim, [facility] POCT GLUCOSE (AUTOMATED) 2024-12-08 22:05:00 Ibrahim, [facility] PO[facility]SE (AUTOMATED) 2024-12-08 22:05:00 Ibrahim, [facility] PO[facility]UCOSE (AUTOMATED) 2024-12-08 17:10:00 Ibrahim, [facility] POCT GLUCOSE (AUTOMATED) 2024-12-08 17:10:00 Ibrahim, [facility] POCT GLUCOSE (AUTOMATED) 2024-12-08 13:10:00 Ibrahim, [facility] POCT GLUCOSE (AUTOMATED) 2024-12-08 13:10:00 Ibrahim, [facility] MAGNESIUM 2024-12-08 10:20:00 Pal Nunez [facility] BASIC METABOLIC PANEL (NA, K , CL, CO2, GLUCOSE, BUN, CREATININE, CA) 2024-12-08 10:20:00 Vanna Frausto [facility] CBC WITH DIFF 2024-12-08 10:20:00 Jett Catholic [facility] GLYCOSYLATED HEMOGLOBIN (A1C) 2024-12-08 10:20:00 Pal Nunez [facility] MAGNESIUM 2024-12-08 10:20:00 Pal Nunez [facility] BASIC METABOLIC PANEL (NA, K , CL, CO2, GLUCOSE, BUN, CREATININE, CA) 2024-12-08 10:20:00 Vanna Frausto [facility] CBC WITH DIFF 2024-12-08 10:20:00 Vanna Frausto [facility] GLYCOSYLATED HEMOGLOBIN (A1C) 2024-12-08 10:20:00 Pal Nunez [facility] POCT GLUCOSE (AUTOMATED) 2024-12-08 08:16:00 Pal Nunez [facility] POCT GLUCOSE (AUTOMATED) 2024-12-08 08:16:00 Pal Nunez [facility] HB ECG ROUTINE & RHYTHM STRIP 2024-12-08 04:52:38 Pal Nunez [facility] HB ECG ROUTINE & RHYTHM STRIP 2024-12-08 04:52:38 Pal Nunez [facility] POCT GLUCOSE (AUTOMATED) 2024-12-08 00:30:00 Pal Nunez [facility] POCT GLUCOSE (AUTOMATED) 2024-12-08 00:30:00 Pal Nunez [facility] POCT GLUCOSE (AUTOMATED) 2024-12-08 00:21:00 Pal Nunez [facility] POCT GLUCOSE (AUTOMATED) 2024-12-08 00:21:00 Pal Nunez [facility] POCT GLUCOSE (AUTOMATED) 2024-12-07 23:32:00 Pal Nunez [facility] POCT GLUCOSE (AUTOMATED) 2024-12-07 23:32:00 Pal Nunez [facility] POCT GLUCOSE (AUTOMATED) 2024-12-07 22:24:00 Pal Nunez [facility] POCT GLUCOSE (AUTOMATED) 2024-12-07 22:24:00 Pal Nunez [facility] FL TIME OR (NON-REPORTABLE) 2024-12-07 20:25:03 Ashley [facility] FL TIME OR (NON-REPORTABLE) 2024-12-07 20:25:03 Ashley [facility] SURGICAL PATHOLOGY EXAM 2024-12-07 18:45:00 Ashley [facility] SURGICAL PATHOLOGY EXAM 2024-12-07 18:45:00 Ashley [facility] FL TIME OR (NON-REPORTABLE) 2024-12-07 18:10:25 Ashley [facility] FL TIME OR (NON-REPORTABLE) 2024-12-07 18:10:25 Ashley [facility] XR CERVICAL SPINE 1 VW 2024-12-07 17:27:50 Ashley [facility] XR CERVICAL SPINE 1 VW 2024-12-07 17:27:50 Ashley [facility] [id number] - AL CHEN BX/EXC ISPI N EO IDRL XMED CERVICAL 2024-12-07 15:22:00 Ashley [facility] [id number] - AL ARTHRD PST/PSTLAT TQ 1NTRSPC CRV BELW C2 SEGMENT 2024-12-07 15:22:00 Ashley [facility] [id number] - [place] ARTHRODESIS PST/P STLAT TQ 1NTRSPC EA ADDL NTRSPC 2024-12-07 15:22:00 Ashley [facility] [id number] - AL POSTERIOR SEGMENT AL INSTRUMENTATION 3-6 VRT SEG 2024-12-07 15:22:00 Ashley [facility] 03220 - AL STEREOTACTIC COMP UTER ASSISTED PX SPINAL 2024-12-07 15:22:00 Ashley [facility] 67424 - AL AUTOGRAFT SPINE S URGERY LOCAL FROM SAME INCISION 2024-12-07 15:22:00 Ashley [facility] 52487 - AL CHEN BX/EXC ISPI N EO IDRL XMED CERVICAL 2024-12-07 15:22:00 Ashley [facility] 98786 - AL ARTHRD PST/PSTLAT TQ 1NTRSPC CRV BELW C2 SEGMENT 2024-12-07 15:22:00 Ashley [facility] 01010 - [place] ARTHRODESIS PST/P [facility]AT [facility] NTR[facility] 2024-12-07 15:22:00 Ashley [facility] 09055 - AL POSTERIOR SEGMENT AL INSTRUMENTATION 3-6 VRT SEG 2024-12-07 15:22:00 Ashley [facility] 48059 - AL STEREOTACTIC COMP UTER ASSISTED PX SPINAL 2024-12-07 15:22:00 Ashley [facility] 98867 - AL AUTOGRAFT SPINE S URGERY LOCAL FROM SAME INCISION 2024-12-07 15:22:00 Ashley [facility] CT CERVICAL SPINE WO CONTRAST 2024-12-07 14:58:00 Ashley [facility] CT CERVICAL SPINE WO CONTRAST 2024-12-07 14:58:00 Ashley [facility] POCT GLUCOSE (AUTOMATED) 2024-12-07 14:07:00 Ashley [facility] POCT GLUCOSE (AUTOMATED) 2024-12-07 14:07:00 Ashley [facility] HB ABO GROUPING 2024-12-07 14:02:00 Maryellen [facility] HB ABO GROUPING 2024-12-07 14:02:00 Maryellen [facility] CREATININE 2024-12-01 19:15:00 Ashley [facility] HB ABO GROUPING 2024-12-01 19:13:00 Maryellen [facility] MR CERVICAL SPINE W WO CONTRAST 20:00:00 Aury Barrera [facility] ENDOSCOPY PROCEDURE DOCUMENTATION 814 15:36:03 Doctor Unassigned, [place] [facility] POCT GLUCOSE (AUTOMATED) 2024-11-17 17:53:00 [facility] 2024-11-17 17:53:00 [facility] ESOPHAGOGASTRODUODENOSCOPY 2024-11-17 15:25:00 Ottoniellorena [facility] COLONOSCOPY 2024-11-17 15:25:00 Ottoniellorena [facility] POCT GLUCOSE (AUTOMATED) 2024-11-17 14:02:00 Ottoniellorena [facility] POCT GLUCOSE (AUTOMATED) 2024-11-17 14:02:00 Ottoniellorena [facility] SCANNED LAB RESULTS 2024-09-20 13:56:48 Doctor Unassigned, [place] [facility] PET DOTATATE TUMOR IMAGING 2024-08-25 18:26:00 Hermes Alonso [facility] MATTIE,POST-VOID RES,US,NON-IMAGING 07-21 16:33:00 Suhail Quinn [facility] VARICELLA-ZOSTER VACCINE, (SHINGRIX) 50 MCG/0.5 ML, IM 2024-05-12 19:24:16 Objosé luis-Susanna [facility] FREE T4 2024-02-25 18:13:00 Objosé luis-Susanna [facility] THYROID STIMULATING HORMONE 2024-02-25 18:13:00 Radha [facility] COMP. METABOLIC PANEL (06930) 2024-02-25 18:13:00 Radha [facility] CBC WITH DIFF 2024-02-25 18:13:00 [facility] GLYCOSYLATED HEMOGLOBIN (A1C) 2024-02-25 18:13:00 [facility] VITAMIN D, 25-OH 2024-02-25 18:13:00 josé luis-Susanna [facility] FREE T3 2024-02-25 18:13:00 Obi-Susanna [facility] SLEEP LAB RESULTS 2024-01-05 17:35:30 Juma Brown [facility] FREE T4 2023-10-15 18:44:00 Obi-Susanna, [facility] THYROID STIMULATING HORMONE 2023-10-15 18:44:00 Radha [facility] COMP. METABOLIC PANEL (23740) 2023-10-15 18:44:00 Radha [facility] GLYCOSYLATED HEMOGLOBIN (A1C) 2023-10-15 18:44:00 Radha [facility] FREE T3 2023-10-15 18:44:00 Radha [facility] US RETROPERITONEAL LIMITED 2023-09-08 18:17:14 Bonilla Morrow [facility] BI YANNA GUIDED CORE BREAST B IOPSY RIGHT 2023-07-28 19:52:36 Radha [facility] BI ULTRASOUND BREAST COMPLET E BILATERAL 2023-07-16 20:15:15 Radha [facility] BI DIAGNOSTIC TOMOSYNTHESIS BILATERAL 2023-07-16 19:14:05 Radha [facility] PNEUMOCOCCAL 20 CONJUGATE (P REVNAR 20) VACCINE 2023-06-24 19:47:15 Radha [facility] PATIENT FINANCIAL POLICY 2022-08-20 19:13:15 Doctor Unassigned, [place] [facility] CT ABDOMEN PELVIS WO CONTRAST 2022-07-19 18:02:56 Terence Burks [facility] PHOSPHORUS 2022-04-30 11:42:00 Rj Zhang [facility] BASIC METABOLIC PANEL (NA, K , CL, CO2, GLUCOSE, BUN, CREATININE, CA) 2022-04-30 11:42:00 Oumar Browning [facility] CBC WITH DIFF 2022-04-30 11:42:00 Oumar Browning [facility] PHOSPHORUS 2022-04-29 11:13:00 Rj Zhang [facility] MAGNESIUM 2022-04-29 11:13:00 Oumar Browning [facility] BASIC METABOLIC PANEL (NA, K , CL, CO2, GLUCOSE, BUN, CREATININE, CA) 2022-04-29 11:13:00 Oumar Browning [facility] CBC WITHOUT DIFF 2022-04-29 11:13:00 Rj Zhang [facility] PHOSPHORUS 2022-04-29 11:13[facility]00 [facility] 2022-04-29 11:13:00 Nallely [facility] BASIC METABOLIC PANEL (NA, K , CL, CO2, GLUCOSE, BUN, CREATININE, CA) 2022-04-29 11:13:00 Oumar Browning [facility] CBC WITHOUT DIFF 2022-04-29 11:13:00 Vicente [facility] CBC WITHOUT DIFF 2022-04-29 05:36:00 Vicente [facility] CBC WITHOUT DIFF 2022-04-29 05:36:00 Vicente [facility] PREPARE PACKED RBC 2022-04-29 01:51:46 Vicente [facility] PREPARE PACKED RBC 2022-04-29 01:51:46 Vicente [facility] FERRITIN SERUM 2022-04-28 22:24:00 Vicente [facility] IRON PANEL 2022-04-28 22:24:00 Vicente [facility] CBC WITHOUT DIFF 2022-04-28 22:24:00 Vicente [facility] FERRITIN SERUM 2022-04-28 22:24:00 Vicente [facility] IRON PANEL 2022-04-28 22:24:00 Vicente [facility] CBC WITHOUT DIFF 2022-04-28 22:24:00 Vicente [facility] PREPARE PACKED RBC 2022-04-28 18:19:32 Vicente [facility] PREPARE PACKED RBC 2022-04-28 18:19:32 Rj Zhang [facility] PHOSPHORUS 2022-04-28 10:11:00 Rj Zhang [facility] BASIC METABOLIC PANEL (NA, K , CL, CO2, GLUCOSE, BUN, CREATININE, CA) 2022-04-28 10:11:00 Rj Zhang [facility] CBC WITH DIFF 2022-04-28 10:11:00 Vicente [facility] EXTRA TUBE LAV 2022-04-28 10:11:00 Bonilla Morrow [facility] PHOSPHORUS 2022-04-28 10:11:00 Vicente [facility] BASIC METABOLIC PANEL (NA, K , CL, CO2, GLUCOSE, BUN, CREATININE, CA) 2022-04-28 10:11:00 Rj Zhang [facility] CBC WITH DIFF 2022-04-28 10:11:00 Rj Zhang [facility] EXTRA TUBE LAV 2022-04-28 10:11:00 Bonilla Morrow [facility] BASIC METABOLIC PANEL (NA, K , CL, CO2, GLUCOSE, BUN, CREATININE, CA) 2022-04-27 22:57:00 Fadia Gamez [facility] BASIC METABOLIC PANEL (NA, K , CL, CO2, GLUCOSE, BUN, CREATININE, CA) 2022-04-27 22:57:00 Fadia Gamez [facility] AC PANEL 20 + LACTIC ACID 2022-04-27 18:03:00 River Villareal [facility] AC PANEL 20 + LACTIC ACID 2022-04-27 18:03:00 River Villareal [facility] XR CHEST 1 VW 2022-04-27 11:00:00 Fadia Gamez [facility] XR CHEST 1 VW 2022-04-27 11:00:00 Franco [facility] PROTHROMBIN TIME / INR 2022-04-27 10:10:00 Fadia Gamez [facility] ACTIVATED PARTIAL THRMPLAS SERGIO 2022-04-08 1 10:10:00 Fadia Gamez [facility] FIBRINOGEN 2022-04-27 10:10:00 Franco [facility] PROTHROMBIN TIME / INR 2022-04-27 10:10:00 Franco [facility] ACTIVATED PARTIAL THRMPLAS SERGIO 2 1 10:10:00 Franco [facility] FIBRINOGEN 2022-04-27 10:10:00 Franco [facility] AC PANEL 20 + LACTIC ACID 2022-04-27 09:36:00 Norui [facility] AC PANEL 20 + LACTIC ACID 2022-04-27 09:36:00 Franco [facility] PHOSPHORUS 2022-04-27 08:14:00 Vicente [facility] MAGNESIUM 2022-04-27 08:14:00 Vicente [facility] BASIC METABOLIC PANEL (NA, K , CL, CO2, GLUCOSE, BUN, CREATININE, CA) 2022-04-27 08:14[facility]00 [facility] 2022-04-27 08:14[facility]00 [facility] 2022-04-27 08:14:00 Vicente [facility] MAGNESIUM 2022-04-27 08:14:00 Vicente [facility] BASIC METABOLIC PANEL (NA, K , CL, CO2, GLUCOSE, BUN, CREATININE, CA) 2022-04-27 08:14:00 Vicente [facility] CBC WITH DIFF 2022-04-27 08:14:00 Vicente [facility] PREPARE PLATELETS 2022-04-27 02:39:32 Norui [facility] PREPARE PLATELETS 2022-04-27 02:39:32 Franco [facility] AC PANEL 21 + LACTIC ACID 2022-04-27 00:10:00 Franco [facility] AC PANEL 21 + LACTIC ACID 2022-04-27 00:10:00 Franco [facility] XR CHEST 1 VW 2022-04-27 00:09:55 Nohrn, [facility] XR CHEST 1 VW 2022-04-27 00:09:55 Franco [facility] BASIC METABOLIC PANEL (NA, K , CL, CO2, GLUCOSE, BUN, CREATININE, CA) 2022-04-27 00:08:00 Franco [facility] CBC WITH DIFF 2022-04-27 00:08:00 Franco [facility] PROTHROMBIN TIME / INR 2022-04-27 00:08:00 Franco [facility] ACTIVATED PARTIAL THRMPLAS SERGIO 2 1 00:08:00 Franco [facility] FIBRINOGEN 2022-04-27 00:08:00 Franco [facility] BASIC METABOLIC PANEL (NA, K , CL, CO2, GLUCOSE, BUN, CREATININE, CA) 2022-04-27 00:08:00 Franco [facility] CBC WITH DIFF 2022-04-27 00:08:00 Franco [facility] PROTHROMBIN TIME / INR 2022-04-27 00:08:00 Franco [facility] ACTIVATED PARTIAL THRMPLAS SERGIO 2 1 00:08:00 Franco [facility] FIBRINOGEN 2022-04-27 00:08:00 Franco [facility] PREPARE PACKED RBC 2022-04-26 23:47:04 Leticia [facility] PREPARE PACKED RBC 2022-04-26 23:47:04 Leticia [facility] TRANSFUSE PLASMA 2022-04-26 21:37:00 Leticia [facility] TRANSFUSE PLASMA 2022-04-26 21:37:00 Leticia [facility] ABG+COOX+NA+K+GLU+CA2+ 2022-04-26 21:31:00 [facility]+COOX+NA+K+GLU+CA2+ 2022-04-26 21:31:00 [facility] TRAN[facility]AS[facility] 2022-04-26 21:04:00 Leticia [facility] TRANSFUSE PLASMA 2022-04-26 21:04:00 Leticia [facility] TRANSFUSE PACKED RBC 2022-04-26 20:59:00 Leticia [facility] TRANSFUSE PACKED RBC 2022-04-26 20:59:00 Leticia [facility] ABG+COOX+NA+K+GLU+CA2+ 2022-04-26 20:23:00 [facility] ABG+COOX+NA+K+GLU+CA2+ 2022-04-26 20:23:00 [facility] PREP[facility]ASMA 2022-04-26 20:15:39 [facility] PREPARE PLASMA 2022-04-26 20:15:39 Leticia [facility] PROTHROMBIN TIME / INR 2022-04-26 20:14:00 [facility] 2022-04-26 20:14:00 [facility] FIBRIN[facility]EN 2022-04-26 20:14:00 [facility] PROTHROMBIN [facility] / INR 2022-04-26 20:14:00 [facility] THROM[facility] 2022-04-26 20:14:00 [facility] FIBRIN[facility]EN 2022-04-26 20:14:00 [facility] CBC WITH DIFF 2022-04-26 20:13:00 [facility] CBC WITH DIFF 2022-04-26 20:13:00 [facility] TRANSFUSE PACKED RBC 2022-04-26 19:49:00 [facility]icia [facility] TRANSFUSE PACKED RBC 2022-04-26 19:49:00 Leticia [facility] ABG+COOX+NA+K+GLU+CA2+ 2022-04-26 19:35:00 [facility]X+NA+K+GLU+CA2+ 2022-04-26 19:35:00 [facility] TRANSF[facility]ACKED RBC 2022-04-26 19:32:00 [facility]icia [facility] TRANSFUSE PACKED RBC 2022-04-26 19:32:00 Leticia [facility] PREPARE PACKED RBC 2022-04-26 19:25:42 Leticia [facility] PREPARE PACKED RBC 2022-04-26 19:25:42 Leticia [facility] TRANSFUSE PACKED RBC 2022-04-26 19:07:00 Leticia [facility] TRANSFUSE PACKED RBC 2022-04-26 19:07:00 Leticia [facility] TRANSFUSE PACKED RBC 2022-04-26 18:53:00 Leticia [facility] TRANSFUSE PACKED RBC 2022-04-26 18:53:00 [facility] CBC WITH DIFF 2022-04-26 18:47:00 Bonilla Morrow [facility] CBC WITH DIFF 2022-04-26 18:47:00 Bonilla Morrow [facility] ABG+COOX+NA+K+GLU+CA2+ 2022-04-26 18:35:00 [facility] ABG+COOX+NA+K+GLU+CA2+ 2022-04-26 18:35:00 Bonilla Morrow [facility] ABG+COOX+NA+K+GLU+CA2+ 2022-04-26 17:29:00 Bonilla Morrow [facility] ABG+COOX+NA+K+GLU+CA2+ 2022-04-26 17:29:00 Bonilla Morrow [facility] PREPARE PACKED RBC 2022-04-26 17:02:44 [facility] PREPARE PACKED RBC 2022-04-26 17:02:44 Leticia [facility] ABG+COOX+NA+K+GLU+CA2+ 2022-04-26 16:30:00 Bonilla Morrow [facility] ABG+COOX+NA+K+GLU+CA2+ 2022-04-26 16:30:00 Bonilla Morrow [facility] CENTRAL LINE 2022-04-26 15:15:00 [facility] INTUBATION 2022-04-26 14:58:00 [facility] ARTERIAL LINE 2022-04-26 14:56:00 [facility] LAPAROSCOPIC ROBOTIC ASSISTE D PARTIAL NEPHRECTOMY 2022-04-26 14:22:00 Bonilla Morrow [facility] LAPAROSCOPIC ROBOTIC ASSISTE D PARTIAL NEPHRECTOMY 2022-04-26 14:22:00 Bonilla Morrowolas [facility] HB ABO GROUPING 2022-04-26 12:15:00 Kolby Carr [facility] HB ABO GROUPING 2022-04-26 12:15:00 Kolby Carr [facility] ASSIGNMENT OF BENEFITS 2022-04-26 12:00:19 Doctor Unassigned, [place] [facility] MEDICAL RELEASE/CLEARANCE FORMS 05:01:00 Doctor Unassigned, [place] [facility] PHOSPHORUS 2022-01-12 10:41:00 Rabia Cerda [facility] MAGNESIUM 2022-01-12 10:41:00 Prashant [facility] BASIC METABOLIC PANEL (NA, K , CL, CO2, GLUCOSE, BUN, CREATININE, CA) 2022-01-12 10:41:00 [facility] WITH DIFF 2022-01-12 10:41:00 [facility] WITH [facility]FF 2022-01-11 11:34:00 Olinda Kevin [facility] BASIC METABOLIC PANEL (NA, K , CL, CO2, GLUCOSE, BUN, CREATININE, CA) 2022-01-11 10:32:00 Herberth [facility] POCT GLUCOSE (AUTOMATED) 2022-01-09 16:35:00 V[place]iy [place] [facility] POCT GLUCOSE (AUTOMATED) 2022-01-09 16:35:00 Vitaliy [facility] POCT GLUCOSE (AUTOMATED) 2022-01-09 13:51:00 Vitaliy [facility] POCT GLUCOSE (AUTOMATED) 2022-01-09 13:51:00 Vitaliy [facility] PHOSPHORUS 2022-01-09 10:52:00 [facility] MAGNESIUM 2022-01-09 10:52:00 [facility] BASIC METABOLIC PANEL (NA, K , CL, CO2, GLUCOSE, BUN, CREATININE, CA) 2022-01-09 10:52:00 [facility] CBC WITH DIFF 2022-01-09 10:52:00 [facility] PHOSPHORUS 2022-01-09 10:52:00 [facility] MAGNESIUM 2022-01-09 10:52:00 [facility] BASIC METABOLIC PANEL (NA, K , CL, CO2, GLUCOSE, BUN, CREATININE, CA) 2022-01-09 10:52:00 [facility] CBC WITH DIFF 2022-01-09 10:52:00 [facility] POCT GLUCOSE (AUTOMATED) 2022-01-09 01:40:00 Vitaliy [facility] POCT GLUCOSE (AUTOMATED) 2022-01-09 01:40:00 Vitaliy [facility] POCT GLUCOSE (AUTOMATED) 2022-01-08 20:29:00 Vitaliy [facility] POCT GLUCOSE (AUTOMATED) 2022-01-08 20:29:00 Vitaliy [facility] SURGICAL PATHOLOGY EXAM 2022-01-08 15:54:00 Vitaliy [facility] COLOSTOMY CLOSURE 2022-01-08 12:05:00 Phatanichelle, [facility] COLONOSCOPY 2022-01-08 12:05:00 Vitaliy [facility] COLOSTOMY CLOSURE 2022-01-08 12:05:00 Phatak, [facility] COLONOSCOPY 2022-01-08 12:05:00 Vitaliy [facility] HB ABO GROUPING 2022-01-08 10:40:00 Phatak, [facility] HB ABO GROUPING 2022-01-08 10:40:00 Phatanichelle, [facility] CONSENT/REFUSAL FOR DIAGNOSI S AND TREATMENT 2022-01-08 10:25:09 Doctor Unassigned, [place] [facility] CONSENT/REFUSAL FOR DIAGNOSI S AND TREATMENT 2022-01-08 10:25:09 Doctor Unassigned, [place] [facility] ASSIGNMENT OF BENEFITS 2022-01-08 10:17:32 Doctor Unassigned, [place] [facility] ASSIGNMENT OF BENEFITS 2022-01-08 10:17:32 Doctor Unassigned, [place] [facility] HOSPITAL ADMISSION 2022-01-08 05:01:00 Doctor Unassigned, [place] [facility] DISCLOSURE AND CONSENT, MEDI FRANCESCO AND SURGICAL PROCEDURES 2021-12-24 05:01:00 Doctor Unassigned, [place] [facility] DISCLOSURE AND CONSENT, MEDI FRANCESCO AND SURGICAL PROCEDURES 2021-12-24 05:01:00 Doctor Unassigned, [place] [facility] Encounters Start Date/Time End Date/Time Encounter Type Admission Type Attending [facility] Care Facility Care Department Encounter ID Source 2024-12-25 10:50:37 Outpatient [facility] ANABELLE [id number] [facility] 2024-11-22 14:19:56 Inpatient R HERMES ALONSO RAJ [facility] KINDRA [id number] [facility] 2021-08-15 15:57:35 Inpatient R VITALIY [facility] KINDRA [id number] [facility] 2021-08-15 14:29:18 Inpatient VITALIY [facility] KINDRA [id number] [facility] 2021-02-05 13:33:58 Emergency [facility] [id number] [facility] 2021-02-05 04:59:43 Emergency [facility] [id number] [facility] 2021-02-04 23:27:18 Emergency [facility] [id number] [facility] 2021-02-04 15:58:03 Outpatient R TERENCE BURKS [facility] GIE [id number] [facility] 2020-06-22 00:16:00 Inpatient U LAWANDA CARLOS [facility] 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 [id number] [facility] 2024-11-19 00:00:00 2024-12-25 18:32:08 Patient Secure Kandi Dodge [facility] 1.2.840.114 350.1.13.10 4.2.7.2.686 [id number] [facility] 2024-12-22 00:00:00 2024-12-23 09:21:01 Telephone Girish Ramirez [facility] 1.2840.114 350.1.13.10 4.2.7.2.686 [id number] [facility] 2024-12-20 00:00:00 2024-12-21 13:32:02 Telephone Hermes Alonso [facility] 1.2.840.114 350.1.13.10 4.2.7.2.686 [id number] [facility] 2024-12-20 12:30:00 2024-12-20 11:49:38 Office [facility] 1.2.840.114 350.1.13.10 4.2.7.2.686 [id number] [facility] 2024-12-07 08:19:00 2024-12-13 15:28:00 Hospital Encounter Marielle Ramirez Girish Nunez, Pal Ibrahim, Brent Gwendolyn Voss, More Ellis [facility] 1.2.840.114 350.1.13.10 4.2.7.2.686 [id number] [facility] 2024-11-09 00:00:00 2024-12-11 18:27:15 Patient [facility] 1.2840.114 350.1.13.10 4.2.7.2.686 [id number] [facility] 2024-12-09 12:00:00 2024-12-09 12:00:00 Outpatient Marielle RAMIREZ [facility] [id number] [facility] 2024-12-07 10:50:00 2024-12-07 20:03:00 Surgery Taisha Ramirezhi [facility] 1.2840.114 350.1.13.10 4.2.7.2.686 [id number] [facility] 2024-11-03 00:00:00 2024-12-04 18:17:47 Patient Secure g Freedom Kandi [facility] 1.2840.114 350.1.13.10 4.2.7.2.686 [id number] [facility] 2024-12-03 00:00:00 2024-12-03 10:21:32 Telephone Faith Mobley Heather J [facility] [place] 1.2840.114 350.1.13.10 4.2.7.2.686 [id number] [facility] 2024-12-01 13:45:00 2024-12-01 14:00:00 Director Money Visit Thea Cartagena Lab Main Objosé luis-Roopa Mullins, Adc Lab Main [facility] 1.2.840.114 350.1.13.10 4.2.7.2.686 [id number] [facility] 2024-11-29 00:00:00 2024-11-29 15:39:46 Case Management Mary Bojorquez [facility] 1.2.840.114 350.1.13.10 4.2.7.2.686 [id number] [facility] 2024-11-29 00:00:00 2024-11-29 14:32:58 Prep for Procedure Girish Ramirez [facility] 1.2.840.114 350.1.13.10 4.2.7.2.686 [id number] [facility] 2024-11-29 14:00:00 2024-11-29 14:00:00 Outpatient NITISH ROJAS [facility] [id number] [facility] 2024-11-29 12:30:00 2024-11-29 12:49:30 Office Visit Girish Champagne [facility] 1.2840.114 350.1.13.10 4.2.7.2.686 [id number] [facility] 2024-11-25 12:53:00 2024-11-25 23:59:00 Hospital Encounter AURY DIETRICH [facility] 1.2.840.114 350.1.13.10 4.2.7.2.686 [id number] [facility] 2024-11-22 13:30:00 2024-11-22 14:09:05 Office Visit Hermes Villarreal [facility] 1.2.840.114 350.1.13.10 4.2.7.2.686 [id number] [facility] 2024-10-19 00:00:00 2024-11-20 18:24:37 Patient Secure Msg Bernardoi-Roopa Mullins [facility] NAL BUILDING 1.284.114 350.1.13.10 4.2.7.2.686 [id number] [facility] 2024-10-20 00:00:00 2024-11-20 18:22:26 Patient Secure Msg Doctor Unassigned, [place] Doctor Unassigned, [place] [facility] 1.284.114 350.1.13.10 4.2.7.2.686 [id number] [facility] 2024-11-18 00:00:00 2024-11-19 02:04:34 Orders Only Doctor Unassigned, [place] Doctor Unassigned, [place] [facility] 1..114 350.1.13.10 4.2.7.2.686 [id number] [facility] 2024-11-17 08:46:00 2024-11-17 13:37:00 Hospital En[facility] [id number] 2024-11-17 11:09:00 2024-11-17 12:39:00 Surgery Kandi Loja [facility] 1.84.114 350.1.13.10 4.2.7.2.686 [id number] [facility] 2024-11-16 00:00:00 2024-11-17 12:01:19 Patient Secure Msg Girish Ramirez [facility] 1.284.114 350.1.13.10 4.2.7.2.686 [id number] [facility] 2024-10-12 00:00:00 2024-11-13 18:23:18 Patient Secure Msg Doctor Unassigned, [place] Doctor Unassigned, [place] [facility] 1.2840.114 350.1.13.10 4.2.7.2.686 [id number] [facility] 2024-10-19 15:00:00 2024-10-19 15:56:51 Office Visit Kandi Rivas [facility] 1.2.840.114 350.1.13.10 4.2.7.2.686 [id number] [id number] [facility] 2024-10-18 12:00:00 2024-10-18 13:13:40 Office Visit Girish Champagne [facility] 1.2840.114 350.1.13.10 4.2.7.2.686 [id number] [facility] 2024-09-09 00:00:00 2024-10-16 18:47:20 Patient Secure Msg Doctor Unassigned, [place] Doctor Unassigned, [place] [facility] [place] 1.2840.114 350.1.13.10 4.2.7.2.686 [id number] [facility] 2024-10-14 13:50:36 2024-10-14 23:59:00 Hospital Encounter R OBI-SUSANNA , ROOPA OBI-SUSANNA , [place] [facility] 1.2840.114 350.1.13.10 4.2.7.2.686 [id number] [facility] 2024-10-04 13:00:00 2024-10-04 13:15:00 Office Visit Hermes Villarreal [facility] 1.2840.114 350.1.13.10 4.2.7.2.686 [id number] [facility] 2024 00:00:00 2024 22:11:57 Telephone Cali Smith Colin 1.2.840.114 350.1.13.10 4.2.7.2.686 [id number] [facility] 2024-09-20 00:00:00 2024 02:05:29 Orders Only Doctor Unassigned, [place] Doctor Unassigned, [place] [facility] 1.2.840.114 350.1.13.10 4.2.7.2.686 [id number] [facility] 2024-09-20 00:00:00 2024-09-20 08:58:07 Telephone Faith Mobley Heather J 1.2.840.114 350.1.13.10 4.2.7.2.686 [id number] [facility] 2024-09-16 00:00:00 2024-09-16 00:00:00 Outpatient R [facility]AN[id number] 2024-09-09 15:00:00 2024-09-09 16:00:00 Office Visit R Cali Smith Unknown, Attending Cali Smith 1.2.840.114 350.1.13.10 4.2.7.2.686 [id number] [facility] 2024-09-09 14:00:00 2024-09-09 14:00:00 Outpatient R OBI-SUSANNA , ROOPA OBI-SUSANNA , [place] [facility] [id number] [facility] 2024-09-09 14:00:00 2024-09-09 14:00:00 Outpatient R OBI-SUSANNA , ROOPA OBI-SUSANNA , [facility] [id number] [facility] 2024-09-07 00:00:00 2024-09-08 15:58:02 Telephone Kandi Loja [facility] 1.2.840.114 350.1.13.10 4.2.7.2.686 [id number] [facility] 2024-09-06 14:00:00 2024-09-06 14:08:09 Office Visit Hermes Villarreal [facility] 1.2.840.114 350.1.13.10 4.2.7.2.686 [id number] [facility] 2024-09-02 10:30:00 2024-09-02 11:02:08 Office Visit Kerrie Collins [facility] 1.840.114 350.1.13.10 4.2.7.2.686 [id number] [facility] 2024-08-25 11:25:22 2024-08-25 23:59:00 Hospital Encounter Marielle HERMES ALONSO RAJ [facility] 1.2.840.114 350.1.13.10 4.2.7.2.686 [id number] [facility] 2024-08-25 00:00:00 2024-08-25 00:00:00 Outpatient HERMES VILLARREAL RAJ [facility] [id number] [facility] 2024-07-21 00:00:00 2024-08-21 18:14:26 Patient Secure Msg Radha [facility] 1.2.840.114 350.1.13.10 4.2.7.2.686 [id number] [facility] 2024-08-09 14:15:00 2024-08-09 14:55:46 Outpatient R HERMES ALONSO RAJ [facility] [id number] [facility] 2024-08-09 14:15:00 2024-08-09 14:55:46 Office Visit Hermes Alonso [facility] 1..114 350.1.13.10 4.2.7.2.686 [id number] [facility] 2024-08-04 00:00:00 2024-08-05 08:46:14 Telephone Fani White [facility] PROFESSIO NAL [facility] 1.2.114 350.1.13.10 4.2.7.2.686 [id number] [facility] 2024-08-02 15:02:00 2024-08-02 16:12:00 Emergency X RENAE MACARIO SANDRA [facility] ERT [id number] [facility] 2024-08-02 15:02:00 2024-08-02 16:12:00 Emergency Renae Macario [facility] 1.284.114 350.1.13.10 4.2.7.2.686 [id number] [facility] 2024-08-02 14:00:57 2024-08-02 15:01:00 Outpatient R FANI WHITE [facility] [id number] [facility] 2024-08-02 14:00:57 2024-08-02 15:01:00 Hospital Encounter Fani White [facility] 1.840.114 350.1.13.10 4.2.7.2.686 [id number] [facility] 2020-11-12 00:00:00 2024-07-29 21:45:11 Letter (Out) Bella Kemp [facility] 1.2.840.114 350.1.13.10 4.2.7.2.686 [id number] [facility] 2024-07-21 12:15:00 2024-07-21 12:30:00 Director Money Visit Pob, Adc Lab Main VaibhavRobi dubonth Pob, Adc Lab Main [facility] 1.20.114 350.1.13.10 4.2.7.2.686 [id number] [facility] 2024-07-21 11:30:00 2024-07-21 12:23:14 Outpatient R [facility] [id number] [facility] 2024-07-21 11:30:00 2024-07-21 12:23:14 Office Visit Kai [facility] 1..114 350.1.13.10 4.2.7.2.686 [id number] [facility] 2024-07-21 12:15:00 2024-07-21 12:15:00 Outpatient R [facility] [id number] [facility] 2024-07-15 00:00:00 2024-07-16 05:07:14 Refill Roopa [facility] 1..114 350.1.13.10 4.2.7.2.686 [id number] [facility] 2024-06-03 11:30:00 2024-06-03 11:45:00 Director Money Visit Vtc-Lab Kaycee Cuevas Ky[facility] 1..114 350.1.13.10 4.2.7.2.686 [id number] [facility] 2024-06-03 11:30:00 2024-06-03 11:30:00 Outpatient R KAYCEE CUEVAS [facility] [id number] [facility] 2024-06-03 09:45:00 2024-06-03 10:53:35 Office Visit Kerrie Bernal [facility] 1..114 350.1.13.10 4.2.7.2.686 [id number] [facility] 2024-06-03 09:45:00 2024-06-03 10:53:35 Outpatient R KERRIE BERNALBRUCE ReddingKE [facility] [id number] [facility] 2024-06-03 09:45:00 2024-06-03 09:45:00 Outpatient R KERRIE BERNALBRUCE ReddingKE [facility] [id number] [facility] 2024-01-05 00:00:00 2024-05-22 06:54:11 Orders Only Juma Brown [facility] 1..114 350.1.13.10 4.2.7.2.686 [id number] [facility] 2024-05-12 13:00:00 2024-05-12 13:31:56 Outpatient R OBI-SUSANNA ROOPA OBI-SUSANNA ROOPA [facility] [id number] [facility] 2024-05-12 13:00:00 2024-05-12 13:31:56 [facility] 1.20.114 350.1.13.10 4.2.7.2.686 [id number] [facility] 2024-05-08 00:00:00 2024-05-11 09:50:23 Refill [facility] 1.2.840.114 350.1.13.10 4.2.7.2.686 [id number] [facility] 2024-04-13 14:40:00 2024-04-13 14:40:00 Outpatient R OBI-SUSANNA , ROOPA OBI-SUSANNA , [place] [facility] [id number] [facility] 2024-02-25 12:04:55 2024-02-25 23:59:00 Hospital Encounter Obi-Susanna , Roopa [facility] 1.0.114 350.1.13.10 4.2.7.2.686 [id number] [facility] 2024-02-25 12:04:08 2024-02-25 23:59:00 Outpatient R OBI-SUSANNA , [facility] [id number] [facility] 2024-02-25 12:04:08 2024-02-25 23:59:00 Hospital Encounter Obi-Susanna , Roopa [facility] 1..114 350.1.13.10 4.2.7.2.686 [id number] [facility] 2024-02-25 12:15:00 2024-02-25 12:30:00 Director Money Visit Pob, Adc Lab Main Obi-Susanna , Roopa Pob, Adc Lab Main [facility] PROFESS[facility] BU[facility] 1.0.114 350.1.13.10 4.2.7.2.686 [id number] [facility] 2024-01-08 00:00:00 2024-02-14 18:27:28 Patient Secure Msg Doctor Unassigned, [place] Doctor Unassigned, [place] [facility] 1.0.114 350.1.13.10 4.2.7.2.686 [id number] [facility] 2024-02-12 14:00:00 2024-02-12 14:30:00 Office Visit Juma Brown [facility] 1.2.840.114 350.1.13.10 4.2.7.2.686 [id number] [facility] 2024-02-12 14:00:00 2024-02-12 14:00:00 Outpatient R JUMA BROWN STRATXBradly [facility] [id number] [facility] 2024-02-06 00:00:00 2024-02-06 11:50:31 [facility] 1.2.840.114 350.1.13.10 4.2.7.2.686 [id number] [facility] 2024-01-28 00:00:00 2024-01-28 09:34:30 Patient Outreach Shawna Cam Jocelyn [facility] 1.2.840.114 350.1.13.10 4.2.7.2.686 [id number] [facility] 2024-01-27 00:00:00 2024-01-27 16:25:29 Telephone [facility] 1.2.840.114 350.1.13.10 4.2.7.2.686 [id number] [facility] 2024-01-27 00:00:00 2024-01-27 00:00:00 Outpatient [id number] 2024-01-27 00:00:2024-01-27 00:00:00 Outpatient R OBI-ROOPA MULLINS OBI-SUSANNA [facility] [id number] [facility] 2024-01-26 00:00:00 2024-01-26 09:03:12 Patient Outreach [facility] 1.2.840.114 350.1.13.10 4.2.7.2.686 [id number] [facility] 2024-01-21 00:00:00 2024-01-26 08:22:[address] [facility] BUILDING 1.2.840.114 350.1.13.10 4.2.7.2.686 [id number] [facility] 2024-01-23 00:00:00 2024-01-25 21:48:[address] [facility] BU[facility] 1.2.840.114 350.1.13.10 4.2.7.2.686 [id number] [facility] 2024-01-14 00:00:00 2024-01-15 17:03:03 Refill [facility] 1.2.840.114 350.1.13.10 4.2.7.2.686 [id number] [facility] 2024-01-15 15:00:00 2024-01-15 15:00:00 Outpatient R BONITA BAE VIVIAN [facility] [id number] [facility] 2024-01-06 00:00:00 2024-01-06 11:03:[address] Obi-Susanna [facility] BUILDING 1.2.840.114 350.1.13.10 4.2.7.2.686 [id number] [facility] 2024-01-05 14:40:00 2024-01-05 14:53:21 Outpatient R OBI-SUSANNA , ROOPA OBI-SUSANNA , ROOPA [facility] [id number] [facility] 2024-01-05 14:40:00 2024-01-05 14:53:21 Office Visit [facility]opa [facility] 1.2.840.114 350.1.13.10 4.2.7.2.686 [id number] [facility] 2023-12-30 15:00:00 2023-12-30 15:15:00 Director Money Visit [facility] Juma Brown [facility] 1.2.840.114 350.1.13.10 4.2.7.2.686 [id number] [facility] 2023-12-30 15:00:00 2023-12-30 15:00:00 Outpatient R JUMA BROWN STRAHIL [facility] [id number] [facility] 2023-12-30 14:40:00 2023-12-30 14:40:00 Outpatient R OBI-SUSANNA ROOPA OBI-SUSANNA , ROOPA [facility] [id number] [facility] 2023-12-24 14:00:00 2023-12-24 14:30:00 Office Visit Juma Brown [facility] 1.2.840.114 350.1.13.10 4.2.7.2.686 [id number] [facility] 2023-12-24 14:00:00 2023-12-24 14:00:00 Outpatient R JUANIS BROWNL MOLINA, MOISÉSTXBradly [facility] [id number] [facility] 2023-10-20 00:00:00 2023-11-22 18:22:04 Patient Secure Msg Dhruv-Roopa Mullins [facility] 1.2.840.114 350.1.13.10 4.2.7.2.686 [id number] [facility] 2023-10-22 00:00:00 2023-11-22 18:18:06 Patient Secure Msg Bonita Bae [facility] 1.2.840.114 350.1.13.10 4.2.7.2.686 [id number] [facility] 2023-11-03 13:00:00 2023-11-03 13:30:00 [facility] 1..840.114 350.1.13.10 4.2.7.2.686 [id number] [facility] 2023-11-03 13:00:00 2023-11-03 13:00:00 Outpatient MILI HART LOVEMan [facility] [id number] [facility] 2023-10-29 00:00:00 2023-10-29 14:59:13 Telephone Mili Jang [facility] 1..840.114 350.1.13.10 4.2.7.2.686 [id number] [facility] 2023-10-22 09:00:00 2023-10-22 09:00:00 Outpatient MILI HART LOVEMan [facility] [id number] [facility] 2023-10-21 00:00:00 2023-10-21 11:55:33 [facility] 1.84.114 350.1.13.10 4.2.7.2.686 [id number] [facility] 2023-10-17 00:00:00 2023-10-20 08:32:38 Patient Secure Msg [facility] 1.84.114 350.1.13.10 4.2.7.2.686 [id number] [facility] 2023-10-16 14:00:00 2023-10-16 14:00:00 Outpatient MILI HART [facility] [id number] [facility] 2023-10-15 13:30:00 2023-10-15 13:47:52 Outpatient R OBI-SUSANNA [facility] OBI-SUSANNA [facility] [id number] [facility] 2023-10-15 13:30:00 2023-10-15 13:47:52 Director Money Visit Lab, Delfino Glass [facility]bi[facility]Susanna , [facility] 1.840.114 350.1.13.10 4.2.7.2.686 [id number] [facility] 2023-10-13 15:00:00 2023-10-13 15:00:00 Outpatient R MILI JANG [facility] [id number] [facility] 2023-09-25 14:40:00 2023-09-25 14:40:00 Office Visit Radha [facility] NAL BUILDING 1.2.840.114 350.1.13.10 4.2.7.2.686 [id number] [facility] 2023-09-25 14:40:00 2023-09-25 14:39:27 Outpatient R OBI-SUSANNAROOPA TatumI-SUSANNA [facility] [id number] [facility] 2023-09-22 00:00:00 2023-09-22 10:40:43 [facility] 1.2.840.114 350.1.13.10 4.2.7.2.686 [id number] [facility] 2023-09-08 12:50:11 2023-09-08 23:59:00 Outpatient R TREBONILLA TRIPATHI [facility] [id number] [facility] 2023-09-08 12:50:11 2023-09-08 23:59:00 Hospital Encounter Bonilla [facility]row [facility] 1.2.840.114 350.1.13.10 4.2.7.2.686 [id number] [facility] 2023-09-08 14:00:00 2023-09-08 14:15:00 Director Money Visit Bob, Thea Lab Main Radha [facility] BUILDING 1.2.840.114 350.1.13.10 4.2.7.2.686 [id number] [facility] 2023-09-08 14:00:00 2023-09-08 14:00:00 Outpatient R OBI-SUSANNAROOPA TatumI-SUSANNA [facility] [id number] [facility] 2023-09-08 12:49:44 2023-09-08 12:49:44 Hospital Encounter Bonilla [facility] 1.2.840.114 350.1.13.10 4.2.7.2.686 [id number] [facility] 2023-08-09 00:00:00 2023-08-11 08:35:26 Mili Espitia [facility] MULTISPEC IALTY [facility] .114 350.1.13.10 4.2.7.2.686 [id number] [facility] 2023-07-30 00:00:00 2023-07-30 00:00:00 Telephone [facility] 1..114 350.1.13.10 4.2.7.2.686 [id number] [facility] 2023-07-28 11:54:59 2023-07-28 23:59:00 Outpatient R [facility] [id number] [facility] 2023-07-28 11:54:59 2023-07-28 23:59:00 [facility] ..114 350.1.13.10 4.2.7.2.686 [id number] [facility] 2023-07-22 15:30:00 2023-07-22 15:40:12 Outpatient R BONILLA MORROW [facility] [id number] [facility] 2023-07-22 15:30:00 2023-07-22 15:40:12 Office Visit Bonilla Morrow [facility] ..114 350.1.13.10 4.2.7.2.686 [id number] [facility] 2023-07-17 00:00:00 2023-07-17 00:00:00 Telephone [facility] BUILDING .0.114 350.1.13.10 4.2.7.2.686 [id number] [facility] 2023-07-16 13:17:24 2023-07-16 23:59:00 Outpatient R OBI-SUSANNA , ROOPA OBI-SUSANNA , [facility] [id number] [facility] 2023-07-16 13:17:24 2023-07-16 23:59:00 Hospital [facility] 1.2.840.114 350.1.13.10 4.2.7.2.686 [id number] [facility] 2023-07-16 13:16:40 2023-07-16 13:16:40 Outpatient R OBI-SUSANNA , ROOPA OBI-SUSANNA , [facility] [id number] [facility] 2023-07-16 13:16:40 2023-07-16 13:16:40 Hospital Encounter Obi-Susanna , [facility] 1.2.840.114 350.1.13.10 4.2.7.2.686 [id number] [facility] 2023-07-01 00:00:00 2023-07-01 00:00:00 Telephone Obi-Susanna , [facility] 1.2.840.114 350.1.13.10 4.2.7.2.686 [id number] [facility] 2023-06-27 14:08:07 2023-06-27 23:59:00 Outpatient R OBI-SUSANNA , ROOPA OBI-SUSANNA , [facility] [id number] [facility] 2023-06-26 00:00:00 2023-06-26 00:00:00 Outpatient R OBI-SUSANNA , ROOPA OBI-SUSANNA , ROOPA [facility] [id number] [facility] 2023-06-24 14:20:00 2023-06-24 15:00:00 Outpatient R OBI-SUSANNA , ROOPA OBI-SUSANNA , ROOPA [facility] [id number] [facility] 2023-06-24 14:20:00 2023-06-24 15:00:00 Office Visit Obi-Susanna [facility] 1.2.840.114 350.1.13.10 4.2.7.2.686 [id number] [facility] 2023-06-24 14:20:00 2023-06-24 14:20:00 Outpatient R OBI-SUSANNA , ROOPA OBI-SUSANNA , ROOPA [facility] [id number] [facility] 2023-06-24 14:20:00 2023-06-24 14:20:00 Outpatient R OBI-SUSANNA , ROOPA OBI-SUSANNA , ROOP[place] [facility] [id number] [facility] 2023-06-16 16:00:00 2023-06-16 16:30:00 Office Visit Mili Jang [facility] .2.840.114 350.1.13.10 4.2.7.2.686 [id number] [facility] 2023-06-16 16:00:00 2023-06-16 16:00:00 [facility] [id number] [facility] 2023-06-16 16:00:00 2023-06-16 16:00:00 Out[facility] [id number] [facility] 2023-06-13 14:45:00 2023-06-13 15:00:00 Director Money Visit Pob, Adc Lab Main Mili Jang [facility] BUILDING 1.840.114 350.1.13.10 4.2.7.2.686 [id number] [facility] 2023-06-11 00:00:00 2023-06-11 00:00:00 RefLucy Yin [facility]ISPEC [facility] 1.840.114 350.1.13.10 4.2.7.2.686 [id number] [facility] 2023-06-02 00:00:00 2023-06-02 00:00:00 Patient Secure Msg Doctor Unassigned, [place] [facility] 1.84.114 350.1.13.10 4.2.7.2.686 [id number] [facility] 2023-05-30 00:00:00 2023-05-30 00:00:00 Telephone [facility] [place] [facility] 1.840.114 350.1.13.10 4.2.7.2.686 [id number] [facility] 2023-05-29 15:15:00 2023-05-29 15:30:00 Director Money Visit 2, Adc Lab Bonita Bae [facility] 1.840.114 350.1.13.10 4.2.7.2.686 [id number] [facility] 2023-05-29 14:00:00 2023-05-29 14:45:43 Outpatient R BONITA BAE [facility] [id number] [facility] 2023-05-29 14:00:00 2023-05-29 14:45:43 Office Visit CrBonita suh [facility] BUILDING 1.114 350.1.13.10 4.2.7.2.686 [id number] [facility] 2023-05-27 13:15:00 2023-05-27 13:15:00 Outpatient R BONILLA MORROW [facility] [id number] [facility] 2023-05-27 00:00:00 2023-05-27 00:00:00 Patient Secure Msg Doctor Unassigned, [place] [facility] BUILDING 1.114 350.1.13.10 4.2.7.2.686 [id number] [facility] 2023-04-29 14:30:00 2023-04-29 14:30:00 Outpatient LUCY ZAMORANO [facility] [id number] [facility] 2023-04-28 13:30:00 2023-04-28 13:30:00 Outpatient R [facility] [id number] [facility] 2023-04-02 00:00:00 2023-04-02 00:00:00 Rita Grant [facility] CENTER [facility] 1.114 350.1.13.10 4.2.7.2.686 [id number] [facility] 2023-03-16 00:00:00 2023-03-16 00:00:00 Patient Secure Msg Vitaliy [facility] 1.114 350.1.13.10 4.2.7.2.686 [id number] [facility] 2023-02-14 00:00:00 2023-02-14 00:00:00 Patient Secure Msg Pcp, Patient Does Not Have A [facility] 1.114 350.1.13.10 4.2.7.2.686 [id number] [facility] 2023-01-30 00:00:00 2023-01-30 00:00:00 [facility] 1.0.114 350.1.13.10 4.2.7.2.686 [id number] [facility] 2023-01-04 00:00:00 2023-01-04 00:00:00 Refmai Grant [facility] MULTISPEC IALTY [facility] 1..114 350.1.13.10 4.2.7.2.686 [id number] [facility] 2022-12-27 00:00:00 2022-12-27 00:00:00 [facility] 1..114 350.1.13.10 4.2.7.2.686 [id number] [facility] 2022-11-26 13:00:00 2022-11-26 13:29:41 Outpatient R BONILLA MORROW [facility] [id number] [facility] 2022-11-26 13:00:00 2022-11-26 13:29:41 [facility] 1..114 350.1.13.10 4.2.7.2.686 [id number] [facility] 2022-11-06 00:00:00 2022-11-06 00:00:00 [facility] 1..114 350.1.13.10 4.2.7.2.686 [id number] [facility] 2022-11-06 00:00:00 2022-11-06 00:00:00 [facility] 1..840.114 350.1.13.10 4.2.7.2.686 [id number] [facility] 2022-09-24 16:30:00 2022-09-24 16:30:00 Office Visit OctavioaltheaYosepha [facility] MULTISPEC IALTY [facility] 1.2840.114 350.1.13.10 4.2.7.2.686 [id number] 312 [id number] [facility] 2022-09-24 16:30:00 2022-09-24 16:27:40 [id number] 2022-09-20 13:15:00 2022-09-20 13:30:00 Director Money Visit Pob, Adc Lab [facility] 1.840.114 350.1.13.10 4.2.7.2.686 [id number] [facility] 2022-09-20 13:15:00 2022-09-20 13:15:00 Outpatient R LUCY GRANT [facility] [id number] [facility] 2022-09-11 00:00:00 2022-09-11 00:00:00 [facility] 1.2840.114 350.1.13.10 4.2.7.2.686 [id number] [facility] 2022-09-09 00:00:00 2022-09-09 00:00:00 [facility]phone [facility] [place] [facility] 1.2840.114 350.1.13.10 4.2.7.2.686 [id number] [facility] 2022-08-29 00:00:00 2022-08-29 00:00:00 Patient Secure Msg Doctor Unassigned, [place] [facility] 1.0.114 350.1.13.10 4.2.7.2.686 [id number] [facility] 2022-08-20 15:00:00 2022-08-20 15:15:00 Office Visit Elzbieta Mcbride [facility] OFF[facility] BUILDING 1..114 350.1.13.10 4.2.7.2.686 [id number] [facility] 2022-08-20 15:00:00 2022-08-20 15:00:00 Outpatient R REED [facility] [id number] [facility] 2022-08-20 00:00:00 2022-08-20 00:00:00 Orders Only Doctor Unassigned, [place] [facility] 1.0114 350.1.13.10 4.2.7.2.686 [id number] [facility] 2022-07-22 11:15:00 2022-07-22 11:24:32 Outpatient R [facility] [id number] [facility] 2022-07-22 11:15:00 2022-07-22 11:24:32 Office Visit Vitaliy [facility] 1.114 350.1.13.10 4.2.7.2.686 [id number] [facility] 2022-07-19 12:46:20 2022-07-19 23:59:00 Outpatient R [facility] [id number] [facility] 2022-07-19 12:46:20 2022-07-19 23:59:00 Hospital Encounter [facility]iy [facility] 1.0.114 350.1.13.10 4.2.7.2.686 [id number] [facility] 2022-07-15 11:15:00 2022-07-15 11:37:10 Outpatient R TERENCE BURKS [facility] [id number] [facility] 2022-07-15 11:15:00 2022-07-15 11:37:10 Office Visit Terence Burks [facility] 1.2.840.114 350.1.13.10 4.2.7.2.686 [id number] [facility] 2022-07-09 00:00:00 2022-07-09 00:00:00 Refill Rudy [facility] MULTISPEC IALTY [facility] 1.2.840.114 350.1.13.10 4.2.7.2.686 [id number] 312 [id number] [facility] 2022-06-18 00:00:00 2022-06-18 00:00:00 [facility] 1.2.840.114 350.1.13.10 4.2.7.2.686 [id number] [facility] 2022-06-18 00:00:00 2022-06-18 00:00:00 Refill Bonilla Morrow [facility] 1.2.840.114 350.1.13.10 4.2.7.2.686 [id number] [facility] 2022-05-28 11:00:00 2022-05-28 11:15:00 Office Visit Bonilla Morrow [facility] 1.2.840.114 350.1.13.10 4.2.7.2.686 [id number] [facility] 2022-05-28 11:00:00 2022-05-28 11:00:00 Outpatient R BONILLA MORROW [facility] [id number] [facility] 2022-05-14 14:15:00 2022-05-14 14:30:00 Director Money Visit V[facility] 1.2.840.114 350.1.13.10 4.2.7.2.686 [id number] [facility] 2022-05-14 13:30:00 2022-05-14 14:25:22 [facility] [place] [facility] 1.2.840.114 350.1.13.10 4.2.7.2.686 [id number] [facility] 2022-05-14 14:15:00 2022-05-14 14:15:00 Outpatient R [facility] [id number] [facility] 2022-05-06 00:00:00 2022-05-06 00:00:00 Case Management Oumar Browning [facility] 1.2.840.114 350.1.13.10 4.2.7.2.686 [id number] [facility] 2022-05-01 00:00:00 2022-05-01 00:00:00 Transition of Care Agnieszka Musa [facility] 1.2.840.114 350.1.13.10 4.2.7.2.686 [id number] [facility] 2022-04-26 06:01:00 2022-04-30 14:38:00 Inpatient R BONILLA MORROW [facility] [id number] [facility] 2022-04-26 06:01:00 2022-04-30 14:38:00 Hospital Encounter Bonilla Morrow [facility] 1.2.840.114 350.1.13.10 4.2.7.2.686 [id number] [facility] 2022-04-26 08:49:00 2022-04-26 17:39:00 Anesthesia Event Latrice Burdick, Chan M [facility] 1.2.840.114 350.1.13.10 4.2.7.2.686 [id number] [facility] 2022-04-26 08:30:00 2022-04-26 13:16:00 Surgery Bonilla Morrow [facility] 1.2.840.114 350.1.13.10 4.2.7.2.686 [id number] [facility] 2022-04-26 00:00:00 2022-04-26 00:00:00 Orders Only Doctor Unassigned, [place] [facility] 1.2.840.114 350.1.13.10 4.2.7.2.686 [id number] [facility] 2022-04-23 10:30:00 2022-04-23 10:45:00 Office Visit Bonilla Morrow [facility] 1.2840.114 350.1.13.10 4.2.7.2.686 [id number] [facility] 2022-04-23 10:30:00 2022-04-23 10:30:00 Outpatient R BONILLA MORROW [facility] [id number] [facility] 2022-04-23 10:30:00 2022-04-23 10:30:00 Outpatient R CRISTHIANBONILLA [facility] [id number] [facility] 2022-04-10 00:00:00 2022-04-10 00:00:00 Patient Secure Msg Doctor Unassigned, [place] [facility] 1.2.840.114 350.1.13.10 4.2.7.2.686 [id number] [facility] 2022-04-04 10:45:00 2022-04-04 11:50:04 Outpatient R BONILLA MORROW [facility] [id number] [facility] 2022-04-04 10:45:00 2022-04-04 11:50:04 Office Visit Bonilla Morrow [facility] 1.2.840.114 350.1.13.10 4.2.7.2.686 [id number] [facility] 2022-03-20 00:00:00 2022-03-20 00:00:00 Patient Secure Msg GarciaBradly [facility] MULTISPEC [facility]ALTY [facility] 1.20.114 350.1.13.10 4.2.7.2.686 [id number] [facility] 2022-03-07 13:16:23 2022-03-07 23:59:00 Outpatient R BONILLA MORROW [facility] [id number] [facility] 2022-03-07 13:16:23 2022-03-07 23:59:00 Hospital Encounter Bonilla Morrow [facility] 1.0.114 350.1.13.10 4.2.7.2.686 [id number] [facility] 2022-02-01 00:00:00 2022-02-01 00:00:00 Orders Only Doctor Unassigned, [place] [facility] 1.2840.114 350.1.13.10 4.2.7.2.686 [id number] [facility] 2022-01-28 00:00:00 2022-01-28 00:00:00 Case Management Terence Burks [facility] 1.2840.114 350.1.13.10 4.2.7.2.686 [id number] [facility] 2022-01-25 11:30:00 2022-01-25 12:07:20 Outpatient R [facility]Y [facility] [id number] [facility] 2022-01-25 11:30:00 2022-01-25 12:07:20 Office Visit Vitaliy [facility] 1.2.840.114 350.1.13.10 4.2.7.2.686 [id number] [facility] 2022-01-14 00:00:00 2022-01-14 00:00:00 Transition of Care MusaAgnieszka blackwell 1.2.840.114 350.1.13.10 4.2.7.2.686 [id number] [facility] 2022-01-08 05:17:00 2022-01-12 16:11:00 Inpatient R VITALIY [facility] [id number] [facility] 2022-01-08 05:17:00 2022-01-12 16:11:00 Hospital Encounter [facility] 1.2.840.114 350.1.13.10 4.2.7.2.686 [id number] [facility] 2022-01-08 07:00:00 2022-01-08 10:55:00 Surgery [facility] 1.2.840.114 350.1.13.10 4.2.7.2.686 [id number] [facility] 2022-01-08 00:00:00 2022-01-08 00:00:00 Orders Only Doctor Unassigned, [place] [facility] 1.2.840.114 350.1.13.10 4.2.7.2.686 [id number] [facility] 2022-01-03 10:15:00 2022-01-03 15:45:56 Outpatient R BONILLA MORROW [facility] [id number] [facility] 2022-01-03 10:15:00 2022-01-03 15:45:56 Office Visit TreBonilla tripathi [facility] 1.2.840.114 350.1.13.10 4.2.7.2.686 [id number] [facility] 2022-01-03 11:15:00 2022-01-03 11:30:00 Laboratory Only Only, [facility] Test Cristhian [facility] 1.2840.114 350.1.13.10 4.2.7.2.686 [id number] [facility] 2022-01-03 11:15:00 2022-01-03 11:15:00 Outpatient R BONILLA MORROW [facility] [id number] [facility] 2022-01-03 00:00:00 2022-01-03 00:00:00 Letter (Out) Zuri Ferrell [facility] 1.2840.114 350.1.13.10 4.2.7.2.686 [id number] [facility] 2021-12-21 11:00:00 2021-12-21 11:30:00 Office Visit [facility]iy [facility] 1.2840.114 350.1.13.10 4.2.7.2.686 [id number] [facility] 2021-12-21 11:00:00 2021-12-21 11:00:00 Outpatient R [facility]ITALIY [facility] [id number] [facility] 2021-12-05 00:00:00 2021-12-05 00:00:00 Patient [facility] 1.2840.114 350.1.13.10 4.2.7.2.686 [id number] [facility] 2021-10-31 00:00:00 2021-10-31 00:00:00 Patient Secure Nathaniel Kohlerhans Whitney [facility] 1.2840.114 350.1.13.10 4.2.7.2.686 [id number] [facility] 2021-10-23 00:00:00 2021-10-23 00:00:00 [facility] 1.2840.114 350.1.13.10 4.2.7.2.686 [id number] [facility] 2021-10-18 10:45:00 2021-10-18 10:45:00 Outpatient Marielle BONILLA MORROW [facility] [id number] [facility] 2021-10-18 00:00:00 2021-10-18 00:00:00 [facility] 1.2840.114 350.1.13.10 4.2.7.2.686 [id number] [facility] 2021-10-10 00:00:00 2021-10-10 00:00:00 Patient Secure Msg Burks [facility] 1.2840.114 350.1.13.10 4.2.7.2.686 [id number] [facility] 2021-09-13 15:00:00 2021-09-13 15:00:00 Outpatient R MAX NIELSON [facility] [id number] [facility] 2021-09-12 00:00:00 2021-09-12 00:00:00 Telephone Vitaliy [facility] 1.2840.114 350.1.13.10 4.2.7.2.686 [id number] [facility] 2021-09-10 20:25:00 2021-09-11 01:12:00 Emergency X FERNANDO ELENA [facility] ERT [id number] [facility] 2021-09-10 20:25:00 2021-09-11 01:12:00 Emergency Fernando Elena [facility] 1.2.840.114 350.1.13.10 4.2.7.2.686 [id number] [facility] 2021-09-11 00:00:00 2021-09-11 00:00:00 Telephone Vitaliy [facility] 1.2.840.114 350.1.13.10 4.2.7.2.686 [id number] [facility] 2021-09-10 00:00:00 2021-09-10 00:00:00 Patient Secure Msg Vitaliy [facility] 1.2.840.114 350.1.13.10 4.2.7.2.686 [id number] [facility] 2021-09-07 10:30:00 2021-09-07 11:00:00 Office Visit Vitaliy [facility] 1.2.840.114 350.1.13.10 4.2.7.2.686 [id number] [facility] 2021-09-07 10:30:00 2021-09-07 10:30:00 Outpatient R [facility] [id number] [facility] 2021-09-07 00:00:00 2021-09-07 00:00:00 Orders Only Doctor Unassigned, [place] [facility] 1.2.840.114 350.1.13.10 4.2.7.2.686 [id number] [facility] 2021-09-07 00:00:00 2021-09-07 00:00:00 Telephone [facility]italiy [facility] 1.2.840.114 350.1.13.10 4.2.7.2.686 [id number] [facility] 2021-08-30 00:00:00 2021-08-30 00:00:00 Telephone [facility]italiy [facility] 1.2.840.114 350.1.13.10 4.2.7.2.686 [id number] [facility] 2021-08-28 00:00:00 2021-08-28 00:00:00 Transition of Care Agnieszka Musa [facility] 1.2.840.114 350.1.13.10 4.2.7.2.686 [id number] [facility] 2021-08-20 15:28:00 2021-08-27 18:00:00 Inpatient X VITALIY [facility] [id number] [facility] 2021-08-20 15:28:00 2021-08-27 18:00:00 Hospital Encounter Shakira Arenas [facility] 1.2.840.114 350.1.13.10 4.2.7.2.686 [id number] [facility] 2021-08-21 14:55:00 2021-08-21 18:32:00 Surgery [facility] 1.2.840.114 350.1.13.10 4.2.7.2.686 [id number] [facility] 2021-08-20 20:05:18 2021-08-20 20:05:18 Anesthesia Event Lillian Hughes Jessica Rose [facility] 1.2.840.114 350.1.13.10 4.2.7.2.686 [id number] [facility] 2021-08-20 07:45:00 2021-08-20 08:00:00 Laboratory Only Only[facility] 1.2840.114 350.1.13.10 4.2.7.2.686 [id number] [facility] 2021-08-20 07:45:00 2021-08-20 07:45:00 Outpatient R [facility] [id number] [facility] 2021-08-20 00:00:00 2021-08-20 00:00:00 Telephone Vitaliy [facility] 1.0.114 350.1.13.10 4.2.7.2.686 [id number] [facility] 2021-08-20 00:00:00 2021-08-20 00:00:00 Telephone Vitaliy [facility] 1.2840.114 350.1.13.10 4.2.7.2.686 [id number] [facility] 2021-08-20 00:00:00 2021-08-20 00:00:00 Orders Only Doctor Unassigned, [place] [facility] 1.2840.114 350.1.13.10 4.2.7.2.686 [id number] [facility] 2021-08-20 00:00:00 2021-08-20 00:00:00 [facility] 1.2840.114 350.1.13.10 4.2.7.2.686 [id number] [facility] 2021-08-17 00:00:00 2021-08-17 00:00:00 [facility] 1.2840.114 350.1.13.10 4.2.7.2.686 [id number] [facility] 2021-08-15 11:45:00 2021-08-15 14:37:02 Outpatient R YANETHNichelle [facility] [id number] [facility] 2021-08-15 11:45:00 2021-08-15 14:37:02 [facility] 1.2.840.114 350.1.13.10 4.2.7.2.686 [id number] [facility] 2021-08-15 11:45:00 2021-08-15 14:37:02 Outpatient R [facility]Y [facility] [id number] [facility] 2021-08-15 00:00:00 2021-08-15 00:00:00 [facility] 1.2.840.114 350.1.13.10 4.2.7.2.686 [id number] [facility] 2021-08-07 00:00:00 2021-08-07 00:00:00 Patient Secure Msg [facility] 1.2.840.114 350.1.13.10 4.2.7.2.686 [id number] [facility] 2021-07-31 00:00:00 2021-07-31 00:00:00 Transition of Care Agnieszka Musa 1.2.840.114 350.1.13.10 4.2.7.2.686 [id number] [facility] 2021-07-22 11:34:00 2021-07-30 21:36:00 Inpatient U VITALIY [facility] KINDR[facility] [id number] [facility] 2021-07-22 11:34:00 2021-07-30 21:36:00 Hospital Encounter Demola, Cherri Ariane Phatak, Terence [facility] 1.2.840.114 350.1.13.10 4.2.7.2.686 [id number] [facility] 2021-07-22 11:34:00 2021-07-30 21:36:00 Inpatient U VITALIY TERENCE [facility] KINDRA [id number] [facility] 2021-06-08 00:00:00 2021-06-08 00:00:00 Refill [facility] BUILDING 1.2.840.114 350.1.13.10 4.2.7.2.686 [id number] [facility] 2021-02-22 11:00:00 2021-02-22 11:00:00 Outpatient CONNIE SMITH [facility] [id number] [facility] 2021-02-05 00:00:00 2021-02-05 00:00:00 Refill [facility] BUILDING 1.2.840.114 350.1.13.10 4.2.7.2.686 [id number] [facility] 2021-02-05 00:00:00 2021-02-05 00:00:00 Refill Annel Trevino [facility] BUILDING ONE 1.2.840.114 350.1.13.10 4.2.7.2.686 [id number] [facility] 2020-12-21 11:00:00 2020-12-21 11:00:00 Outpatient INDU ESPOSITO [facility] [id number] [facility] 2020-12-18 17:15:00 2020-12-18 17:15:00 Outpatient INDU ESPOSITO [facility] [id number] [facility] 2020-12-13 00:00:00 2020-12-13 00:00:00 Telephone Indu Spicer [facility] 1.0.114 350.1.13.10 4.2.7.2.686 [id number] [facility] 2020-11-30 00:00:00 2020-11-30 00:00:00 Patient Secure Msg Annel Caballero [facility] 1.0.114 350.1.13.10 4.2.7.2.686 [id number] [facility] 2020-11-29 00:00:00 2020-11-29 00:00:00 Patient Secure Msg Doctor Unassigned, [place] [facility] 1.0.114 350.1.13.10 4.2.7.2.686 [id number] [facility] 2020-11-17 00:00:00 2020-11-17 00:00:00 Telephone Night1, [facility] 1.0.114 350.1.13.10 4.2.7.2.686 [id number] [facility] 2020-11-14 00:00:00 2020-11-14 00:00:00 Transition of Care Agnieszka Musa 1..114 350.1.13.10 4.2.7.2.686 [id number] [facility] 2020-11-14 00:00:00 2020-11-14 00:00:00 Telephone Bradly Garcia [facility] Justa Avalos [facility] 1..114 350.1.13.10 4.2.7.2.686 [id number] [facility] 2020-11-09 21:10:00 2020-11-12 13:45:00 Hospital Encounter Nichelle Ac, [facility] 1.2.840.114 350.1.13.10 4.2.7.2.686 [id number] [facility] 2020-11-09 00:00:00 2020-11-09 00:00:00 Travel 1.2.840.1 03694.1.1 3.104.2.7 .3.397249 .8 1.2.840.114 350.1.13.10 4.2.7.3.698 084.8 [id number] [facility] 2020-11-08 10:15:00 2020-11-08 10:15:00 Outpatient PAUL CASEY [facility] [id number] [facility] 2020-10-18 11:15:00 2020-10-18 12:09:19 Outpatient TERENCE FARRAR [facility] [id number] [facility] 2020-10-18 11:13:30 2020-10-18 12:09:19 Office Visit Terence Burks 1.2.840.1 88285.1.1 3.104.2.7 .3.527680 .8 [id number] [facility] 2020-10-18 00:00:00 2020-10-18 00:00:00 Travel 1.2.840.1 40704.1.1 3.104.2.7 .3.055133 .8 1.2.840.114 350.1.13.10 4.2.7.3.698 084.8 [id number] [facility] 2020-10-17 00:00:00 2020-10-17 00:00:00 Travel 1.2.840.1 93756.1.1 3.104.2.7 .3.232329 .8 1.2.840.114 350.1.13.10 4.2.7.3.698 084.8 [id number] [facility] 2020-10-10 14:30:00 2020-10-10 14:30:00 Outpatient R PAUL FERGUSON [facility] [id number] [facility] 2020-10-10 00:00:00 2020-10-10 00:00:00 Travel 1.2.840.1 72011.1.1 3.104.2.7 .3.911014 .8 1.2.840.114 350.1.13.10 4.2.7.3.698 084.8 [id number] [facility] 2020-10-04 11:46:00 2020-10-05 14:07:00 Emergency Shakira Arenas Yaman 1.2.840.1 70570.1.1 3.104.2.7 .3.170281 .8 [id number] [facility] 2020-10-04 00:00:00 2020-10-04 00:00:00 Outpatient R BRADLY GARCIA [facility] [id number] [facility] 2020-10-04 00:00:00 2020-10-04 00:00:00 Travel 1.2.840.1 98489.1.1 3.104.2.7 .3.820563 .8 1.2.840.114 350.1.13.10 4.2.7.3.698 084.8 [id number] [facility] 2020-10-03 00:00:00 2020-10-03 00:00:00 Patient Secure Msg Terence Burks [facility] 1.2.840.114 350.1.13.10 4.2.7.2.686 [id number] [facility] 2020-10-02 00:00:00 2020-10-02 00:00:00 Telephone Terence Burks 1.2.840.1 37107.1.1 3.104.2.7 .3.523108 .8 [id number] [facility] 2020-09-23 00:00:00 2020-09-23 00:00:00 Patient Secure Msg Doctor Unassigned, [place] [facility] 1.2.840.114 350.1.13.10 4.2.7.2.686 [id number] [facility] 2020-09-23 00:00:00 2020-09-23 00:00:00 Patient Secure g Doctor Unassigned, [place] [facility] 1.2.840.114 350.1.13.10 4.2.7.2.686 [id number] [facility] 2020 11:27:06 2020 23:59:00 Hospital Encounter Jose Bradly 1.2.840.1 86779.1.1 3.104.2.7 .3.593318 .8 [id number] [facility] 2020 10:14:22 2020 11:02:43 Office Visit Bradly Garcia 1.2.840.1 91519.1.1 3.104.2.7 .3.492878 .8 [id number] [facility] 2020 10:00:00 2020 10:00:00 Outpatient R BRADLY GARCIA [facility] [id number] [facility] 2020 00:00:00 2020 00:00:00 Letter (Out) Bradly Garcia 1.2.840.1 58680.1.1 3.104.2.7 .3.183201 .8 [id number] [facility] 2020-09-20 00:00:00 2020-09-20 00:00:00 Travel 1.2.840.1 74387.1.1 3.104.2.7 .3.520134 .8 1.2.840.114 350.1.13.10 4.2.7.3.698 084.8 [id number] [facility] 2020-09-15 00:00:00 2020-09-15 00:00:00 Transition of Care Elizabeth Rodriguez 1.2.840.1 64066.1.1 3.104.2.7 .3.749033 .8 [id number] [facility] 2020-09-11 05:21:00 2020-09-14 12:41:00 Hospital Encounter Fernando Elena Yaman 1.2.840.1 22977.1.1 3.104.2.7 .3.513655 .8 [id number] [facility] 2020-09-13 12:32:00 2020-09-13 13:06:00 Surgery Smiley Ricketts 1.2.840.1 42287.1.1 3.104.2.7 .3.558036 .8 [id number] [facility] 2020-09-13 12:11:00 2020-09-13 12:22:00 Anesthesia Event Jaylen Garcia Thomas 1.2.840.1 19393.1.1 3.104.2.7 .3.203164 .8 [id number] [facility] 2020-09-11 00:00:00 2020-09-11 00:00:00 Travel 1.2.840.1 10701.1.1 3.104.2.7 .3.245674 .8 1.2.840.114 350.1.13.10 4.2.7.3.698 084.8 [id number] [facility] 2020-09-01 11:16:07 2020-09-01 11:46:07 Office Visit Terence Burks 1.2.840.1 18148.1.1 3.104.2.7 .3.494660 .8 [id number] [facility] 2020-09-01 11:30:00 2020-09-01 11:30:00 Outpatient R TERENCE BURKS [facility] [id number] [facility] 2020-08-30 00:00:00 2020-08-30 00:00:00 Travel 1.2.840.1 13385.1.1 3.104.2.7 .3.312843 .8 1.2.840.114 350.1.13.10 4.2.7.3.698 084.8 [id number] [facility] 2020-08-18 00:00:00 2020-08-18 00:00:00 Telephone Terence Burks 1.2.840.1 39301.1.1 3.104.2.7 .3.681387 .8 [id number] [facility] 2020-08-14 11:51:00 2020-08-14 15:55:00 Hospital Encounter Terence Burks 1.2.840.1 27416.1.1 3.104.2.7 .3.047057 .8 [id number] [facility] 2020-08-14 14:16:00 2020-08-14 15:16:00 Surgery Terence Burks 1.2.840.1 58775.1.1 3.104.2.7 .3.178220 .8 [id number] [facility] 2020-08-14 13:29:00 2020-08-14 15:03:00 Anesthesia Event Krys Saunders Brian 1.2.840.1 43069.1.1 3.104.2.7 .3.737553 .8 [id number] [facility] 2020-08-14 00:00:00 2020-08-14 00:00:00 Orders Only Doctor Unassigned, [place] 1.2.840.1 27012.1.1 3.104.2.7 .3.518234 .8 [id number] [facility] 2020-08-02 11:15:00 2020-08-02 11:15:00 Outpatient TERENCE FARRAR [facility] [id number] [facility] 2020-07-21 10:16:51 2020-07-21 23:59:00 Hospital Encounter Hi Nam Gunvir Singh Wallingsfor d, Judah Weinre [facility] ([facility]) 1..840.114 350.1.13.10 4.2.7.2.686 [id number] [facility] 2020-07-21 11:30:00 2020-07-21 11:30:00 Outpatient HI KEENE [facility] [id number] [facility] 2020-07-17 00:00:00 2020-07-17 00:00:00 Case Management Hi Nam [facility] 1..840.114 350.1.13.10 4.2.7.2.686 [id number] [facility] 2020-07-14 00:00:00 2020-07-14 00:00:00 Eliot Burks [facility] 1..840.114 350.1.13.10 4.2.7.2.686 [id number] [facility] 2020-07-12 11:20:25 2020-07-12 23:59:00 Hospital Encounter Hi Nam [facility] 1.2.840.114 350.1.13.10 4.2.7.2.686 [id number] [facility] 2020-07-12 00:00:00 2020-07-12 00:00:00 Outpatient HI KEENE [facility] [id number] [facility] 2020-07-05 13:58:04 2020-07-05 15:37:05 Office Visit Bonita Bae [facility] uJsta Avalos [facility] 1.2840.114 350.1.13.10 4.2.7.2.686 [id number] [facility] 2020-07-05 14:15:00 2020-07-05 14:15:00 Outpatient R BONITA BAE [facility] [id number] [facility] 2020-07-05 00:00:00 2020-07-05 00:00:00 Orders Only Doctor Unassigned, [place] [facility] 1.2840.114 350.1.13.10 4.2.7.2.686 [id number] [facility] 2020-07-04 00:00:00 2020-07-04 00:00:00 Orders Only Doctor Unassigned, [place] [facility] 1.2840.114 350.1.13.10 4.2.7.2.686 [id number] [facility] 2020-06-28 00:00:00 2020-06-28 00:00:00 Case Management Shimon Villareal [facility] 1.840.114 350.1.13.10 4.2.7.2.686 [id number] [facility] 2020-06-28 00:00:00 2020-06-28 00:00:00 Transition of Care Agnieszka Musa 1.0.114 350.1.13.10 4.2.7.2.686 [id number] [facility] 2020-06-22 00:16:00 2020-06-27 21:06:00 Inpatient U LAWANDA CARLOS [facility] 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 [id number] [facility] 2020-06-22 00:16:00 2020-06-27 21:06:00 Hospital Encounter Lawanda Carlos Leeanne [facility] 1.2.840.114 350.1.13.10 4.2.7.2.686 [id number] [facility] Results Test Description Test Time Test Comments Results Result Co mments Source [facility] GLUCOSE (AUTOMATED)2024-12-13 12:42:36* Test Item Value Reference Range Interpretation Comme nts POCT GLU (test code = 7969931853) 182 mg/dL 70-110 H Lab Interpretation (test cod e = 69490-1) Abnormal [facility] GLUCOSE (AUTOMATED)2024-12-13 02:10:01* Test Item Value Reference Range Interpretation Comme nts POCT GLU (test code = 3544429087) 240 mg/dL 70-110 H Lab Interpretation (test cod e = 40399-5) Abnormal [facility] GLUCOSE (AUTOMATED)2024-12-12 22:19:55* Test Item Value Reference Range Interpretation Comme nts POCT GLU (test code = 9338567365) 85 mg/dL 70-110 Lab Interpretation (test cod e = 84519-1) Normal [facility] GLUCOSE (AUTOMATED)2024-12-12 17:32:58* Test Item Value Reference Range Interpretation Comme nts POCT GLU (test code = 4975008731) 175 mg/dL 70-110 H Lab Interpretation (test cod e = 55512-9) Abnormal [facility] GLUCOSE (AUTOMATED)2024-12-12 13:13:55* Test Item Value Reference Range Interpretation Comme nts POCT GLU (test code = 5697453834) 176 mg/dL 70-110 H Lab Interpretation (test cod e = 29533-3) Abnormal [facility] GLUCOSE (AUTOMATED)2024-12-12 01:26:24* Test Item Value Reference Range Interpretation Comme nts POCT GLU (test code = 7063400489) 240 mg/dL 70-110 H Lab Interpretation (test cod e = 28904-9) Abnormal [facility] GLUCOSE (AUTOMATED)2024-12-11 22:23:51* Test Item Value Reference Range Interpretation Comme nts POCT GLU (test code = 9609965650) 97 mg/dL 70-110 Lab Interpretation (test cod e = 51782-4) Normal [facility] GLUCOSE (AUTOMATED)2024-12-11 17:17:20* Test Item Value Reference Range Interpretation Comme nts POCT GLU (test code = 8696947542) 248 mg/dL 70-110 H Lab Interpretation (test cod e = 04679-9) Abnormal [facility] GLUCOSE (AUTOMATED)2024-12-11 13:33:46* Test Item Value Reference Range Interpretation Comme nts POCT GLU (test code = 2456571436) 184 mg/dL 70-110 H Lab Interpretation (test cod e = 63096-8) Abnormal [facility] GLUCOSE (AUTOMATED)2024-12-11 01:42:16* Test Item Value Reference Range Interpretation Comme nts POCT GLU (test code = 2290047150) 282 mg/dL 70-110 H Lab Interpretation (test cod e = 40257-6) Abnormal [facility] GLUCOSE (AUTOMATED)2024-12-10 22:26:45* Test Item Value Reference Range Interpretation Comme nts POCT GLU (test code = 5373049705) 245 mg/dL 70-110 H Lab Interpretation (test cod e = 38970-7) [facility] + Lactic [id number] 21:42:11* Test Item Value Reference Range Interpretation Comme nts PH (test code = 2) 7.41 7.35-7.45 PCO2 (test code = 5698006233) 41 35-45 PO2 (test code = 9835900656) 112 80-100 H HCO3 (test code = 8192348924) 25 22-26 BE (test code = 8520789601) 0.6 -3.0-3.0 THB (test code = 8172149846) 10.5 g/dL 12.0-16.0 L %O2HB (test code = 9853516651) 97.7 % 94.0-99.0 %COHB ART (test code = 9038355611) 0 % 0.0-1.5 %METHB ART (test code = 8306042462) 0.3 % 0.4-1.5 L VOL%O2 ART (test code = 9479137083) 14.6 % 15.0-23.0 L NA (test code = 2487779228) 135 mmol/L 135-145 K+ (test code = 1142762396) 3.4 mmol/L 3.5-5.0 L AC CA IONZ (test code = 3776746820) 4.8 mg/dL 4.50-5.30 GLUCOSE (test code = 0591095407) 185 mg/dL 70-110 H LACTIC ACID (test code = 0538521437) 0.7 mmol/L 0.50-2.20 QUES Lab Interpretation (test cod e = 15212-7) Abnormal [facility] Lung ventilation and ovlspjsjm9566-04-59 21:41:27VENTILATION/PERFUSION (VQ) SCAN INDICATION: Pulmonary embolism (PE) suspected, high prob TECHNIQUE:After the administration of 10 mCi Tc-99m-DTPA, 6-view lung thenventilation scan was obtained. Then,the patient received an intravenousinjection of 4 mCi of Tc99m MAA and a 6-view lung perfusion scan wasobtained. Comparison done to chest x-ray from 12/10/2024. FINDINGS: The distribution of lung ventilation is normal. ?Tracer trapping is noted in the main stem bronchi. The lung perfusion isslightly heterogeneous. No mismatched segmental or subsegmental perfusion defects to suspectpulmonary embolicdisease seen.[facility] 17:34:45* Test Item Value Reference Range Interpretation Comme nts POCT GLU (test code = 8720672232) 254 mg/dL 70-110 H Lab Interpretation (test cod e = 12876-1) Abnormal [facility] 1 [id number] 16:24:05CHEST ONE VIEW HISTORY: ?Hypoxia TECHNIQUE: ?AP view of the chest is obtained. COMPARISON: 09/08/2023FINDINGS: A few linear lung markings are seen in the lung bases. Lungs areotherwise clear. Heart size and mediastinal silhouette are normal. Nopleural effusion or pneumothorax is seen. Changes of posterior fusion of the cervical spine are seen. Skin staplesare identified superimposed over the midline neck. CONCLUSIONS: Bibasilar [facility]segmental [facility]electasisUnMethod[facility] Center[facility] Pathology [id number] 15:12:44* Test Item Value Reference Range Interpretation Comme nts Case Report (test code = 8576064214) Surgical Pathology ?Case: [id number] ? Authorizing Provider: ?Girish Ramirez MD ?Collected: ? 12/07/2024 1345 ?Ordering Location: ? ? [facility] ? ? ? Received: ?12/07/2024 1359 ? Center [facility] ? Pathologist: ? Tj Hernandez MD ? Intraop: ? Tj Hernandez MD ? Specimens: ? A) - SPINAL CORD, Nerve sheath tumor ? 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 C) - SPINAL CORD, Nerve sheath tumor - permanent ? Final Diagnosis (test code = 4354433571) r2kewNSmPQDge8vnKVAri GFuZzEwMzNcZnRuYmpcdW MxIHtccnRmMVxlcGljMTE dJHZwUI8eqGbrcTz5eQoy YFCdvuQ1fUQqILkcp0rqS ZR5v1ktwapfADDaLHhbZm 9udHRibHtcZjAgQXJpYWw 5sZ64INMdfR9exCAhBCx1 XHBhcGVydzEyMjQwXHBhc BPgzVJ1JGNwQG2gqfouYJ maRNkqZOCosnB5FKNyjFU dQ6PtSSEsPY1uhngaFLA7 XWstLZXvMSL1DbEeBHDdf 5Tjvql2GiTlvAIjAJbtxD FpblxmczIwXHBhclxwYXJ cbGkyNzBcZmktMjcwXGxp neR1QWEUWcQKJMfKEVddC 06OHFcbMo1UWxFFVMAFOD TCEFURMR0BHaMjNFgMXlI dOqMrSosgPCYGY1YPNvxK UiBDRVJWSUNBTCBGVVNJT 65yRL2ONJMYFO5QMDSTL4 cQRE5QGrIzjRFhDXHazsF iWGKpUUHnAPJPKAKFD2QS VElDIENMRUFSIENFTEwgU fFPANhlV6IXFFJNLZIDTQ 5PTUEuXHBhclxmczIyXHB akokkvYI8RLfvxW7hPwFa pWsaWxcfJKZxKoAgNk4oU 1BJTkFMIENPUkQsICJORV RHCTVBSZBSAZxmKRBEB1Y mQSFCXCHFCNC4JEC9XEVH K2LPBYANQ2XdY1NOOfwTC CwfVsQUGA6HZANKWBTCJB 7TGkIRDGZBU7iKFintZDO hclxwYXJkICAgICAgLSAg HA3IQFCRBOEYWYJrQ3oNZ WJvN7QBBDJCUN8IYMBFGK lGXBMOKrXDQa2OHL3odOY yXGZzMjIgLlxwYXJcbGky UaToLwubEakmTTwvbgB9O EotdgQwEETgDSAZDF1BTB BHP5UNMWLfAaGNIrInJ6f EUOTXVDIWHJ1YOqmeDMMP VWVXDs2VPfbbOO8VRRXMF T6GAZEZHfBEZ7ZYDCUYA3 iCTyGIHsBrNVKFE4GdLIv JLSQAS434CDisTCWvdPda TJHkBTppuK7kBINzXPAwC WOwEL0RXHDXDOMUQXDmL4 gPJCKsF3QPPKPDNX9BIQU DFObGHTYCTwFUDz4CGU0n cGFyXHBhcmRccGFyIEthb XJhbiBHaGFmZmFyemFkZW rxPU7aPN4NKJC7SzLpRxK yNSAgMzoyOSBQTVxwYXJc VkOtDiMPIM7tBXilDGBDy YqfuGHiKHSANF8fXTBpLZ 5cZnMyMCAgXHBhclxwYXJ 1h0oxlNGsZAHlnZQlHvFa WDUfNDZiz3mzEYAocDEkQ zEwMzNcZnRuYmpcdWMxXG SzGbBak3lfa511zBDyj5y iBFKfSaX1yQLbJODsoQzv une0qLglFnArNWYak9xem yBcZmNoYXJzZXQwIEFyaW XgQ182GKRzMSila9cir4I hWARvqOHwn5C1YBVCZJui QhMcN374g2hcz3lkabXys WD1HOTtZKD8VYgoosApgq F0UBgmxJSlMkT3DRdtdeS aUGfvepBihrXoSwe3MAQw X569EWI4jPmta2mxCDA8G DIlLQJlOcxnZq6ywSIyG6 84TXJpWPJNETGbgZc9DTI qaeGphxAjqNCPw175H007 b0ylXIXdgrGpnYlEpasrx 5siK726RSMerORhynHrFn FpDFOpoEZxvZQ5WNBfTP6 hcmdsMTgwMFxtYXJncjE4 VYSitAZcU1UfLMTkBU4sh fxhBME7KSenLXKkCKO2Lm TjWHRpw2Mmpjc4GnSsab8 reu10AEH8l7MobDbcRGT9 NKH0VuMxLg0jfEDtBFOmV Y0aFeGjmPDqOBDaqg44wQ fxCLxlfyOfjX1oIsEcZYE onVZjCIAuBY2tkVFuEKHp sD0vvyosEUZoTkLjffzpL XTxlNelhbVfNj5mtGktFE H3VTioS2cwpV2xNyI2FKm uC3ydyZ7rWRt0TWqddFH3 NXVgrP0gUR5zwmhey9ccE FroKGmxRUMnibC1drU7WX UwxNWqP4DpcY2rDXShZB1 uxcelc0ruDED5YTdoTTUw BOJ6EtFuQVNhj4Opuao1B gJfa0SbrCWtMFhwO83sc4 21JGZjefYfU0ctjZHdbzw jmRYposokZMujqsO2NXCh XHBsYWluXGYxXGZzMjBcb GFuZzEwMzNcaGljaFxmMV acUmFrPKYcHOvnX3cgMhL fN9IdMRToLoMmlYFrKMdx zHU6UMMjKELhq37lpYl8F RPomtgfe1TbLTOfdLZpnQ WheS1rhaUey7maSMGoZDD kXFFfB0WoGKP8dLSlLIJr kDTlvGK5YM3aebDvDP3qF GUgYnkgcmVzaWRlbnRzLC PkTMflu3sgIL7hUJOfdHr cqD4xpIS8FZHjd4oyaBXk fWGow7lgq8YdfbDaARfrT RPaXKizJAZpFMDiJY6vME UwqPOjncQiu8H0NthwkPE xrvvaSdolroB6YScbbugx BJKtJFbgR0gqVyXkPTRhl PvxPrnbd6ZsLHGzOEQjDz hccGFyfX0= Final Diagnosis Comment (test code = [id number]) e1sjiNIyNSIciTKbKWQwZ qpzleRxSWUvyGPrA6Mhlj gmGImeXH7fSG2cqJwfxVB cnMWaBKXwGxNjl6rkp980 sCQvx0meXVYWfwcbyBa9a QvoB02gv9Q3CuxkU34vmN HrNCK6HHTmNZKveOEvLMM oSZO4BXBqqMGqW7bhFEWg MW3tshzuZJjoRLnhZWRld JL2DWIxyWXnE5FaTGNlYE rdGZKgsgn1CrMrIx1jbWN yeTcyMFxwYXJkXHBsYWlu XGZzMjBccGFyXHBhciBUa LOaGo1ytW33hC9aVOshhS Mgp1O4EHvggwL7WNJqIVL wxdNyuc1gUOUdxgWrtB7y pzRtWiCCXcyeUXBhc4j4j TW1pRTxLw8ajS82iE0xOL Eoo4VqaBS3XUBlhiTeJI4 aYSOQJSq0DJPpo2r5jNMd LJCyuzKxOQ5yS6ToFTu0E JPqm7o2bERoMKCxgbVgGX dkRVDvDBuzJLGjlYnsv4d tKlVytF38ov7yyFKmwiNx p5KyNDHrYCLdu6JfQIAjd 86cHirfF2myMOJpRgSpFx AgIHdpdGggdGhlIGZvbGx bf9rtMaGaHNV3kZRrAfio CIXeGTVvCJPQRP58YjKRd 2BtlTo1ZUzfZGPtVEWaZW XFIJtTTlKAy8MppPy6CIg wYXJccGFyZFxwYXIgVGhl p1BzpyTbgUl4ojXrrLYvo 3X3SBXaTADcQt91DLAwrM Exup5zqLPvWTHxycCSUYU pGEwba2VwlZ6azAOdnkNv MU2dWY0hQ7C0eXNfHHCbi eBax8zgYEepgaUcVHGcq9 KhD2EylkpaXDheANA4 Clinical Information (test code = [id number]) Peripheral nerve sheath tumor Gross Description (test code = [id number]) p9ousITuPJSlxEUUYFLvJ GEpQL8boFyxaFx3vXspAP YnqpO9hASwBIbbv4roTCO 6n3mckaEJDtiiACXyZA4y OPkdCENuTA2vTbHlXWNbE mYxXHBhcGVydzEyMjQwXH XbdBSicQM7UQFeTY2alqz hBSanGDbuOIRwvjB2SXVk dRSoL3KfZYGlZN6ubbjjW RX2OEXFVqgwXd4ipOIeuJ tcZjFcZmNoYXJzZXQwXGZ vs8fehzDIormybVx6xY9B AYGfX5JhLH9El1gwMOCwe TQjUBN8JJvlv8kiSAtnCB K5OJKzGAKyVUQeCL3FSpZ tVFXdCdO3GdcjYaO9SQo3 ZLXWMYQuURuoPQQ9HrS4U Nz2TDKlOH5hHUvcvDCbEA osVovzPGoeZ967PVbaQVE vE0LtW3OiZQmlFjHwYHyd VGTqDJLhJPvzZCXfP5FZL KCoJoRwURK7EyDfXJm6LY k8PT1QLeCtDVFkXFBnTrC 8VAMiELf7UStjWE3OSBP1 MjgzNDgzMjYgNTQwODAgX Il3SUBwVImtmoVlPSoiSl ocSFtlQ57dcHPeFBFYQie wbGFpblxmczIwIFNQRUNJ CRLHMCKsdFRyU7vdKzJuE lxwYXIgDQpccGFyZCANCl xwbGFpblxsdHJjaFxmczI bBILsyWSJFUO2KY4pCSZJ OwcafPIaFVGjl3YxSBifs GljWHNhMzAgDQpTcGVjaW 5jjwCRMCsgQZHwZ8SezzX fPXUdXXMiZEPlvgMqph94 BH3qn0WzhDkywhCxkvDbt 7Bif6WkpALxyWc2TWGmAL McJXOxbyNmx8LjYAcfitU xVJBqiDrzGRR2vYXbPKPj IIDrYDTpXP99UUqRGMNwo mFtZSwgVUggbnVtYmVyLC TjBICcVEY9SKSniURcuNn sjZGit9WcV1N0UBcZFJSg abGtR70bi4fjhIAui0MjH gR7dx9ezZIhsOQeQZobqc OstGwspuFmkBYdTLIhn3J pBo7wEJphvTFgDLX6NBTu sfYxHQVuIO9rxe18tzObg 1A9EUSec5T3EWSuIA73MH eeSA36QDppKD7yDEFtAFz tDLXsF9EnO5Y5FLrtETFP bxPmj5TqgMbqZCRmBXPjx zMsdjYowYQpuCK4RYNcKo 0ySXKdm6fhtrNyNXO0aN4 hXcPrLOxpJLNry1bctvNv CAN7nS4gDLQtcI2ixkFnc HHho5FltYt7qQYuQDUntO cuZSi7YSlxURSmh6WauKT lIEExLiAgVGhlIHJlbWFp gkZfbaSoTfR0iMCaw4HbL 4wqLF0mbLNgt8OpxGj8iS VwVStjABAvc1CbhCTzPFS oYd2FMXNsgXWRHYI3OR2a DRnpZGFgC6IjL7SolvX1C HBhciANCntcKlxlcGljc2 VjdCBcXHNnIFxcaWQgNTE wMDIgXFxkYiBPVlIgIiAy LSDkGZd7FFDsWLu3ZWxfX 5FLJSCxERKzGiW4RWH8Lk R9UOa3VNYTZc3qYoXyHTK 0SSU3CQY1KXS9HAClNXYq MiBcXHNzIDMgXFxmbCBcX C3qjXtsKPHjCWNdMFO2ME KvsQIFp0VbJJHsQTvdZqS rMHSCZAFGSP1HBjEXHJKv VqCmpCEqHR6SQPPzibUlR VspkCdigX4bfPBmW9qaCj MyMlxlcGljTmVzdERvYzE gDQpcbHRycGFyXHNiMzBc ZNOkA3sqQyKyBW6PK2AdT 0okMI7fLbQgwsSrPSFfyY VoTEXhohLcqOJaa1BiHtX jepDlIHOrZ6Obb88xKM3e WRI3GdGalCSxghYktTXba ZBcVGCqyS5pKl6mlVNztO 3ziBBpBOgmHHAdc9t5dRL 7gWUtyCB6oJRidMgrRcOe LU0mdKVjPBYMAZ88sMFez hljNQSxolYvfcLog8wvRA WsTIL5pX9qVAAhx4znlcZ kykVoaGZywPEeAQ39XAeH GEmgYzNyXL9rDTPhygDhy 6BmUY8qIT96qPMwnRkdXO nzwtZegPjoatD2qr4qtWA udGVkIHBpZWNlcyBvZiBw eV1zEPYojuChp8LmzFd2D YZcnCDgydr4DLTtp47leO U3nDRdwZIpYXXxLQS4MAX kEQB6DPYjPzTzlRWoylWe H3sfBZhleJOsTiHyD14kK STsLD5nrWgwhLHyfYNabE HaWn5kpZIiYiOdVSCtsP0 vrQDxlpPemuEeWR71XXJt xnBel2RddPdrcrCtquEzv JHlkHY1HXIsPi3nPCHre1 xdorLrQIL8eR9yRyAbPSy rALFrt1dcgjRjYRR1zW4e KAKihZ1cdcVxwBIfl0Izm Rw0pDTcGYDitQxkLAd2VV fwSREnu6NxdDHgVEAkKaN gVGhlIHJlbWFpbmRlciBv ZxY5xQQgh8ZgZ4fqSQ1wq FUrc7DquEq2sDGmOZnpPD Gfe9OawTThJYEkCzlkUNX gDQpccGFyZFxsdHJwYXIg OXmecSOkVD3SFvOyhoXgj 2NhIERhaGVyLCBNSFMsIE 1CQSwgUEEoQVNDUCljbVx 3FBEiAQYej4QcW3E7XVXd AZygo1tzNCYrRCriy7GkL SjANGSRUL1HUF9cjSW7PQ qKH0FNK5qDpDIjWLEqFPa zaUOOHH59DXl8zFX4zB49 GKXyDTXveTJgALskY720Z Y3xAjYlMuSqPTC9ROb2JE DvOOmjr7uvGHAzBMghq8Q eSVrPEHFUBW5PDZ7whZN3 VGcYH9NHGSvjZZHzEZW8B InDDTUVfXS1sYlpbCq2c4 kivPNtr1c3DTdzQIF2gQw wbGFpblxsdHJjaFxmczIy XHBhciANClxzYTMwXGVwa QFLk6XgTPWFRkinbSdzOg ZrfAMjGcD0UDVwbCWlDFZ 6XG5dtPufKEEkSLx5EVla YHXnF7CuB5SjONceAnZsZ GlkIDUxMDAyIFxcZGIgT1 GZYYCwTqUeGYB1CcRdRTt 1LGf9GK3RAqZfVHOrXUOj MCMhWgEnAOk8SErmQT0EV PT1AhldQgn6POZsIJBwUJ OdPUr0GLDuKGheeiExTKk vOfitFEsrC33sqZFrIZor GeOwHDttbPgyTTDjWGT2H B1MTQMsZrQqS1AVR7sNRS 2xU1cpxjHbGJHwkhLWTpg zVADnZV1AZCTeNYohTGh8 esOsHFQvViHyNCCoS67ab 3FNk4YkOT7FTPb7giUwou uiImPvYOQkbTVUv2ZhBIJ NClNwZWNpbWVuIEMgaXMg lkFaTHp2WVArrV9mFo9ft VVwvS2oeWUwNRoeHEJuo9 p5xHW4cSAbtIF0dTOsmRm iEfUqUE6iuDNeMNWSDL37 pWQhuiKeQJVyPYS6KBAou DJlcFkujNYst4PgaTYmhJ RaSP52XGpZIJlpDzJsTA6 aLSSrnaLbr1SfVP4jDE33 aKUhhFakIOHalb0hvD6nP WqkysOsaHsltuVzl8E0OT Myq7B9WWHyhvLdtQXduSD fRGIsON7qHiwxL86uxY1x O7TkXXAnq5BkDEegLI4ez M7fZZGxYkHfzYNpNbNiuZ ZcUzYiL75qtX0hOQgljaY oHRJhME0cZZXhHQZzlUCo xW9nqjVulrZwgzGhbiMat SKkuPBxnIK6ANYdeI7yLf bmeXG4RZYnq0R0EUBiSYG zylJpjfDLYN7GAz7klJPx YF3PMKCnwcIgwVDqlLAjU Q5MNHOljpYWVxk0zWvbSE 0mBPupFR7lyQmoLMIkDSD DY0QnTPThHoYtkOQvnWZu oXmpSllphAJ5DXzeGhqum H7ijKTDXFRRCgnTSszpky UgST6QQT3SXzIKHJ27IkT xNUBncHF7OOZAAMbvuLv6 MSi9tHjhCarfqfBvnKLuG zOFdX28BfQsPpUoJZAzXF p9DLwvFtlufVL5NTwdZui nkX3fzMACMOCUYlwXCowp cwVoTQ6XZW3DNM4RhKYaP UEmDZdsvSQUII50WDh3uX Z3dD57MMPhPRKmlLKyHTv rA326AIHmKGgeCUt1kxGk FHKnFzNtpHMlVU3LIIQix wUKXjxzQKQjFSmgp0TmGR xlcGljWHNhMzAgDQpcZXB aF79pp8BJi4Pqb6itmWkq x2KcrPTfIW94YABwrRQuK ZO3IG7trQtpOOPcWYuhzC FyZCANClxwbGFpbiANCn0 = Intraoperative Consultation (test code = [id number]) h3fohANhACItqZQJUMKvU FBeYD2pjOrpcNb9uCygEM DttmR4pOMmVUghj0buTJS 6i4avkeRKKdvxIKCcCZ7y CSixXRFaGG5dKvTuIMAsR mYxXHBhcGVydzEyMjQwXH OdtKNvgPT8VBGbOL1vokn mTHelKBqbICLpslF8NOLj nHScS2PuMHBcIA8bepfiZ SC7ZFOWOarjCm5kqIZixM tcZjFcZmNoYXJzZXQwXGZ ih9axijQRoykikIj2cW8L MPFmO8VrGL9Wc1oeANXnh SVgSVS0LAmzz1wePZdiRJ Q4JHGcBXQwVOKpPV8HQdZ rONUvHyG5RywyIoI9SUt0 TEFIDFDnYBqnCVY8CcI3X Jl3ZOIxPB5qZBuxhGEsBP doQgxsREugI212KMnnWAK sS1ObM6SyQJmzJmVzSPur VBMuGMWjZLbyNZCnH4NRY EGpQfMzKXL6HhMsNJs3JW p3TU7GWaXyYDZaBNTnIwE 1GAEtPVf5DGguIC4KSRG6 Mzt1PyN9KTOlQIZtVFSnV Wm9APSlFKlgoeRsHQnqGn smDCngC81sqQJjQQEURus wbGFpblxmczIwIFNQRUNJ TAAEFYBsbNHyQ0dmFkRuX lxwYXIgDQpccGFyZCANCl xwbGFpblxsdHJjaFxmczI cRVPlzLXLBBV8XZ6cOXLG ClxsdHJwYXIgDQpcZnMyM NGHYXQuABJWDY7DSOSGEL JAAEFMPNSKNYpzWDWYE8U wMLDTD2WRBXomuFYtBJ1J ICAgICAgICAgLSBJTkZJT FRSQVRJVkUgTkVPUExBU0 7mSQWYXUDTAECXCITIGs9 aVV2sI6TCSIoZRjopuTNu AC4AONZtqqERInhtwuKyO XYsq2DyhUPjlkPes8X1JG QgdmVyYmFsbHkgYnkgdGV wQSJai19kAPMnLZZlLmMJ PZazTXJCNxR7MFKfreS4H zIvMjAyNSBhdCAyOjMwIF IBWoPJsDHyyCD7vYZvjHj pWEhuTS91uLM4LAxzqdF0 VGViMBzfiAGdu82sdYNeG WQuXGZzMjAgICBccGFyIA 9AXJ73xqAtdEOgWZTrykR czMWsyZ2mD8SaGIDeBFXe kmF3tH4vOWYjkiFguv8rZ CBhdCBDbGVhciBMYWtlIE FxfUD7usPAo8RqcTZwcMk lOfZzVTIho1Mwg31xU5Rw MJM8INORkXMmvhOJKYaaC ANOTYn3CWy2MtPNiyGjww YjXLXjiSrcimTjREEyp6F eCFIlvfmdVEZtnP14TBW9 KOcgfZZ1cL1dz9m6LTC5E CXOXJKyR7JtroPgcR5gEL kbo8AbzJHlGckiPHVtZDg ck5ImMSaytGeqNWRnDlEi FLeJKFTiaNZxDAVNER7yB aGqnLijDKTcUHkpEz3zFI E1ZLFoEqCjVNISTh8DCUL jfLQVZYJ7MW8rYUwwPERe U0ArE2GfbdI8b3vhdFlhs 9HdaUMlNN3qsFVvPZ4NJM GmamFvDCuztWtvrZ9mYQj 9 Disclaimer (test code = 1944135523) f8oqwNSuDBUvg4ydDQLzq GFuZzEwMzNcZnRuYmpcdW MxIHtccnRmMVxlcGljMTE gLZQxu9yhr3iarZYvCLDs n1qas9IzeTYbxLQkTBaos IObsaEahx66xUV7qK33NQ 8gAFZvWyD7VHYozbU2Nel 0MXYxONIngITsO140w3ol q0omjrYlrIK5FAEaRGToW 6LmEN8yJYLikJXrY88njP LyFZB3OGTeYHGzlXSjCLG gYLE2YQAonOGzM8ciDXWj IT6qnugdFOogWPuzDOOye BC5MEJdbGEfS6CwQEJmNG qjNKOrngk5WtQmPi8fmWK ftLtsNYzrS5wfcM6nXtP6 AJqcX4yltI4zBKc4PRtzK TXqqPG2cvO5TOQuhWAkE7 CdkI5qVOOmNS0osft3k5b hFRW0LWbfTVJyWcX2wkN6 NDBccGFyZFxwbGFpblxmc zS9MWKwQZEEhTqdVOIzuF 3owBKeUEybpE7gpUUgQKH qCWC8lKWbAT7bYOmfBc5o YRPrwU4jJREhlNUwfMxtN hOlTYSav7KfPKYjuJZtlo odV1iqh2QjURKQraXbhLB lIFNwZWNpZmljIFJlYWdl arKdLSqXO8ZjJIEeJyDtw L8xPBSmztGwnFBnfJKsCL QgZnJvbSBhbiBvdXRzaWR jIDFbugRtdn4dKEgsCGB3 Y4gowKYhgGknBuK2WCIpW YW4DHjadNFtGPGlPQGalT NcbDTxVk8ypYMsD3ZwI7l ugaVtcKOmpPH8qZEnOIRo dGVybWluZWQgYnkgVVRNQ cHFJEJfhtZ1s5D6FOBfqb FoX6TdTmx+XFl1DWjzplH fa5WbHvEvyyMnmLGcsgXu NB8aJMLvvJAmgfAcVBG9Q BIoAKZXSuTcJBTjv2VmAX 8fESSfiSqnDZHokB0nb4Z rYDLmk42yXANZWEmdIK7q EZhgVPSDQXFay6SaUD6iu RJiGJM7dTDsTIJdfXUhdf McZGQishL4yXSqJQA0VGI 5sf4nhgXdsLTnXXBgkrAK WO3ZTGtiMc1tORNakwrmt qZcioByAUO5eM2hjSsaBK U9gdKozhLRfXyxdCFsgBJ NGMFfxdV7i1G5DPxdjCEb iwNpTT49PPFfJT1mfMPox HMgKENMSUEpIHRvIHBlcm Xhgz7cwOwmmV0kq18geAX 2hTC9TJOvf7UdvuabYC0o POYbzbgxVQOnQBEaof7bn iwfjXJrmHFxJPLhtZd3AM Cag1VzvZx9BQXpqaHfcqW hIHKnppOkM23voRLuvPBl zUD6FXMiMUVfOWUwkqacp 6ClDEUkboTqyEgsw8NxdC 8kUZnqU7j8ONzkEgIVSnH yZLMiSDHsQMfoQ5IvfN9j JNYwDYWViF75pp0fbWN3w 9QqXE0fp9AzkZWcvuEkcW BsaWNhYmxlLlxwYXJccGF tGMM3W6NhwFIibeRfs3Lv RDKkcVxsatiul6JiTM6kC 5Ils6QmyWrjLRX6OO8fpr V0vC4rWPmngrAeLBAgh4I cLTUnd81lq3htiCWbz8bm FSYrfN3iK2AuTL7cQZAoW 3o8zQfdITSobIZroyBqsF jlPDAzdI9jADVcuBTyHBE 1AEPaWEHeAj70PNCtxMNt pz8ggRAsHDNjabmpHRKeE 7QlNVQ1JXAzqV6bN8QkJD FjZCKmDYTqCQhdOTE9fNY bABZnLYLww7Jgr4UxriQz AW5aHZFzjeZljDKkjFHnW RZxeQftpXCkUVaiaP45BG zgeUkkdpExUQIvq2YoCMD lv8vgbC9ydYK3pA7axzPb HKmpF82vt2SwCxDlR7N4l cQspYQnmpHjUz1wZSG6FI xpdHkgYXNzdXJhbmNlIHB 4vsFei5VnQpeyYKZgjKXa CUGyoNL6TQArhnlmBHdcU Y4wWARqp0Egt7Hwp89beX XgSUR2rJVtfzTjzxLnnXP oVb0cxKFxWYA2HAEIYTDn M6UljgPenY2mSQkCVAtKN WO6GOM4IcHbCNXgELF9N1 YdeBIdjuHnl1RtHBXuxcD 2lLThfeCkm8S9FaodDBW4 fQ== Embedded Images (test code = 3850058627) [facility] 13:21:10* Test Item Value Reference Range Interpretation Comme nts POCT GLU (test code = 1435204950) 172 mg/dL 70-110 H Lab Interpretation (test cod e = 22761-4) Abnormal [facility] GLUCOSE (AUTOMATED)2024-12-10 01:18:07* Test Item Value Reference Range Interpretation Comme nts POCT GLU (test code = 8380737852) 233 mg/dL 70-110 H Lab Interpretation (test cod e = 86451-2) Abnormal [facility] GLUCOSE (AUTOMATED)2024-12-09 22:16:40* Test Item Value Reference Range Interpretation Comme nts POCT GLU (test code = 1432848507) 243 mg/dL 70-110 H Lab Interpretation (test cod e = 53144-6) Abnormal [facility] GLUCOSE (AUTOMATED)2024-12-09 16:19:07* Test Item Value Reference Range Interpretation Comme nts POCT GLU (test code = 6898714702) 308 mg/dL 70-110 H Lab Interpretation (test cod e = 79136-7) Abnormal [facility] GLUCOSE (AUTOMATED)2024-12-09 12:07:37* Test Item Value Reference Range Interpretation Comme nts POCT GLU (test code = 6669263962) 208 mg/dL 70-110 H Lab Interpretation (test cod e = 67033-1) Abnormal [facility] GLUCOSE (AUTOMATED)2024-12-09 01:35:30* Test Item Value Reference Range Interpretation Comme nts POCT GLU (test code = 0020381363) 229 mg/dL 70-110 H Lab Interpretation (test cod e = 21546-5) Abnormal [facility] GLUCOSE (AUTOMATED)2024-12-08 22:07:00* Test Item Value Reference Range Interpretation Comme nts POCT GLU (test code = 3776535621) 292 mg/dL 70-110 H Lab Interpretation (test cod e = 23198-0) [facility] 22:07:00* Test Item Value Reference Range Interpretation Comme nts POCT GLU (test code = 9307408752) 292 mg/dL 70-110 H Lab Interpretation (test cod e = 82454-3) Abnormal [facility] GLUCOSE (AUTOMATED)2024-12-08 17:11:29* Test Item Value Reference Range Interpretation Comme nts POCT GLU (test code = 4866782358) 256 mg/dL 70-110 H Lab Interpretation (test cod e = 83302-3) Abnormal [facility] GLUCOSE (AUTOMATED)2024-12-08 17:11:29* Test Item Value Reference Range Interpretation Comme nts POCT GLU (test code = 5997424256) 256 mg/dL 70-110 H Lab Interpretation (test cod e = 03258-5) Abnormal [facility] GLUCOSE (AUTOMATED)2024-12-08 13:11:00* Test Item Value Reference Range Interpretation Comme nts POCT GLU (test code = 5095042928) 352 mg/dL 70-110 H Lab Interpretation (test cod e = 61045-3) Abnormal [facility] GLUCOSE (AUTOMATED)2024-12-08 13:11:00* Test Item Value Reference Range Interpretation Comme nts POCT GLU (test code = 7154554583) 352 mg/dL 70-110 H Lab Interpretation (test cod e = 96450-4) [facility]normal [facility]2024-12-08 10:47:12* Test Item Value Reference Range Interpretation Comme nts HGB A1C (test code = 4548-4) 10 % 4.0-5.7 H RUDOLPH (test code = RUDOLPH) Reference RangesNormal: <5.7%Prediabetes: 5.7 - 6.4%Diabetes: > 6.5% Lab Interpretation (test code = 05783-3) [facility]normal [facility] (A1C)2024-12-08 10:47:12* Test Item Value Reference Range Interpretation Comme nts HGB A1C (test code = 4548-4) 10 % 4.0-5.7 H RUDOLPH (test code = RUDOLPH) Reference RangesNormal: <5.7%Prediabetes: 5.7 - 6.4%Diabetes: > 6.5% Lab Interpretation (test code = 10298-6) Abnormal [facility] Metabolic Panel (NA, K, CL, CO2, GLUCOSE, BUN, CREATININE, CA)2024-12-08 10:46:52* Test Item Value Reference Range Interpretation Comme nts NA (test code = 2121564934) 134 mmol/L 135-145 L K (test code = 6914230301) 4.7 mmol/L 3.5-5.0 CL (test code = 7151211775) 105 mmol/L 98-108 CO2 TOTAL (test code = 4923798727) 20 mmol/L 23-31 L AGAP (test code = 9357345300) 9 2-16 BUN (test code = 9054012320) 11 mg/dL 7-23 GLUCOSE (test code = 1852436189) 364 mg/dL 70-110 H CREATININE (test code = 2160-0) 0.81 mg/dL 0.50-1.04 CALCIUM (test code = 5672245115) 8.1 mg/dL 8.6-10.6 L eGFR (test code = 46478-6) 84.3 mL/min/1.73m2 CKD-EPI eGFR (2020). Assuming creatinine has been stable day-to-day for at least three months, the eGFR indicates Category G2 (60 - 89 mL/min/1.73 m2) Lab Interpretation (test code = 79240-0) [facility]normal [facility] 10:46:52* Test Item Value Reference Range Interpretation Comme nts MAGNESIUM (test code = 3204918831) 1.3 mg/dL 1.7-2.4 L Lab Interpretation (test cod e = 16334-6) Abnormal [facility] Metabolic Panel (NA, K, CL, CO2, GLUCOSE, BUN, CREATININE, CA)2024-12-08 10:46:52* Test Item Value Reference Range Interpretation Comme nts NA (test code = 7492409724) 134 mmol/L 135-145 L K (test code = 0374323789) 4.7 mmol/L 3.5-5.0 CL (test code = 4451676594) 105 mmol/L 98-108 CO2 TOTAL (test code = 4182213942) 20 mmol/L 23-31 L AGAP (test code = 2516739882) 9 2-16 BUN (test code = 8127347781) 11 mg/dL 7-23 GLUCOSE (test code = 1975307735) 364 mg/dL 70-110 H CREATININE (test code = 2160-0) 0.81 mg/dL 0.50-1.04 CALCIUM (test code = 9876895856) 8.1 mg/dL 8.6-10.6 L eGFR (test code = 02423-6) 84.3 mL/min/1.73m2 CKD-EPI eGFR (2020). Assuming creatinine has been stable day-to-day for at least three months, the eGFR indicates Category G2 (60 - 89 mL/min/1.73 m2) Lab Interpretation (test code = 37913-7) [facility]normal [facility]25-[facility] 10:46:52* Test Item Value Reference Range Interpretation Comme nts MAGNESIUM (test code = 3751964540) 1.3 mg/dL 1.7-2.4 L Lab Interpretation (test cod e = 50826-3) Abnormal [facility] with [id number] 10:35:47* Test Item Value Reference Range Interpretation Comme nts WBC (test code = 6690-2) 14.62 4.30-11.10 H RBC (test code = 789-8) 3.77 3.93-5.25 L HGB (test code = 718-7) 12.1 g/dL 11.6-15.0 HCT (test code = 4544-3) 35 % 35.7-45.2 L MCV (test code = 787-2) 92.8 fL 80.6-95.5 MCH (test code = 785-6) 32.1 pg 25.9-32.8 MCHC (test code = 786-4) 34.6 g/dL 31.6-35.1 RDW-SD (test code = 28896-4) 42.2 fL 39.0-49.9 RDW-CV (test code = 788-0) 12.3 % 12.0-15.5 PLT (test code = 777-3) 159 166-358 L MPV (test code = 48977-4) 10.7 fL 9.5-12.9 NRBC/100 WBC (test code = 7858016414) 0 0.0-10.0 NRBC x10^3 (test code = 1517276419) See_Comment [Automated message] The system which generated this result transmitted reference range: 10*3/?L. The reference range was not used to interpret this result as normal/abnormal. GRAN MAT (NEUT) % (test code = 770-8) 87.8 % IMM GRAN % (test code = 0073429902) 1 % LYMPH % (test code = 736-9) 5.5 % MONO % (test code = 5905-5) 5.5 % EOS % (test code = 713-8) 0 % BASO % (test code = 706-2) 0.2 % GRAN MAT x10^3(ANC) (test code = 0736083119) 12.85 10*3/uL 1.88-7.09 H IMM GRAN x10^3 (test code = 3773610363) 0.14 10*3/uL 0.00-0.06 H LYMPH x10^3 (test code = 731-0) 0.8 10*3/uL 1.32-3.29 L MONO x10^3 (test code = 742-7) 0.8 10*3/uL 0.33-0.92 EOS x10^3 (test code = 711-2) 0.03-0.39 L BASO x10^3 (test code = 704-7) 0.03 10*3/uL 0.01-0.07 Lab Interpretation (test code = 33675-7) Abnormal [facility] with [id number] 10:35:47* Test Item Value Reference Range Interpretation Comme nts WBC (test code = 6690-2) 14.62 4.30-11.10 H RBC (test code = 789-8) 3.77 3.93-5.25 L HGB (test code = 718-7) 12.1 g/dL 11.6-15.0 HCT (test code = 4544-3) 35 % 35.7-45.2 L MCV (test code = 787-2) 92.8 fL 80.6-95.5 MCH (test code = 785-6) 32.1 pg 25.9-32.8 MCHC (test code = 786-4) 34.6 g/dL 31.6-35.1 RDW-SD (test code = 59866-9) 42.2 fL 39.0-49.9 RDW-CV (test code = 788-0) 12.3 % 12.0-15.5 PLT (test code = 777-3) 159 166-358 L MPV (test code = 68107-2) 10.7 fL 9.5-12.9 NRBC/100 WBC (test code = 8245732388) 0 0.0-10.0 NRBC x10^3 (test code = 5193227116) See_Comment [Automated message] The system which generated this result transmitted reference range: 10*3/?L. The reference range was not used to interpret this result as normal/abnormal. GRAN MAT (NEUT) % (test code = 770-8) 87.8 % IMM GRAN % (test code = 5292489400) 1 % LYMPH % (test code = 736-9) 5.5 % MONO % (test code = 5905-5) 5.5 % EOS % (test code = 713-8) 0 % BASO % (test code = 706-2) 0.2 % GRAN MAT x10^3(ANC) (test code = 8927307427) 12.85 10*3/uL 1.88-7.09 H IMM GRAN x10^3 (test code = 2800515986) 0.14 10*3/uL 0.00-0.06 H LYMPH x10^3 (test code = 731-0) 0.8 10*3/uL 1.32-3.29 L MONO x10^3 (test code = 742-7) 0.8 10*3/uL 0.33-0.92 EOS x10^3 (test code = 711-2) 0.03-0.39 L BASO x10^3 (test code = 704-7) 0.03 10*3/uL 0.01-0.07 Lab Interpretation (test code = 85879-9) Abnormal [facility] GLUCOSE (AUTOMATED)2024-12-08 08:17:22* Test Item Value Reference Range Interpretation Comme [facility] POCT GLU (test code = 3359521116) 386 mg/dL 70-110 H Lab Interpretation (test cod e = 45434-5) Abnormal [facility] GLUCOSE (AUTOMATED)2024-12-08 08:17:22* Test Item Value Reference Range Interpretation Comme [facility] POCT GLU (test code = 9293270787) 386 mg/dL 70-110 H Lab Interpretation (test cod e = 36319-5) Abnormal [facility] GLUCOSE (AUTOMATED)2024-12-08 00:31:23* Test Item Value Reference Range Interpretation Comme nts POCT GLU (test code = 9924720471) 325 mg/dL 70-110 H Lab Interpretation (test cod e = 56026-1) Abnormal [facility] GLUCOSE (AUTOMATED)2024-12-08 00:31:23* Test Item Value Reference Range Interpretation Comme nts POCT GLU (test code = 2219425253) 325 mg/dL 70-110 H Lab Interpretation (test cod e = 96622-7) Abnormal [facility] GLUCOSE (AUTOMATED)2024-12-08 00:22:53* Test Item Value Reference Range Interpretation Comme nts POCT GLU (test code = 6695704087) 373 mg/dL 70-110 H Lab Interpretation (test cod e = 90544-5) Abnormal [facility] GLUCOSE (AUTOMATED)2024-12-08 00:22:53* Test Item Value Reference Range Interpretation Comme nts POCT GLU (test code = 0875676028) 373 mg/dL 70-110 H Lab Interpretation (test cod e = 03003-2) Abnormal [facility] GLUCOSE (AUTOMATED)2024-12-07 23:32:57* Test Item Value Reference Range Interpretation Comme nts POCT GLU (test code = 9135564819) 318 mg/dL 70-110 H Lab Interpretation (test cod e = 38598-6) Abnormal [facility] GLUCOSE (AUTOMATED)2024-12-07 23:32:57* Test Item Value Reference Range Interpretation Comme nts POCT GLU (test code = 8780911340) 318 mg/dL 70-110 H Lab Interpretation (test cod e = 85699-5) Abnormal [facility] GLUCOSE (AUTOMATED)2024-12-07 22:25:24* Test Item Value Reference Range Interpretation Comme nts POCT GLU (test code = 1451950212) 281 mg/dL 70-110 H Lab Interpretation (test cod e = 44430-7) Abnormal [facility] GLUCOSE (AUTOMATED)2024-12-07 22:25:24* Test Item Value Reference Range Interpretation Comme nts POCT GLU (test code = 5563584113) 281 mg/dL 70-110 H Lab Interpretation (test cod e = 57351-8) Abnormal [facility] Cervical spine wo [id number] 21:00:21CT CERVICAL SPINE WO CONTRAST HISTORY: 59 years old 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 COMPARISON: MR cervical spine 11/25/2024, PET/CT Dot[facility] 08/25/2024. TECHNIQUE: Axial CT images of the cervical spine was obtained without IVcontrast. Coronal and sagittal reformats were constructed. FINDINGS: There is reversal of the cervical lordosis. The vertebral bodies are normalin height and alignment. No acute fracture or dislocation is present.Normal alignment of the craniocervical junction and a tlantoaxial joint. Mild to moderate multilevel degenerative changes are noted in the form ofdisc space narrowing, endplate sclerosis, marginal osteophytes, and facetarthrosis. ? The left C6-C7 neuralforamen demonstrates mild osseous remodeling. LeftC6-C7 neural foraminal lesion was best evaluated on the prior MRI andPET/CT examinations. No additional aggressive osseous lesions aredemonstrated. The prevertebral soft tissues are unremarkable. 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 COMPARISON: MR cervical spine 11/25/2024, PET/CT Dotatate 08/25/2024. TECHNIQUE: Axial CT images of the cervical spine was obtained without IVcontrast. Coronal and sagittal reformats were constructed. FINDINGS: There is reversal of the cervical lordosis. The vertebral bodies are normalin height and alignment. No acute fracture or dislocation is present.Normal alignment of the craniocervical junction and atlantoaxial joint. Mild to moderate multilevel degenerative changes are noted in the form ofdisc space narrowing, endplate sclerosis, marginal osteophytes, and facetarthrosis. ? The left C6-C7 neuralforamen demonstrates mild osseous remodeling. LeftC6-C7 neural foraminal lesion was best evaluated on the prior MRI andPET/CT examinations. No additional aggressive osseous lesions aredemonstrated. The prevertebral soft tissues are unremarkable. Thevisualized lung apices are unremarkable.[facility] Time OR(non-reportable)2024-12-07 20:25:57These images do not require a Radiology diagnostic report.[facility] Time OR(non-reportable)2024-12-07 20:25:57These images do not require a Radiology diagnostic report.[facility] O-arm (non-reportable) 2024-12-07 18:11:42These images do not require a Radiology diagnostic report. [facility] O-arm (non-reportable)2024-12-07 18:11:42 These images do not require a Radiology diagnostic report.[facility] 1 [id number] 17:27:55These images do not require a Radiology diagnostic report.[facility] 1 [id number] 17:27:55These images do not require a Radiology diagnostic report.[facility] GLUCOSE (AUTOMATED) 2024-12-07 14:08:23* Test Item Value Reference Range Interpretation Comme nts POCT GLU (test code = 5525260228) 260 mg/dL 70-110 H Lab Interpretation (test cod e = 84297-4) Abnormal [facility] GLUCOSE (AUTOMATED)2024-12-07 14:08:23* Test Item Value Reference Range Interpretation Comme nts POCT GLU (test code = 1040124070) 260 mg/dL 70-110 H Lab Interpretation (test cod e = 93561-3) Abnormal [facility] -2024-12-01 19:40:00* Test Item Value Reference Range Interpretation Comme nts ABO & RH (test code = 20) O POSITIVE IAT (test code = 1185) Negative [facility] w wo [id number] 20:36:50EXAM: MR CERVICAL SPINE W WO CONTRAST HISTORY: cervical lesion TECHNIQUE: MRI of cervical spine wasperformed on 3 Kay before and afterintravenous administration of contrast. COMPARISON: None. FINDINGS: There is straightening of cervical lordosis. The vertebral bodies arenormal in height and alignment. The background bone marrow signal is unremarkable. No abnormal enhancement. The cervical spinal cord is normal in morphology and signal intensity.There is T1 hypointense, T2 iso-T2 hyperintenselesion with evidenceenhancement in the left C6-C7 neural foramen. Multilevel disc desiccationnoted.At C2-C3, no high-grade spinal canal stenosis or significant neuralforaminal narrowing. At C3-C4, left uncovertebral and facet arthrosis result in moderate leftneural foraminal narrowing. No high-grade spinal canal stenosis. At C4-C5, posterior disc osteophyte complex with uncovertebral and facetarthrosis result in moderate right neural foraminal narrowing. Nohigh-grade spinal canal stenosis. At C5-C6, posterior disc osteophyte complex with uncovertebral arthrosisresult in moderate bilateral neural foraminal narrowing. No high-gradespinal canal stenosis. At C6-C7, posterior disc osteophyte complex with bilateral facet arthrosis.No high-grade spinal canal stenosis or significant neural foraminalnarrowing. At C7-T1, no high-grade spinal canal stenosis or significant neuralforaminal narrowing. The prevertebral soft tissues are unremarkable. IMPRESSION There is an avidly enhancing lesion inthe left C6- C7 neural foramen whichcorresponds to the area of radiotracer uptake on the PET CT scandated08/25/2024, indeterminant, may represent malignant peripheral nerve sheathtumor versus metastasis. Tissue sampling is recommended. Mild multilevel degenerative changes of the cervical spine without causinghigh-grade spinal canal stenosis. Multilevel moderate neural foraminal narrowing, as above. [facility] [id number] 15:36:03Ordered by an unspecified provider.[facility] POCT GLUCOSE (AUTOMATED)2024-11-17 17:55:03* Test Item Value Reference Range Interpretation Comme [facility] POCT GLU (test code = 2017393275) 184 mg/dL 70-110 H Lab Interpretation (test cod e = 49538-9) Abnormal [facility]2024-11-17 17:55:03* Test Item Value Reference Range Interpretation Comme [facility] POCT GLU (test code = 1952970850) 184 mg/dL 70-110 H Lab Interpretation (test cod e = 73425-9) [facility]normal [facility]2024-11-17 14:04:31* Test Item Value Reference Range Interpretation Comme nts POCT GLU (test code = 1597877692) 218 mg/dL 70-110 H Lab Interpretation (test cod e = 73128-8) [facility]normal [facility]2024-11-17 14:04:31* Test Item Value Reference Range Interpretation Comme nts POCT GLU (test code = [id number]) 218 mg/dL 70-110 H Lab Interpretation (test cod e = 04160-7) Abnormal [facility] CenterSCANN[facility] LAB [id number] 13:56:48Ordered by an unspecified provider.[facility] CenterPET Dotatate tumor [id number] 20:51:26PET DOTATATE TUMOR IMAGING INDICATION: Panc NET COMPARISON: No interpreted PET CTs are available for comparison. CT abdomenpelvis 07/25/2024, ct thoracic spine 2021. TECHNIQUE: 5.17 mCi of Ga-68 dotatate was administered intravenously in theright arm. One hour later a scan was performed from baseof skull to mid thigh on upto date PET-CT system. FINDINGS: Background Liver: 8.4 SUV max.Background Spleen: 29.4 SUV max. HEAD AND NECK: There is a 1.4 cm soft tissue density at the left neuralforamina at the level of C6-C7 with SUV max 12.5. Physiologic activity seenin the pituitary. CHEST: No abnormal uptake. ABDOMEN AND PELVIS: There is abnormal radiotracer uptake at the pancreaticbody lesionwith SUV max of 6.1, visualized in the CT abdomen pelvis withcontrast from 08/02/2024. Similar mild uptake at the pancreatic tail is alsonoticed with SUV max of 7.6. Physiologic uptake at the uncinateprocess has also noticed. Asymmetrical physiologic adrenal uptake.Focal increased uptake at the gastric fundus with SUV max of 10.4 withoutCT evidence of a mass or lesion. Likely inflammatory.Physiologic activity seen at the liver, spleen, and right kidney.Postsurgical changes of the partial right and total left nephrectomy.Moderate size nonobstructive ventral abdominal hernia with loops of bowel.Grossly unchanged fluid-filled structure within the pelvis, previouslydescribed as hydrosalpinx without any uptake.[facility] CenterMEAS,POST-VOID RES,US,[id number] 16:33:00* Test Item Value Reference Range Interpretation Comme nts PVR (URINE VOLUME) (test code = 5193) 43 ml 0-100 [facility] CenterVitamin D, [id number] 22:09:31* Test Item Value Reference Range Interpretation Comme nts VIT D 25OH (test code = 91075-0) 29 ng/mL 25-80 RUDOLPH (test code = RUDOLPH) Deficiency: <20 ng/mLInsufficiency : 20-24 ng/mLOptimal: 25-80 ng/mL Lab Interpretation (test code = 12537-2) Normal [facility] CenterThy[facility] Stimulating [id number] 19:55:21 * Test Item Value Reference Range Interpretation Comme nts TSH (test code = 3353727660) 0.50 0.45-4.70 Biotin has been reported to cause a negative bias, interpret results relative to patient's use of biotin. Lab Interpretation (test code = 70423-8) Normal [facility] CenterGlycosylated Hemoglobin (A1C)2024-02-25 19:51:07* Test Item Value Reference Range Interpretation Comme nts HGB A1C (test code = 4548-4) 6.1 % 4.0-5.7 H RUDOLPH (test code = RUDOLPH) Reference RangesNormal: <5.7%Prediabetes: 5.7 - 6.4%Diabetes: > 6.5% Lab Interpretation (test code = 46341-9) Abnormal [facility] CenterFr [id number] 19:41:56* Test Item Value Reference Range Interpretation Comme nts FREE T4 (test code = 1736448644) 1.26 0.78-2.20 Lab Interpretation (test cod e = 10655-2) Normal [facility] [id number] 19:41:15* Test Item Value Reference Range Interpretation Comme nts FREE T3 (test code = 9382519660) 3.01 pg/mL 2.77-5.27 Lab Interpretation (test cod e = 94473-1) Normal [facility] CenterComp. Metabolic Panel ([id number])2024-02-25 19:26:11* Test Item Value Reference Range Interpretation Comme nts NA (test code = 2880066066) 142 mmol/L 135-145 K (test code = 7916405029) 4.1 mmol/L 3.5-5.0 CL (test code = 3942389463) 106 mmol/L 98-108 CO2 TOTAL (test code = 7701656686) 29 mmol/L 23-31 AGAP (test code = 3437026589) 7 2-16 BUN (test code = 1270453305) 16 mg/dL 7-23 GLUCOSE (test code = 8135799777) 140 mg/dL 70-110 H CREATININE (test code = 2160-0) 1.16 mg/dL 0.50-1.04 H TOTAL BILI (test code = 0913142573) 0.9 mg/dL 0.1-1.1 CALCIUM (test code = 6814859355) 10.0 mg/dL 8.6-10.6 T PROTEIN (test code = 7259897847) 8.3 g/dL 6.3-8.2 H ALBUMIN (test code = 8852007627) 4.5 g/dL 3.5-5.0 ALK PHOS (test code = 1955216517) 96 U/L 34-122 ALTv (test code = 1742-6) 54 U/L 5-35 H AST(SGOT) (test code = 2681882748) 61 U/L 13-40 H eGFR (test code = 68547-4) 55.1 mL/min/1.73m2 CKD-EPI eGFR (2020). Assuming creatinine has been stable day-to-day for at least three months, the eGFR indicates Category G3a (45 - 59 mL/min/1.73 m2) Lab Interpretation (test code = 97733-6) Abnormal [facility] hospital with [id number] 18:16:20* Test Item Value Reference Range Interpretation Comme nts WBC (test code = 6690-2) 8.02 4.30-11.10 RBC (test code = 789-8) 5.75 3.93-5.25 H HGB (test code = 718-7) 17.3 g/dL 11.6-15.0 H HCT (test code = 4544-3) 53.2 % 35.7-45.2 H MCV (test code = 787-2) 92.5 fL 80.6-95.5 MCH (test code = 785-6) 30.1 pg 25.9-32.8 MCHC (test code = 786-4) 32.5 g/dL 31.6-35.1 RDW-SD (test code = 90694-3) 48.5 fL 39.0-49.9 RDW-CV (test code = 788-0) 14.2 % 12.0-15.5 PLT (test code = 777-3) 228 166-358 MPV (test code = 74661-7) 9.0 fL 9.5-12.9 L NRBC/100 WBC (test code = 9394696011) 0.0 0.0-10.0 NRBC x10^3 (test code = 8394529927) See_Comment [Automated messa ge] The system which generated this result transmitted reference range: 10*3/?L. The reference range was not used to interpret this result as normal/abnormal. GRAN MAT (NEUT) % (test code = 770-8) 63.7 % IMM GRAN % (test code = 5225511440) 0.90 % LYMPH % (test code = 736-9) 26.4 % MONO % (test code = 5905-5) 7.2 % EOS % (test code = 713-8) 1.2 % BASO % (test code = 706-2) 0.6 % GRAN MAT x10^3(ANC) (test code = 8859086632) 5.10 10*3/uL 1.88-7.09 IMM GRAN x10^3 (test code = 5058534868) 0.07 10*3/uL 0.00-0.06 H LYMPH x10^3 (test code = 731-0) 2.12 10*3/uL 1.32-3.29 MONO x10^3 (test code = 742-7) 0.58 10*3/uL 0.33-0.92 EOS x10^3 (test code = 711-2) 0.10 10*3/uL 0.03-0.39 BASO x10^3 (test code = 704-7) 0.05 10*3/uL 0.01-0.07 Lab Interpretation (test code = 23052-2) Abnormal [facility] CenterThyroid Stimulating [id number] 22:32:02 * Test Item Value Reference Range Interpretation Comme nts TSH (test code = 0102347846) 0.35 0.45-4.70 L Lab Interpretation (test cod e = 80191-3) Abnormal [facility] CenterGlycosylated Hemoglobin (A1C)2023-10-15 22:24:52* Test Item Value Reference Range Interpretation Comme nts HGB A1C (test code = 4548-4) 7.1 % 4.0-5.7 H RUDOLPH (test code = RUDOLPH) Reference RangesNormal: <5.7%Prediabetes: 5.7 - 6.4%Diabetes: > 6.5% Lab Interpretation (test code = 36161-4) Abnormal [facility] [id number] 22:19:02* Test Item Value Reference Range Interpretation Comme nts FREE T4 (test code = 3270731259) 1.18 0.78-2.20 Lab Interpretation (test cod e = 45400-4) Normal [facility] [id number] 22:18:20* Test Item Value Reference Range Interpretation Comme nts FREE T3 (test code = 1595266921) 3.18 pg/mL 2.77-5.27 Lab Interpretation (test cod e = 33057-8) Normal [facility] CenterComp. Metabolic Panel ([id number])2023-10-15 22:02:17* Test Item Value Reference Range Interpretation Comme nts NA (test code = 8128921940) 136 mmol/L 135-145 K (test code = 0024286060) 4.7 mmol/L 3.5-5.0 CL (test code = 6380870515) 100 mmol/L 98-108 CO2 TOTAL (test code = 9753365386) 29 mmol/L 23-31 AGAP (test code = 8315690590) 7 2-16 BUN (test code = 3182349413) 9 mg/dL 7-23 GLUCOSE (test code = 8977720388) 179 mg/dL 70-110 H CREATININE (test code = 2160-0) 0.98 mg/dL 0.50-1.04 TOTAL BILI (test code = 7434844222) 1.0 mg/dL 0.1-1.1 CALCIUM (test code = 8836214500) 9.2 mg/dL 8.6-10.6 T PROTEIN (test code = 7731558740) 8.2 g/dL 6.3-8.2 ALBUMIN (test code = 1310274727) 4.2 g/dL 3.5-5.0 ALK PHOS (test code = 8721509672) 105 U/L 34-122 ALTv (test code = 1742-6) 52 U/L 5-35 H AST(SGOT) (test code = 0039135920) 72 U/L 13-40 H eGFR (test code = 92805-7) 67.5 mL/min/1.73m2 CKD-EPI eGFR (2020). Assuming creatinine has been stable day-to-day for at least three months, the eGFR indicates Category G2 (60 - 89 mL/min/1.73 m2) Lab Interpretation (test code = 02023-0) Abnormal [facility] RETROPERITONEAL [id number] 19:17:54 ULTRASOUND EXAMINATION OF THE KIDNEYS CLINICAL INDICATIONS: RCC follow up, solitary kidney , by history partialremoval of the left kidney COMPARISON: Abdomen CT 07/19/2022, previous left nephrectomy TECHNIQUE:An abdominal ultrasound was performed. Images were acquired for permanentstorage in the sukhdeep ent's medical record. As appropriate, high-resolutiongrayscale imaging, pulse Doppler measurement, and color Doppler imagingwere performed. AORTA: Within normal limits RIGHT KIDNEY: 11.6 x 4.0 x 5.1 cmFocal posterior parenchymal scar in the superior left kidney. The kidney isotherwise intact without evidence of cyst, mass or hydronephrosis. ColorDoppler demonstrates intact blood flow. LEFT KIDNEY: ?Previous nephrectomy. URINARY BLADDER:Small but otherwise unremarkable. [facility] YANNA GUIDED CORE BREAST BIOPSY RIGHT 2023-07-28 20:50:06Examination:BI YANNA GUIDED CORE BREAST BIOPSY RIGHT The procedure was explained to the patient including benefits and alternatives. ?The risks, including but not limited to infection and bleeding, were reviewed and the patient agreed to undergo the procedure, signing the consent form. ?Timeout was performed. History:Patient is a 57 year old year old female and is seen for: ? Mammogram 07/16/2023 subcentimeter focal asymmetry in the right breast at 1 o'clock, middle depth, 5 cm from the nipple; best seen on RSCC image 33 of 46 and R MLO image 39 of 55 (no sonographic correlate). BI-RADS 4A. Comparisons: 07/16/2023 BI DIAGNOSTIC TOMOSYNTHESIS BILATERAL The patient was upright position for the biopsy. ?The area of interest was localized and targeted via superior approach utilizing digital spot mammography with computer calculation. Tomosynthesis guided biopsy, right breast, 1:00 5 cm from the nipple, focal asymmetry: After antiseptic preparation the skin puncture site was infiltrated withlidocaine. ?Deep local anesthesia about the biopsy site was administered using lidocaine with epinephrine. ?A 9 gauge vacuum-assisted automated core biopsy needle was inserted to the computer determined depth, and stereotactic images showed satisfactory relationship of the needle position to the target. Tissue cores were obtained. A TOPHAT tissue marker clip was deployed through the needle, and the needle was withdrawn. Post biopsy mammogram confirmed the TOPHAT clip at the biopsy site. Recommendation:Pending pathology results - Right Josey Reddy MD, personally reviewed the study and agree with the resident's/fellow's report.Josey Reddy MD as teaching physician, was present during either the entire procedure and/or during the estes components. [facility] ULTRASOUND BREAST COMPLETE BILATERAL 2023-07-16 21:52:57Examination:BI DIAGNOSTIC TOMOSYNTHESIS BILATERALBI ULTRASOUND BREAST COMPLETE BILATERAL History:Patient is 57 year old and is seen for: ?Abnormal mamamogram. ? Comparisons: 06/27/2023 BI SCREENING TOMOSYNTHESIS BILATERAL Prior exam with following findings: LeftThere is an 11 mm asymmetry seen in the central region of the left breast in the anterior depth, 2 cm from the nipple on the CC (slice 41) view. RightThere is a 13 mm mass seen in the upper inner quadrant of the right breast in the middle depth. ?CC 35/58, MLO 45/73 CURRENT EXAM: Findings:The breasts have scattered areas of fibroglandular density. RightBI DIAGNOSTIC TOMOSYNTHESIS BILATERAL There is a subcentimeter focal asymmetry in the right breast at 1 o'clock, middle depth, 5 cm from the nipple. This is best seen on RSCC image 33 of 46 and R MLO image 39 of 55. Right breast ultrasound: Survey ultrasound of the right breast andaxilla was performed. No sonographic correlate is noted for the subcentimeter focal asymmetry in the right breast at 1:00, 5 cm from the nipple. LeftBI DIAGNOSTIC TOMOSYNTHESIS BILATERAL There is a focal asymmetry in the left breast at 12 o'clock, anterior depth. This is best seen on LSCC image 29 of 48 and LSML image 23 of 51. Left breast ultrasound: Survey ultrasound of the left breast and axill a was performed. A ridge of normal-appearing breast tissue is noted at 12:00, 2 cm from the nipple and this is favored to correlate with the mammographic focal asymmetry at 12:00, anterior depth. Theleft breast and left axillary ultrasound is unremarkable. Impression: Right: ?There is a subcentimeter focal asymmetry in the right breast at 1 o'clock, middle depth, 5 cm from the nipple; best seen on RSCC image 33 of 46 and R MLO image 39 of 55 (no sonographic correlate). ?3D guided biopsy is recommended; BI-RADS 4A. Left: There is a focal asymmetry in the left breast at 12 o'clock, anterior depth; best seen on LSCC image 29 of 48 and LSML image 23 of 51. ?This is favored to correlate with a ridge of normal- appearing breast tissue. ?Short interval follow-up 3 the mammogram and ultrasound isrecommended in 6 months to document stability and exclude an underlying abnormality. ?BI-RADS 3. Recommendation:Short interval follow-up 3D mammogram 6 months - LeftShort interval follow-up ultrasound 6 months - LeftTomosynthesis Biopsy - Right ? BI-RADS Category: Left 3 - Probably BenignRight 4A -Suspicious Abnormality - Biopsy Should Be Considered - Low Suspicion for MalignancyUnMethodist Dallas Medical CenterBI DIAGNOSTIC TOMOSYNTHESIS [id number] 21:52:57Examination:BI DIAGNOSTIC TOMOSYNTHESIS BILATERALBI ULTRASOUND BREAST COMPLETE BILATERAL History:Patient is 57 year old and is seen for: ?Abnormal mamamogram. ? Comparisons: 06/27/2023 BI SCREENING TOMOSYNTHESIS BILATERAL Prior exam with following findings: LeftThere is an 11 mm asymmetry seen in the central region of the left breast in the anterior depth, 2 cm from the nipple on the CC (slice 41) view. RightThere is a 13 mm mass seen in the upper inner quadrant of the right breast in the middle depth. ?CC 35/58, MLO 45/73 CURRENT EXAM: Findings:The breasts have scattered areas of fibroglandular density. RightBI DIAGNOSTIC TOMOSYNTHESIS BILATERAL There is a subcentimeter focal asymmetry in the right breast at 1 o'clock, middle depth, 5 cm from the nipple. This is best seen on RSCC image 33 of 46 and R MLO image 39 of 55. Right breast ultrasound: Survey ultrasound of the right breast andaxilla was performed. No sonographic correlate is noted for the subcentimeter focal asymmetry in the right breast at 1:00, 5 cm from the nipple. LeftBI DIAGNOSTIC TOMOSYNTHESIS BILATERAL There is a focal asymmetry in the left breast at 12 o'clock, anterior depth. This is best seen on LSCC image 29 of 48 and LSML image 23 of 51. Left breast ultrasound: Survey ultrasound of the left breast and axilla was performed. A ridge of normal-appearing breast tissue is noted at 12:00, 2 cm from the nipple and this is favored to correlate with the mammographic focal asymmetry at 12:00, anterior depth. Theleft breast and left axillary ultrasound is unremarkable. Impression: Right: ?There is a subcentimeter focal asymmetry in the right breast at 1 o'clock, middle depth, 5 cm from the nipple; best seen on RSCC image 33 of 46 and R MLO image 39 of 55 (no sonographic correlate). ?3D guided biopsy is recommended; BI-RADS 4A. Left: There is a focal asymmetry in the left breast at 12 o'clock, anterior depth; best seen on LSCC image 29 of 48 and LSML image 23 of 51. ?This is favored to correlate with a ridge of normal-appearing breast tissue. ?Short interval follow-up 3 the mammogram and ultrasound isrecommended in 6 months to document stability and exclude an underlying abnormality. ?BI-RADS 3. Rec ommendation:Short interval follow-up 3D mammogram 6 months - LeftShort interval follow-up ultrasound 6 months - LeftTomosynthesis Biopsy - Right ? BI-RADS Category: Left 3 - Probably BenignRight 4A -Suspicious Abnormality - Biopsy Should Be Considered - Low Suspicion for MalignancyMemorial [facility] CenterPhosphorus [id number] 11:56:27* Test Item Value Reference Range Interpretation Comme nts PHOSPHORUS (test code = 7287955082) 3.0 mg/dL 2.5-5.0 Lab Interpretation (test cod e = 55373-3) Normal [facility] METABOLIC PANEL (NA, K, CL, CO2, GLUCOSE, BUN, CREATININE, CA)2022-04-29 11:56:27* Test Item Value Reference Range Interpretation Comme nts NA (test code = 6546857461) 137 mmol/L 135-145 K (test code = 0282214431) 3.9 mmol/L 3.5-5.0 CL (test code = 0169458245) 105 mmol/L 98-108 CO2 TOTAL (test code = 1042625464) 29 mmol/L 23-31 AGAP (test code = 8819441025) 2-16 BUN (test code = 1454441412) 14 mg/dL 7-23 GLUCOSE (test code = 3195571217) 97 mg/dL 70-110 CREATININE (test code = 5689221516) 1.87 mg/dL 0.50-1.04 H CALCIUM (test code = 1863062569) 8.1 mg/dL 8.6-10.6 L eGFR (test code = 8558608393) mL/min/1.73m2 RUDOLPH (test code = RUDOLPH) Association of Glomerular Filtration Rate (GFR) and Staging of Kidney Disease* + --+ --+ ------+| GFR (mL/min/1.73 m2) ?| With Kidney Damage ?| ?Without Kidney Damage+ --------+ --------+ +| ?>90 ?| ?Stage one ?| ? Normal ?+ ---+ ---+ -------+| ?60-89 ?| ?Stage two ?| ? Decreased GFR ? + --+ --+ ------+| ?30-59 ?| ?Stage three ?| ? Stage three ? + --+ --+ ------+| ?15-29 ?| ?Stage four ? | ? Stage four ?+ ---+ ---+ -------+| ?<15 (or dialysis) ? ?| ?Stage five ? | ? Stage five ?+ ---+ ---+ -------+ *Each stage assumes the associated GFR level has been in effect for at least three months. ?Stages 1 to 5, with or without kidney disease, indicate chronic kidney disease. Notes: Determination of stages one and two (with eGFR >59mL/min/1.73 m2) requires estimation of kidney damage for at least three months as defined by structural or functional abnormalities of the kidney, manifested by either:Pathological abnormalities or Markers of kidney damage (including abnormalities in the composition of the blood or urine or abnormalities in imaging tests). Lab Interpretation (test code = 18681-7) Abnormal [facility] CenterMAGNESIUM2023-01-23 11:56:27* Test Item Value Reference Range Interpretation Comme nts MAGNESIUM (test code = 5383703700) 1.7 mg/dL 1.7-2.4 Lab Interpretation (test cod e = 87777-8) Normal [facility] CenterPhosphorus [id number] 11:56:27* Test Item Value Reference Range Interpretation Comme nts PHOSPHORUS (test code = 2035068256) 3.0 mg/dL 2.5-5.0 Lab Interpretation (test cod e = 89620-6) Normal [facility] CenterBASI METABOLIC PANEL (NA, K, CL, CO2, GLUCOSE, BUN, CREATININE, CA)2022-04-29 11:56:27* Test Item Value Reference Range Interpretation Comme nts NA (test code = 7961803766) 137 mmol/L 135-145 K (test code = 6031783642) 3.9 mmol/L 3.5-5.0 CL (test code = 7562380155) 105 mmol/L 98-108 CO2 TOTAL (test code = 8404145666) 29 mmol/L 23-31 AGAP (test code = 0735856073) 2-16 BUN (test code = 2989030690) 14 mg/dL 7-23 GLUCOSE (test code = 2051186992) 97 mg/dL 70-110 CREATININE (test code = 2487977236) 1.87 mg/dL 0.50-1.04 H CALCIUM (test code = 2040771942) 8.1 mg/dL 8.6-10.6 L eGFR (test code = 1257132248) mL/min/1.73m2 RUDOLPH (test code = RUDOLPH) Association of Glomerular Filtration Rate (GFR) and Staging of Kidney Disease* + --+ --+ ------+| GFR (mL/min/1.73 m2) ?| With Kidney Damage ?| ?Without Kidney Damage+ --------+ --------+ +| ?>90 ?| ?Stage one ?| ? Normal ?+ ---+ ---+ -------+| ?60-89 ?| ?Stage two ?| ? Decreased GFR ? + --+ --+ ------+| ?30-59 ?| ?Stage three ?| ? Stage three ? + --+ --+ ------+| ?15-29 ?| ?Stage four ? | ? Stage four ?+ ---+ ---+ -------+| ?<15 (or dialysis) ? ?| ?Stage five ? | ? Stage five ?+ ---+ ---+ -------+ *Each stage assumes the associated GFR level has been in effect for at least three months. ?Stages 1 to 5, with or without kidney disease, indicate chronic kidney disease. Notes: Determination of stages one and two (with eGFR >59mL/min/1.73 m2) requires estimation of kidney damage for at least three months as defined by structural or functional abnormalities of the kidney, manifested by either:Pathological abnormalities or Markers of kidney damage (including abnormalities in the composition of the blood or urine or abnormalities in imaging tests). Lab Interpretation (test code = 23593-3) Abnormal [facility] CenterMAGN[facility]IUM2023-01-23 11:56:27* Test Item Value Reference Range Interpretation Comme nts MAGNESIUM (test code = 1649018720) 1.7 mg/dL 1.7-2.4 Lab Interpretation (test cod e = 29296-0) Normal [facility] WITHOUT [id number] 11:39:27* Test Item Value Reference Range Interpretation Comme nts WBC (test code = 6690-2) See_Comment H [Automated message] The system which generated this result transmitted reference range: 4.30 - 11.10 10*3/?L. The reference range was not used to interpret this result as normal/abnormal. RBC (test code = 789-8) See_Comment L [Automated message] The system which generated this result transmitted reference range: 3.93 - 5.25 10*6/?L. The reference range was not used to interpret this result as normal/abnormal. HGB (test code = 718-7) 8.2 g/dL 11.6-15.0 L HCT (test code = 4544-3) 24.8 % 35.7-45.2 L MCH (test code = 785-6) 29.3 pg 25.9-32.8 MCV (test code = 787-2) 88.6 fL 80.6-95.5 MCHC (test code = 786-4) 33.1 g/dL 31.6-35.1 PLT (test code = 777-3) See_Comment L [Automated message] The system which generated this result transmitted reference range: 166 - 358 10*3/?L. The reference range was not used to interpret this result as normal/abnormal. MPV (test code = 18914-0) 10.9 fL 9.5-12.9 RDW-CV (test code = 788-0) 15.2 % 12.0-15.5 RDW-SD (test code = 54044-5) 49.0 fL 39.0-49.9 NRBC x10^3 (test code = 0250426888) See_Comment [Automated messa ge] The system which generated this result transmitted reference range: 10*3/?L. The reference range was not used to interpret this result as normal/abnormal. NRBC/100 WBC (test code = 1547267175) See_Comment [Automated messa ge] The system which generated this result transmitted reference range: 0.0 - 10.0 /100 WBCs. The reference range was not used to interpret this result as normal/abnormal. IPF % (test code = 0327023563) Lab Interpretation (test code = 62373-5) Abnormal [facility] WITHOUT [id number] 11:39:27* Test Item Value Reference Range Interpretation Comme nts WBC (test code = 6690-2) See_Comment H [Automated message] The system which generated this result transmitted reference range: 4.30 - 11.10 10*3/?L. The reference range was not used to interpret this result as normal/abnormal. RBC (test code = 789-8) See_Comment L [Automated message] The system which generated this result transmitted reference range: 3.93 - 5.25 10*6/?L. The reference range was not used to interpret this result as normal/abnormal. HGB (test code = 718-7) 8.2 g/dL 11.6-15.0 L HCT (test code = 4544-3) 24.8 % 35.7-45.2 L MCH (test code = 785-6) 29.3 pg 25.9-32.8 MCV (test code = 787-2) 88.6 fL 80.6-95.5 MCHC (test code = 786-4) 33.1 g/dL 31.6-35.1 PLT (test code = 777-3) See_Comment L [Automated message] The system which generated this result transmitted reference range: 166 - 358 10*3/?L. The reference range was not used to interpret this result as normal/abnormal. MPV (test code = 76359-9) 10.9 fL 9.5-12.9 RDW-CV (test code = 788-0) 15.2 % 12.0-15.5 RDW-SD (test code = 30494-8) 49.0 fL 39.0-49.9 NRBC x10^3 (test code = 4292795165) See_Comment [Automated messa ge] The system which generated this result transmitted reference range: 10*3/?L. The reference range was not used to interpret this result as normal/abnormal. NRBC/100 WBC (test code = 9257200130) See_Comment [Automated messa ge] The system which generated this result transmitted reference range: 0.0 - 10.0 /100 WBCs. The reference range was not used to interpret this result as normal/abnormal. IPF % (test code = 7723796867) Lab Interpretation (test code = 43859-4) Abnormal [facility] WITHOUT [id number] 06:04:50* Test Item Value Reference Range Interpretation Comme nts WBC (test code = 6690-2) See_Comment H [Automated messa ge] The system which generated this result transmitted reference range: 4.30 - 11.10 10*3/?L. The reference range was not used to interpret this result as normal/abnormal. RBC (test code = 789-8) See_Comment L [Automated message] The system which generated this result transmitted reference range: 3.93 - 5.25 10*6/?L. The reference range was not used to interpret this result as normal/abnormal. HGB (test code = 718-7) 8.6 g/dL 11.6-15.0 L HCT (test code = 4544-3) 26.2 % 35.7-45.2 L MCH (test code = 785-6) 28.8 pg 25.9-32.8 MCV (test code = 787-2) 87.6 fL 80.6-95.5 MCHC (test code = 786-4) 32.8 g/dL 31.6-35.1 PLT (test code = 777-3) See_Comment L [Automated message] The system which generated this result transmitted reference range: 166 - 358 10*3/?L. The reference range was not used to interpret this result as normal/abnormal. MPV (test code = 11942-9) 11.4 fL 9.5-12.9 RDW-CV (test code = 788-0) 15.2 % 12.0-15.5 RDW-SD (test code = 45068-6) 47.9 fL 39.0-49.9 NRBC x10^3 (test code = 3216659510) See_Comment [Automated [employer]] The system which generated this result transmitted reference range: 10*3/?L. The reference range was not used to interpret this result as normal/abnormal. NRBC/100 WBC (test code = 4456173258) See_Comment [Automated [employer]] The system which generated this result transmitted reference range: 0.0 - 10.0 /100 WBCs. The reference range was not used to interpret this result as normal/abnormal. IPF % (test code = 8783720691) 5.6 % 1.3-7.7 Platelet count measured by fluorescence method. Lab Interpretation (test code = 95689-1) Abnormal [facility] WITHOUT [id number] 06:04:50* Test Item Value Reference Range Interpretation Comme nts WBC (test code = 6690-2) See_Comment H [Automated messa ge] The system which generated this result transmitted reference range: 4.30 - 11.10 10*3/?L. The reference range was not used to interpret this result as normal/abnormal. RBC (test code = 789-8) See_Comment L [Automated message] The system which generated this result transmitted reference range: 3.93 - 5.25 10*6/?L. The reference range was not used to interpret this result as normal/abnormal. HGB (test code = 718-7) 8.6 g/dL 11.6-15.0 L HCT (test code = 4544-3) 26.2 % 35.7-45.2 L MCH (test code = 785-6) 28.8 pg 25.9-32.8 MCV (test code = 787-2) 87.6 fL 80.6-95.5 MCHC (test code = 786-4) 32.8 g/dL 31.6-35.1 PLT (test code = 777-3) See_Comment L [Automated message] The system which generated this result transmitted reference range: 166 - 358 10*3/?L. The reference range was not used to interpret this result as normal/abnormal. MPV (test code = 58091-1) 11.4 fL 9.5-12.9 RDW-CV (test code = 788-0) 15.2 % 12.0-15.5 RDW-SD (test code = 12280-0) 47.9 fL 39.0-49.9 NRBC x10^3 (test code = 2243947159) See_Comment [Automated messa ge] The system which generated this result transmitted reference range: 10*3/?L. The reference range was not used to interpret this result as normal/abnormal. NRBC/100 WBC (test code = 0905169426) See_Comment [Automated messa ge] The system which generated this result transmitted reference range: 0.0 - 10.0 /100 WBCs. The reference range was not used to interpret this result as normal/abnormal. IPF % (test code = 2969590004) 5.6 % 1.3-7.7 Platelet count measured by fluorescence method. Lab Interpretation (test code = 94761-0) [facility]normal [facility] Packed RBC (in units), 1 Units 2022-04-29 01:51:46* Test Item Value Reference Range Interpretation Comme nts Cross Match Result (test code = 4409) Compatible ISBT Blood Type Code (test code = 895300) Unit Blood Type (test code = 4410) O Pos Unit Number (test code = 4411) [id number] Blood Expiration Date & Time (test code = 421287) Status Information (test code = 4412) Issued Product Identification (test code = 4413) Red Blood Cells Product Code (test code = 4414) [id number] Performed at [facility] [address] Free: [phone] No. [id number] [facility] Packed RBC (in units), 1 Units 2022-04-29 01:51:46* Test Item Value Reference Range Interpretation Comme nts Cross Match Result (test code = 4409) Compatible ISBT Blood Type Code (test code = 277588) Unit Blood Type (test code = 4410) O Pos Unit Number (test code = 4411) [id number] Blood Expiration Date & Time (test code = 179396) Status Information (test code = 4412) Issued Product Identification (test code = 4413) Red Blood Cells Product Code (test code = 4414) [id number] Performed at [facility] Blood [address] Free: [phone] No. [id number] [facility] Packed RBC (in units), 1 Units 2022-04-28 18:19:32* Test Item Value Reference Range Interpretation Comme nts Cross Match Result (test code = 4409) Compatible ISBT Blood Type Code (test code = 689849) Unit Blood Type (test code = 4410) O Pos Unit Number (test code = 4411) [id number] Blood Expiration Date & Time (test code = 319910) Status Information (test code = 4412) Issued Product Identification (test code = 4413) Red Blood Cells Product Code (test code = 4414) [id number] Performed at [facility] Blood [place] [id number] Free: [phone] No. [id number] [facility] Packed RBC (in units), 1 Units 2022-04-28 18:19:32* Test Item Value Reference Range Interpretation Comme nts Cross Match Result (test code = 4409) Compatible ISBT Blood Type Code (test code = 166011) Unit Blood Type (test code = 4410) O Pos Unit Number (test code = 4411) [id number] Blood Expiration Date & Time (test code = 421311) Status Information (test code = 4412) Issued Product Identification (test code = 4413) Red Blood Cells Product Code (test code = 4414) [id number] Performed at [facility] Blood [place] [id number] Free: [phone] No. [id number] [facility] WITH [id number] 12:24:57* Test Item Value Reference Range Interpretation Comme nts WBC (test code = 6690-2) See_Comment H [Automated messa ge] The system which generated this result transmitted reference range: 4.30 - 11.10 10*3/?L. The reference range was not used to interpret this result as normal/abnormal. RBC (test code = 789-8) See_Comment L [Automated messa ge] The system which generated this result transmitted reference range: 3.93 - 5.25 10*6/?L. The reference range was not used to interpret this result as normal/abnormal. HGB (test code = 718-7) 6.2 g/dL 11.6-15.0 L HCT (test code = 4544-3) 19.2 % 35.7-45.2 L MCV (test code = 787-2) 88.9 fL 80.6-95.5 MCH (test code = 785-6) 28.7 pg 25.9-32.8 MCHC (test code = 786-4) 32.3 g/dL 31.6-35.1 RDW-SD (test code = 44067-1) 49.4 fL 39.0-49.9 RDW-CV (test code = 788-0) 15.5 % 12.0-15.5 PLT (test code = 777-3) See_Comment L [Automated messa ge] The system which generated this result transmitted reference range: 166 - 358 10*3/?L. The reference range was not used to interpret this result as normal/abnormal. MPV (test code = 10589-4) 12.4 fL 9.5-12.9 NRBC/100 WBC (test code = 6557061839) See_Comment [Automated me ssage] The system which generated this result transmitted reference range: 0.0 - 10.0 /100 WBCs. The reference range was not used to interpret this result as normal/abnormal. NRBC x10^3 (test code = 3656269711) See_Comment [Automated messa ge] The system which generated this result transmitted reference range: 10*3/?L. The reference range was not used to interpret this result as normal/abnormal. GRAN MAT (NEUT) % (test code = 770-8) 76.0 % IMM GRAN % (test code = 6216337382) 1.20 % LYMPH % (test code = 736-9) 14.3 % MONO % (test code = 5905-5) 6.0 % EOS % (test code = 713-8) 2.3 % BASO % (test code = 706-2) 0.2 % GRAN MAT x10^3(ANC) (test code = 0837951505) 8.80 10*3/uL 1.88-7.09 H IMM GRAN x10^3 (test code = 4518730961) 0.14 10*3/uL 0.00-0.06 H LYMPH x10^3 (test code = 731-0) 1.66 10*3/uL 1.32-3.29 MONO x10^3 (test code = 742-7) 0.69 10*3/uL 0.33-0.92 EOS x10^3 (test code = 711-2) 0.27 10*3/uL 0.03-0.39 BASO x10^3 (test code = 704-7) 0.01-0.07 Lab Interpretation (test code = 24651-6) Abnormal [facility] WITH [id number] 12:24:57* Test Item Value Reference Range Interpretation Comme nts WBC (test code = 6690-2) See_Comment H [Automated messa ge] The system which generated this result transmitted reference range: 4.30 - 11.10 10*3/?L. The reference range was not used to interpret this result as normal/abnormal. RBC (test code = 789-8) See_Comment L [Automated messa ge] The system which generated this result transmitted reference range: 3.93 - 5.25 10*6/?L. The reference range was not used to interpret this result as normal/abnormal. HGB (test code = 718-7) 6.2 g/dL 11.6-15.0 L HCT (test code = 4544-3) 19.2 % 35.7-45.2 L MCV (test code = 787-2) 88.9 fL 80.6-95.5 MCH (test code = 785-6) 28.7 pg 25.9-32.8 MCHC (test code = 786-4) 32.3 g/dL 31.6-35.1 RDW-SD (test code = 97019-8) 49.4 fL 39.0-49.9 RDW-CV (test code = 788-0) 15.5 % 12.0-15.5 PLT (test code = 777-3) See_Comment L [Automated messa ge] The system which generated this result transmitted reference range: 166 - 358 10*3/?L. The reference range was not used to interpret this result as normal/abnormal. MPV (test code = 12695-0) 12.4 fL 9.5-12.9 NRBC/100 WBC (test code = 9325454962) See_Comment [Automated me ssage] The system which generated this result transmitted reference range: 0.0 - 10.0 /100 WBCs. The reference range was not used to interpret this result as normal/abnormal. NRBC x10^3 (test code = 6445412251) See_Comment [Automated messa ge] The system which generated this result transmitted reference range: 10*3/?L. The reference range was not used to interpret this result as normal/abnormal. GRAN MAT (NEUT) % (test code = 770-8) 76.0 % IMM GRAN % (test code = 4147860462) 1.20 % LYMPH % (test code = 736-9) 14.3 % MONO % (test code = 5905-5) 6.0 % EOS % (test code = 713-8) 2.3 % BASO % (test code = 706-2) 0.2 % GRAN MAT x10^3(ANC) (test code = 4947258994) 8.80 10*3/uL 1.88-7.09 H IMM GRAN x10^3 (test code = 4096595512) 0.14 10*3/uL 0.00-0.06 H LYMPH x10^3 (test code = 731-0) 1.66 10*3/uL 1.32-3.29 MONO x10^3 (test code = 742-7) 0.69 10*3/uL 0.33-0.92 EOS x10^3 (test code = 711-2) 0.27 10*3/uL 0.03-0.39 BASO x10^3 (test code = 704-7) 0.01-0.07 Lab Interpretation (test code = 89262-1) Abnormal [facility] METABOLIC PANEL (NA, K, CL, CO2, GLUCOSE, BUN, CREATININE, CA)2022-04-28 12:16:13* Test Item Value Reference Range Interpretation Comme nts NA (test code = 3336051031) 138 mmol/L 135-145 K (test code = 8554677656) 4.0 mmol/L 3.5-5.0 CL (test code = 9970301601) 107 mmol/L 98-108 CO2 TOTAL (test code = 3039310727) 26 mmol/L 23-31 AGAP (test code = 4011869010) 2-16 BUN (test code = 0054343414) 18 mg/dL 7-23 GLUCOSE (test code = 2499216322) 112 mg/dL 70-110 H CREATININE (test code = 8909236372) 2.21 mg/dL 0.50-1.04 H CALCIUM (test code = 1314680074) 8.1 mg/dL 8.6-10.6 L eGFR (test code = 1487088845) mL/min/1.73m2 RUDOLPH (test code = RUDOLPH) Association of Glomerular Filtration Rate (GFR) and Staging of Kidney Disease* + --+ --+ ------+| GFR (mL/min/1.73 m2) ?| With Kidney Damage ?| ?Without Kidney Damage+ --------+ --------+ +| ?>90 ?| ?Stage one ?| ? Normal ?+ ---+ ---+ -------+| ?60-89 ?| ?Stage two ?| ? Decreased GFR ? + --+ --+ ------+| ?30-59 ?| ?Stage three ?| ? Stage three ? + --+ --+ ------+| ?15-29 ?| ?Stage four ? | ? Stage four ?+ ---+ ---+ -------+| ?<15 (or dialysis) ? ?| ?Stage five ? | ? Stage five ?+ ---+ ---+ -------+ *Each stage assumes the associated GFR level has been in effect for at least three months. ?Stages 1 to 5, with or without kidney disease, indicate chronic kidney disease. Notes: Determination of stages one and two (with eGFR >59mL/min/1.73 m2) requires estimation of kidney damage for at least three months as defined by structural or functional abnormalities of the kidney, manifested by either:Pathological abnormalities or Markers of kidney damage (including abnormalities in the composition of the blood or urine or abnormalities in imaging tests). Lab Interpretation (test code = 91475-4) Abnormal [facility] (NA, K, CL, CO2, GLUCOSE, BUN, CREATININE, CA)2022-04-28 12:16:13* Test Item Value Reference Range Interpretation Comme nts NA (test code = 6383794647) 138 mmol/L 135-145 K (test code = 4984799965) 4.0 mmol/L 3.5-5.0 CL (test code = 3436675078) 107 mmol/L 98-108 CO2 TOTAL (test code = 5515637339) 26 mmol/L 23-31 AGAP (test code = 3133991913) 2-16 BUN (test code = 1884118365) 18 mg/dL 7-23 GLUCOSE (test code = 6844665663) 112 mg/dL 70-110 H CREATININE (test code = 7303017917) 2.21 mg/dL 0.50-1.04 H CALCIUM (test code = 1632644363) 8.1 mg/dL 8.6-10.6 L eGFR (test code = 1260495405) mL/min/1.73m2 RUDOLPH (test code = RUDOLPH) Association of Glomerular Filtration Rate (GFR) and Staging of Kidney Disease* + --+ --+ ------+| GFR (mL/min/1.73 m2) ?| With Kidney Damage ?| ?Without Kidney Damage+ --------+ --------+ +| ?>90 ?| ?Stage one ?| ? Normal ?+ ---+ ---+ -------+| ?60-89 ?| ?Stage two ?| ? Decreased GFR ? + --+ --+ ------+| ?30-59 ?| ?Stage three ?| ? Stage three ? + --+ --+ ------+| ?15-29 ?| ?Stage four ? | ? Stage four ?+ ---+ ---+ -------+| ?<15 (or dialysis) ? ?| ?Stage five ? | ? Stage five ?+ ---+ ---+ -------+ *Each stage assumes the associated GFR level has been in effect for at least three months. ?Stages 1 to 5, with or without kidney disease, indicate chronic kidney disease. Notes: Determination of stages one and two (with eGFR >59mL/min/1.73 m2) requires estimation of kidney damage for at least three months as defined by structural or functional abnormalities of the kidney, manifested by either:Pathological abnormalities or Markers of kidney damage (including abnormalities in the composition of the blood or urine or abnormalities in imaging tests). Lab Interpretation (test code = 95477-8) Abnormal [facility] [id number] 10:59:50* Test Item Value Reference Range Interpretation Comme nts PHOSPHORUS (test code = 6769401874) 3.5 mg/dL 2.5-5.0 Lab Interpretation (test cod e = 04684-5) Normal [facility] [id number] 10:59:50* Test Item Value Reference Range Interpretation Comme nts PHOSPHORUS (test code = 8041999625) 3.5 mg/dL 2.5-5.0 Lab Interpretation (test cod e = 17953-8) Normal [facility] (NA, K, CL, CO2, GLUCOSE, BUN, CREATININE, CA)2022-04-28 00:16:03* Test Item Value Reference Range Interpretation Comme nts NA (test code = 5884133413) 138 mmol/L 135-145 K (test code = 6887799952) 4.0 mmol/L 3.5-5.0 CL (test code = 1101478365) 107 mmol/L 98-108 CO2 TOTAL (test code = 9824201976) 27 mmol/L 23-31 AGAP (test code = 9981120736) 2-16 BUN (test code = 7064640300) 19 mg/dL 7-23 GLUCOSE (test code = 7866936604) 106 mg/dL 70-110 CREATININE (test code = 3076479094) 2.35 mg/dL 0.50-1.04 H CALCIUM (test code = 4308906705) 8.5 mg/dL 8.6-10.6 L eGFR (test code = 0901671845) mL/min/1.73m2 RUDOLPH (test code = RUDOLPH) Association of Glomerular Filtration Rate (GFR) and Staging of Kidney Disease* + --+ --+ ------+| GFR (mL/min/1.73 m2) ?| With Kidney Damage ?| ?Without Kidney Damage+ --------+ --------+ +| ?>90 ?| ?Stage one ?| ? Normal ?+ ---+ ---+ -------+| ?60-89 ?| ?Stage two ?| ? Decreased GFR ? + --+ --+ ------+| ?30-59 ?| ?Stage three ?| ? Stage three ? + --+ --+ ------+| ?15-29 ?| ?Stage four ? | ? Stage four ?+ ---+ ---+ -------+| ?<15 (or dialysis) ? ?| ?Stage five ? | ? Stage five ?+ ---+ ---+ -------+ *Each stage assumes the associated GFR level has been in effect for at least three months. ?Stages 1 to 5, with or without kidney disease, indicate chronic kidney disease. Notes: Determination of stages one and two (with eGFR >59mL/min/1.73 m2) requires estimation of kidney damage for at least three months as defined by structural or functional abnormalities of the kidney, manifested by either:Pathological abnormalities or Markers of kidney damage (including abnormalities in the composition of the blood or urine or abnormalities in imaging tests). Lab Interpretation (test code = 46612-7) Abnormal [facility] METABOLIC PANEL (NA, K, CL, CO2, GLUCOSE, BUN, CREATININE, CA)2022-04-28 00:16:03* Test Item Value Reference Range Interpretation Comme nts NA (test code = 7626845427) 138 mmol/L 135-145 K (test code = 0556652196) 4.0 mmol/L 3.5-5.0 CL (test code = 1800420982) 107 mmol/L 98-108 CO2 TOTAL (test code = 4986381139) 27 mmol/L 23-31 AGAP (test code = 9392222485) 2-16 BUN (test code = 1710085014) 19 mg/dL 7-23 GLUCOSE (test code = 1231918696) 106 mg/dL 70-110 CREATININE (test code = 6179870519) 2.35 mg/dL 0.50-1.04 H CALCIUM (test code = 1899601483) 8.5 mg/dL 8.6-10.6 L eGFR (test code = 2977177779) mL/min/1.73m2 RUDOLPH (test code = RUDOLPH) Association of Glomerular Filtration Rate (GFR) and Staging of Kidney Disease* + --+ --+ ------+| GFR (mL/min/1.73 m2) ?| With Kidney Damage ?| ?Without Kidney Damage+ --------+ --------+ +| ?>90 ?| ?Stage one ?| ? Normal ?+ ---+ ---+ -------+| ?60-89 ?| ?Stage two ?| ? Decreased GFR ? + --+ --+ ------+| ?30-59 ?| ?Stage three ?| ? Stage three ? + --+ --+ ------+| ?15-29 ?| ?Stage four ? | ? Stage four ?+ ---+ ---+ -------+| ?<15 (or dialysis) ? ?| ?Stage five ? | ? Stage five ?+ ---+ ---+ -------+ *Each stage assumes the associated GFR level has been in effect for at least three months. ?Stages 1 to 5, with or without kidney disease, indicate chronic kidney disease. Notes: Determination of stages one and two (with eGFR >59mL/min/1.73 m2) requires estimation of kidney damage for at least three months as defined by structural or functional abnormalities of the kidney, manifested by either:Pathological abnormalities or Markers of kidney damage (including abnormalities in the composition of the blood or urine or abnormalities in imaging tests). Lab Interpretation (test code = 83543-6) Abnormal [facility] 20 + Lactic [id number] 18:09:38* Test Item Value Reference Range Interpretation Comme nts PH (test code = 2) 7.35-7.45 PCO2 (test code = 4268553298) See_Comment [Automated messa ge] The system which generated this result transmitted reference range: 35 - 45 mmHg. The reference range was not used to interpret this result as normal/abnormal. PO2 (test code = 5218971376) See_Comment H [Automated messa ge] The system which generated this result transmitted reference range: 80 - 100 mmHg. The reference range was not used to interpret this result as normal/abnormal. HCO3 (test code = 5204253044) See_Comment [Automated messa ge] The system which generated this result transmitted reference range: 22 - 26 mEq/L. The reference range was not used to interpret this result as normal/abnormal. BE (test code = 5170466831) See_Comment [Automated messa ge] The system which generated this result transmitted reference range: -3.0 - 3.0 mEq/L. The reference range was not used to interpret this result as normal/abnormal. THB (test code = 9608589603) 7.9 g/dL 12.0-16.0 LL %O2HB (test code = 6320674311) 96.4 % 94.0-99.0 %COHB ART (test code = 0043450729) 0.9 % 0.0-1.5 %METHB ART (test code = 3665252639) 0.2 % 0.4-1.5 L VOL%O2 ART (test code = 6478783969) 10.9 % 15.0-23.0 L NA (test code = 1843315206) 135 mmol/L 135-145 K+ (test code = 2033244422) 4.3 mmol/L 3.5-5.0 AC CA IONZ (test code = 8865944658) 4.50 mg/dL 4.50-5.30 GLUCOSE (test code = 5644476132) 110 mg/dL 70-110 LACTIC ACID (test code = 2805833667) 2.58 mmol/L 0.50-2.20 H Lab Interpretation (test code = 50854-6) Abnormal [facility] 20 + Lactic [id number] 18:09:38* Test Item Value Reference Range Interpretation Comme nts PH (test code = 2) 7.35-7.45 PCO2 (test code = 3969684052) See_Comment [Automated messa ge] The system which generated this result transmitted reference range: 35 - 45 mmHg. The reference range was not used to interpret this result as normal/abnormal. PO2 (test code = 5468564980) See_Comment H [Automated messa ge] The system which generated this result transmitted reference range: 80 - 100 mmHg. The reference range was not used to interpret this result as normal/abnormal. HCO3 (test code = 6327619622) See_Comment [Automated messa ge] The system which generated this result transmitted reference range: 22 - 26 mEq/L. The reference range was not used to interpret this result as normal/abnormal. BE (test code = 5834388185) See_Comment [Automated messa ge] The system which generated this result transmitted reference range: -3.0 - 3.0 mEq/L. The reference range was not used to interpret this result as normal/abnormal. THB (test code = 1732969861) 7.9 g/dL 12.0-16.0 LL %O2HB (test code = 2704797880) 96.4 % 94.0-99.0 %COHB ART (test code = 2968300039) 0.9 % 0.0-1.5 %METHB ART (test code = 8430834374) 0.2 % 0.4-1.5 L VOL%O2 ART (test code = 5872266133) 10.9 % 15.0-23.0 L NA (test code = 0057246963) 135 mmol/L 135-145 K+ (test code = 6841977138) 4.3 mmol/L 3.5-5.0 AC CA IONZ (test code = 5288667100) 4.50 mg/dL 4.50-5.30 GLUCOSE (test code = 4901613992) 110 mg/dL 70-110 LACTIC ACID (test code = 5670388543) 2.58 mmol/L 0.50-2.20 H Lab Interpretation (test code = 08939-4) Abnormal [facility] 10:56:39* Test Item Value Reference Range Interpretation Comme nts Fibrinogen (test code = 6161048321) 251 mg/dL 167-453 Lab Interpretation (test cod e = 49299-5) Normal [facility]2023-[facility]-21 10:56:39* Test Item Value Reference Range Interpretation Comme nts Fibrinogen (test code = 5124457485) 251 mg/dL 167-453 Lab Interpretation (test cod e = 80132-2) Normal [facility] CenterProthrombin Time / [id number] 10:35:16* Test Item Value Reference Range Interpretation Comme nts PROTIME PATIENT (test code = 5964-2) See_Comment [Glimpse] The system which generated this result transmitted reference range: 10.1 - 12.6 Seconds. The reference range was not used to interpret this result as normal/abnormal. INR (test code = 6301-6) Normal INR <1.1; Warfarin Therapeutic range 2.0 to 3.0 or 2.5 to 3.5, depending upon the indications. Lab Interpretation (test code = 22998-0) Normal [facility] CenteraPTT2023-[facility] 10:35:16* Test Item Value Reference Range Interpretation Comme nts APTT Patient (test code = 3173-2) See_Comment [[employer]] The system which generated this result transmitted reference range: 26 - 36 Seconds. The reference range was not used to interpret this result as normal/abnormal. Lab Interpretation (test code = 45696-7) Normal [facility] CenterProthrombin Time / [id number] 10:35:16* Test Item Value Reference Range Interpretation Comme [facility] PROTIME PATIENT (test code = 5964-2) See_Comment [Automated messa ge] The system which generated this result transmitted reference range: 10.1 - 12.6 Seconds. The reference range was not used to interpret this result as normal/abnormal. INR (test code = 6301-6) Normal INR <1.1; Warfarin Therapeutic range 2.0 to 3.0 or 2.5 to 3.5, depending upon the indications. Lab Interpretation (test code = 25568-1) Normal [facility]TT2023-[facility]-21 10:35:16* Test Item Value Reference Range Interpretation Comme [facility] APTT Patient (test code = 3173-2) See_Comment [Automated messa ge] The system which generated this result transmitted reference range: 26 - 36 Seconds. The reference range was not used to interpret this result as normal/abnormal. Lab Interpretation (test code = 60713-9) Normal [facility] 20 + Lactic [id number] 09:46:56* Test Item Value Reference Range Interpretation Comme [facility] PH (test code = 2) 7.35-7.45 PCO2 (test code = 7930684653) See_Comment [Automated messa ge] The system which generated this result transmitted reference range: 35 - 45 mmHg. The reference range was not used to interpret this result as normal/abnormal. PO2 (test code = 7705897286) See_Comment H [Automated messa ge] The system which generated this result transmitted reference range: 80 - 100 mmHg. The reference range was not used to interpret this result as normal/abnormal. HCO3 (test code = 5460580383) See_Comment [Automated messa ge] The system which generated this result transmitted reference range: 22 - 26 mEq/L. The reference range was not used to interpret this result as normal/abnormal. BE (test code = 8050390015) See_Comment [Automated messa ge] The system which generated this result transmitted reference range: -3.0 - 3.0 mEq/L. The reference range was not used to interpret this result as normal/abnormal. THB (test code = 8049299822) 9.7 g/dL 12.0-16.0 L %O2HB (test code = 5348789071) 98.8 % 94.0-99.0 %COHB ART (test code = 3576787635) 0.2 % 0.0-1.5 %METHB ART (test code = 2570656068) 0.3 % 0.4-1.5 L VOL%O2 ART (test code = 1650576293) 14.1 % 15.0-23.0 L NA (test code = 6549668179) 134 mmol/L 135-145 L K+ (test code = 0009375693) 4.6 mmol/L 3.5-5.0 AC CA IONZ (test code = 6954706710) 4.60 mg/dL 4.50-5.30 GLUCOSE (test code = 7571018843) 122 mg/dL 70-110 H LACTIC ACID (test code = 6886189591) 3.27 mmol/L 0.50-2.20 H Lab Interpretation (test code = 81778-2) Abnormal [facility] 20 + Lactic [id number] 09:46:56* Test Item Value Reference Range Interpretation Comme nts PH (test code = 2) 7.35-7.45 PCO2 (test code = 1925356397) See_Comment [Automated messa ge] The system which generated this result transmitted reference range: 35 - 45 mmHg. The reference range was not used to interpret this result as normal/abnormal. PO2 (test code = 7926503099) See_Comment H [Automated messa ge] The system which generated this result transmitted reference range: 80 - 100 mmHg. The reference range was not used to interpret this result as normal/abnormal. HCO3 (test code = 3695714412) See_Comment [Automated messa ge] The system which generated this result transmitted reference range: 22 - 26 mEq/L. The reference range was not used to interpret this result as normal/abnormal. BE (test code = 7328351781) See_Comment [Automated messa ge] The system which generated this result transmitted reference range: -3.0 - 3.0 mEq/L. The reference range was not used to interpret this result as normal/abnormal. THB (test code = 0973656371) 9.7 g/dL 12.0-16.0 L %O2HB (test code = 8618442555) 98.8 % 94.0-99.0 %COHB ART (test code = 3554261694) 0.2 % 0.0-1.5 %METHB ART (test code = 6897648224) 0.3 % 0.4-1.5 L VOL%O2 ART (test code = 3144004608) 14.1 % 15.0-23.0 L NA (test code = 6788260255) 134 mmol/L 135-145 L K+ (test code = 1736251695) 4.6 mmol/L 3.5-5.0 AC CA IONZ (test code = 0723393280) 4.60 mg/dL 4.50-5.30 GLUCOSE (test code = 2000614660) 122 mg/dL 70-110 H LACTIC ACID (test code = 1556738515) 3.27 mmol/L 0.50-2.20 H Lab Interpretation (test code = 22454-4) Abnormal [facility] with Gmcjkqjrvqtl0656-87-87 09:09:12* Test Item Value Reference Range Interpretation Comme nts WBC (test code = 6690-2) See_Comment H [Automated Liquidneta ge] The system which generated this result transmitted reference range: 4.30 - 11.10 10*3/?L. The reference range was not used to interpret this result as normal/abnormal. RBC (test code = 789-8) See_Comment L [Automated Liquidneta ge] The system which generated this result transmitted reference range: 3.93 - 5.25 10*6/?L. The reference range was not used to interpret this result as normal/abnormal. HGB (test code = 718-7) 8.0 g/dL 11.6-15.0 L HCT (test code = 4544-3) 24.3 % 35.7-45.2 L MCV (test code = 787-2) 86.8 fL 80.6-95.5 MCH (test code = 785-6) 28.6 pg 25.9-32.8 MCHC (test code = 786-4) 32.9 g/dL 31.6-35.1 RDW-SD (test code = 79450-6) 46.8 fL 39.0-49.9 RDW-CV (test code = 788-0) 14.8 % 12.0-15.5 PLT (test code = 777-3) See_Comment L [Automated Liquidneta ge] The system which generated this result transmitted reference range: 166 - 358 10*3/?L. The reference range was not used to interpret this result as normal/abnormal. MPV (test code = 87764-5) 11.7 fL 9.5-12.9 IPF % (test code = 1064472830) 8.4 % 1.3-7.7 H Platelet count measured by fluorescence method. NRBC/100 WBC (test code = 2254035122) See_Comment [Automated FIGS ssage] The system which generated this result transmitted reference range: 0.0 - 10.0 /100 WBCs. The reference range was not used to interpret this result as normal/abnormal. NRBC x10^3 (test code = 7929170092) See_Comment [Automated Liquidneta ge] The system which generated this result transmitted reference range: 10*3/?L. The reference range was not used to interpret this result as normal/abnormal. GRAN MAT (NEUT) % (test code = 770-8) 85.7 % IMM GRAN % (test code = 1613487923) 0.80 % LYMPH % (test code = 736-9) 7.5 % MONO % (test code = 5905-5) 5.9 % EOS % (test code = 713-8) 0.0 % BASO % (test code = 706-2) 0.1 % GRAN MAT x10^3(ANC) (test code = 5180239266) 13.75 10*3/uL 1.88-7.09 H IMM GRAN x10^3 (test code = 9442916702) 0.13 10*3/uL 0.00-0.06 H LYMPH x10^3 (test code = 731-0) 1.20 10*3/uL 1.32-3.29 L MONO x10^3 (test code = 742-7) 0.95 10*3/uL 0.33-0.92 H EOS x10^3 (test code = 711-2) 0.03-0.39 L BASO x10^3 (test code = 704-7) 0.01-0.07 BANDS (test code = 1499806366) Increased A Lab Interpretation (test code = 96489-7) Abnormal [facility] with Chawpivqthrb0599-16-96 09:09:12* Test Item Value Reference Range Interpretation Comme nts WBC (test code = 6690-2) See_Comment H [Automated messa ge] The system which generated this result transmitted reference range: 4.30 - 11.10 10*3/?L. The reference range was not used to interpret this result as normal/abnormal. RBC (test code = 789-8) See_Comment L [Automated messa ge] The system which generated this result transmitted reference range: 3.93 - 5.25 10*6/?L. The reference range was not used to interpret this result as normal/abnormal. HGB (test code = 718-7) 8.0 g/dL 11.6-15.0 L HCT (test code = 4544-3) 24.3 % 35.7-45.2 L MCV (test code = 787-2) 86.8 fL 80.6-95.5 MCH (test code = 785-6) 28.6 pg 25.9-32.8 MCHC (test code = 786-4) 32.9 g/dL 31.6-35.1 RDW-SD (test code = 46448-4) 46.8 fL 39.0-49.9 RDW-CV (test code = 788-0) 14.8 % 12.0-15.5 PLT (test code = 777-3) See_Comment L [Automated messa ge] The system which generated this result transmitted reference range: 166 - 358 10*3/?L. The reference range was not used to interpret this result as normal/abnormal. MPV (test code = 22303-3) 11.7 fL 9.5-12.9 IPF % (test code = 7734402909) 8.4 % 1.3-7.7 H Platelet count measured by fluorescence method. NRBC/100 WBC (test code = 7710970378) See_Comment [Automated me ssage] The system which generated this result transmitted reference range: 0.0 - 10.0 /100 WBCs. The reference range was not used to interpret this result as normal/abnormal. NRBC x10^3 (test code = 2272804333) See_Comment [Automated messa ge] The system which generated this result transmitted reference range: 10*3/?L. The reference range was not used to interpret this result as normal/abnormal. GRAN MAT (NEUT) % (test code = 770-8) 85.7 % IMM GRAN % (test code = 5527369557) 0.80 % LYMPH % (test code = 736-9) 7.5 % MONO % (test code = 5905-5) 5.9 % EOS % (test code = 713-8) 0.0 % BASO % (test code = 706-2) 0.1 % GRAN MAT x10^3(ANC) (test code = 1327765334) 13.75 10*3/uL 1.88-7.09 H IMM GRAN x10^3 (test code = 6208388645) 0.13 10*3/uL 0.00-0.06 H LYMPH x10^3 (test code = 731-0) 1.20 10*3/uL 1.32-3.29 L MONO x10^3 (test code = 742-7) 0.95 10*3/uL 0.33-0.92 H EOS x10^3 (test code = 711-2) 0.03-0.39 L BASO x10^3 (test code = 704-7) 0.01-0.07 BANDS (test code = 3606403623) Increased A Lab Interpretation (test code = 58021-0) [facility]normal [facility] Fcajj9956-89-08 08:49:07* Test Item Value Reference Range Interpretation Comme nts PHOSPHORUS (test code = 9568318838) 3.3 mg/dL 2.5-5.0 Lab Interpretation (test cod e = 27412-1) Normal [facility] Leguz3434-16-18 08:49:07* Test Item Value Reference Range Interpretation Comme nts PHOSPHORUS (test code = 2624219266) 3.3 mg/dL 2.5-5.0 Lab Interpretation (test cod e = 66681-8) Normal [facility] (NA, K, CL, CO2, GLUCOSE, BUN, CREATININE, CA)2022-04-27 08:49:06* Test Item Value Reference Range Interpretation Comme nts NA (test code = 9963177946) 139 mmol/L 135-145 K (test code = 3544972071) 5.3 mmol/L 3.5-5.0 H CL (test code = 0090210753) 107 mmol/L 98-108 CO2 TOTAL (test code = 5039251891) 21 mmol/L 23-31 L AGAP (test code = 8295941608) 2-16 BUN (test code = 8394989884) 16 mg/dL 7-23 GLUCOSE (test code = 6571591146) 123 mg/dL 70-110 H CREATININE (test code = 8631663413) 2.31 mg/dL 0.50-1.04 H CALCIUM (test code = 4374132608) 8.7 mg/dL 8.6-10.6 eGFR (test code = 0703291341) mL/min/1.73m2 RUDOLPH (test code = RUDOLPH) Association of Glomerular Filtration Rate (GFR) and Staging of Kidney Disease* + --+ --+ ------+| GFR (mL/min/1.73 m2) ?| With Kidney Damage ?| ?Without Kidney Damage+ --------+ --------+ +| ?>90 ?| ?Stage one ?| ? Normal ?+ ---+ ---+ -------+| ?60-89 ?| ?Stage two ?| ? Decreased GFR ? + --+ --+ ------+| ?30-59 ?| ?Stage three ?| ? Stage three ? + --+ --+ ------+| ?15-29 ?| ?Stage four ? | ? Stage four ?+ ---+ ---+ -------+| ?<15 (or dialysis) ? ?| ?Stage five ? | ? Stage five ?+ ---+ ---+ -------+ *Each stage assumes the associated GFR level has been in effect for at least three months. ?Stages 1 to 5, with or without kidney disease, indicate chronic kidney disease. Notes: Determination of stages one and two (with eGFR >59mL/min/1.73 m2) requires estimation of kidney damage for at least three months as defined by structural or functional abnormalities of the kidney, manifested by either:Pathological abnormalities or Markers of kidney damage (including abnormalities in the composition of the blood or urine or abnormalities in imaging tests). Lab Interpretation (test code = 91711-8) Abnormal [facility] Center[facility] [id number] 08:49:06* Test Item Value Reference Range Interpretation Comme nts MAGNESIUM (test code = 6021833884) 1.6 mg/dL 1.7-2.4 L Lab Interpretation (test cod e = 55597-0) Abnormal [facility] Met[facility] (NA, K, CL, CO2, GLUCOSE, BUN, CREATININE, CA)2022-04-27 08:49:06* Test Item Value Reference Range Interpretation Comme nts NA (test code = 7984930991) 139 mmol/L 135-145 K (test code = 6933606463) 5.3 mmol/L 3.5-5.0 H CL (test code = 6259469216) 107 mmol/L 98-108 CO2 TOTAL (test code = 9751405552) 21 mmol/L 23-31 L AGAP (test code = 6629393236) 2-16 BUN (test code = 0582720984) 16 mg/dL 7-23 GLUCOSE (test code = 5483855314) 123 mg/dL 70-110 H CREATININE (test code = 6125384043) 2.31 mg/dL 0.50-1.04 H CALCIUM (test code = 9286131324) 8.7 mg/dL 8.6-10.6 eGFR (test code = 2146066797) mL/min/1.73m2 RUDOLPH (test code = RUDOLPH) Association of Glomerular Filtration Rate (GFR) and Staging of Kidney Disease* + --+ --+ ------+| GFR (mL/min/1.73 m2) ?| With Kidney Damage ?| ?Without Kidney Damage+ --------+ --------+ +| ?>90 ?| ?Stage one ?| ? Normal ?+ ---+ ---+ -------+| ?60-89 ?| ?Stage two ?| ? Decreased GFR ? + --+ --+ ------+| ?30-59 ?| ?Stage three ?| ? Stage three ? + --+ --+ ------+| ?15-29 ?| ?Stage four ? | ? Stage four ?+ ---+ ---+ -------+| ?<15 (or dialysis) ? ?| ?Stage five ? | ? Stage five ?+ ---+ ---+ -------+ *Each stage assumes the associated GFR level has been in effect for at least three months. ?Stages 1 to 5, with or without kidney disease, indicate chronic kidney disease. Notes: Determination of stages one and two (with eGFR >59mL/min/1.73 m2) requires estimation of kidney damage for at least three months as defined by structural or functional abnormalities of the kidney, manifested by either:Pathological abnormalities or Markers of kidney damage (including abnormalities in the composition of the blood or urine or abnormalities in imaging tests). Lab Interpretation (test code = 95846-4) Abnormal [facility] Center[facility] Wxbcd7409-89-63 08:49:06* Test Item Value Reference Range Interpretation Comme [facility] MAGNESIUM (test code = 3702820762) 1.6 mg/dL 1.7-2.4 L Lab Interpretation (test cod e = 58051-6) Abnormal [facility] Center[facility] Platelets (in units): 1 Units~Indication: 4) Evidence of platelet dysfunction and no response to DDAVP or cryoprecipitate with active hemorrhage or at risk for bleeding (post surgical patientwith continued bleeding. quantra showing low pl...2022-04-27 02:39:32* Test Item Value Reference Range Interpretation Comme nts Unit Blood Type (test code = 4410) O Pos ISBT Blood Type Code (test code = 659900) Unit Number (test code = 4411) [id number] Blood Expiration Date & Time (test code = 314157) Status Information (test code = 4412) Issued Product Identification (test code = 4413) Platelets Product Code (test code = 4414) [id number] Performed at [facility] Laboratory Services - [facility] Blood [address] [place] [address]Ohha Free: [phone] No. [id number] [facility] CenterPrepar Platelets (in units): 1 Units~Indication: 4) Evidence of platelet dysfunction and no response to DDAVP or cryoprecipitate with active hemorrhage or at risk for bleeding (post surgical patientwith continued bleeding. quantra showing low pl...2022-04-27 02:39:32* Test Item Value Reference Range Interpretation Comme nts Unit Blood Type (test code = 4410) O Pos ISBT Blood Type Code (test code = 217591) Unit Number (test code = 4411) [id number] Blood Expiration Date & Time (test code = 249803) Status Information (test code = 4412) Issued Product Identification (test code = 4413) Platelets Product Code (test code = 4414) [id number] Performed at [facility] Laboratory Services [facility] Blood [address] [address]Cr[address] Free: [phone] No. [id number] [facility] WITH RQTK2907-74-66 01:16:11* Test Item Value Reference Range Interpretation Comme nts WBC (test code = 6690-2) See_Comment H [Automated messa ge] The system which generated this result transmitted reference range: 4.30 - 11.10 10*3/?L. The reference range was not used to interpret this result as normal/abnormal. RBC (test code = 789-8) See_Comment L [Automated messa ge] The system which generated this result transmitted reference range: 3.93 - 5.25 10*6/?L. The reference range was not used to interpret this result as normal/abnormal. HGB (test code = 718-7) 8.7 g/dL 11.6-15.0 L HCT (test code = 4544-3) 27.0 % 35.7-45.2 L MCV (test code = 787-2) 87.4 fL 80.6-95.5 MCH (test code = 785-6) 28.2 pg 25.9-32.8 MCHC (test code = 786-4) 32.2 g/dL 31.6-35.1 RDW-SD (test code = 88322-3) 46.7 fL 39.0-49.9 RDW-CV (test code = 788-0) 14.8 % 12.0-15.5 PLT (test code = 777-3) See_Comment L [Automated Liquidneta ge] The system which generated this result transmitted reference range: 166 - 358 10*3/?L. The reference range was not used to interpret this result as normal/abnormal. MPV (test code = 07801-0) 12.8 fL 9.5-12.9 IPF % (test code = 6854023350) 10.8 % 1.3-7.7 H Platelet count measured by fluorescence method. NRBC/100 WBC (test code = 0086165487) See_Comment [Automated FIGS ssage] The system which generated this result transmitted reference range: 0.0 - 10.0 /100 WBCs. The reference range was not used to interpret this result as normal/abnormal. NRBC x10^3 (test code = 7926608220) See_Comment [Automated Liquidneta ge] The system which generated this result transmitted reference range: 10*3/?L. The reference range was not used to interpret this result as normal/abnormal. GRAN MAT (NEUT) % (test code = 770-8) 90.9 % IMM GRAN % (test code = 0076090425) 0.90 % LYMPH % (test code = 736-9) 5.2 % MONO % (test code = 5905-5) 2.8 % EOS % (test code = 713-8) 0.0 % BASO % (test code = 706-2) 0.2 % GRAN MAT x10^3(ANC) (test code = 5105989740) 11.78 10*3/uL 1.88-7.09 H IMM GRAN x10^3 (test code = 0760430064) 0.12 10*3/uL 0.00-0.06 H LYMPH x10^3 (test code = 731-0) 0.67 10*3/uL 1.32-3.29 L MONO x10^3 (test code = 742-7) 0.36 10*3/uL 0.33-0.92 EOS x10^3 (test code = 711-2) 0.03-0.39 L BASO x10^3 (test code = 704-7) 0.01-0.07 Lab Interpretation (test code = 20198-7) Abnormal [facility] WITH [id number] 01:16:11* Test Item Value Reference Range Interpretation Comme nts WBC (test code = 6690-2) See_Comment H [Automated messa ge] The system which generated this result transmitted reference range: 4.30 - 11.10 10*3/?L. The reference range was not used to interpret this result as normal/abnormal. RBC (test code = 789-8) See_Comment L [Automated messa ge] The system which generated this result transmitted reference range: 3.93 - 5.25 10*6/?L. The reference range was not used to interpret this result as normal/abnormal. HGB (test code = 718-7) 8.7 g/dL 11.6-15.0 L HCT (test code = 4544-3) 27.0 % 35.7-45.2 L MCV (test code = 787-2) 87.4 fL 80.6-95.5 MCH (test code = 785-6) 28.2 pg 25.9-32.8 MCHC (test code = 786-4) 32.2 g/dL 31.6-35.1 RDW-SD (test code = 52241-0) 46.7 fL 39.0-49.9 RDW-CV (test code = 788-0) 14.8 % 12.0-15.5 PLT (test code = 777-3) See_Comment L [Automated messa ge] The system which generated this result transmitted reference range: 166 - 358 10*3/?L. The reference range was not used to interpret this result as normal/abnormal. MPV (test code = 48186-5) 12.8 fL 9.5-12.9 IPF % (test code = 1786123294) 10.8 % 1.3-7.7 H Platelet count measured by fluorescence method. NRBC/100 WBC (test code = 5359078700) See_Comment [Automated FIGS ssage] The system which generated this result transmitted reference range: 0.0 - 10.0 /100 WBCs. The reference range was not used to interpret this result as normal/abnormal. NRBC x10^3 (test code = 5429821061) See_Comment [Automated messa ge] The system which generated this result transmitted reference range: 10*3/?L. The reference range was not used to interpret this result as normal/abnormal. GRAN MAT (NEUT) % (test code = 770-8) 90.9 % IMM GRAN % (test code = 1677891449) 0.90 % LYMPH % (test code = 736-9) 5.2 % MONO % (test code = 5905-5) 2.8 % EOS % (test code = 713-8) 0.0 % BASO % (test code = 706-2) 0.2 % GRAN MAT x10^3(ANC) (test code = 8870847748) 11.78 10*3/uL 1.88-7.09 H IMM GRAN x10^3 (test code = 0864223572) 0.12 10*3/uL 0.00-0.06 H LYMPH x10^3 (test code = 731-0) 0.67 10*3/uL 1.32-3.29 L MONO x10^3 (test code = 742-7) 0.36 10*3/uL 0.33-0.92 EOS x10^3 (test code = 711-2) 0.03-0.39 L BASO x10^3 (test code = 704-7) 0.01-0.07 Lab Interpretation (test code = 55864-3) Abnormal [facility] Center[facility]2023-[facility]-21 00:50:05* Test Item Value Reference Range Interpretation Comme [facility] Fibrinogen (test code = 8321565606) 164 mg/dL 167-453 L Lab Interpretation (test cod e = 17912-7) Abnormal [facility] CenterProthrombin Time / [id number] 00:50:05* Test Item Value Reference Range Interpretation Comme nts PROTIME PATIENT (test code = 5964-2) See_Comment H [Automated messa ge] The system which generated this result transmitted reference range: 10.1 - 12.6 Seconds. The reference range was not used to interpret this result as normal/abnormal. INR (test code = 6301-6) Normal INR <1.1; Warfarin Therapeutic range 2.0 to 3.0 or 2.5 to 3.5, depending upon the indications. Lab Interpretation (test code = 16075-0) Abnormal [facility] CenteraPTT2023-01-21 00:50:05* Test Item Value Reference Range Interpretation Comme [facility] APTT Patient (test code = 3173-2) See_Comment L [Automated messa ge] The system which generated this result transmitted reference range: 26 - 36 Seconds. The reference range was not used to interpret this result as normal/abnormal. Lab Interpretation (test code = 46032-6) Abnormal [facility] Center[facility]IB[facility]EN2023-01-21 00:50:05* Test Item Value Reference Range Interpretation Comme [facility] Fibrinogen (test code = 1636977324) 164 mg/dL 167-453 L Lab Interpretation (test cod e = 56974-7) Abnormal [facility] CenterProthrombin Time / [id number] 00:50:05* Test Item Value Reference Range Interpretation Comme [facility] PROTIME PATIENT (test code = 5964-2) See_Comment H [Automated messa ge] The system which generated this result transmitted reference range: 10.1 - 12.6 Seconds. The reference range was not used to interpret this result as normal/abnormal. INR (test code = 6301-6) Normal INR <1.1; Warfarin Therapeutic range 2.0 to 3.0 or 2.5 to 3.5, depending upon the indications. Lab Interpretation (test code = 39558-5) Abnormal [facility]PTT2023-[facility]-21 00:50:05* Test Item Value Reference Range Interpretation Comme [facility] APTT Patient (test code = 3173-2) See_Comment L [Automated messa ge] The system which generated this result transmitted reference range: 26 - 36 Seconds. The reference range was not used to interpret this result as normal/abnormal. Lab Interpretation (test code = 40086-2) Abnormal [facility] CenterBASI METABOLIC PANEL (NA, K, CL, CO2, GLUCOSE, BUN, CREATININE, CA)2022-04-27 00:46:25* Test Item Value Reference Range Interpretation Comme [facility] NA (test code = 2648426597) 138 mmol/L 135-145 K (test code = 4541153649) 4.6 mmol/L 3.5-5.0 CL (test code = 8632718604) 105 mmol/L 98-108 CO2 TOTAL (test code = 6974587364) 19 mmol/L 23-31 L AGAP (test code = 2874635648) 2-16 BUN (test code = 4394808021) 13 mg/dL 7-23 GLUCOSE (test code = 3231918457) 183 mg/dL 70-110 H CREATININE (test code = 2607367396) 1.64 mg/dL 0.50-1.04 H CALCIUM (test code = 4470606518) 9.2 mg/dL 8.6-10.6 eGFR (test code = 6045635950) mL/min/1.73m2 RUDOLPH (test code = RUDOLPH) Association of Glomerular Filtration Rate (GFR) and Staging of Kidney Disease* + --+ --+ ------+| GFR (mL/min/1.73 m2) ?| With Kidney Damage ?| ?Without Kidney Damage+ --------+ --------+ +| ?>90 ?| ?Stage one ?| ? Normal ?+ ---+ ---+ -------+| ?60-89 ?| ?Stage two ?| ? Decreased GFR ? + --+ --+ ------+| ?30-59 ?| ?Stage three ?| ? Stage three ? + --+ --+ ------+| ?15-29 ?| ?Stage four ? | ? Stage four ?+ ---+ ---+ -------+| ?<15 (or dialysis) ? ?| ?Stage five ? | ? Stage five ?+ ---+ ---+ -------+ *Each stage assumes the associated GFR level has been in effect for at least three months. ?Stages 1 to 5, with or without kidney disease, indicate chronic kidney disease. Notes: Determination of stages one and two (with eGFR >59mL/min/1.73 m2) requires estimation of kidney damage for at least three months as defined by structural or functional abnormalities of the kidney, manifested by either:Pathological abnormalities or Markers of kidney damage (including abnormalities in the composition of the blood or urine or abnormalities in imaging tests). Lab Interpretation (test code = 41268-8) Abnormal [facility] METABOLIC PANEL (NA, K, CL, CO2, GLUCOSE, BUN, CREATININE, CA)2022-04-27 00:46:25* Test Item Value Reference Range Interpretation Comme nts NA (test code = 6039282492) 138 mmol/L 135-145 K (test code = 0820089115) 4.6 mmol/L 3.5-5.0 CL (test code = 1707434165) 105 mmol/L 98-108 CO2 TOTAL (test code = 2464122133) 19 mmol/L 23-31 L AGAP (test code = 7193627971) 2-16 BUN (test code = 8982094141) 13 mg/dL 7-23 GLUCOSE (test code = 7142578844) 183 mg/dL 70-110 H CREATININE (test code = 1903274362) 1.64 mg/dL 0.50-1.04 H CALCIUM (test code = 4789629976) 9.2 mg/dL 8.6-10.6 eGFR (test code = 2023364697) mL/min/1.73m2 RUDOLPH (test code = RUDOLPH) Association of Glomerular Filtration Rate (GFR) and Staging of Kidney Disease* + --+ --+ ------+| GFR (mL/min/1.73 m2) ?| With Kidney Damage ?| ?Without Kidney Damage+ --------+ --------+ +| ?>90 ?| ?Stage one ?| ? Normal ?+ ---+ ---+ -------+| ?60-89 ?| ?Stage two ?| ? Decreased GFR ? + --+ --+ ------+| ?30-59 ?| ?Stage three ?| ? Stage three ? + --+ --+ ------+| ?15-29 ?| ?Stage four ? | ? Stage four ?+ ---+ ---+ -------+| ?<15 (or dialysis) ? ?| ?Stage five ? | ? Stage five ?+ ---+ ---+ -------+ *Each stage assumes the associated GFR level has been in effect for at least three months. ?Stages 1 to 5, with or without kidney disease, indicate chronic kidney disease. Notes: Determination of stages one and two (with eGFR >59mL/min/1.73 m2) requires estimation of kidney damage for at least three months as defined by structural or functional abnormalities of the kidney, manifested by either:Pathological abnormalities or Markers of kidney damage (including abnormalities in the composition of the blood or urine or abnormalities in imaging tests). Lab Interpretation (test code = 89699-5) Abnormal [facility] CenterAC PANEL 21 + LACTIC [id number] 00:37:45* Test Item Value Reference Range Interpretation Comme nts PH (test code = 7255339661) 7.32-7.42 PCO2 RYDER (test code = 7470039266) See_Comment L [Automated messa ge] The system which generated this result transmitted reference range: 41 - 51 mmHg. The reference range was not used to interpret this result as normal/abnormal. PO2 RYDER (test code = 7332719897) See_Comment HH [Automated messa ge] The system which generated this result transmitted reference range: 25 - 40 mmHg. The reference range was not used to interpret this result as normal/abnormal. HCO3 RYDER (test code = 8725120363) See_Comment L [Automated messa ge] The system which generated this result transmitted reference range: 24 - 28 mEq/L. The reference range was not used to interpret this result as normal/abnormal. AC VBE(BEAKER) (test code = 1849889899) mEq/L THB RYDER (test code = 6026324869) 9.8 g/dL 12.0-16.0 L %O2HB RYDER (test code = 5880702532) 98.8 % 52.0-63.0 H %COHB RYDER (test code = 8559812553) 0.1 % 0.0-1.5 %METHB RYDER (test code = 6666779669) 0.3 % 0.4-1.5 L VOL%O2 RYDER (test code = 6972861433) 14.1 % 6.0-12.0 H NA (test code = 5302072447) 137 mmol/L 135-145 K+ (test code = 1263343127) 4.6 mmol/L 3.5-5.0 AC CA IONZ (test code = 8969579280) 4.80 mg/dL 4.50-5.30 GLUCOSE (test code = 8699346468) 175 mg/dL 70-110 H LACTIC ACID (test code = 4565171427) 5.58 mmol/L 0.50-2.20 H Lab Interpretation (test code = 57680-2) [facility] [id number] 00:37:45* Test Item Value Reference Range Interpretation Comme nts PH (test code = 9692221943) 7.32-7.42 PCO2 RYDER (test code = 4460601050) See_Comment L [Automated messa ge] The system which generated this result transmitted reference range: 41 - 51 mmHg. The reference range was not used to interpret this result as normal/abnormal. PO2 RYDER (test code = 3534174217) See_Comment HH [Automated messa ge] The system which generated this result transmitted reference range: 25 - 40 mmHg. The reference range was not used to interpret this result as normal/abnormal. HCO3 RYDER (test code = 9864525993) See_Comment L [Automated messa ge] The system which generated this result transmitted reference range: 24 - 28 mEq/L. The reference range was not used to interpret this result as normal/abnormal. AC VBE(BEAKER) (test code = 8793517031) mEq/L THB RYDER (test code = 1337855249) 9.8 g/dL 12.0-16.0 L %O2HB RYDER (test code = 4611383897) 98.8 % 52.0-63.0 H %COHB RYDER (test code = 3696922168) 0.1 % 0.0-1.5 %METHB RYDER (test code = 8228163764) 0.3 % 0.4-1.5 L VOL%O2 RYDER (test code = 7464387845) 14.1 % 6.0-12.0 H NA (test code = 5622959745) 137 mmol/L 135-145 K+ (test code = 3828510612) 4.6 mmol/L 3.5-5.0 AC CA IONZ (test code = 3156743748) 4.80 mg/dL 4.50-5.30 GLUCOSE (test code = 8402923745) 175 mg/dL 70-110 H LACTIC ACID (test code = 2357201933) 5.58 mmol/L 0.50-2.20 H Lab Interpretation (test code = 73608-3) [facility] ([facility] 2 Units 2022-04-26 23:47:04* Test Item Value Reference Range Interpretation Comme nts Cross Match Result (test code = 4409) Compatible ISBT Blood Type Code (test code = 648910) Unit Blood Type (test code = 4410) O Pos Unit Number (test code = 4411) [id number] Blood Expiration Date & Time (test code = 582151) Status Information (test code = 4412) Issued Product Identification (test code = 4413) Red Blood Cells Product Code (test code = 4414) [id number] Performed at [facility] Blood [place] [id number] Free: [phone] No. [id number] [facility] RBC (in units), 2 Units 2022-04-26 23:47:04* Test Item Value Reference Range Interpretation Comme nts Cross Match Result (test code = 4409) Compatible ISBT Blood Type Code (test code = 062291) Unit Blood Type (test code = 4410) O Pos Unit Number (test code = 4411) [id number] Blood Expiration Date & Time (test code = 628676) Status Information (test code = 4412) Issued Product Identification (test code = 4413) Red Blood Cells Product Code (test code = 4414) [id number] Performed at [place] [id number] Free: [phone] No. [id number] [facility]COOX+NA+K+GLU+CA2+2022-04-26 23:17:54* Test Item Value Reference Range Interpretation Comme nts PH (test code = 2) 7.35-7.45 L PCO2 (test code = 8168514407) See_Comment [Automated messa ge] The system which generated this result transmitted reference range: 35 - 45 mmHg. The reference range was not used to interpret this result as normal/abnormal. PO2 (test code = 4889194731) See_Comment H [Automated messa ge] The system which generated this result transmitted reference range: 80 - 100 mmHg. The reference range was not used to interpret this result as normal/abnormal. HCO3 (test code = 7503955666) See_Comment L [Automated messa ge] The system which generated this result transmitted reference range: 22 - 26 mEq/L. The reference range was not used to interpret this result as normal/abnormal. BE (test code = 5219202036) See_Comment L [Automated messa ge] The system which generated this result transmitted reference range: -3.0 - 3.0 mEq/L. The reference range was not used to interpret this result as normal/abnormal. THB (test code = 3864991139) 11.1 g/dL 12.0-16.0 L %O2HB (test code = 9326177165) 98.9 % 94.0-99.0 %COHB ART (test code = 5764302140) 0.4 % 0.0-1.5 %METHB ART (test code = 6457698595) 0.2 % 0.4-1.5 L VOL%O2 ART (test code = 1653386428) 16.6 % 15.0-23.0 QUES NA (test code = 1121732548) 138 mmol/L 135-145 K+ (test code = 9984448485) 4.2 mmol/L 3.5-5.0 AC CA IONZ (test code = 1737364621) 4.40 mg/dL 4.50-5.30 L GLUCOSE (test code = 4537068161) 200 mg/dL 70-110 H Lab Interpretation (test code = 69372-8) [facility]normal [facility]+NA+K+GLU+CA2+2022-04-26 23:17:54* Test Item Value Reference Range Interpretation Comme nts PH (test code = 2) 7.35-7.45 L PCO2 (test code = 4896333879) See_Comment [Automated messa ge] The system which generated this result transmitted reference range: 35 - 45 mmHg. The reference range was not used to interpret this result as normal/abnormal. PO2 (test code = 6158291655) See_Comment H [Automated messa ge] The system which generated this result transmitted reference range: 80 - 100 mmHg. The reference range was not used to interpret this result as normal/abnormal. HCO3 (test code = 0206921106) See_Comment L [Automated messa ge] The system which generated this result transmitted reference range: 22 - 26 mEq/L. The reference range was not used to interpret this result as normal/abnormal. BE (test code = 6727482297) See_Comment L [Automated messa ge] The system which generated this result transmitted reference range: -3.0 - 3.0 mEq/L. The reference range was not used to interpret this result as normal/abnormal. THB (test code = 9370817786) 11.1 g/dL 12.0-16.0 L %O2HB (test code = 3482533450) 98.9 % 94.0-99.0 %COHB ART (test code = 8862484461) 0.4 % 0.0-1.5 %METHB ART (test code = 2683768672) 0.2 % 0.4-1.5 L VOL%O2 ART (test code = 2365751024) 16.6 % 15.0-23.0 QUES NA (test code = 1010886548) 138 mmol/L 135-145 K+ (test code = 5375862639) 4.2 mmol/L 3.5-5.0 AC CA IONZ (test code = 5651696817) 4.40 mg/dL 4.50-5.30 L GLUCOSE (test code = 3982162285) 200 mg/dL 70-110 H Lab Interpretation (test code = 76505-4) [facility]normal [facility]+NA+K+GLU+CA2+2022-04-26 23:17:17* Test Item Value Reference Range Interpretation Comme nts PH (test code = 2) 7.35-7.45 L PCO2 (test code = 2483381506) See_Comment [Automated messa ge] The system which generated this result transmitted reference range: 35 - 45 mmHg. The reference range was not used to interpret this result as normal/abnormal. PO2 (test code = 6668283470) See_Comment H [Automated messa ge] The system which generated this result transmitted reference range: 80 - 100 mmHg. The reference range was not used to interpret this result as normal/abnormal. HCO3 (test code = 2403149809) See_Comment L [Automated messa ge] The system which generated this result transmitted reference range: 22 - 26 mEq/L. The reference range was not used to interpret this result as normal/abnormal. BE (test code = 6130628959) See_Comment L [Automated messa ge] The system which generated this result transmitted reference range: -3.0 - 3.0 mEq/L. The reference range was not used to interpret this result as normal/abnormal. THB (test code = 0101535597) 10.8 g/dL 12.0-16.0 L %O2HB (test code = 4496362375) 98.6 % 94.0-99.0 %COHB ART (test code = 5389722652) 0.4 % 0.0-1.5 %METHB ART (test code = 0228024538) 0.2 % 0.4-1.5 L VOL%O2 ART (test code = 1715028969) 15.6 % 15.0-23.0 QUES NA (test code = 5309309262) 145 mmol/L 135-145 K+ (test code = 8486489994) 4.2 mmol/L 3.5-5.0 AC CA IONZ (test code = 0650303706) 4.50 mg/dL 4.50-5.30 GLUCOSE (test code = 4210490528) 165 mg/dL 70-110 H Lab Interpretation (test code = 25595-7) [facility]normal [facility]+K+GLU+CA2+2022-04-26 23:17:17* Test Item Value Reference Range Interpretation Comme nts PH (test code = 2) 7.35-7.45 L PCO2 (test code = 3694665854) See_Comment [Automated messa ge] The system which generated this result transmitted reference range: 35 - 45 mmHg. The reference range was not used to interpret this result as normal/abnormal. PO2 (test code = 5137046078) See_Comment H [Automated messa ge] The system which generated this result transmitted reference range: 80 - 100 mmHg. The reference range was not used to interpret this result as normal/abnormal. HCO3 (test code = 3083273399) See_Comment L [Automated messa ge] The system which generated this result transmitted reference range: 22 - 26 mEq/L. The reference range was not used to interpret this result as normal/abnormal. BE (test code = 1365183111) See_Comment L [Automated messa ge] The system which generated this result transmitted reference range: -3.0 - 3.0 mEq/L. The reference range was not used to interpret this result as normal/abnormal. THB (test code = 7538028021) 10.8 g/dL 12.0-16.0 L %O2HB (test code = 9955718008) 98.6 % 94.0-99.0 %COHB ART (test code = 9790702146) 0.4 % 0.0-1.5 %METHB ART (test code = 5916576383) 0.2 % 0.4-1.5 L VOL%O2 ART (test code = 3542169267) 15.6 % 15.0-23.0 QUES NA (test code = 1248609273) 145 mmol/L 135-145 K+ (test code = 6659689651) 4.2 mmol/L 3.5-5.0 AC CA IONZ (test code = 4822226901) 4.50 mg/dL 4.50-5.30 GLUCOSE (test code = 6847735511) 165 mg/dL 70-110 H Lab Interpretation (test code = 18889-7) [facility]normal [facility]+K+GLU+CA2+2022-04-26 23:15:56* Test Item Value Reference Range Interpretation Comme nts PH (test code = 2) 7.35-7.45 PCO2 (test code = 6209962606) See_Comment [Automated messa ge] The system which generated this result transmitted reference range: 35 - 45 mmHg. The reference range was not used to interpret this result as normal/abnormal. PO2 (test code = 1644592273) See_Comment H [Automated messa ge] The system which generated this result transmitted reference range: 80 - 100 mmHg. The reference range was not used to interpret this result as normal/abnormal. HCO3 (test code = 5816097143) See_Comment [Automated messa ge] The system which generated this result transmitted reference range: 22 - 26 mEq/L. The reference range was not used to interpret this result as normal/abnormal. BE (test code = 9529551549) See_Comment [Automated messa ge] The system which generated this result transmitted reference range: -3.0 - 3.0 mEq/L. The reference range was not used to interpret this result as normal/abnormal. THB (test code = 6375278057) 10.4 g/dL 12.0-16.0 L %O2HB (test code = 8483566488) 98.8 % 94.0-99.0 %COHB ART (test code = 0613769209) 0.3 % 0.0-1.5 %METHB ART (test code = 0542341954) 0.3 % 0.4-1.5 L VOL%O2 ART (test code = 9432719187) 15.1 % 15.0-23.0 QUES NA (test code = 1758348360) 139 mmol/L 135-145 K+ (test code = 2017766434) 3.6 mmol/L 3.5-5.0 AC CA IONZ (test code = 9966727536) 4.30 mg/dL 4.50-5.30 L GLUCOSE (test code = 1600953078) 144 mg/dL 70-110 H Lab Interpretation (test code = 93224-3) [facility]normal [facility]+K+GLU+CA2+2022-04-26 23:15:56* Test Item Value Reference Range Interpretation Comme nts PH (test code = 2) 7.35-7.45 PCO2 (test code = 5614702767) See_Comment [Automated messa ge] The system which generated this result transmitted reference range: 35 - 45 mmHg. The reference range was not used to interpret this result as normal/abnormal. PO2 (test code = 2859673976) See_Comment H [Automated messa ge] The system which generated this result transmitted reference range: 80 - 100 mmHg. The reference range was not used to interpret this result as normal/abnormal. HCO3 (test code = 8083180981) See_Comment [Automated messa ge] The system which generated this result transmitted reference range: 22 - 26 mEq/L. The reference range was not used to interpret this result as normal/abnormal. BE (test code = 7486517318) See_Comment [Automated messa ge] The system which generated this result transmitted reference range: -3.0 - 3.0 mEq/L. The reference range was not used to interpret this result as normal/abnormal. THB (test code = 4978586148) 10.4 g/dL 12.0-16.0 L %O2HB (test code = 6202278021) 98.8 % 94.0-99.0 %COHB ART (test code = 8386843019) 0.3 % 0.0-1.5 %METHB ART (test code = 6646365529) 0.3 % 0.4-1.5 L VOL%O2 ART (test code = 3485170467) 15.1 % 15.0-23.0 QUES NA (test code = 0654646084) 139 mmol/L 135-145 K+ (test code = 4374328487) 3.6 mmol/L 3.5-5.0 AC CA IONZ (test code = 3933225982) 4.30 mg/dL 4.50-5.30 L GLUCOSE (test code = 2473677965) 144 mg/dL 70-110 H Lab Interpretation (test code = 16813-9) [facility]normal [facility]+K+GLU+CA2+2022-04-26 23:13:06* Test Item Value Reference Range Interpretation Comme nts PH (test code = 2) 7.35-7.45 PCO2 (test code = 1065088718) See_Comment L [Automated messa ge] The system which generated this result transmitted reference range: 35 - 45 mmHg. The reference range was not used to interpret this result as normal/abnormal. PO2 (test code = 7098593830) See_Comment H [Automated messa ge] The system which generated this result transmitted reference range: 80 - 100 mmHg. The reference range was not used to interpret this result as normal/abnormal. HCO3 (test code = 9355353248) See_Comment L [Automated messa ge] The system which generated this result transmitted reference range: 22 - 26 mEq/L. The reference range was not used to interpret this result as normal/abnormal. BE (test code = 5531757847) See_Comment L [Automated messa ge] The system which generated this result transmitted reference range: -3.0 - 3.0 mEq/L. The reference range was not used to interpret this result as normal/abnormal. THB (test code = 9832872686) 9.0 g/dL 12.0-16.0 L %O2HB (test code = 2934242976) 99.1 % 94.0-99.0 H %COHB ART (test code = 7019796529) 0.2 % 0.0-1.5 %METHB ART (test code = 5646950979) 0.3 % 0.4-1.5 L VOL%O2 ART (test code = 6741566258) 13.3 % 15.0-23.0 L QUES NA (test code = 0089647629) 139 mmol/L 135-145 K+ (test code = 0552209308) 4.3 mmol/L 3.5-5.0 AC CA IONZ (test code = 1274678812) 4.30 mg/dL 4.50-5.30 L GLUCOSE (test code = 4146524858) 145 mg/dL 70-110 H Lab Interpretation (test code = 04856-4) [facility]normal [facility]+K+GLU+CA2+2022-04-26 23:13:06* Test Item Value Reference Range Interpretation Comme nts PH (test code = 2) 7.35-7.45 PCO2 (test code = 3441787776) See_Comment L [Automated messa ge] The system which generated this result transmitted reference range: 35 - 45 mmHg. The reference range was not used to interpret this result as normal/abnormal. PO2 (test code = 3199023195) See_Comment H [Automated messa ge] The system which generated this result transmitted reference range: 80 - 100 mmHg. The reference range was not used to interpret this result as normal/abnormal. HCO3 (test code = 7527304945) See_Comment L [Automated messa ge] The system which generated this result transmitted reference range: 22 - 26 mEq/L. The reference range was not used to interpret this result as normal/abnormal. BE (test code = 4113167370) See_Comment L [Automated messa ge] The system which generated this result transmitted reference range: -3.0 - 3.0 mEq/L. The reference range was not used to interpret this result as normal/abnormal. THB (test code = 5657638635) 9.0 g/dL 12.0-16.0 L %O2HB (test code = 4929893858) 99.1 % 94.0-99.0 H %COHB ART (test code = 6231980947) 0.2 % 0.0-1.5 %METHB ART (test code = 9961447617) 0.3 % 0.4-1.5 L VOL%O2 ART (test code = 8984260472) 13.3 % 15.0-23.0 L QUES NA (test code = 4189141351) 139 mmol/L 135-145 K+ (test code = 5612297261) 4.3 mmol/L 3.5-5.0 AC CA IONZ (test code = 4487937121) 4.30 mg/dL 4.50-5.30 L GLUCOSE (test code = 0714570063) 145 mg/dL 70-110 H Lab Interpretation (test code = 60038-6) [facility]normal [facility]+K+GLU+CA2+2022-04-26 23:12:25* Test Item Value Reference Range Interpretation Comme nts PH (test code = 2) 7.35-7.45 L PCO2 (test code = 5133155486) See_Comment [Automated messa ge] The system which generated this result transmitted reference range: 35 - 45 mmHg. The reference range was not used to interpret this result as normal/abnormal. PO2 (test code = 0748902578) See_Comment H [Automated messa ge] The system which generated this result transmitted reference range: 80 - 100 mmHg. The reference range was not used to interpret this result as normal/abnormal. HCO3 (test code = 3709134489) See_Comment L [Automated messa ge] The system which generated this result transmitted reference range: 22 - 26 mEq/L. The reference range was not used to interpret this result as normal/abnormal. BE (test code = 9529727734) See_Comment L [Automated messa ge] The system which generated this result transmitted reference range: -3.0 - 3.0 mEq/L. The reference range was not used to interpret this result as normal/abnormal. THB (test code = 3257839423) 10.3 g/dL 12.0-16.0 L %O2HB (test code = 5157562304) 98.8 % 94.0-99.0 %COHB ART (test code = 4866734094) 0.2 % 0.0-1.5 %METHB ART (test code = 9007343056) 0.4 % 0.4-1.5 VOL%O2 ART (test code = 8418431479) 15.6 % 15.0-23.0 QUES NA (test code = 4366378194) 137 mmol/L 135-145 K+ (test code = 2570759934) 4.3 mmol/L 3.5-5.0 AC CA IONZ (test code = 1785329439) 5.10 mg/dL 4.50-5.30 GLUCOSE (test code = 6426811436) 193 mg/dL 70-110 H Lab Interpretation (test code = 86757-2) [facility]normal [facility]+K+GLU+CA2+2022-04-26 23:12:25* Test Item Value Reference Range Interpretation Comme nts PH (test code = 2) 7.35-7.45 L PCO2 (test code = 6791085873) See_Comment [Automated messa ge] The system which generated this result transmitted reference range: 35 - 45 mmHg. The reference range was not used to interpret this result as normal/abnormal. PO2 (test code = 5137387867) See_Comment H [Automated messa ge] The system which generated this result transmitted reference range: 80 - 100 mmHg. The reference range was not used to interpret this result as normal/abnormal. HCO3 (test code = 5993869988) See_Comment L [Automated messa ge] The system which generated this result transmitted reference range: 22 - 26 mEq/L. The reference range was not used to interpret this result as normal/abnormal. BE (test code = 3101284960) See_Comment L [Automated messa ge] The system which generated this result transmitted reference range: -3.0 - 3.0 mEq/L. The reference range was not used to interpret this result as normal/abnormal. THB (test code = 3586341268) 10.3 g/dL 12.0-16.0 L %O2HB (test code = 6912237084) 98.8 % 94.0-99.0 %COHB ART (test code = 8757540719) 0.2 % 0.0-1.5 %METHB ART (test code = 2167223843) 0.4 % 0.4-1.5 VOL%O2 ART (test code = 9719481724) 15.6 % 15.0-23.0 QUES NA (test code = 6485530354) 137 mmol/L 135-145 K+ (test code = 8087329238) 4.3 mmol/L 3.5-5.0 AC CA IONZ (test code = 9579762412) 5.10 mg/dL 4.50-5.30 GLUCOSE (test code = 3743501086) 193 mg/dL 70-110 H Lab Interpretation (test code = 82938-4) [facility]normal [facility]+K+GLU+CA2+2022-04-26 23:02:57* Test Item Value Reference Range Interpretation Comme nts PH (test code = 2) 7.35-7.45 PCO2 (test code = 8996674231) See_Comment [Automated messa ge] The system which generated this result transmitted reference range: 35 - 45 mmHg. The reference range was not used to interpret this result as normal/abnormal. PO2 (test code = 9691978031) See_Comment H [Automated messa ge] The system which generated this result transmitted reference range: 80 - 100 mmHg. The reference range was not used to interpret this result as normal/abnormal. HCO3 (test code = 5630176628) See_Comment [Automated messa ge] The system which generated this result transmitted reference range: 22 - 26 mEq/L. The reference range was not used to interpret this result as normal/abnormal. BE (test code = 4554967749) See_Comment [Automated messa ge] The system which generated this result transmitted reference range: -3.0 - 3.0 mEq/L. The reference range was not used to interpret this result as normal/abnormal. THB (test code = 5520696435) 11.2 g/dL 12.0-16.0 L %O2HB (test code = 3528442316) 98.9 % 94.0-99.0 %COHB ART (test code = 0037149886) 0.4 % 0.0-1.5 %METHB ART (test code = 8204608808) 0.3 % 0.4-1.5 L VOL%O2 ART (test code = 0616261636) 16.3 % 15.0-23.0 QUES NA (test code = 0902056877) 140 mmol/L 135-145 K+ (test code = 3099093152) 3.8 mmol/L 3.5-5.0 AC CA IONZ (test code = 7637818921) 4.30 mg/dL 4.50-5.30 L GLUCOSE (test code = 0243907532) 130 mg/dL 70-110 H Lab Interpretation (test code = 86783-2) [facility]normal [facility]+K+GLU+CA2+2022-04-26 23:02:57* Test Item Value Reference Range Interpretation Comme nts PH (test code = 2) 7.35-7.45 PCO2 (test code = 6392797401) See_Comment [Automated messa ge] The system which generated this result transmitted reference range: 35 - 45 mmHg. The reference range was not used to interpret this result as normal/abnormal. PO2 (test code = 5145989143) See_Comment H [Automated messa ge] The system which generated this result transmitted reference range: 80 - 100 mmHg. The reference range was not used to interpret this result as normal/abnormal. HCO3 (test code = 6713075131) See_Comment [Automated messa ge] The system which generated this result transmitted reference range: 22 - 26 mEq/L. The reference range was not used to interpret this result as normal/abnormal. BE (test code = 0532034407) See_Comment [Automated messa ge] The system which generated this result transmitted reference range: -3.0 - 3.0 mEq/L. The reference range was not used to interpret this result as normal/abnormal. THB (test code = 9726291182) 11.2 g/dL 12.0-16.0 L %O2HB (test code = 1191503027) 98.9 % 94.0-99.0 %COHB ART (test code = 5651203449) 0.4 % 0.0-1.5 %METHB ART (test code = 4720041450) 0.3 % 0.4-1.5 L VOL%O2 ART (test code = 1220650119) 16.3 % 15.0-23.0 QUES NA (test code = 0779263710) 140 mmol/L 135-145 K+ (test code = 7483391956) 3.8 mmol/L 3.5-5.0 AC CA IONZ (test code = 3050847268) 4.30 mg/dL 4.50-5.30 L GLUCOSE (test code = 1194442241) 130 mg/dL 70-110 H Lab Interpretation (test code = 31996-7) [facility] [id number] 21:46:52* Test Item Value Reference Range Interpretation Comme nts Thrombin Patient (test code = 9682888535) See_Comment H [Automated me ssage] The system which generated this result transmitted reference range: 12.8 - 15.8 Seconds. The reference range was not used to interpret this result as normal/abnormal. Lab Interpretation (test code = 96460-8) [facility]normal [facility] CenterTHROM[facility] [id number] 21:46:52* Test Item Value Reference Range Interpretation Comme nts Thrombin Patient (test code = 5829488073) See_Comment H [Automated me ssage] The system which generated this result transmitted reference range: 12.8 - 15.8 Seconds. The reference range was not used to interpret this result as normal/abnormal. Lab Interpretation (test code = 96398-8) Abnormal [facility] WITH [id number] 20:59:46* Test Item Value Reference Range Interpretation Comme nts WBC (test code = 6690-2) See_Comment [Automated messa ge] The system which generated this result transmitted reference range: 4.30 - 11.10 10*3/?L. The reference range was not used to interpret this result as normal/abnormal. RBC (test code = 789-8) See_Comment L [Automated messa ge] The system which generated this result transmitted reference range: 3.93 - 5.25 10*6/?L. The reference range was not used to interpret this result as normal/abnormal. HGB (test code = 718-7) 10.1 g/dL 11.6-15.0 L HCT (test code = 4544-3) 31.4 % 35.7-45.2 L MCV (test code = 787-2) 88.7 fL 80.6-95.5 MCH (test code = 785-6) 28.5 pg 25.9-32.8 MCHC (test code = 786-4) 32.2 g/dL 31.6-35.1 RDW-SD (test code = 37675-9) 50.3 fL 39.0-49.9 H RDW-CV (test code = 788-0) 15.5 % 12.0-15.5 PLT (test code = 777-3) See_Comment L [Automated Liquidneta ge] The system which generated this result transmitted reference range: 166 - 358 10*3/?L. The reference range was not used to interpret this result as normal/abnormal. MPV (test code = 76792-5) 12.4 fL 9.5-12.9 IPF % (test code = 2112888846) 9.5 % 1.3-7.7 H Platelet count measured by fluorescence method. NRBC/100 WBC (test code = 3103665316) See_Comment [Automated FIGS ssage] The system which generated this result transmitted reference range: 0.0 - 10.0 /100 WBCs. The reference range was not used to interpret this result as normal/abnormal. NRBC x10^3 (test code = 0052666204) See_Comment [Automated [employer] ge] The system which generated this result transmitted reference range: 10*3/?L. The reference range was not used to interpret this result as normal/abnormal. GRAN MAT (NEUT) % (test code = 770-8) 83.1 % IMM GRAN % (test code = 5896570603) 1.10 % LYMPH % (test code = 736-9) 13.0 % MONO % (test code = 5905-5) 2.2 % EOS % (test code = 713-8) 0.2 % BASO % (test code = 706-2) 0.4 % GRAN MAT x10^3(ANC) (test code = 4894588281) 8.99 10*3/uL 1.88-7.09 H IMM GRAN x10^3 (test code = 8671493058) 0.12 10*3/uL 0.00-0.06 H LYMPH x10^3 (test code = 731-0) 1.40 10*3/uL 1.32-3.29 MONO x10^3 (test code = 742-7) 0.24 10*3/uL 0.33-0.92 L EOS x10^3 (test code = 711-2) 0.03-0.39 L BASO x10^3 (test code = 704-7) 0.04 10*3/uL 0.01-0.07 Lab Interpretation (test code = 13572-4) Abnormal [facility] WITH [id number] 20:59:46* Test Item Value Reference Range Interpretation Comme nts WBC (test code = 6690-2) See_Comment [Automated messa ge] The system which generated this result transmitted reference range: 4.30 - 11.10 10*3/?L. The reference range was not used to interpret this result as normal/abnormal. RBC (test code = 789-8) See_Comment L [Automated messa ge] The system which generated this result transmitted reference range: 3.93 - 5.25 10*6/?L. The reference range was not used to interpret this result as normal/abnormal. HGB (test code = 718-7) 10.1 g/dL 11.6-15.0 L HCT (test code = 4544-3) 31.4 % 35.7-45.2 L MCV (test code = 787-2) 88.7 fL 80.6-95.5 MCH (test code = 785-6) 28.5 pg 25.9-32.8 MCHC (test code = 786-4) 32.2 g/dL 31.6-35.1 RDW-SD (test code = 65454-7) 50.3 fL 39.0-49.9 H RDW-CV (test code = 788-0) 15.5 % 12.0-15.5 PLT (test code = 777-3) See_Comment L [Automated Liquidn[employer] ge] The system which generated this result transmitted reference range: 166 - 358 10*3/?L. The reference range was not used to interpret this result as normal/abnormal. MPV (test code = 11226-3) 12.4 fL 9.5-12.9 IPF % (test code = 2317629156) 9.5 % 1.3-7.7 H Platelet count measured by fluorescence method. NRBC/100 WBC (test code = 0951750287) See_Comment [Automated me ssage] The system which generated this result transmitted reference range: 0.0 - 10.0 /100 WBCs. The reference range was not used to interpret this result as normal/abnormal. NRBC x10^3 (test code = 3241514983) See_Comment [Automated messa ge] The system which generated this result transmitted reference range: 10*3/?L. The reference range was not used to interpret this result as normal/abnormal. GRAN MAT (NEUT) % (test code = 770-8) 83.1 % IMM GRAN % (test code = 3294648320) 1.10 % LYMPH % (test code = 736-9) 13.0 % MONO % (test code = 5905-5) 2.2 % EOS % (test code = 713-8) 0.2 % BASO % (test code = 706-2) 0.4 % GRAN MAT x10^3(ANC) (test code = 0427113797) 8.99 10*3/uL 1.88-7.09 H IMM GRAN x10^3 (test code = 6062561698) 0.12 10*3/uL 0.00-0.06 H LYMPH x10^3 (test code = 731-0) 1.40 10*3/uL 1.32-3.29 MONO x10^3 (test code = 742-7) 0.24 10*3/uL 0.33-0.92 L EOS x10^3 (test code = 711-2) 0.03-0.39 L BASO x10^3 (test code = 704-7) 0.04 10*3/uL 0.01-0.07 Lab Interpretation (test code = 45606-4) [facility] 20:52:16* Test Item Value Reference Range Interpretation Comme nts Fibrinogen (test code = 7801706617) 128 mg/dL 167-453 L Lab Interpretation (test cod e = 01713-6) [facility]normal [facility] 20:52:16* Test Item Value Reference Range Interpretation Comme nts Fibrinogen (test code = 9559825231) 128 mg/dL 167-453 L Lab Interpretation (test cod e = 56193-0) Abnormal [facility] CenterProth[facility] Time / [id number] 20:47:03* Test Item Value Reference Range Interpretation Comme [facility] PROTIME PATIENT (test code = 5964-2) See_Comment H [Automated messa ge] The system which generated this result transmitted reference range: 10.1 - 12.6 Seconds. The reference range was not used to interpret this result as normal/abnormal. INR (test code = 6301-6) Normal INR <1.1; Warfarin Therapeutic range 2.0 to 3.0 or 2.5 to 3.5, depending upon the indications. Lab Interpretation (test code = 31135-5) Abnormal [facility] Center[facility] Time / [id number] 20:47:03* Test Item Value Reference Range Interpretation Comme [facility] PROTIME PATIENT (test code = 5964-2) See_Comment H [Automated messa ge] The system which generated this result transmitted reference range: 10.1 - 12.6 Seconds. The reference range was not used to interpret this result as normal/abnormal. INR (test code = 6301-6) Normal INR <1.1; Warfarin Therapeutic range 2.0 to 3.0 or 2.5 to 3.5, depending upon the indications. Lab Interpretation (test code = 05793-1) Abnormal [facility] CenterPrepare Plasma (in units): 2 Units~Indication: Active Pzmdyjtg0686-89-23 20:15:39* Test Item Value Reference Range Interpretation Comme [facility] Unit Blood Type (test code = 4410) O Pos ISBT Blood Type Code (test code = 975690) Unit Number (test code = 4411) [id number] Blood Expiration Date & Time (test code = 571022) Status Information (test code = 4412) Issued Product Identification (test code = 4413) FFP Product Code (test code = 4414) [id number] Performed at [facility] Laboratory Services - [facility] Blood [address] [place] [id number] Free: [phone] No. [id number] [facility] CenterPrepare Plasma (in units): 2 Units~Indication: Active Dxyithgo1871-49-31 20:15:39* Test Item Value Reference Range Interpretation Comme nts Unit Blood Type (test code = 4410) O Pos ISBT Blood Type Code (test code = 784710) Unit Number (test code = 4411) [id number] Blood Expiration Date & Time (test code = 553633) Status Information (test code = 4412) Issued Product Identification (test code = 4413) FFP Product Code (test code = 4414) [id number] Performed at [facility] Blood [address] Free: [phone] No. [id number] [facility] Packed RBC (in units), 2 Units 2022-04-26 19:25:42* Test Item Value Reference Range Interpretation Comme nts Cross Match Result (test code = 4409) Compatible ISBT Blood Type Code (test code = 315250) Unit Blood Type (test code = 4410) O Pos Unit Number (test code = 4411) [id number] Blood Expiration Date & Time (test code = 231573) Status Information (test code = 4412) Issued Product Identification (test code = 4413) Red Blood Cells Product Code (test code = 4414) [id number] Performed at [address] Free: [phone] No. [id number] [facility] Packed RBC (in units), 2 Units 2022-04-26 19:25:42* Test Item Value Reference Range Interpretation Comme nts Cross Match Result (test code = 4409) Compatible ISBT Blood Type Code (test code = 000673) Unit Blood Type (test code = 4410) O Pos Unit Number (test code = 4411) [id number] Blood Expiration Date & Time (test code = 205248) Status Information (test code = 4412) Issued Product Identification (test code = 4413) Red Blood Cells Product Code (test code = 4414) [id number] Performed at [facility] Laboratory [facility] Blood [address] Free: [phone] No. [id number] [facility] WITH [id number] 19:13:46* Test Item Value Reference Range Interpretation Comme nts WBC (test code = 6690-2) See_Comment [Automated messa ge] The system which generated this result transmitted reference range: 4.30 - 11.10 10*3/?L. The reference range was not used to interpret this result as normal/abnormal. RBC (test code = 789-8) See_Comment L [Automated messa ge] The system which generated this result transmitted reference range: 3.93 - 5.25 10*6/?L. The reference range was not used to interpret this result as normal/abnormal. HGB (test code = 718-7) 8.1 g/dL 11.6-15.0 L HCT (test code = 4544-3) 26.5 % 35.7-45.2 L MCV (test code = 787-2) 82.3 fL 80.6-95.5 MCH (test code = 785-6) 25.2 pg 25.9-32.8 L MCHC (test code = 786-4) 30.6 g/dL 31.6-35.1 L RDW-SD (test code = 12597-1) 48.9 fL 39.0-49.9 RDW-CV (test code = 788-0) 16.4 % 12.0-15.5 H PLT (test code = 777-3) See_Comment L [Automated messa ge] The system which generated this result transmitted reference range: 166 - 358 10*3/?L. The reference range was not used to interpret this result as normal/abnormal. MPV (test code = 59017-2) 12.5 fL 9.5-12.9 NRBC/100 WBC (test code = 3367636993) See_Comment [Automated me ssage] The system which generated this result transmitted reference range: 0.0 - 10.0 /100 WBCs. The reference range was not used to interpret this result as normal/abnormal. NRBC x10^3 (test code = 6573440722) See_Comment [Automated messa ge] The system which generated this result transmitted reference range: 10*3/?L. The reference range was not used to interpret this result as normal/abnormal. GRAN MAT (NEUT) % (test code = 770-8) 82.3 % IMM GRAN % (test code = 2508272618) 0.90 % LYMPH % (test code = 736-9) 14.2 % MONO % (test code = 5905-5) 1.8 % EOS % (test code = 713-8) 0.5 % BASO % (test code = 706-2) 0.3 % GRAN MAT x10^3(ANC) (test code = 6203737553) 8.78 10*3/uL 1.88-7.09 H IMM GRAN x10^3 (test code = 4716042156) 0.10 10*3/uL 0.00-0.06 H LYMPH x10^3 (test code = 731-0) 1.51 10*3/uL 1.32-3.29 MONO x10^3 (test code = 742-7) 0.19 10*3/uL 0.33-0.92 L EOS x10^3 (test code = 711-2) 0.05 10*3/uL 0.03-0.39 BASO x10^3 (test code = 704-7) 0.03 10*3/uL 0.01-0.07 Lab Interpretation (test code = 97034-8) Abnormal [facility] WITH TMOW4465-04-25 19:13:46* Test Item Value Reference Range Interpretation Comme nts WBC (test code = 6690-2) See_Comment [Automated messa ge] The system which generated this result transmitted reference range: 4.30 - 11.10 10*3/?L. The reference range was not used to interpret this result as normal/abnormal. RBC (test code = 789-8) See_Comment L [Automated messa ge] The system which generated this result transmitted reference range: 3.93 - 5.25 10*6/?L. The reference range was not used to interpret this result as normal/abnormal. HGB (test code = 718-7) 8.1 g/dL 11.6-15.0 L HCT (test code = 4544-3) 26.5 % 35.7-45.2 L MCV (test code = 787-2) 82.3 fL 80.6-95.5 MCH (test code = 785-6) 25.2 pg 25.9-32.8 L MCHC (test code = 786-4) 30.6 g/dL 31.6-35.1 L RDW-SD (test code = 68596-5) 48.9 fL 39.0-49.9 RDW-CV (test code = 788-0) 16.4 % 12.0-15.5 H PLT (test code = 777-3) See_Comment L [Automated messa ge] The system which generated this result transmitted reference range: 166 - 358 10*3/?L. The reference range was not used to interpret this result as normal/abnormal. MPV (test code = 82866-3) 12.5 fL 9.5-12.9 NRBC/100 WBC (test code = 3000321220) See_Comment [Automated me ssage] The system which generated this result transmitted reference range: 0.0 - 10.0 /100 WBCs. The reference range was not used to interpret this result as normal/abnormal. NRBC x10^3 (test code = 0811885087) See_Comment [Automated messa ge] The system which generated this result transmitted reference range: 10*3/?L. The reference range was not used to interpret this result as normal/abnormal. GRAN MAT (NEUT) % (test code = 770-8) 82.3 % IMM GRAN % (test code = 3958762071) 0.90 % LYMPH % (test code = 736-9) 14.2 % MONO % (test code = 5905-5) 1.8 % EOS % (test code = 713-8) 0.5 % BASO % (test code = 706-2) 0.3 % GRAN MAT x10^3(ANC) (test code = 3711023314) 8.78 10*3/uL 1.88-7.09 H IMM GRAN x10^3 (test code = 0684681019) 0.10 10*3/uL 0.00-0.06 H LYMPH x10^3 (test code = 731-0) 1.51 10*3/uL 1.32-3.29 MONO x10^3 (test code = 742-7) 0.19 10*3/uL 0.33-0.92 L EOS x10^3 (test code = 711-2) 0.05 10*3/uL 0.03-0.39 BASO x10^3 (test code = 704-7) 0.03 10*3/uL 0.01-0.07 Lab Interpretation (test code = 79561-7) Abnormal [facility] Packed RBC (in units), 2 Units 2022-04-26 17:02:44* Test Item Value Reference Range Interpretation Comme nts Cross Match Result (test code = 4409) Compatible ISBT Blood Type Code (test code = 127016) Unit Blood Type (test code = 4410) O Pos Unit Number (test code = 4411) [id number] Blood Expiration Date & Time (test code = 862596) Status Information (test code = 4412) Issued Product Identification (test code = 4413) Red Blood Cells Product Code (test code = 4414) [id number] Performed at [facility] Laboratory [facility] Blood [place] [id number] Free: [phone] No. [id number] [facility] Packed RBC (in units), 2 Units 2022-04-26 17:02:44* Test Item Value Reference Range Interpretation Comme nts Cross Match Result (test code = 4409) Compatible ISBT Blood Type Code (test code = 862398) Unit Blood Type (test code = 4410) O Pos Unit Number (test code = 4411) [id number] Blood Expiration Date & Time (test code = 541637) Status Information (test code = 4412) Issued Product Identification (test code = 4413) Red Blood Cells Product Code (test code = 4414) [id number] Performed at [facility] Blood [place] [id number] Free: [phone] No. [id number] [facility] CenterType and Screen - ONCE Cmzwnwu3788-98-13 13:03:28* Test Item Value Reference Range Interpretation Comme nts ABO & RH (test code = 20) O POSITIVE Performed at [facility] Laboratory Services - [facility] Blood [address] Free: [phone] No. [id number] IAT (test code = 1185) Negative Performed at [facility] Laboratory Services - [address] Free: [phone] No. [id number] [facility] CenterType [facility] Screen - ONCE Baahusr9489-88-25 13:03:28* Test Item Value Reference Range Interpretation Comme nts ABO & RH (test code = 20) O POSITIVE Performed at [facility] Laboratory Services - [address] Free: [phone] No. [id number] IAT (test code = 1185) Negative Performed at [facility] Laboratory Services - [address] Free: [phone] No. [id number] [facility] CenterCBC WITH [id number] 11:48:12* Test Item Value Reference Range Interpretation Comme nts WBC (test code = 6690-2) See_Comment [Automated messa ge] The system which generated this result transmitted reference range: 4.30 - 11.10 10*3/?L. The reference range was not used to interpret this result as normal/abnormal. RBC (test code = 789-8) See_Comment L [Automated messa ge] The system which generated this result transmitted reference range: 3.93 - 5.25 10*6/?L. The reference range was not used to interpret this result as normal/abnormal. HGB (test code = 718-7) 8.0 g/dL 11.6-15 L HCT (test code = 4544-3) 25.1 % 35.7-45.2 L MCV (test code = 787-2) 84.8 fL 80.6-95.5 MCH (test code = 785-6) 27.0 pg 25.9-32.8 MCHC (test code = 786-4) 31.9 g/dL 31.6-35.1 RDW-SD (test code = 53445-0) 53.3 fL 39-49.9 H RDW-CV (test code = 788-0) 17.2 % 12-15.5 H PLT (test code = 777-3) See_Comment L [Automated messa ge] The system which generated this result transmitted reference range: 166 - 358 10*3/?L. The reference range was not used to interpret this result as normal/abnormal. MPV (test code = 92756-1) 11.4 fL 9.5-12.9 NRBC/100 WBC (test code = 5989335320) See_Comment [Automated me ssage] The system which generated this result transmitted reference range: 0.0 - 10.0 /100 WBCs. The reference range was not used to interpret this result as normal/abnormal. NRBC x10^3 (test code = 0581851120) See_Comment [Automated messa ge] The system which generated this result transmitted reference range: 10*3/?L. The reference range was not used to interpret this result as normal/abnormal. GRAN MAT (NEUT) % (test code = 770-8) 60.5 % IMM GRAN % (test code = 1399976306) 3.80 % LYMPH % (test code = 736-9) 25.8 % MONO % (test code = 5905-5) 4.3 % EOS % (test code = 713-8) 5.2 % BASO % (test code = 706-2) 0.4 % GRAN MAT x10^3(ANC) (test code = 2107583906) 5.47 10*3/uL 1.88-7.09 IMM GRAN x10^3 (test code = 1943005437) 0.34 10*3/uL 0-0.06 H LYMPH x10^3 (test code = 731-0) 2.33 10*3/uL 1.32-3.29 MONO x10^3 (test code = 742-7) 0.39 10*3/uL 0.33-0.92 EOS x10^3 (test code = 711-2) 0.47 10*3/uL 0.03-0.39 H BASO x10^3 (test code = 704-7) 0.04 10*3/uL 0.01-0.07 Lab Interpretation (test code = 50350-8) Abnormal [facility] (NA, K, CL, CO2, GLUCOSE, BUN, CREATININE, CA)2022-01-12 11:36:33* Test Item Value Reference Range Interpretation Comme nts NA (test code = 7240581760) 141 mmol/L 135-145 K (test code = 9992498364) 3.7 mmol/L 3.5-5 CL (test code = 9860131504) 110 mmol/L 98-108 H CO2 TOTAL (test code = 5525817657) 23 mmol/L 23-31 AGAP (test code = 1774643943) 2-16 BUN (test code = 6857534365) 4 mg/dL 7-23 L GLUCOSE (test code = 4084825322) 121 mg/dL 70-110 H CREATININE (test code = 3037234486) 0.86 mg/dL 0.5-1.04 CALCIUM (test code = 4167539721) 8.0 mg/dL 8.6-10.6 L eGFR (test code = 7944974617) mL/min/1.73m2 RUDOLPH (test code = RUDOLPH) Association of Glomerular Filtration Rate (GFR) and Staging of Kidney Disease* + --+ --+ ------+| GFR (mL/min/1.73 m2) ?| With Kidney Damage ?| ?Without Kidney Damage+ --------+ --------+ +| ?>90 ?| ?Stage one ?| ? Normal ?+ ---+ ---+ -------+| ?60-89 ?| ?Stage two ?| ? Decreased GFR ? + --+ --+ ------+| ?30-59 ?| ?Stage three ?| ? Stage three ? + --+ --+ ------+| ?15-29 ?| ?Stage four ? | ? Stage four ?+ ---+ ---+ -------+| ?<15 (or dialysis) ? ?| ?Stage five ? | ? Stage five ?+ ---+ ---+ -------+ *Each stage assumes the associated GFR level has been in effect for at least three months. ?Stages 1 to 5, with or without kidney disease, indicate chronic kidney disease. Notes: Determination of stages one and two (with eGFR >59mL/min/1.73 m2) requires estimation of kidney damage for at least three months as defined by structural or functional abnormalities of the kidney, manifested by either:Pathological abnormalities or Markers of kidney damage (including abnormalities in the composition of the blood or urine or abnormalities in imaging tests). Lab Interpretation (test code = 30349-3) Abnormal [facility] CenterMAG[facility]UM2022-10-08 11:36:33* Test Item Value Reference Range Interpretation Comme nts MAGNESIUM (test code = 4623202364) 2.0 mg/dL 1.7-2.4 Lab Interpretation (test cod e = 44027-4) Normal [facility] CenterPH[facility]2022-10-08 11:36:33* Test Item Value Reference Range Interpretation Comme nts PHOSPHORUS (test code = 9206493518) 3.0 mg/dL 2.5-5 Lab Interpretation (test cod e = 15100-1) Normal [facility] EASC2389-03-58 22:49:13* Test Item Value Reference Range Interpretation Comme nts Case Report (test code = 9232485201) Surgical Pathology ?Case: [id number] ? Authorizing Provider: ?Terence Burks MD ?Collected: ? 01/08/2022 1054 ?Ordering Location: ? ? [facility] OR ? Received: ?01/08/2022 1525 ? Department ? Pathologist: ? Micha Lim MD ? Specimens: ? A) - COLON, COLOSTOMY ? B) - COLON, ANASTOMOTIC RINGS ? Final Diagnosis (test code = 4842193102) t7tivOGqKFWlo1koQVMibNMt ZzEwMzNcZnRuYmpcdWMxIHtc hkDnVKropKxcCPMhCRVeHM6x lXhekOv4lDomZQFcxoC7jIUh FHfzt8qeXIH6x8ppiazzXLZp PXgsQz3aqALxsJdqWrAnCVYm FWh0kO34JXByaW8afJCcEIa0 XHBhcGVydzEyMjQwXHBhcGVy pPO3PJUyCG6kqzqxETrmHOgh MDZdxiJ6PFImsMIkO0ZnTJBx YL9pwykeOPT3VOxzQYPoOBD7 KqUzZMBky7Byvcp1JbAylMYr ZFxwbGFpblxmczIwXHBhciBB PwKCI4uHA8UFXAdaECFTB1CL T8lRNsGnoZQgTGUbQGFyWRDA NMcJLS0HRL9BVYUHI9PKDQrS VXnfO84VCv3YVDEJDcLUPHDi KA6EL2MUTU0KUMVpJ91SW3vX XCCZSJYEULIFUUUKUT0DJP2X TDduOZGgSMKvXFUcDU7EQ3NK SVZFIEZPUiBEWVNQTEFTSUFc nNBfPUFnvpRAVnNGT4vRRnvv TS8VA9NGHQ0KOPYhWodZK4B2 UOBdbmIsYWVwIBTDV4hZBviR TUBIG6UKFXICGDRQCS6IZDUV NHqHPI0GQFJVIRFNAAFBR8AS XHBhclxwYXJcZnMyMiBIYWZp eiBBLiBHaGFuaSwgTURccGFy DAhueaAxu2LqYErhqzPTgAQu NBTwJC9BCDNoME22YmEhSpGg OVY5SXwnAU5mjBMbVHCfyiHk WcNhMOoyWRY5x7naiJOrTBPw zBRyTkGiCVOeIIHhf4beHPUb bGFuZzEwMzNcZnRuYmpcdWMx JYSsWdOgx4wdn281xWYik6vh AAGiNfL4yNBwFDOoiOueoxg0 bIhpOeIjZHUlk4hfvgXdObZn EKZyLUKcLWInnZLiJ145WELm RPzoy3ogj2AuXLKawKKsy9H2 KDGZCYbjTwHiZ079v7nvf7ya miEneWS4CTOwWZK7BFylhaJq yjO1YVdsgOCiMfY5REugnqTd MVkkcvVtprDnVtf4SQEdG643 DDS5bUdul4pmKZY6GKNuNTLn DlwbQh4mkMTdD494MFPkUFZL WJFnaYj4CSLixoEuqlRxqGFK i381Q274q9hbVRIvrkXutLfE sltnu7eqW947QFBofIYwhsTh OxGxHZFdrKYymDW1UZQmVB6h ajdoLDaqUNnaOUHfirY4OTCh mCJuK3PwIJTgGF5tywsxLIT4 ZRgqJHAwTLX7UpStCTCfv7Kz utf1JxTxos8vsh75UXP0q3Hc gPcoDFG4AAA8JvJfFg9fzRSx PHLtPI5wFcLszZGaSZGnbh86 kPhvSPmcbdTrtT9wHuGqLVPd uBGbQNNmYX1azCMpJNBajC2c cmxjXHBnYnJkcmhlYWRccGdi vkKxJb2vcYbiAVK9FTeqA4xp iH8rCuY1YLccH8gaeY0cYHz4 FIdytDE0AYYhlB2aNM5dpwoi c5ufXXlrAQqsBLCvxvG2elL2 ZVVxpOKfV0OecQ6zJEMkHC4x iwviz9pjIJM9SLzxXZYzFRJ9 QfBoFXQxz3Tggca7YmPyo4Hn dAQcRIhgW47yv265HZYpigRf S2wifBQrczhbaAYpljexIYiu vwG4LXNyDXLjRBgmKBWyGMHs MjBcbGFuZzEwMzNcaGljaFxm XYhkWbQyULWkZHisN5rrPuPf I7EyFXOyEpQjhXGvKHhiqSF0 ODSePWMev87zdGv2BXTisnia o3PkIIJdpGCfcJEikE5hibNy v2zsCMGmDXBjKFVgC8VrDHZ4 kDBhVDRxvYSmtAW2JX0cczRy EL5tMWUrCwsrvnChtQFalmPx GWEzQUflr3ryOE2xWRBadNto vA0chFG8KQGwx2ehbEUprRNx j0wqh0IizuFlPYusFINdBEyx SQUyONXkFU0iNWSptAYjwpIc v1F7AaoouSFqsuzePtuuekU5 JZeqztulELXhYYftT4bhWiOq RUWfkMbtOqqbx6FqPINgLJZk MjhccGFyfX0= Clinical Information (test code = 1561255442) Sigmoid diverticulitis [K57.32]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] Gross Description (test code = [id number]) z8iwjGMhYDMniXHISWVaDZYp KX5qxItyoKf8bQguEUCzdmG6 hXZaNZqox5adQKV1r3wohgIG ClxkZWZmMVxwYXBlcncxMjI0 UYkkEKOitbocHNz0LSzlSOMn tSN6XDJdhWUwP8JbGHTkPJ5v oij6LPJ4HXnaHILyLvS9UFMo AbKcLhmgGVc7GBBbvtN5Sam6 QKZyFVScnQFfz0H5XHznpgtc OXIzoRKzD262VTjru3SwtLTg DQpccGFyZCANCntcKlxlcGlj d4YkwKPjXZzmCQHyIIDjEXhv viqsMWx9ACWfQIavnYMaQR1v zAoxZdsduJxss2BkqPVqTUyz UECgIVQcVRnvASElMQ8VKiNt CGC0FoA0BTVqXZs4ATc2QX5S KzKuWNIyDOB9HlK2GQTwGAh6 HLigJC0HVEK4AJC3EuWnOAMo FGChCRLrQRy9ODDnLLrnOKEu aWFsIFxcZnMgMTAgXFxmbCBc PT1kaDrboGUlcaexoeHoEAGT LBDMCSRPCFRgyBYkRN3QXREx TBmnHSUrmQLWPIV8NJ6rVDEE VtelnZAtFPCfhKakYTgmkS6x NI9BHBt2nePcFLQaQpDzL6Gl U8geJB2lKJJecgYmCEEopOGe ZCBmcmVzaCBsYWJlbGxlZCB3 iHSlQYLrUBLjISDbHO03XNxK NHMgbmFtZSwgVUggbnVtYmVy VBCse3rwwqsuW76ib9I2m831 MkCoqbHtY50gy2ukhAPfi1Ab OGUbSFqbJR03HB3oFWhfzaau RJVog9OmNQr5ErFclCV1ClVo tZRtDpEaW21fKHpwjAqcYc22 KIVvRQ7fNWR2wKPcoZDnYWWf rOVbh6PcdEamy1IiOtHtCn06 aCBlbmRzIGFyZSBvcGVuZWQg MC8zAOWexHNpuH1jVSVxFYMr uDWrxb2ljCFtvJ2uCDFjfjDz aV4sMFNuy4y8pCE8OV9npRUi aHgzUYVldY6kRLGbUUqoVILq CREruHTyTOhkVF8tZL0wBYE2 byByZXZlYWwgYSBwYXRlbnQg pTUpXN2ec7g9qSJ2GB2fvSkj kkrjL1Vxm6BvvJN6vtOfdHSf f7YrpSIeuEGgh3VrFlZyDz1v hYSsrN5eKIynXFoku6OebJrc oMCqhkMhUlmnMG3gCNTtcAQb x1YtnNS1jKWhMAPlJ3Yuy78f HFCiPZFzuSYxhUL4GAIiaL3a QTEtQTMuXHBhciANClxwYXIg PRoUODS3qN4hDQSuFTG7XBKt sfXWXrQbRdOEb6yoslYaQWVg U4Vga27xkIJyB5zrZTIghgGb YWNlLCBlbnRpcmVseVxwYXIg KJyJPh1JUvljSEXaoSBcDRni zRtistCrHQA4kF5kZZ4vFS78 Q23oGLEjazRwt3mfkf3OIJEk aWMGQKZ5LP6fULe6XZnuVUNx Q8PvK3WuehFyqYSzCXZgeqBw u6lgUOK2MBWhcAFkrCVlDhSm HojrMGK5MPKbREiyHI9Kh0oq FHBzpIElFJQ6ACdlzZIqBUVo JPQaSEnjYuUwS5JTVHPjUbt0 HDNwCKNjIAt3IIoqC3YQQKWx GEMcPGs7NersAqE5OUc0DCAH Yk7bBKA3ERg5XqzkEVY3MKP8 NCBcXHQgMiBcXGYgQXJpYWwg XFxmcyAxMCBcXGZsIFxcbmN9 USVtJUwePPLtFhWrL1WOP1qQ MT2kXtpaZLDmDKtjzTpluK4f NVCpN93ff2QJf1ZuSL5WJRl9 txVecbfpaJ4tXIDbrhEfYNiq aRXsD9poUcYjHtPPtIGavH9q vgQIFTedVFSjS5OzlmHmYDCt MOEmZMbxNnFbCPOva9y4qOU2 qRImrKR7tBMywUmoGH8hqLSy LSKCKK75oTZyaswsAsOhzG1w ZVHttnZucW8sw5UiJsTonF6s kpUvJY9qSJAbcvZht9YgOX0c IDIgdGFuLXBpbmssIHVuZGVz lPfrXAWtVMEgnhIfiA0vq6Ac FnMgf374oADaYEQuOPF0ZFNk ZiI7VFEoPNAuzOGmwnQqNU8r TJmxMA6fWLhmYJ64JJWuTT1b DYqkFFI4BGFkTUVgjG3vGQEs q32ooCplIOrzbxifa2ZjWX6b wWLnmJIkjaAxs9HeNKFsopOd Vq94oNEds011fCQpZKUlQCMb b7IneTMhEYBaNTUztgGamVF5 WZ0csKothoywcL6cr5bgpp19 grklF2N8HFV6urNbQ0KxOlMd VGhlIHNwZWNpbWVuIGlzIHN1 Pc6ysQVfZUYfguZazhNukBBm aqHDOH1WCn4bpDBjSJ4ACWUd guONKjPmQ9Dhm38rS23sPVmp hLJsNQ7FQkX8CCdfzxbapwNp x439nGozAccoEYC8HJGjPUGd iFjnHQp2XObcoQKyvzNwa3Gn W5KoVZ7wHgVbIFzwDQHhssQA CkIyOiBTbWFsbGVyIGRvbnV0 KFHmtYEmP7RlBJrwRP13hIIv gDskFH42cMWkPOKkcGKnnUPi GP1pXpHtEBulyJCxFO0QSKJn ciANCklsZWFuYSBNYXJpbiwg UEENClxlcGljTmVzdERvYzBc pdI4KTLprOTgPZO1SW6kGKTa hgrzNRPyCMLoLIN3PTufrT59 bHQwXGZzMTZccGFyfVxwbGFp npDPPhoznJ0uWrTni2dmtUv1 JQREVqoigITmvqkggvU6FGYy a6etsCesu7QucJAcLY9daRlo sR9kEmEbTlEHSp0= Disclaimer (test code = 3859374007) c2dipDJdAGXoy3fgRLMcpBKe ZzEwMzNcZnRuYmpcdWMxIHtc wmLkYZxnd7XrI2IlXdFvURja bnNpXGRlZmxhbmcxMDMzXGZ0 wkTpDTWsUXcvVWFtHPrkWa5b oEWscBluPgMvIUCsd3vceiHN AXdrRwHvH280WOAtVDfuc5yo v6SoHOGolEAqx8R0HDTOvowk wVh7gXfaQ58tp2H4BhprQ1ud LEDkAUAjA7FjVU1ePKBlVvw0 QZQ3EOJ4YRHjCMJxX5TyWG7l LNItpPNhRYx5q9rpkGjfYZLg SBB1d7pqFUcbyuLsMS3zym1g iNp4o9upfxQqUVTfZDQrrLSU MWVbF8VcfDugUs0glQa4kMst MsnzZSO1Awm1DR4jot10fnl5 jQfdBVLyeferBmL4FDlsJLYa vcgnFHg3GQjoOUJwqXN3VGRd mICfU1HoXLUqEU1labx0XWH2 VXfxEVYsCmM1JTXglAVuVJDh qOnwHBmid428KKB4ZrKxSG9n S5Mnq2N2wG1xeSUrVFRxyLZz IzQmVKZlxz2ncGYpZKdjn0Xz QJY5goP3nMYojHGpFIRrRM82 Vfnwp3SiRphrq0EtK69clFW3 EBsvz0htAE1kOlN0pyOxZYor q3qptT6jPzO5DOjqQK1pTA6l WFBnwM4uaryfYWIqCgJwmzlu FKWksQcjsaVzXz3nyOwtRHI7 GXsnQ9vnfT7dMuH8DSbfK8zo lX6nLHm0RJvwvMY9BHHrhY4v HQ9vynmqh2fpOCkjERgeUWWr xeC3dyU8WNVdxGCkA0CaqY2v OOWbMV4mfkakm8pqHFY3VOyn TGPhDTF9RjHvEWWaw7Xfuhy9 OdFjs4FukDEmSEsgM27qx307 IYRzkmMgD7kksRBtglibhESe jcdbEBaomqW3XZUivgSwh6Jv QCKyTKX0ZNluXKieoRJcGLGr oKeoo2pmP4AxwSDjTGLnKBoa XGYxXGZzMjBcbGFuZzEwMzNc aGljaFxmMVxkYmNoXGYxXGxv N6mwQuRkC2UdEBYaYoJeuZQy J2opQRagleLlQDTfivOdfWF4 YWkaR6n4OJNjxbSfeUt9gjAh HwBqFYUbEUS5WQzkpGYcVJTw q4SbyfmsrNLyOs9qpHUjNHHo wY3lOEYhMRZaTOiyDP7ejFo4 RPCWuGVdcLSsBoUYRCVnNM20 ozFoEZSRarjrc4S9SBahTDWk d1QirGEoS7qzy2ZeUTUdz48u DG9jy1J5y2zrDHH8IC2ht8Sq VNSgyHVosSSpDOOoq2Dbdldv f7LbBWEujqLkd1XtCFOkmrMf pDPyKFHiobQcpt3pwjQzPGLs ARDbU7FzmazznGasvbAzAAVz rq7gtvHrZLN4HEBQUFMcHNEn b2JtfM5yuVVPCOD8yQVmlm9d abQYfJUnYKMaee07KQEyOE8x B2rnWOPbINEdfuOtyXToa4Ku HSJmjQY2uRMjML9DVqJTk22q IGFuZCBEcnVnIEFkbWluaXN0 klA5pH5jVDeNOMJlAts+IFRo PNQQICHxMW8hieNnf8BlweTa kNgsOTSnhQFcs1FhmEFyx1Vw iOiah4VyxVKdzCPdKW4lATYt clxwYXIgVVRNQiBMYWJvcmF0 a1DrUEPeCZAkCLO6jHsduuk9 ZQQtzS3jFJNoX7vmjhbaEBbj FZLfb3PqgS8ldFVOgNQfg6Rh vXIkfSHXmSCvLG2nfhBaUJfB CIxZZFU4uiStTFXig8EiFAal X5ukP73fdQuswCl7hWD0EPL1 uV5iMoh+IFxwYXJccGFyIEFw kZBhqXTmUPOikMeokdOhB9Lo jwThaV0mqRWnnaQkZS6kAE4b Y3N7tDEnYPIublAik7aaXLus dmUgYmVlbiByZXZpZXdlZCBm r2LaNEyhUWI2UWrndjHksjFg dWRpbmcgSCZFLCBTcGVjaWFs HFM4WXnaliPcalLvVL2vkV3l yAodqJ8tpIPqoWR8qasyPVZm UMDbxCyxXPZxMV7kaLFsEZCw dvGRsHbbiDMixP6fT0TlQVNm IIWnoh0yIJAajJ0fWEfzu5Av kdfqGXZjOCDbLMAopfExms1n APNczUHXTO8UQQjhpPVgl9Zs aaJsI6hGJKI3ANWzKqXqEnkp DKUdzKYahJIcQIMtsp72XXEj hI5jcFzbLFVuiT2zaM0kgSrm xO0dWxRnRgBtFCrcWD5fYAFq R6guyJDfORHlCGJlQ9txOwNp zO0coRwdPDkmQwGkWkNsOTif YXJ9fQ== Embedded Images (test code = 8748366893) [facility] WITH [id number] 12:16:20* Test Item Value Reference Range Interpretation Comme nts WBC (test code = 6690-2) See_Comment [Automated messa ge] The system which generated this result transmitted reference range: 4.30 - 11.10 10*3/?L. The reference range was not used to interpret this result as normal/abnormal. RBC (test code = 789-8) See_Comment L [Automated messa ge] The system which generated this result transmitted reference range: 3.93 - 5.25 10*6/?L. The reference range was not used to interpret this result as normal/abnormal. HGB (test code = 718-7) 7.4 g/dL 11.6-15 L HCT (test code = 4544-3) 23.4 % 35.7-45.2 L MCV (test code = 787-2) 83.0 fL 80.6-95.5 MCH (test code = 785-6) 26.2 pg 25.9-32.8 MCHC (test code = 786-4) 31.6 g/dL 31.6-35.1 RDW-SD (test code = 44488-9) 50.8 fL 39-49.9 H RDW-CV (test code = 788-0) 17.0 % 12-15.5 H PLT (test code = 777-3) See_Comment L [Automated messa ge] The system which generated this result transmitted reference range: 166 - 358 10*3/?L. The reference range was not used to interpret this result as normal/abnormal. MPV (test code = 59696-0) 11.4 fL 9.5-12.9 NRBC/100 WBC (test code = 2648300153) See_Comment [Automated me ssage] The system which generated this result transmitted reference range: 0.0 - 10.0 /100 WBCs. The reference range was not used to interpret this result as normal/abnormal. NRBC x10^3 (test code = 7324325231) See_Comment [Automated messa ge] The system which generated this result transmitted reference range: 10*3/?L. The reference range was not used to interpret this result as normal/abnormal. GRAN MAT (NEUT) % (test code = 770-8) 64.8 % IMM GRAN % (test code = 9113195466) 1.50 % LYMPH % (test code = 736-9) 23.0 % MONO % (test code = 5905-5) 5.8 % EOS % (test code = 713-8) 4.6 % BASO % (test code = 706-2) 0.3 % GRAN MAT x10^3(ANC) (test code = 0071835294) 5.96 10*3/uL 1.88-7.09 IMM GRAN x10^3 (test code = 0198168396) 0.14 10*3/uL 0-0.06 H LYMPH x10^3 (test code = 731-0) 2.12 10*3/uL 1.32-3.29 MONO x10^3 (test code = 742-7) 0.53 10*3/uL 0.33-0.92 EOS x10^3 (test code = 711-2) 0.42 10*3/uL 0.03-0.39 H BASO x10^3 (test code = 704-7) 0.03 10*3/uL 0.01-0.07 Lab Interpretation (test code = 48177-5) Abnormal [facility] METABOLIC PANEL (NA, K, CL, CO2, GLUCOSE, BUN, CREATININE, CA)2022-01-11 11:35:55* Test Item Value Reference Range Interpretation Comme nts NA (test code = 7491622966) 140 mmol/L 135-145 K (test code = 2110030654) 3.7 mmol/L 3.5-5 CL (test code = 5975490966) 109 mmol/L 98-108 H CO2 TOTAL (test code = 7286882301) 26 mmol/L 23-31 AGAP (test code = 6393043183) 2-16 BUN (test code = 5283542593) 4 mg/dL 7-23 L GLUCOSE (test code = 7553138940) 115 mg/dL 70-110 H CREATININE (test code = 7039038962) 0.82 mg/dL 0.5-1.04 CALCIUM (test code = 5852255918) 7.6 mg/dL 8.6-10.6 L eGFR (test code = 0691492433) mL/min/1.73m2 RUDOLPH (test code = RUDOLPH) Association of Glomerular Filtration Rate (GFR) and Staging of Kidney Disease* + --+ --+ ------+| GFR (mL/min/1.73 m2) ?| With Kidney Damage ?| ?Without Kidney Damage+ --------+ --------+ +| ?>90 ?| ?Stage one ?| ? Normal ?+ ---+ ---+ -------+| ?60-89 ?| ?Stage two ?| ? Decreased GFR ? + --+ --+ ------+| ?30-59 ?| ?Stage three ?| ? Stage three ? + --+ --+ ------+| ?15-29 ?| ?Stage four ? | ? Stage four ?+ ---+ ---+ -------+| ?<15 (or dialysis) ? ?| ?Stage five ? | ? Stage five ?+ ---+ ---+ -------+ *Each stage assumes the associated GFR level has been in effect for at least three months. ?Stages 1 to 5, with or without kidney disease, indicate chronic kidney disease. Notes: Determination of stages one and two (with eGFR >59mL/min/1.73 m2) requires estimation of kidney damage for at least three months as defined by structural or functional abnormalities of the kidney, manifested by either:Pathological abnormalities or Markers of kidney damage (including abnormalities in the composition of the blood or urine or abnormalities in imaging tests). Lab Interpretation (test code = 06402-2) Abnormal [facility] GLUCOSE (AUTOMATED)2022-01-09 16:37:51* Test Item Value Reference Range Interpretation Comme nts POCT GLU (test code = 2378505799) 121 mg/dL 70-110 H Lab Interpretation (test cod e = 42361-4) Abnormal [facility] GLUCOSE (AUTOMATED)2022-01-09 16:37:51* Test Item Value Reference Range Interpretation Comme nts POCT GLU (test code = 3893282485) 121 mg/dL 70-110 H Lab Interpretation (test cod e = 81231-5) Abnormal [facility] GLUCOSE (AUTOMATED)2022-01-09 13:53:00* Test Item Value Reference Range Interpretation Comme nts POCT GLU (test code = 1057303362) 99 mg/dL 70-110 Lab Interpretation (test cod e = 18661-2) Normal [facility] GLUCOSE (AUTOMATED)2022-01-09 13:53:00* Test Item Value Reference Range Interpretation Comme nts POCT GLU (test code = 1601849669) 99 mg/dL 70-110 Lab Interpretation (test cod e = 03382-1) [facility]* Test Item Value Reference Range Interpretation Comme nts PHOSPHORUS (test code = 7034992669) 2.2 mg/dL 2.5-5 L Lab Interpretation (test cod e = 40899-1) [facility] 11:51:22* Test Item Value Reference Range Interpretation Comme nts MAGNESIUM (test code = 6663845221) 1.4 mg/dL 1.7-2.4 L Lab Interpretation (test cod e = 04807-5) Abnormal [facility] METABOLIC PANEL (NA, K, CL, CO2, GLUCOSE, BUN, CREATININE, CA)2022-01-09 11:51:22* Test Item Value Reference Range Interpretation Comme nts NA (test code = 6444038683) 131 mmol/L 135-145 L K (test code = 2255777294) 4.2 mmol/L 3.5-5 CL (test code = 4811191272) 102 mmol/L 98-108 CO2 TOTAL (test code = 9690790510) 18 mmol/L 23-31 L AGAP (test code = 4240437469) 2-16 BUN (test code = 0937082104) 11 mg/dL 7-23 GLUCOSE (test code = 5620393444) 106 mg/dL 70-110 CREATININE (test code = 3767232988) 1.16 mg/dL 0.5-1.04 H CALCIUM (test code = 9337671606) 7.7 mg/dL 8.6-10.6 L eGFR (test code = 7163516029) mL/min/1.73m2 RUDOLPH (test code = RUDOLPH) Association of Glomerular Filtration Rate (GFR) and Staging of Kidney Disease* + --+ --+ ------+| GFR (mL/min/1.73 m2) ?| With Kidney Damage ?| ?Without Kidney Damage+ --------+ --------+ +| ?>90 ?| ?Stage one ?| ? Normal ?+ ---+ ---+ -------+| ?60-89 ?| ?Stage two ?| ? Decreased GFR ? + --+ --+ ------+| ?30-59 ?| ?Stage three ?| ? Stage three ? + --+ --+ ------+| ?15-29 ?| ?Stage four ? | ? Stage four ?+ ---+ ---+ -------+| ?<15 (or dialysis) ? ?| ?Stage five ? | ? Stage five ?+ ---+ ---+ -------+ *Each stage assumes the associated GFR level has been in effect for at least three months. ?Stages 1 to 5, with or without kidney disease, indicate chronic kidney disease. Notes: Determination of stages one and two (with eGFR >59mL/min/1.73 m2) requires estimation of kidney damage for at least three months as defined by structural or functional abnormalities of the kidney, manifested by either:Pathological abnormalities or Markers of kidney damage (including abnormalities in the composition of the blood or urine or abnormalities in imaging tests). Lab Interpretation (test code = 98865-5) [facility] 11:51:22* Test Item Value Reference Range Interpretation Comme nts PHOSPHORUS (test code = 6328172208) 2.2 mg/dL 2.5-5 L Lab Interpretation (test cod e = 83442-9) [facility] 11:51:22* Test Item Value Reference Range Interpretation Comme nts MAGNESIUM (test code = 2098132561) 1.4 mg/dL 1.7-2.4 L Lab Interpretation (test cod e = 64357-2) Abnormal [facility] METABOLIC PANEL (NA, K, CL, CO2, GLUCOSE, BUN, CREATININE, CA)2022-01-09 11:51:22* Test Item Value Reference Range Interpretation Comme nts NA (test code = 0509462863) 131 mmol/L 135-145 L K (test code = 1870577721) 4.2 mmol/L 3.5-5 CL (test code = 4177563766) 102 mmol/L 98-108 CO2 TOTAL (test code = 0108177522) 18 mmol/L 23-31 L AGAP (test code = 5799739406) 2-16 BUN (test code = 6438398448) 11 mg/dL 7-23 GLUCOSE (test code = 6192109309) 106 mg/dL 70-110 CREATININE (test code = 0219462048) 1.16 mg/dL 0.5-1.04 H CALCIUM (test code = 9388582605) 7.7 mg/dL 8.6-10.6 L eGFR (test code = 0327473643) mL/min/1.73m2 RUDOLPH (test code = RUDOLPH) Association of Glomerular Filtration Rate (GFR) and Staging of Kidney Disease* + --+ --+ ------+| GFR (mL/min/1.73 m2) ?| With Kidney Damage ?| ?Without Kidney Damage+ --------+ --------+ +| ?>90 ?| ?Stage one ?| ? Normal ?+ ---+ ---+ -------+| ?60-89 ?| ?Stage two ?| ? Decreased GFR ? + --+ --+ ------+| ?30-59 ?| ?Stage three ?| ? Stage three ? + --+ --+ ------+| ?15-29 ?| ?Stage four ? | ? Stage four ?+ ---+ ---+ -------+| ?<15 (or dialysis) ? ?| ?Stage five ? | ? Stage five ?+ ---+ ---+ -------+ *Each stage assumes the associated GFR level has been in effect for at least three months. ?Stages 1 to 5, with or without kidney disease, indicate chronic kidney disease. Notes: Determination of stages one and two (with eGFR >59mL/min/1.73 m2) requires estimation of kidney damage for at least three months as defined by structural or functional abnormalities of the kidney, manifested by either:Pathological abnormalities or Markers of kidney damage (including abnormalities in the composition of the blood or urine or abnormalities in imaging tests). Lab Interpretation (test code = 08130-4) Abnormal [facility] WITH [id number] 11:36:29* Test Item Value Reference Range Interpretation Comme nts WBC (test code = 6690-2) See_Comment H [Automated [employer] Remotium] The system which generated this result transmitted reference range: 4.30 - 11.10 10*3/?L. The reference range was not used to interpret this result as normal/abnormal. RBC (test code = 789-8) See_Comment [Automated [employer] Remotium] The system which generated this result transmitted reference range: 3.93 - 5.25 10*6/?L. The reference range was not used to interpret this result as normal/abnormal. HGB (test code = 718-7) 11.4 g/dL 11.6-15 L HCT (test code = 4544-3) 36.0 % 35.7-45.2 MCV (test code = 787-2) 83.7 fL 80.6-95.5 MCH (test code = 785-6) 26.5 pg 25.9-32.8 MCHC (test code = 786-4) 31.7 g/dL 31.6-35.1 RDW-SD (test code = 17844-7) 50.0 fL 39-49.9 H RDW-CV (test code = 788-0) 16.5 % 12-15.5 H PLT (test code = 777-3) See_Comment L [Automated [employer] Remotium] The system which generated this result transmitted reference range: 166 - 358 10*3/?L. The reference range was not used to interpret this result as normal/abnormal. MPV (test code = 37070-3) 12.3 fL 9.5-12.9 IPF % (test code = 7566306584) 10.5 % 1.3-7.7 H Platelet count measured by fluorescence method. NRBC/100 WBC (test code = 1826088005) See_Comment [Automated FIGS ssage] The system which generated this result transmitted reference range: 0.0 - 10.0 /100 WBCs. The reference range was not used to interpret this result as normal/abnormal. NRBC x10^3 (test code = 1480320073) See_Comment [Automated messa ge] The system which generated this result transmitted reference range: 10*3/?L. The reference range was not used to interpret this result as normal/abnormal. GRAN MAT (NEUT) % (test code = 770-8) 81.5 % IMM GRAN % (test code = 3766627442) 0.70 % LYMPH % (test code = 736-9) 11.4 % MONO % (test code = 5905-5) 5.7 % EOS % (test code = 713-8) 0.4 % BASO % (test code = 706-2) 0.3 % GRAN MAT x10^3(ANC) (test code = 0680681409) 14.69 10*3/uL 1.88-7.09 H IMM GRAN x10^3 (test code = 6246811362) 0.13 10*3/uL 0-0.06 H LYMPH x10^3 (test code = 731-0) 2.06 10*3/uL 1.32-3.29 MONO x10^3 (test code = 742-7) 1.02 10*3/uL 0.33-0.92 H EOS x10^3 (test code = 711-2) 0.07 10*3/uL 0.03-0.39 BASO x10^3 (test code = 704-7) 0.05 10*3/uL 0.01-0.07 BANDS (test code = 4848127616) Increased A Lab Interpretation (test code = 16056-9) Abnormal [facility] WITH [id number] 11:36:29* Test Item Value Reference Range Interpretation Comme nts WBC (test code = 6690-2) See_Comment H [Automated messa ge] The system which generated this result transmitted reference range: 4.30 - 11.10 10*3/?L. The reference range was not used to interpret this result as normal/abnormal. RBC (test code = 789-8) See_Comment [Automated Liquidneta ge] The system which generated this result transmitted reference range: 3.93 - 5.25 10*6/?L. The reference range was not used to interpret this result as normal/abnormal. HGB (test code = 718-7) 11.4 g/dL 11.6-15 L HCT (test code = 4544-3) 36.0 % 35.7-45.2 MCV (test code = 787-2) 83.7 fL 80.6-95.5 MCH (test code = 785-6) 26.5 pg 25.9-32.8 MCHC (test code = 786-4) 31.7 g/dL 31.6-35.1 RDW-SD (test code = 01727-1) 50.0 fL 39-49.9 H RDW-CV (test code = 788-0) 16.5 % 12-15.5 H PLT (test code = 777-3) See_Comment L [Automated Liquidneta ge] The system which generated this result transmitted reference range: 166 - 358 10*3/?L. The reference range was not used to interpret this result as normal/abnormal. MPV (test code = 07475-6) 12.3 fL 9.5-12.9 IPF % (test code = 0713022336) 10.5 % 1.3-7.7 H Platelet count measured by fluorescence method. NRBC/100 WBC (test code = 1348793499) See_Comment [Automated FIGS ssage] The system which generated this result transmitted reference range: 0.0 - 10.0 /100 WBCs. The reference range was not used to interpret this result as normal/abnormal. NRBC x10^3 (test code = 6245549830) See_Comment [Automated Liquidneta ge] The system which generated this result transmitted reference range: 10*3/?L. The reference range was not used to interpret this result as normal/abnormal. GRAN MAT (NEUT) % (test code = 770-8) 81.5 % IMM GRAN % (test code = 9726917354) 0.70 % LYMPH % (test code = 736-9) 11.4 % MONO % (test code = 5905-5) 5.7 % EOS % (test code = 713-8) 0.4 % BASO % (test code = 706-2) 0.3 % GRAN MAT x10^3(ANC) (test code = 6108747760) 14.69 10*3/uL 1.88-7.09 H IMM GRAN x10^3 (test code = 9811110094) 0.13 10*3/uL 0-0.06 H LYMPH x10^3 (test code = 731-0) 2.06 10*3/uL 1.32-3.29 MONO x10^3 (test code = 742-7) 1.02 10*3/uL 0.33-0.92 H EOS x10^3 (test code = 711-2) 0.07 10*3/uL 0.03-0.39 BASO x10^3 (test code = 704-7) 0.05 10*3/uL 0.01-0.07 BANDS (test code = 9781939675) Increased A Lab Interpretation (test code = 35626-6) Abnormal [facility] GLUCOSE (AUTOMATED)2022-01-09 01:42:12* Test Item Value Reference Range Interpretation Comme nts POCT GLU (test code = 0436380926) 196 mg/dL 70-110 H Notified Provide r Lab Interpretation (test code = 04899-2) Abnormal [facility] GLUCOSE (AUTOMATED)2022-01-09 01:42:12* Test Item Value Reference Range Interpretation Comme nts POCT GLU (test code = 5594956959) 196 mg/dL 70-110 H Notified Provide r Lab Interpretation (test code = 76210-1) Abnormal [facility] GLUCOSE (AUTOMATED)2022-01-08 20:30:12* Test Item Value Reference Range Interpretation Comme nts POCT GLU (test code = 3832280236) 225 mg/dL 70-110 H Lab Interpretation (test cod e = 42669-8) Abnormal [facility] GLUCOSE (AUTOMATED)2022-01-08 20:30:12* Test Item Value Reference Range Interpretation Comme nts POCT GLU (test code = 6615334921) 225 mg/dL 70-110 H Lab Interpretation (test cod e = 31758-6) [facility] This is a pre-surgical type and screen. ONCE [id number] 11:38:59* Test Item Value Reference Range Interpretation Comme nts ABO & RH (test code = 20) O POSITIVE Performed at [facility] - [address] Free: [phone] No. [id number] IAT (test code = 1185) Negative Performed at [facility] - [address] Free: [phone] No. [id number] [facility] This is a pre-surgical type and screen. ONCE [id number] 11:38:59* Test Item Value Reference Range Interpretation Comme nts ABO & RH (test code = 20) O POSITIVE Performed at [facility] - [address] Free: [phone] No. [id number] IAT (test code = 1185) Negative Performed at [facility] - [address] Free: [phone] No. [id number] [facility] Consult Notes Date/Time Note Provider Source 2024-12-11 09:01:00 Associated Order(s): CONSULT ADULT OCCUPATIONAL THERAPY 12/11/2024 9:01 OCCUPATIONAL THERAPY NOTE: Duplicate consult received. OT already following patient with POC for at least 3x/week. For details, please see OT note dated 12/09/2024. Thank you. Renae Le OTR [facility] 2024-12-11 08:46:00 Associated Order(s): CONSULT ADULT PHYSICAL THERAPY PHYSICAL THERAPY NOTE: Duplicate consult received. PT already following patient with POC for at least 3x/week. For details, please see PT evaluation dated 12/08/2024. Fatou Ryan, PT Fatou Ryan PT [facility] 2024-12-09 12:23:00 Associated Order(s): CONSULT ADULT OCCUPATIONAL THERAPY OT GENERAL EVALUATION Consult received via [employer], EMR reviewed and evaluation completed 12/09/24. Patient referred to occupational therapy for evaluation and treatment secondary to Primary pancreatic neuroendocrine tumor [D3A.8]. Patient agreeable to participate in occupational therapy. Patient found semireclining in bed and Heels offloaded? Yes Using pillows, No visitors present, Bed alarm engaged, and SCDs donned and engaged. 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 S/p left C6-C7 facetectomy w/ C4-T2 PCDF from 12/07/24 w/ Dr. Ramirez, w/ improvement in left triceps and hand weakness post-operatively. Discharge Recommendations: Therapy Needs and Potential:- Patient would benefit from continued skilled occupational therapy services to address: Decline in basic activities of daily living, Decline in instrumental activities of daily living, Decreased strength, Decreased endurance, and Decreased coordination - Patient demonstrates good potential to improve and meet therapy goals with further skilled occupational therapy services. - Patient appears motivated to improve their BADLS and IADLs and return to their previous level of function. - Patient demonstrates ability to tolerate at least 30-60 minutes of active participation in occupational therapy. - Patient able to follow commands: 1-step Yes, Multi-step Yes, Inconsistencies No Challenges to Home Transition:- Requires physical assistance for BADLS - Requires physical assistance for IADLS - Limited caregiver availability - Increased risk of falls - Environmental barriers Equipment Recommendations:Drop-arm bedside commode, Tub transfer bench, Grab bars, Hand held shower, Long handled sponge, Long handled supervisor cytology, Sock aide, and I certify that Vazquez Wheeler is under my care and that I had a [id number] encounter with this patient on: 12/09/24 . The primary reason for the durable medical equipment: to promote safety and functional independence in BADLs and selfcare mobility. I am recommending that, based on my findings, the following is medically necessary durable medical equipment: 3 in 1 bedside commode. Height: Ht Readings from Last 1 Encounters: 12/07/24 5' (1.524 m) Weight: Wt Readings from Last 1 Encounters: 12/07/24 166 lb (75.3 kg) Duration of need: 99 months. Patient does not have access to regular toilet facilities because he/she is confined to: A single room. PLAN OF CARE: At least 3x/week Precautions: Weight bearing status: No lifting greater than 5 lbs. General: PPE Utilized: Gloves and Surgical mask, c-spine, Fall, Hemovac, logroll, 2 LPM O2 per NC , Purewick catheter, and IV Bracing: N/A Subjective: Patient reports pain is her greatest issues this session Current Occupational Performance and/or Treatment: AM-PAC 6 Clicks (Raw Score 0=Dependent, 24=Independent; Low function Raw Score 0= Dependent, 32=Independent): Raw Score - Daily Activity: 15 T-Scale Score - Daily Activity: 34.69 -Prior to activity, patient educated in C-spine precautions, including log rolling, avoiding neck movement, and no lifting greater than 5 lbs till cleared by Neurosurgery. -Patient required education in frequent seated pursed lip breathing rest breaks secondary to fatigues rapidly in moderate activity on 2 LPM NC duration of session. Feeding: Independent Grooming: Supervision, seated at recliner in face/hands hygiene with wash cloth/oral care UB Dressing: Supervision, Seated EOB [facility] gown LB Dressing: Maximum Assistance, in semireclining/seated EOB [facility] Toilet Transfer: Moderate Assistance, simulated in bed <> recliner transfer with multisensory cueing for use of Rolling Walker. Functional Mobility: - Moderate Assistance log rolling supine <> sidelying - Moderate Assistance sidelying <> sit EOB - Minimal Assistance dynamic sit balance EOB in activity - Minimal Assistance sit <> stand EOB with multisensory cueing to position buttocks, feet and hands in Rolling Walker use - Moderate Assistance taking few steps bed <> recliner with multisensory cueing for body mechanics in Rolling Walker use - End of session, Patient reported need to return to semireclining due to fatigues rapidly in light activity this session, and OT assisted patient as noted above. -Seated at recliner, Patient educated in HEP, including AROM and Towel/dowel with BUE in all available planes 2 sets of repetitions each, 3 times/day, with education in pursed lip breathing rest breaks every 1-2 sets due to debility Patient/caregiver educated on:Adaptive equipment , ADL training, AROM, Compensatory techniques/adaptive strategies, Energy conservation, Fall prevention, Positioning, Relaxation/breathing techniques, Role of OT, Safety awareness, Towel/dowel, and C-spine precautions Patient left reclining in bedside chair with call wheeler in reach. No visitors present, Bed alarm engaged, Medline chair alarm engaged, SCDs donned and engaged, and RN informed of all. Please, see full evaluation below for more detail. 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] OT Diagnosis: Impaired BADL independence, Impaired IADL independence, Weakness, Decreased endurance, and Impaired self-care mobility PMH: Past Medical History: Diagnosis Date Colitis Diverticulitis Hypertension PID (pelvic inflammatory disease) Renal cell carcinoma, unspecified laterality 04/09/2022 Thyroid disease Transfusion history 1986 & 1999- w/ childbirth Type 2 diabetes mellitus without complication, without long-term current use of insulin 09/25/2023 PSH: Past Surgical History: Procedure Laterality Date CHOLECYSTECTOMY COLECTOMY N/A 08/21/2021 Surgeon: Terence Burks MD; Location: [facility] OR LOCATION COLONOSCOPY N/A 08/14/2020 Surgeon: Terence Burks MD; Location: [facility] OR Location COLONOSCOPY N/A 01/08/2022 Surgeon: Terence Burks MD; Location: [facility] OR LOCATION COLONOSCOPY N/A 11/17/2024 Surgeon: Kandi Loja MD; Location: [facility] ([facility] OR LOCATION COLOSTOMY CLOSURE N/A 01/08/2022 Surgeon: Terence Burks MD; Location: [facility] OR LOCATION COLOSTOMY LOOP N/A 08/21/2021 Surgeon: Terence Burks MD; Location: [facility] OR LOCATION COLPOSCOPY ESOPHAGOGASTRODUODENOSCOPY N/A 09/13/2020 Surgeon: Smiley Marina MD; Location: [facility] OR Location ESOPHAGOGASTRODUODENOSCOPY N/A 11/17/2024 Surgeon: Kandi Loja MD; Location: [facility] ([facility]) OR LOCATION EXPLORATORY LAPAROTOMY N/A 08/21/2021 Surgeon: Terence Burks MD; Location: [facility] OR LOCATION LAPAROSCOPIC ROBOTIC ASSISTED PARTIAL NEPHRECTOMY (SHX) Right 04/26/2022 Surgeon: Bonilla Morrow MD; Location: [facility] OR LOCATION NEPHRECTOMY Left POSTERIOR CERVICAL FUSION Bilateral 12/07/2024 Surgeon: Girish Ramirez MD; Location: [facility] OR LOCATION SPINAL CORD TUMOR RESECTION Left 12/07/2024 Surgeon: Girish Ramirez MD; Location: [facility] OR LOCATION TUBAL LIGATION UPPER ULTRASOUND (SHX) N/A 11/17/2024 Surgeon: Kandi Loja MD; Location: [facility]OS[facility] ([facility]) OR LOCATION PAIN: Pain Location: lower back and posterior aspect of neck at surgical site Pain rating before treatment: 2, After treatment: 4 Pain Management: Nursing Notified, Use of assistive device aides in pain reduction during mobility, Repositioning Provided, and RN addressing pain OCCUPATIONAL ROLES/HOME ENVIRONMENT: Home environment: Lives with spouse and Upstairs apartment . 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 Function prior to admission: Household ambulation, Community ambulation, Independent with BADLs, and Independent with IADLs Suspected ischemic or hemorrhagic stroke patient: No Equipment prior to admission: None PERFORMANCE SKILLS/FACTORS: UE Muscle Tone: bilateral WNL UE ROM: bilateral AROM WFL UE Strength: ОЛЬГА UE WFL Hand dominance: right Dexterity/Coordination: left Impaired Endurance - Sitting: Fair Standing: Fair - Sitting Balance - Static: Fair+ Dynamic: Fair Standing: Balance - Static Fair - Dynamic: Fair - Dizziness: No Skin Integrity: dressings intact, Hemovac, and surgical incision Sensation: bilateral Intact to light touch Oral Motor: WFL Communication: Able to verbalize needs Yes Other: N/A Vision: WFL Yes Other: reading glasses Hearing: good; no issues reported COGNITION: Orientation: person, place, date/time, and situation Follows Commands: 1-step Yes Multi-step Yes Inconsistencies No Safety Awareness/Judgment: Lacks insight to deficits PROBLEM LIST: Decreased independence with ADL, Impaired postural control, and Decreased strength/endurance for functional activity REHAB POTENTIAL/PROGNOSIS: good PATIENT/FAMILY GOALS: "To do everything without any help." TREATMENT/INTERVENTION PLAN: Functional motor treatment, Patient/Caregiver Education, Equipment recommendations, Daily living activities, Therapeutic exercises, and Neuromuscular Re-Education GOAL(S): By discharge, patient will increase independence in daily living skills as follows: 1 Patient will perform toilet transfer with supervision. 2 Patient will perform UB dressing with independence. 3 Patient will perform LB dressing with supervision using Adaptive Equipment as needed. 4 Patient will complete multi-step grooming tasks with independence while seated at the sink. 5 Patient will complete toileting hygiene, including clothing management, with supervision. 6 Patient will increase endurance for functional activity as evidenced by ability to sustain 30 minutes of active participation. 7 Patient/caregiver will verbalize/demonstrate understanding/proficiency in the following home programs: Adaptive equipment , Compensatory techniques/adaptive strategies, Dexterity/fine motor coordination, Energy conservation, Fall prevention, General strengthening, Relaxation/breathing techniques, and C-spine precautions PATIENT-FAMILY TEACHING Patient provided with preferred teaching of verbal information, written information, and demonstration on Adaptive equipment , ADL training, AROM, Compensatory techniques/adaptive strategies, Energy conservation, Fall prevention, Positioning, Relaxation/breathing techniques, Role of OT, Safety awareness, Towel/dowel, and C-spine precautions. Shows readiness to learn. Verbal instruction, Written material, and Demonstration teaching provided. Individual is able to read and verbalizes understanding of teaching provided. TRAE Champagne Total Timed Treatment Codes: 40 Min Total Treatment Time: 50 Min Patient Complexity Level High - An occupational therapy evaluation of high complexity was completed using the above tests and measures. The following information was obtained: Clinical decision-making is of high analytic complexity, which includes an analysis of the patient profile, analysis of data from comprehensive assessment(s), and consideration of multiple treatment options. Patient present with comorbidities that affect occupational performance. Significant modification of tasks or assistance (e.g., physical or verbal) with assessment(s) is necessary to enable patient to complete evaluation component. [facility] 2024-12-08 12:10:00 Associated Order(s): CONSULT ADULT PHYSICAL THERAPY Patient agreeable to working with physical therapy. Patient semireclining in bed, Visitor present and SCDs on but not engaged. Recommend nursing staff utilize Cherri Stedy to safely assist patient with mobility out of the bed or chair. PHYSICAL THERAPY EVALUATION Consult received, chart reviewed and evaluation complete this date. Patient is referred to PT for evaluation and treatment. 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 Discharge Recommendations: Therapy Needs and Potential: Patient would benefit from continued physical therapy services to address: decline in bed mobility decline in transfers decline in gait and/or balance decreased strength decreased endurance Patient demonstrates good potential to improve and meet therapy goals with further physical therapy services. Patient appears motivated to improve their functional mobility and return to their previous level of function. Patient demonstrates ability to tolerate approximately 90 minutes of physical therapy with active participation. Challenges to Home Transition: increased risk of falls decreased caregiver availability environmental barriers Requires physical assistance with functional mobility Equipment recommendations: wheelchair at this time, will update recommendations as patient progresses Wheelchair: I certify that Vazquez Wheeler is under my care and that I had a face to face encounter with this patient on 12/08/24. The patient is unable to safely complete ADL s with the assistance from a cane, walker or crutches due to gait difficulty, balance deficits, generalized weakness and limited standing tolerance. I am ordering and certify that based on my findings, the following is medically necessary durable medical equipment: lightweight wheelchair - requires reduced weight to self propel while engaging in activities in the home that cannot be performed in a standard wheelchair due to upper body weakness. The patient has generalized weakness, balance deficits, gait difficulty and limited standing tolerance that significantly impairs his/her ability to participate in one or more mobility-related activities of daily living such as toileting, feeding, dressing, grooming, and bathing in customary locations in the home. Prevents the patient from accomplishing an MRADL entirely, or places the patient at reasonably determined heightened risk of morbidity or mortality secondary to the attempts to perform an MRADL or prevents the patient from completing an MRADL within a reasonable time frame. The patient s mobility impairment cannot be sufficiently resolved by the use of an appropriately fitted cane or walker. The patient s home provides adequate access between rooms, maneuvering space and surfaces for use of the manual wheelchair that is provided. Use of a manual wheelchair will significantly improve the patient s ability to participate in MRADLs and the patient will use it on a regular basis in the home. The patient has not expressed an unwillingness to use the manual wheelchair that is provided in the home.. Height: Ht Readings from Last 1 Encounters: 12/07/24 5' (1.524 m) Weight: Wt Readings from Last 1 Encounters: 12/07/24 166 lb (75.3 kg) Duration of need: 99 months. Current Functional Status and/or Treatment: AM-PAC 6 Clicks (Raw Score 0=Dependent, 24=Independent; Low function Raw Score 0= Dependent, 32=Independent): Raw Score - Basic Mobility : 14 T-Scale Score - Basic Mobility : 35.55 Bed Mobility: Supine to sit: Moderate Assistance Rolling: Moderate Assistance Scooting to edge of bed: Moderate Assistance Sitting balance Fair+ Educated on logroll technique Facilitated upright trunk posture and bilateral LE movements Dizziness No Transfers: Sit to stand: Moderate Assistance using RW Stand to sit: Minimal Assistance using RW Stand pivot transfer: Minimal Assistance Static/dynamic standing balance: Poor+ Verbal cueing provided for correct hand placement and correct use of AD Assessed standing balance and activity tolerance Educated on proper use of AD, fall prevention and safety Dizziness No Ambulation: Assisted patient with ambulation as follows: 6 feet using RW and Minimal Assistance. Patient presenting with Step-to and shuffling gait pattern. Patient exhibits unsteady gait with forward flexed posture, increased base of support, decreased bilateral LE clearance, decreased step length and addy. Analyzed gait and safety with ambulation Educated on fall prevention and safety Dizziness No Therapeutic exercise: patient educated in Fall prevention, Positioning, Relaxation/breathing techniques, Safety awareness, and Spinal precautions., instructed patient in the following: ankle pumps, and patient/caregiver demonstrates understanding of instructions. After session, patient reclining in bedside chair, Visitor present, SCDs donned and engaged, and multiple lines in place. Call button provided, personal items within reach, RN notified of patient's status and response to treatment. PLAN OF CARE: While in the hospital, PT will follow patient at least 3 times per week,once or twice a day, per patient's tolerance and needs. See below for complete details. 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] PT Diagnosis: Difficulty walking, Weakness, Pain, and Abnormality of gait and balance Weight Bearing Precaution: NA General Precautions: General, Fall, Lines/Tubes, Logroll, cervical spine precautions,Purewick catheter, Hemovac, oxygen: Nasal canula, peripheral IV Bracing/Cast present or required:N/A PMH: Past Medical History: Diagnosis Date Colitis Diverticulitis Hypertension PID (pelvic inflammatory disease) Renal cell carcinoma, unspecified laterality 04/09/2022 Thyroid disease Transfusion history 1986 & 1999- w/ childbirth Type 2 diabetes mellitus without complication, without long-term current use of insulin 09/25/2023 PSH: Past Surgical History: Procedure Laterality Date CHOLECYSTECTOMY COLECTOMY N/A 08/21/2021 Surgeon: Terence Burks MD; Location: [facility] OR LOCATION COLONOSCOPY N/A 08/14/2020 Surgeon: Terence Burks MD; Location: [facility] OR Location COLONOSCOPY N/A 01/08/2022 Surgeon: Terence Burks MD; Location: [facility] LOCATION COLONOSCOPY N/A 11/17/2024 Surgeon: Kandi Loja MD; Location: [facility] ([facility] OR LOCATION COLOSTOMY CLOSURE N/A 01/08/2022 Surgeon: Terence Burks MD; Location: [facility] LOCATION COLOSTOMY LOOP N/A 08/21/2021 Surgeon: Terence Burks MD; Location: [facility] OR LOCATION COLPOSCOPY ESOPHAGOGASTRODUODENOSCOPY N/A 09/13/2020 Surgeon: Smiley Marina MD; Location: [facility] OR Location ESOPHAGOGASTRODUODENOSCOPY N/A 11/17/2024 Surgeon: Kandi Loja MD; Location: [facility] ([facility]) OR LOCATION EXPLORATORY LAPAROTOMY N/A 08/21/2021 Surgeon: Terence Burks MD; Location: [facility] OR LOCATION LAPAROSCOPIC ROBOTIC ASSISTED PARTIAL NEPHRECTOMY (SHX) Right 04/26/2022 Surgeon: Bonilla Morrow MD; Location: [facility] OR LOCATION NEPHRECTOMY Left POSTERIOR CERVICAL FUSION Bilateral 12/07/2024 Surgeon: Girish Ramirez MD; Location: [facility] OR LOCATION SPINAL CORD TUMOR RESECTION Left 12/07/2024 Surgeon: Girish Ramirez MD; Location: [facility] OR LOCATION TUBAL LIGATION UPPER ULTRASOUND (SHX) N/A 11/17/2024 Surgeon: Kandi Loja MD; Location: [facility] ([facility]) OR LOCATION PRIOR LIVING SITUATION: lives with their spouse, upstairs apartment with 10-12 stairs with bilateral handrails DME: No device Prior level of Mobility: community ambulation, house hold ambulation Suspected ischemic or hemorraghic stroke:No Subjective: Patient reports previously independent with all functional mobility. Patient with report her legs feel weak. Patient/Family Goals: to return to previous level of function Patient/Family verbalizes understanding of condition: Yes PAIN: -Pain Description: aching -Pain Location: neck -Pain rating before treatment: 8, After treatment: 8 -Pain Management: Decreased movement aides in some pain reduction and Uses [employer]VE[employer] BAT[employer] CHARGER COMMUNICATION Primary Language: Dutch Able to Verbalize needs: Yes Vision:WFL Hearing:WFL ORIENTATION/COGNITION: Oriented to: person, place, date/time, and situation Awake: Yes Alert: Yes Dizzy: No Follows Commands: Yes 1-Step Yes Multi-Step Yes Inconsistent: No NEUROLOGICAL Light Touch: within functional limits bilateral LE, Tone: WNL BALANCE: Sitting: Static: Fair Dynamic: Fair- Standing: Static: Fair- Dynamic: Poor+ RANGE OF MOTION: within functional limits bilateral LE, STRENGTH: 3/5 (F), bilateral LE gross strength ENDURANCE: Fair, Nasal canula 3 L/min SKIN INTEGRITY: not intact, posterior neck with surgical dressings in place PROBLEM LIST: Decline in bed mobility, Decline in gait, Decline in transfers, Decreased strength, Decreased endurance, Decreased balance, and Pain ASSESSMENT: Patient is a 59 year old female seen secondary to the above listed diagnosis. Patient would benefit from continued PT to address the above listed deficits to maximize independence and safety with functional mobility. Rehabilitation Potential: good Goals: The following goals are to maximize independence and safety with functional mobility to eventually return to prior living situation and prior functional status. Upon discharge, patient and/or family will demonstrate the followin. Rolling: Independent Supine-sit: Independent 2. Sit to stand: Independent using RW Stand to sit: Independent using RW 3. Independent with ambulation, Feet: 300 using least assistive device. 4. Supervision up/down 10 stairs using bilateral hand rails. Treatment Plan: Gait training, Gait training on stairs, Therapeutic exercise, Transfer training, Balance training, Bed mobility training, Equipment needs assessment, Safety education, patient/caregiver education, Wheelchair mobility training, Neuromuscular Re-Education, and Functional Motor Training PATIENT EDUCATION: Patient provided with preferred teaching of verbal information and demonstration on role of PT, plan of care, treatment benefits, spinal precautions, functional mobility, fall prevention and safety. Shows readiness to learn. Verbal instruction and Demonstration teaching provided. Individual is able to read and verbalizes understanding of teaching provided. Jerri Stearns PT, DPT Pager Number: [phone] Total time treatments: 24 min Total treatment time: 44 min [facility] 2024-12-08 10:50:22 Associated Order(s): CONSULT ENDOCRINOLOGY Endocrinology Consultation Note Consultation requested by: Service: IM Reason for Consultation: Diabetes Date of Service: 12/08/24 HPI Patient is a 59 year old female who was admitted on 12/07/2024 for nerve sheath tumor. PMH of RCCa, pancreatic NET, and nerve sheath tumor s/p elective L facetectomy Patient also has Diabetes Mellitus II. Patient has a history of being uncontrolled. Patient has a history of being compliant with medical therapy. Patient was diagnosed with diabetes about 8 months. Patient's last HgbA1C was Last Two A1C Results ([facility], [facility], [facility]) Recent Labs 07/21/24 1239 12/08/24 0520 HGBA1C 8.6* 10.0* Patient's home regimen consists of levothyroxine 125mcg QD, pioglitazone 30mg QD, glipizide 5mg BID . Patients blood sugars at home average elevated Patient has a glucometer. Patient denies hypoglycemia. Patient does not diet or exercise. Patient has complications of obesity Patient denies history of diabetic infections. Patient has steroid therapy. PAST MEDICAL HISTORY Past Medical History: Diagnosis Date Colitis Diverticulitis Hypertension PID (pelvic inflammatory disease) Renal cell carcinoma, unspecified laterality 04/09/2022 Thyroid disease Transfusion history 1986 & 1999- w/ childbirth Type 2 diabetes mellitus without complication, without long-term current use of insulin 09/25/2023 Past Surgical History: Procedure Laterality Date CHOLECYSTECTOMY COLECTOMY N/A 08/21/2021 Surgeon: Terence Burks MD; Location: [facility] OR LOCATION COLONOSCOPY N/A 08/14/2020 Surgeon: Terence Burks MD; Location: [facility] OR Location COLONOSCOPY N/A 01/08/2022 Surgeon: Terence Burks MD; Location: [facility] LOCATION COLONOSCOPY N/A 11/17/2024 Surgeon: Kandi Loja MD; Location: [facility] OR LOCATION COLOSTOMY CLOSURE N/A 01/08/2022 Surgeon: Terence Burks MD; Location: [facility] LOCATION COLOSTOMY LOOP N/A 08/21/2021 Surgeon: Terence Burks MD; Location: [facility] OR LOCATION COLPOSCOPY ESOPHAGOGASTRODUODENOSCOPY N/A 09/13/2020 Surgeon: Smiley Marina MD; Location: [facility] OR Location ESOPHAGOGASTRODUODENOSCOPY N/A 11/17/2024 Surgeon: Kandi Loja MD; Location: [facility] ([facility] OR LOCATION EXPLORATORY LAPAROTOMY N/A 08/21/2021 Surgeon: Terence Burks MD; Location: [facility] OR LOCATION LAPAROSCOPIC ROBOTIC ASSISTED PARTIAL NEPHRECTOMY (SHX) Right 04/26/2022 Surgeon: Bonilla Morrow MD; Location: [facility] OR LOCATION NEPHRECTOMY Left TUBAL LIGATION UPPER ULTRASOUND (SHX) N/A 11/17/2024 Surgeon: Kandi Loja MD; Location: [facility] ([facility]) OR LOCATION Family History Problem Relation Age of Onset Diabetes Mother Liver failure Father Breast Cancer Maternal Aunt ALLERGIES Iodinated contrast media and Metformin REVIEW OF SYSTEMS General: - fever, - chills, - weight change, +fatigue Skin: - rash, - lesion HEENT: - headache, - change in hearing, - change in vision, - nasal discharge, - sore throat Neck: - difficulty swallowing, - mass Resp: - cough, - shortness of breath, - dyspnea on exertion Cardio: - chest pain, - palpitations, - syncope GI: - abdominal pain, - nausea, - vomiting, - diarrhea, - constipation : - dysuria, - hematuria Endo: - heat intolerance, - cold intolerance, - polyuria, - polydipsia Neuro: - numbness, - tingling, - weakness Psych: - anxiety, - depression, - psychiatric disorder PHYSICAL EXAM Temp: [36.4 ?C (97.6 ?F)-36.9 ?C (98.5 ?F)] Heart Rate (monitor): [114-146] Pulse: [119-131] Resp: [16-22] BP: (114-145)/(73-93) Arterial Line BP: (23-203)/(-13-107) MAP (mmHg): [86-109] MAP: [82 mmHg-103 mmHg] Body mass index is 32.42 kg/m?. General: alert, oriented times three, in no apparent distress, obese HEENT: normocephalic atraumatic, extraocular movements intact Neck: supple, no lymphadenopathy, no thyromegaly Lungs: clear to auscultation bilaterally Cardio: Regular rate and rhythm Abdomen: soft; non-tender; non-distended Extremities: no clubbing, cyanosis, or edema Skin: no rashes Neuro: no focal deficits, alert and oriented x 3 LABORATORY LABS: CBC BMP LFT'S WBC (10*3/?L) Date Value 12/08/2024 14.62 (H) NA (mmol/L) Date Value 12/08/2024 134 (L) CHOL (mg/dL) Date Value 07/21/2024 221 (H) LDL CHOL (mg/dL) Date Value 07/21/2024 129 HDL (mg/dL) Date Value 07/21/2024 56 TRIG (mg/dL) Date Value 07/21/2024 180 (H) PLT (10*3/?L) Date Value 12/08/2024 159 (L) K (mmol/L) Date Value 12/08/2024 4.7 AST(SGOT) (U/L) Date Value 07/21/2024 99 (H) ALTv (U/L) Date Value 07/21/2024 74 (H) ALK PHOS (U/L) Date Value 07/21/2024 117 HGB (g/dL) Date Value 12/08/2024 12.1 CALCIUM (mg/dL) Date Value 12/08/2024 8.1 (L) HCT (%) Date Value 12/08/2024 35.0 (L) CL (mmol/L) Date Value 12/08/2024 105 HGB A1C (%) Date Value 12/08/2024 10.0 (H) BUN (mg/dL) Date Value 12/08/2024 11 CREATININE (mg/dL) Date Value 12/08/2024 0.81 GLUCOSE (mg/dL) Date Value 12/08/2024 364 (H) CO2 TOTAL (mmol/L) Date Value 12/08/2024 20 (L) MEDICATIONS Hospital Medications: Current Facility-Administered Medications Medication Dose Route Frequency Last Rate Last Admin HYDROcodone-acetaminophen (NORCO 5) 5-325 mg tablet 1 tablet 1 tablet Oral Q6HPRN 1 tablet at 12/08/24 0455 insulin glargine (LANTUS U-100) injection 10 unit 10 unit Subcutaneous BID 10 unit at 12/08/24 0826 insulin lispro (human) (HumaLOG U-100) injection 4 unit 4 unit Subcutaneous TIDAC 4 unit at 12/08/24 0826 magnesium oxide (MAG-OX 400) 400 mg (241.3 mg magnesium) tablet 800 mg 800 mg Oral DAILY 800 mg at 12/08/24 0825 acetaminophen (TYLENOL) tablet 650 mg 650 mg Oral Q6H 650 mg at 12/08/24 0501 ceFAZolin (ANCEF) 2,000 mg in NaCl 0.9% (NS) 100 mL V2B IV Piggyback 2,000 mg IV Piggyback Q8H ABX Stopped at 12/08/24 0536 dextrose 50 % in water (D50W) injection 25 mL 25 mL Slow IV Push PRN docusate (COLACE) capsule 100 mg 100 mg Oral DAILY 100 mg at 12/08/24 0825 enoxaparin (LOVENOX) injection 40 mg 40 mg Subcutaneous DAILY 40 mg at 12/08/24824 gabapentin (NEURONTIN) capsule 100 mg 100 mg Oral TID 100 mg at 12/08/24 0825 glucagon HCL injection 1 mg 1 mg Intramuscular PRN levothyroxine (SYNTHROID) tablet 125 mcg 125 mcg Oral QAM-0600 125 mcg at 12/08/24 0501 losartan (COZAAR) tablet 50 mg 50 mg Oral DAILY 50 mg at 12/08/24 0825 morpHINE (4 mg/mL) injection 4 mg 4 mg Slow IV Push Q3HPRN 4 mg at 12/08/24 0343 morpHINE 30 mg/30 mL (fixed dose) [employer]GER injection Intravenous CONTINUOUS New Bag at 12/08/24 0607 naloxone (NARCAN) injection 0.4 mg 0.4 mg Slow IV Push PRN 40 mcg at 12/07/24 1711 ondansetron (ZOFRAN (PF)) injection 4 mg 4 mg Slow IV Push Q6HPRN 4 mg at 12/08/24 0622 polyethylene glycol 3350 powder 17 g 17 g Oral QDAILYPRN polyethylene glycol 3350 powder 17 g 17 g Oral DAILY 17 g at 12/08/24 0825 Sliding Scale Insulin - Lispro (HumaLOG) Subcutaneous TID MEALS+HS 6 unit at 12/08/24 0826 spironolactone (ALDACTONE) tablet 150 mg 150 mg Oral DAILY 150 mg at 12/08/24 0825 ASSESSMENT and PLAN 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 Diabetes Type 2, uncontrolled -A1c ([facility]/, [facility], [place]) Recent Labs 07/21/24 1239 12/08/24 0520 HGBA1C 8.6* 10.0* -Complications of obesity -Home regimen: levothyroxine 125mcg QD, pioglitazone 30mg QD, glipizide 5mg BID Plan: -Start glargine 15u QD -Start lispro 5u TIDAC -Start MDSSI -Goal inpatient glucose range 140-180 per ADA guidelines -Diabetes Education -Dietary Education -Patient requires outpatient follow up HTN - c/w losartan Hypothyroidism -c/w LT4 125mcg QD Janes Ross DO Endocrinology EDUCATION Counseled on this visit about: Importance of adhering to the medical regimen outlined above [facility] 2024-12-08 10:33:48 [facility] Consult Report Requesting Physician: Pal Nunez MD DATE OF SERVICE: 12/08/2024 NAME: Vazquez Wheeler #: [id number] Chief Complaint: We were asked to help manage pain Vazquez Wheeler, 59 year old, female who presents with elective L C6-7 facetectomy with C4-T2 PCDF. HPI Patient is a 59 year old /White female who presented to the ED for elective C4-T2 PCDF and left C6-7 facetectomy for a left sided nerve sheath tumor at C6-7. The pain is stiff, sharp, throbbing. The pain worsens with mobility but is noticeable at rest. 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 She fellas the CONVEYOR LINE BATTERY CHARGER is controlling the pain. The pain improves with rest and medication. Pain is rated 8 out of 10. Pain management has been asked to assist with pain control. ALLERGY: Iodinated contrast media and Metformin SOCIAL HISTORY: Social History Tobacco Use Smoking Status Never Passive exposure: Never Smokeless Tobacco Never Tobacco Comments Non smoker Social History Substance and Sexual Activity Alcohol Use Yes Alcohol/week: 2.0 standard drinks of alcohol Types: 2 Cans of beer per week Comment: couple beers after work daily Social History Substance and Sexual Activity Drug Use Never FAMILY HISTORY: Family History Problem Relation Age of Onset Diabetes Mother Liver failure Father Breast Cancer Maternal Aunt MEDICATIONS: Current Facility-Administered Medications Medication Dose Route Frequency Last Rate Last Admin HYDROcodone-acetaminophen (NORCO 5) 5-325 mg tablet 1 tablet 1 tablet Oral Q6HPRN 1 tablet at 12/08/24 0455 insulin glargine (LANTUS U-100) injection 10 unit 10 unit Subcutaneous BID 10 unit at 12/08/24 0826 insulin lispro (human) (HumaLOG U-100) injection 4 unit 4 unit Subcutaneous TIDAC 4 unit at 12/08/24 0826 magnesium oxide (MAG-OX 400) 400 mg (241.3 mg magnesium) tablet 800 mg 800 mg Oral DAILY 800 mg at 12/08/24 0825 acetaminophen (TYLENOL) tablet 650 mg 650 mg Oral Q6H 650 mg at 12/08/24 0501 ceFAZolin (ANCEF) 2,000 mg in NaCl 0.9% (NS) 100 mL V2B IV Piggyback 2,000 mg IV Piggyback Q8H ABX Stopped at 12/08/24 0536 dextrose 50 % in water (D50W) injection 25 mL 25 mL Slow IV Push PRN docusate (COLACE) capsule 100 mg 100 mg Oral DAILY 100 mg at 12/08/24 0825 enoxaparin (LOVENOX) injection 40 mg 40 mg Subcutaneous DAILY 40 mg at 12/08/24 08 gabapentin (NEURONTIN) capsule 100 mg 100 mg Oral TID 100 mg at 12/08/24 0825 glucagon HCL injection 1 mg 1 mg Intramuscular PRN levothyroxine (SYNTHROID) tablet 125 mcg 125 mcg Oral QAM-0600 125 mcg at 12/08/24 0501 losartan (COZAAR) tablet 50 mg 50 mg Oral DAILY 50 mg at 12/08/24 08 morpHINE (4 mg/mL) injection 4 mg 4 mg Slow IV Push Q3HPRN 4 mg at 12/08/24 0343 morpHINE 30 mg/30 mL (fixed dose) CON[employer]GER injection Intravenous CONTINUOUS New Bag at 12/08/24 0607 naloxone (NARCAN) injection 0.4 mg 0.4 mg Slow IV Push PRN 40 mcg at 12/07/24 1711 ondansetron (ZOFRAN (PF)) injection 4 mg 4 mg Slow IV Push Q6HPRN 4 mg at 12/08/24 0622 polyethylene glycol 3350 powder 17 g 17 g Oral QDAILYPRN polyethylene glycol 3350 powder 17 g 17 g Oral DAILY 17 g at 12/08/24 0825 Sliding Scale Insulin - Lispro (HumaLOG) Subcutaneous TID MEALS+HS 6 unit at 12/08/24 0826 spironolactone (ALDACTONE) tablet 150 mg 150 mg Oral DAILY 150 mg at 12/08/24 0825 PAST MEDICAL HISTORY: Past Medical History: Diagnosis Date Colitis Diverticulitis Hypertension PID (pelvic inflammatory disease) Renal cell carcinoma, unspecified laterality 04/09/2022 Thyroid disease Transfusion history 1986 & 1999- w/ childbirth Type 2 diabetes mellitus without complication, without long-term current use of insulin 09/25/2023 SURGICAL HISTORY: Past Surgical History: Procedure Laterality Date CHOLECYSTECTOMY COLECTOMY N/A 08/21/2021 Surgeon: Terence Burks MD; Location: [facility] COLONOSCOPY N/A 08/14/2020 Surgeon: Terence Burks MD; Location: [facility] ([facility]) OR Location COLONOSCOPY N/A 01/08/2022 Surgeon: Terence Burks MD; Location: [facility]ATION COLONOSCOPY N/A 11/17/2024 Surgeon: Kandi Loja MD; Location: ENDOSCOPY ([facility]) OR LOCATION COLOSTOMY CLOSURE N/A 01/08/2022 Surgeon: Terence Burks MD; Location: [facility] COLOSTOMY LOOP N/A 08/21/2021 Surgeon: Terence Burks MD; Location: [facility]ATION COLPOSCOPY ESOPHAGOGASTRODUODENOSCOPY N/A 09/13/2020 Surgeon: Smiley Marina MD; Location: [facility] OR Location ESOPHAGOGASTRODUODENOSCOPY N/A 11/17/2024 Surgeon: Kandi Loja MD; Location: ENDOSCOPY ([facility]) OR LOCATION EXPLORATORY LAPAROTOMY N/A 08/21/2021 Surgeon: Terence Burks MD; Location: [facility] OR LOCATION LAPAROSCOPIC ROBOTIC ASSISTED PARTIAL NEPHRECTOMY (SHX) Right 04/26/2022 Surgeon: Bonilla Morrow MD; Location: [facility] OR [facility] NEPHRECTOMY Left TUBAL LIGATION UPPER ULTRASOUND (SHX) N/A 11/17/2024 Surgeon: Kandi Loja MD; Location: ENDOSCOPY ([facility]) OR LOCATION REVIEW OF SYSTEMS 14 Point ROS undertaken and negative except as noted: General: (-) fever, (-) chills, (-) weight loss Endo: (-) heat intolerance, (-) diabetes, (-) cold intolerance HEENT: (-) headache, (-) change in vision, (-) sore throat Neck: (-) pain, (-) difficulty swallowing, (-) mass Resp: (-) cough, (-) shortness of breath, (-) wheezing Cardio: (-) chest pain, (-) palpitations, (-) syncope GI: (-) abdominal pain, (-) vomiting, (-) diarrhea : (-) dysuria, (-) hematuria, (-) increased frequency Skin: (-) rash, (-) lesion Vasc: (-) claudication Neuro: (-) numbness, (-) weakness, (-) change in speech BLAISE: (-) muscle pain, (-) joint pain Psych: (-) anxiety, (-) depression, (-) psychiatric disorder PHYSICAL EXAMINATION Vitals: 12/07/24 2154 12/07/24 2345 12/08/24 0326 12/08/24 0700 BP: 122/80 123/88 (!) 141/93 BP Location: Left arm Left arm Pulse: 119 120 120 Resp: Temp: 36.7 ?C (98.1 ?F) 36.7 ?C (98 ?F) 36.9 ?C (98.5 ?F) TempSrc: SpO2: 100% 99% 98% Weight: 75.3 kg (166 lb) Height: 1.524 m (5') Pain Scale: General: awake, alert, and oriented; no apparent distress HEENT: normocephalic, atraumatic, PERRLA with EOMI Neck: supple, midline trachea Cardio: regular rate and rhythm Lungs: clear to auscultation bilaterally Abdomen: soft; non-tender; non-distended; normoactive bowel sounds Genital/rectal: deferred Extremities: no clubbing, cyanosis, or edema Skin: no rashes, lesions Muscle: normal RUE, LUE, RLE, LLE, normal ROM. Reduced ROM of cervical spine Neuro: cranial nerves grossly intact; sensation grossly intact Lymphatics: no lymphadenopathy Psychology: normal mood and affect Review of Data: LABS - reviewed pertinent labs as below: CBC WBC (10*3/?L) Date Value 12/08/2024 14.62 (H) RBC (10*6/?L) Date Value 12/08/2024 3.77 (L) PLT (10*3/?L) Date Value 12/08/2024 159 (L) HGB (g/dL) Date Value 12/08/2024 12.1 HCT (%) Date Value 12/08/2024 35.0 (L) CMP NA (mmol/L) Date Value 12/08/2024 134 (L) K (mmol/L) Date Value 12/08/2024 4.7 CALCIUM (mg/dL) Date Value 12/08/2024 8.1 (L) CL (mmol/L) Date Value 12/08/2024 105 BUN (mg/dL) Date Value 12/08/2024 11 CREATININE (mg/dL) Date Value 12/08/2024 0.81 GLUCOSE (mg/dL) Date Value 12/08/2024 364 (H) CO2 TOTAL (mmol/L) Date Value 12/08/2024 20 (L) ALBUMIN (g/dL) Date Value 07/21/2024 4.3 T PROTEIN (g/dL) Date Value 07/21/2024 8.0 TOTAL BILI (mg/dL) Date Value 07/21/2024 0.9 BILI UNCON (mg/dL) Date Value 10/04/2020 0.5 BILI CONJ (mg/dL) Date Value 10/04/2020 0.0 ALTv (U/L) Date Value 07/21/2024 74 (H) AST(SGOT) (U/L) Date Value 07/21/2024 99 (H) ALK PHOS (U/L) Date Value 07/21/2024 117 IMAGING - reviewed, pertinent results as below: CT Cervical spine wo contrast Result Date: 12/07/2024 Mild osseous remodeling changes at the left C6-C7 neural foramen. The left C6-C7 neural foraminal lesion was best evaluated on the prior MRI and PET/CT examinations. No acute fractures or traumatic malalignment in the cervical spine. Preliminary Report Dictated by Resident: Hammad Petersen I, Mateusz Kaur MD., have reviewed this study and agree with the above report. ASSESSMENT/PLAN: Vazquez Wheeler is a 59 year old female presents with the following: Cervicalgia, nerve sheath tumor, acute postoperative pain -S/p C4-T2 PCDF and left C6-7 facetectomy for a left sided nerve sheath tumor at C6-7 on 12/07/24 -Tylenol 650 mg PO q6h -[place] 5/325 mg PO q6h PRN pain scale 4-6 -Morphine 4 mg IV q3h PRN pain scale 7-10 -Morphine CONVEYOR LINE [employer]TERY CHARGER: 1 mg/bolus, 6 minute lockout, 32 mg max per 4 hours Polyneuropathy -DC Gabapentin 100 mg PO TID (DC 12/08) -Lyrica 75 mg PO q8h (12/08) Constipation -Colace 100 mg PO daily -Miralax 17 g PO daily -Miralax 17 g PO daily PRN Hx of renal cell carcinoma and pancreatic neuroendocrine tumor -Per attending Disposition: Okay for outpatient follow up Rx: Pharmacy: [id number] ([id number]) [address] [place] [address] Past medical history: Colitis, diverticulitis, hypertension, PID, renal cell carcinoma, pancreatic neuroendocrine tumor, thyroid disease, blood transfusion, diabetes Past surgical history: EGD, C4-T2 PCDF and left C6-7 facetectomy for a left sided nerve sheath tumor at C6-7 on 12/07/24 Family history: Noncontributory Social history: Denies tobacco, illicit drug use, current alcohol use drinks per week Allergies: Metformin, iodinated contrast media Goals: To provide safe and effective pain relief with PT/OT, wound care, during sleep, and to improve QOL Patient will require monitoring while using narcotic medications. Risks vs benefits of opioid medications were reviewed, including, but not limited to respiratory depression, accidental opioid overdose, dependency, altered mental status, drowsiness/sedation. All questions were answered. All diagnostics over last 24 hrs reviewed Plan of care discussed with patient and nurse Thank you Pal Nunez MD for this kind consult and for allowing us to participate in the care of your patient. Case discussed with Dr. Funes whom agrees with assessment and plan. Please don't hesitate to call for any question. Harrison Lam, HAND WEAVER, [facility], [place] [phone] [place] [employer] report reviewed: Vazquez Wheeler 1965 RX Summary Summary Total Prescriptions 2 Total Private Pay 0 Total Prescribers 2 Total Pharmacies 1 11/26/2024 11/26/2024 1 PREGABALIN 50 MG CAPSULE 60.00 30 Sh Tho [id number] [facility] [id number]) 0 0.67 LME Comm Ins [place] 10/18/2024 10/18/2024 1 DIAZEPAM 10 MG TABLET 1.00 1 An Nan [id number] [facility] ([id number]) 0 1.00 LME Comm Ins [place] [id number] [id number]) [address] [place] [id number] Cosigned by Agustín Funes Jr., MD at 12/09/2024 6:39 PM CDT Associated attestation - Agustín Funes Jr., MD - 12/09/2024 6:39 PM CDT I have reviewed the chart and agree with the plan. Agustín Funes MD [facility] - Health 2024-12-08 09:56:57 Associated Order(s): CONSULT SANITARY CHEMIST-ADULT Care Management Social Functional Assessment Patient Name: Vazquez Wheeler Age: [age] year old Sex: female DOS: 12/08/2024 Admission Date: 12/07/2024 Patient's Previous Admission Date at [facility]: 04/26/2022 [facility] [place]: [facility] Current diagnosis and co-morbidities: Primary pancreatic neuroendocrine tumor [D3A.8] Social Functional Assessment: CM spoke with patient/family to complete SFA. Role of Care Management explained. Initial CM screening and initial discharge plan established. Anticipated Discharge Needs/Options: Patient is independent with ADL's at baseline. She has [facility] [employer] ro that covers her hospitalization/procedure. Patient states that she applied for Medicaid and Medicare but did not qualify (not enough work credits and without permanent disability). CM discussed [employer] plan as an option to obtain health insurance however patient stated that she tried to apply last year and was unable to afford $800 as she did not work and had no work credits last year. She states that her has health insurance through is employer but they cannot afford to add her to his plan. She states that she plans to resubmit/apply for [employer] again next month. Family at bedside for support and transportation home at discharge. Mental status: Alert & Oriented to Person,Place & Time Baseline functional assessment-ADLS: Independent Current functional status same as prior: Yes MPOA: No Living arrangement: Apartment Patient s Home Address: [address] [place], [place] [id number] [place] [address] Name, phone numbers, and relation of people living in the home: Zeke Wheeler [phone] Relationship to patient: spouse Is there a caregiver? No Does patient have a PCP: Yes Name of PCP: Roopa Garcia MD Was patient provided referal or information to establish PCP: On Service with Home Health or Provider Services: No Previous or current Home Health Care Agency: Name of Home Health Agency: Equipment at home: None DME Location: Is the patient on Hemodialysis: No Funding Resources: Other (comment) (Patient has [facility] Casebook/Ro) Will the patient be able to obtain his/her medications: Yes Mode of Transportation: Personal vehicle;Family Name, phone number of the family member or friend picking up the patient: Patient's sisterMarya is at bedside and family will drive patient home at discharge Anticipated Discharge Needs: Continue Medical Eval;PT/OT/ST Potential Discharge Barriers: Pending medical evaluation;Pending P/T O/T recommendation Community resources utilized: [facility] Post-Acute Care Transition Education: Post-Acute Care Transition Education Completed: Yes Name and Relationship of Person Educated: Patient and sister Malhotra Type of Post-Acute Care Service Education Complete: Home/Caregiver/Home Readmission Questions: Was patient discharged from any acute care hospital within the last 30 days: No Alcohol Use Screening (AUDIT-C) Q1: How often do you have a drink containing alcohol: Never Q2: How many drinks containing alcohol do you have on a typical day when you are drinking? Patient does not drink Q3: How often do you have six or more drinks on one occasion? Never Total Score (AUDIT-C): 0 Men a score 4 or more is considered positive. Women score of 3 or more is considered positive. Brief Intervention/List of Resources Offered: No Actions taken: List resources provided: Social Determinists Of Health Questions: With in the last 12 months, did you worry that your food would run out before you got money to buy more? No With in the last 12 months, did the food you bought not last and you didn't have money to buy more? No Do you have housing? Yes Are you worried about losing your housing? No Within the past 12 months, have you are your family members you live with been unable to get utilities (heat, electricity) when it was really needed? No Within the past 12 months, has lack of transportation kept you from medical appointments, getting your medicines, non-medical meetings or appointments, work, or from getting things that you need? No Social Functional Assessment complete: Yes [facility] 2024-12-07 17:05:44 XpertMD Consult note DATE: 12/07/2024 SERVICE: Internal Medicine Asked for consult by attending physician: Pal Nunez MD CHIEF COMPLAINT: No chief complaint on file. HISTORY OF PRESENT ILLNESS Vazquez Wheeler is a 59 year old female who has a hx of renal cell carcinoma as well as pancreatic neuroendocrine tumor, who was referred to neurosurgery recently due to PET scan findings of a left sided nerve sheath tumor at C6-7. A subsequent MRI was completed which showed an avidly enhancing left sided foraminal/extraforaminal mass. Per radiology, some concern that this may be a malignant peripheral nerve sheath tumor or other malignant lesion. Patient also states that she is having more radicular pain down her arm and some associated weakness in left triceps/hand as well. She underwent earlier today, elective L C6-7 nerve sheath Tumor Removal + C6-7 Laminectomy + L Facetectomy. She is seen in the postoperative period still lethargic from general anesthesia. Per nursing received 1x dose of Narcan. Has tachycardia and sugars are persistently in the 300's. Medicine has been consulted for medical management in the post-operative period. ALLERGIES Vazquez is allergic to iodinated contrast media and metformin. MEDICATIONS Current Facility-Administered Medications: acetaminophen (TYLENOL) tablet 650 mg, 650 mg, Oral, Q6H, Vanna Frausto MD bupivacaine (preserv free) (SENSORCAINE MPF) 0.25 % (2.5 mg/mL) injection, , , PRN, Girish Ramirez MD, 20 mL at 12/07/24 1537 BUPivacaine liposome (PF) (EXPAREL (PF)) 1.3 % (13.3 mg/mL) injection, , , PRN, Girish Ramirez MD, 266 mg at 12/07/24 1537 ceFAZolin (ANCEF) 2,000 mg in NaCl 0.9% (NS) 100 mL V2B IV Piggyback, 2,000 mg, IV Piggyback, Q8H ABX, Vanna Frausto MD [START ON 12/08/2024] docusate (COLACE) capsule 100 mg, 100 mg, Oral, DAILY, Vanna Frausto MD [START ON 12/08/2024] enoxaparin (LOVENOX) injection 40 mg, 40 mg, Subcutaneous, DAILY, Vanna Frausto MD FENTanyl (PF) (SUBLIMAZE) injection 25 mcg, 25 mcg, Slow IV Push, Q5MIN PRN, Thiago Frazier CRNA HYDROcodone-acetaminophen (NORCO 5) 5-325 mg tablet 1 tablet, 1 tablet, Oral, ONCE, Thiago Frazier CRNA HYDROmorphone (DILAUDID) injection 0.2 mg, 0.2 mg, Slow IV Push, Q5MIN PRN, Thiago Frazier CRNA lidocaine-epinephrine (XYLOCAINE WITH EPINEPHRINE) 0.5 %-1:200,000 injection, , , PRN, Girish Ramirez MD, 20 mL at 12/07/24 1120 morpHINE 30 mg/30 mL (fixed dose) CONVEYOR [employer]TERY CHARGER injection, , Intravenous, CONTINUOUS, Vanna Frausto MD morpHINE injection 4 mg, 4 mg, Slow IV Push, Q3HPRN, Vanna Frausto MD naloxone (NARCAN) injection 0.4 mg, 0.4 mg, Slow IV Push, PRN, Vanna Frausto MD ondansetron (ZOFRAN (PF)) injection 4 mg, 4 mg, Slow IV Push, PRN, Thiago Frazier CRNA ondansetron (ZOFRAN (PF)) injection 4 mg, 4 mg, Slow IV Push, Q6HPRN, Vanna Frausto MD oxyCODONE immediate release tablet 5 mg, 5 mg, Oral, Q4HPRN, Vanna Frausto MD polyethylene glycol 3350 powder 17 g, 17 g, Oral, PRN - SEE INSTRUCTIONS, Vanna Frausto MD thrombin topical solution, , , PRN, Girish Ramirez MD, 5,000 unit at 12/07/24 1210 vancomycin (VANCOCIN) injection, , , PRN, Girish Ramirez MD, 1,000 mg at 12/07/24 1209 Facility-Administered Medications Ordered in Other Encounters: ceFAZolin (ANCEF) injection, , Intravenous, ONCE INTRA PROCEDURE, Christina Valencia MD, 2 g at 12/07/24 1420 dexamethasone (DECADRON PHOSPHATE) 4 mg/mL injection, , IV Push, ONCE INTRA PROCEDURE, Thiago Frazier CRNA, 4 mg at 12/07/24 1523 ePHEDrine 25 mg/5 mL (5 mg/mL) syringe, , Intravenous, ONCE INTRA PROCEDURE, Christina Valencia MD, 10 mg at 12/07/24 1650 esmoloL (BREVIBLOC) injection, , Slow IV Push, ONCE INTRA PROCEDURE, Thiago Frazier CRNA, 50 mg at 12/07/24 1658 FENTanyl (PF) (SUBLIMAZE) injection, , Intravenous, ONCE INTRA PROCEDURE, Christina Valencia MD, 100 mcg at 12/07/24 1606 glycopyrrolate (ROBINUL) injection, , Intravenous, ONCE INTRA PROCEDURE, Christina Valencia MD, 0.2 mg at 12/07/24 1136 HYDROmorphOne (DILAUDID) injection, , Slow IV Push, ONCE INTRA PROCEDURE, Christina Valencia MD, 0.8 mg at 12/07/24 1349 insulin regular human (HUMULIN R) injection, , Subcutaneous, ONCE INTRA PROCEDURE, Christina Valencia MD, 10 unit at 12/07/24 1505 lactated ringers IV infusion, , IV Infusion, CONTINUOUS PRN, Christina Valencia MD, New Bag at 12/07/24 1115 lidocaine 1% (XYLOCAINE) 100 mg/10 mL (1 %) injection, , Intravenous, ONCE INTRA PROCEDURE, Christina Valencia MD, 10 mL at 12/07/24 1047 midazolam (VERSED) 1 mg/mL injection, , IV Push, ONCE INTRA PROCEDURE, Christina Valencia MD, 2 mg at 12/07/24 1045 NaCl 0.9% (NS) injection, , Slow IV Push, CONTINUOUS PRN, Christina Valencia MD, New Bag at 12/07/24 1423 ondansetron (ZOFRAN (PF)) injection, , Slow IV Push, ONCE INTRA PROCEDURE, Thiago Frazier CRNA, 4 mg at 12/07/24 1523 PHENYLephrine 1000 mcg/10 mL in 0.9% NaCl syringe, , Slow IV Push, ONCE INTRA PROCEDURE, Christina Valencia MD, 100 mcg at 12/07/24 1650 potassium chloride in water (KCL) 20 mEq/100 mL IV infusion, , IV Infusion, ONCE INTRA PROCEDURE, Christina Valencia MD, 10 mEq at 12/07/24 1420 propofoL IV infusion, , IV Infusion, CONTINUOUS PRN, Christina Valencia MD, Stopped at 12/07/24 1611 propofoL IV infusion, , Intravenous, ONCE INTRA PROCEDURE, Christina Valencia MD, 20 mg at 12/07/24 1352 remifentaniL (ULTIVA) injection, , Slow IV Push, CONTINUOUS PRN, Christina Valencia MD, Stopped at 12/07/24 1536 Current Discharge Medication List STOP taking these medications pregabalin (LYRICA) 50 mg capsule Comments: Reason for Stopping: gabapentin 100 mg capsule Comments: Reason for Stopping: levothyroxine 125 mcg tablet Comments: Reason for Stopping: predniSONE 50 mg tablet Comments: Reason for Stopping: benzoyl peroxide 10 % external wash Comments: Reason for Stopping: clindamycin 1 % lotion Comments: Reason for Stopping: doxycycline hyclate 100 mg tablet Comments: Reason for Stopping: spironolactone 50 mg tablet Comments: Reason for Stopping: pioglitazone (ACTOS) 30 mg tablet Comments: Reason for Stopping: ondansetron 4 mg disintegrating tablet Comments: Reason for Stopping: glipiZIDE 5 mg tablet Comments: Reason for Stopping: losartan 50 mg tablet Comments: Reason for Stopping: PAST MEDICAL HISTORY Past Medical History: Diagnosis Date Colitis Diverticulitis Hypertension PID (pelvic inflammatory disease) Renal cell carcinoma, unspecified laterality 04/09/2022 Thyroid disease Transfusion history 1986 & 1999- w/ childbirth Type 2 diabetes mellitus without complication, without long-term current use of insulin 09/25/2023 PAST SURGICAL HISTORY Past Surgical History: Procedure Laterality Date CHOLECYSTECTOMY COLECTOMY N/A 08/21/2021 Surgeon: Terence Burks MD; Location: [facility] COLONOSCOPY N/A 08/14/2020 Surgeon: Terence Burks MD; Location: [facility] ([facility]) OR Location COLONOSCOPY N/A 01/08/2022 Surgeon: Terence Burks MD; Location: [facility] COLONOSCOPY N/A 11/17/2024 Surgeon: Kandi Loja MD; Location: [facility]OS[facility] ([facility]) OR LOCATION COLOSTOMY CLOSURE N/A 01/08/2022 Surgeon: Terence Burks MD; Location: [facility] COLOSTOMY LOOP N/A 08/21/2021 Surgeon: Terence Burks MD; Location: [facility] COLPOSCOPY ESOPHAGOGASTRODUODENOSCOPY N/A 09/13/2020 Surgeon: Smiley Marina MD; Location: [facility] OR Location ESOPHAGOGASTRODUODENOSCOPY N/A 11/17/2024 Surgeon: Kandi Loja MD; Location: ENDOSCOPY ([facility]) OR LOCATION EXPLORATORY LAPAROTOMY N/A 08/21/2021 Surgeon: Terence Burks MD; Location: [facility] LOCATION LAPAROSCOPIC ROBOTIC ASSISTED PARTIAL NEPHRECTOMY (SHX) Right 04/26/2022 Surgeon: Bonilla Morrow MD; Location: [facility] NEPHRECTOMY Left TUBAL LIGATION UPPER ULTRASOUND (SHX) N/A 11/17/2024 Surgeon: Kandi Loja MD; Location: ENDOSCOPY ([facility]) OR LOCATION PAST SOCIAL HISTORY Social History Socioeconomic History Marital status: Number of children: 4 Highest education level: 11th grade Occupational History 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 Social Drivers of Health Financial Resource Strain: Low Risk (06/24/2023) Overall Financial Resource Strain (CARDIA) Difficulty of Paying Living Expenses: Not hard at all Food Insecurity: Food Insecurity Present (06/24/2023) Hunger Vital Sign Worried About Running Out of Food in the Last Year: Never true Ran Out of Food in the Last Year: Sometimes true Transportation Needs: Unmet Transportation Needs (06/24/2023) PRAPARE - Transportation Lack of Transportation (Medical): Yes Lack of Transportation (Non-Medical): No Physical Activity: Inactive (06/24/2023) Exercise Vital Sign Days of Exercise per Week: 0 days Minutes of Exercise per Session: 0 min Stress: No Stress Concern Present (06/24/2023) [employer] [place] [employer] - Occupational Stress Questionnaire Feeling of Stress : Not at all Social Connections: Moderately Isolated (06/24/2023) Social Connection and Isolation Panel [NHANES] Frequency of Communication with Friends and Family: Three times a week Frequency of Social Gatherings with Friends and Family: Once a week Attends Yazidism Services: Never Active Member of Clubs or Organizations: No Attends Club or Organization Meetings: Never Marital Status: Housing Stability: Low Risk (06/24/2023) Housing Stability Vital Sign Unable to Pay for Housing in the Last Year: No Number of Places Lived in the Last Year: 1 Unstable Housing in the Last Year: No PAST FAMILY HISTORY Family History Problem Relation Age of Onset Diabetes Mother Liver failure Father Breast Cancer Maternal Aunt REVIEW OF SYSTEMS General: No headache or dizziness. No fever or chills. Cardiovascular: No chest pain or palpitation Pulmonary: No shortness of breath or hemoptysis. GI: No abdominal pain, diarrhea, or vomiting. Urinary: No dysuria or hematuria Musculoskeletal: No joint pain or muscle aches. Skin: No rashes. Neurological: No focal weakness or sensory changes. Psychiatric: No depression PHYSICAL EXAMINATION Vitals: 11/29/24 1523 12/07/24 0838 BP: (!) 158/110 Pulse: 116 Resp: 20 Temp: 36.4 ?C (97.5 ?F) TempSrc: Skin SpO2: 99% Weight: 76.7 kg (169 lb 1.5 oz) 75.5 kg (166 lb 7.2 oz) Height: 1.524 m (5') General: awake, mild distress HEENT: NC, AT, anicteric sclera. Neck supple. Neck: no JVD no lymphadenopathy CV: RRR, normal S1 and S2 no MRG. Lungs: clear to auscultation bilaterally. No wheezing, rales, or stridor Abdomen: soft, NT, ND, (+)BS Skin: no rashes Extremities: no clubbing, cyanosis, edema Neuro: Aox 3. Symmetric motor exam. Psych: normal affect Vitals: 11/29/24 1523 12/07/24 0838 BP: (!) 158/110 Pulse: 116 Resp: 20 Temp: 36.4 ?C (97.5 ?F) TempSrc: Skin SpO2: 99% Weight: 76.7 kg (169 lb 1.5 oz) 75.5 kg (166 lb 7.2 oz) Height: 1.524 m (5') LABS AND IMAGING Recent Results (from the past 24 hours) Type and Screen - ONCE Routine Collection Time: 12/07/24 9:02 AM Result Value Ref Range ABO & RH O POSITIVE IAT Negative POCT GLUCOSE (AUTOMATED) Collection Time: 12/07/24 9:07 AM Result Value Ref Range POCT GLU 260 (H) 70 - 110 mg/dL Radiology CT Cervical spine wo contrast Result Date: 12/07/2024 Mild osseous remodeling changes at the left C6-C7 neural foramen. The left C6-C7 neural foraminal lesion was best evaluated on the prior MRI and PET/CT examinations. No acute fractures or traumatic malalignment in the cervical spine. Preliminary Report Dictated by Resident: Hammad Petersen I, Mateusz Kaur MD., have reviewed this study and agree with the above report. ASSESSMENT: Vazquez Wheeler is a 59 year old female who presents with No chief complaint on file. . 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 Ramirez 12/07 # RCC # Pancreatic Neuroendocrine Tumor # Diabetes Mellitus type II exacerbated by Nsx Intervention + Steroids # Tachycardia # Chronic Pain Syndrome # Hypertension # Hypothyroidism # Obesity BMI > 32 / Excess Caloric Intake Plan: 12/07/2024 Notes, events, labs, and imaging reviewed. Home medications reviewed and reconciled as indicated. - Check EKG and Place on Telemetry for persistent Tachycardia - Start Lantus 10 Units QHS + Lispro 2 Units TID + Moderate SSI. BS Goal 140-180. Hold Glipizde and Pioglitazone for now. Check A1c - Complete Perioperative Antibiotics - Restart Antihypertensive regimen - Multimodal Pain Regimen + Bowel Regimen - Pain Mgmt consultation - Nsx to continue to follow, PT/OT - Change from Regular Diet to Diabetic. - AM labs - Dispo: Inpatient. Optimize Glycemic Control. Monitor Tachycardia, unclear if sinus or a tachyarrhythmia at this time. PT/OT. Pain Control. MDM > 75 Minutes - Meds per above - Check a.m. labs, replete electrolytes if needed. Monitor kidney function. Monitor CBC. Transfuse PRBC if hemoglobin less than 7. - As needed pain and nausea medications. Time spent > 75 minutes. Advanced care planning reviewed with patient/family. Discussed the case with: [ ] benefits sales consultant [x ] nursing staff and child care cook [x ] patient/family IM-INTERNAL MEDICINE STAFF [facility] - Health History and Physical Notes Date/Time Note Provider Source 2024-12-07 09:45:50 Neurosurgery Pre Operative History and Physical Note Date of Service: 12/07/24 Vazquez Wheeler is a 59 year old female who was interviewed and examined today in the DSU/holding area/operating room before induction of anesthesia. There have been no significant interval changes in the history or physical exam. See full H&P, copied below for completeness, for more details. Risks, benefits and alternatives to the procedure were reviewed with the patient again today, and pt voiced understanding of the condition present as well as the planned procedure(s) without questions and wishes to proceed. Informed consent was obtained. 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 A subsequent MRI was completed which showed an avidly enhancing left sided foraminal/extraforaminal mass. Per radiology, some concern that this may be a malignant peripheral nerve sheath tumor or other malignant lesion. Patient also states that she is having more radicular pain down her arm and some associated weakness in left triceps/hand as well. Awake, alert, oriented PERRL, EOMI FS, TM Strength 5/5 in RUE and BLE, LUE D 5/5, B 5/5, T 4+/5, IH 4+/5 Sensation Diminished left C7 No drift No pathologic reflexes -Given worrisome clinical and radiographic findings, discussed options extensively with patient. In the absence of her worsening radiculopathy and weakness, may have considered recommending short interval surveillance imaging, but given that she is more symptomatic at present, I overall feel that surgery for tissue diagnosis as well as likely resection is appropriate. I counseled her extensively that this would be a complex operation, likely requiring resection of the left C6-7 facet to visualize the lesion, and subsequent fusion given the iatrogenic instability this would create. I also counseled her that if the frozens are consistent with MPNST, then we would have to resect surrounding structures en bloc including the left C7 nerve root, which would likely leave her with significant weakness and deficits. In addition, her vertebral artery is adjacent to the lesion, though does not appear to be encased, but will get a CTA for better evaluation. -Scheduled for surgery 12/07 at [facility]. After extensive discussion of the options, she wishes to proceed. Girish Ramirez Neurosurgery Cosigned by Girish Ramirez MD at 12/07/2024 10:11 AM CDT Associated attestation - Girish Ramirez MD - 12/07/2024 10:11 AM CDT Faculty Addendum: I personally evaluated and examined the patient and agree with the note by Dr. Frausto with no changes. Of note, patient reports a history of hives with prior iodinated contrast dye. Discussed that CTA would be helpful for more detailed vert imaging, but given that the vessels are fairly well visualized on recent MRI, and her allergy history, will proceed without CTA. Girish Ramirez MD [facility] Neurosurgery [facility] 2024-11-17 09:50:52 Endoscopy H & P Age: [age] year old Sex: female ASA Class: II Indication: Pancreatic NET and prior colon polyps. Needs EGD, EUS and COlon Past Medical History: Diagnosis Date Colitis Diverticulitis Hypertension PID (pelvic inflammatory disease) Renal cell carcinoma, unspecified laterality 04/09/2022 Thyroid disease Transfusion history 1986 & 1999- w/ childbirth Type 2 diabetes mellitus without complication, without long-term current use of insulin 09/25/2023 Family history of Colon Cancer/Polyps: no Current Facility-Administered Medications Medication Dose Route Frequency Last Rate Last Admin lactated ringers IV infusion 1,000 mL 1,000 mL IV Infusion ONCE Allergies Allergen Reactions Iodinated Contrast Media Itching Metformin Other - See comments gastritis Social History Socioeconomic History Marital status: Number of children: 4 Highest education level: 11th grade Occupational History 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 Social Drivers of Health Financial Resource Strain: Low Risk (06/24/2023) Overall Financial Resource Strain (CARDIA) Difficulty of Paying Living Expenses: Not hard at all Food Insecurity: Food Insecurity Present (06/24/2023) Hunger Vital Sign Worried About Running Out of Food in the Last Year: Never true Ran Out of Food in the Last Year: Sometimes true Transportation Needs: Unmet Transportation Needs (06/24/2023) PRAPARE - Transportation Lack of Transportation (Medical): Yes Lack of Transportation (Non-Medical): No Physical Activity: Inactive (06/24/2023) Exercise Vital Sign Days of Exercise per Week: 0 days Minutes of Exercise per Session: 0 min Stress: No Stress Concern Present (06/24/2023) [place] [place] [employer] - Occupational Stress Questionnaire Feeling of Stress : Not at all Social Connections: Moderately Isolated (06/24/2023) Social Connection and Isolation Panel [NHANES] Frequency of Communication with Friends and Family: Three times a week Frequency of Social Gatherings with Friends and Family: Once a week Attends Yazidism Services: Never Active Member of Clubs or Organizations: No Attends Club or Organization Meetings: Never Marital Status: Housing Stability: Low Risk (06/24/2023) Housing Stability Vital Sign Unable to Pay for Housing in the Last Year: No Number of Places Lived in the Last Year: 1 Unstable Housing in the Last Year: No Mental Status: alert, oriented x3 Chest: clear to auscultation Cardiovascular: regular rate and rythmn Abdomen: bowel sounds present Spleen Tip: non-palpable Hepatomegaly: no Mass: not present Tenderness: no Impression and Plan: Pancreatic NET and prior colon polyps. Needs EGD, EUS and COlon Discussed about pros, cons and likely complications of Colonoscopy, EGD - Esophagogastroduodenoscopy , and EUS - Endoscopic Ultrasound. Patient acknowledges understanding and agrees for the same. Informed consent was obtained after answering any queries to satisfaction. T [facility] Notes Date/Time Note Provider Source 2024-12-23 09:20:25 Called and notified pt that she can continue with the same oncologist and to schedule appt cari. Lupe Sanders RN [facility] 2024-12-23 09:03:56 Yes. We just want to make sure she is established with and follow's up with someone cari. Thanks T [facility] 2024-12-22 12:57:05 Vazquez Wheeler is a 59 year old female Pt would like to know if she can just see the oncologist she is already seeing. Please advise. Elizabeth Higgins [facility] 2024-12-20 13:29:53 Patient called into office to 'push back' upcoming surgery with Dr. Alonso. Stated she recently had a mass removed from her spine and would like a little time to recouporate prior to next procedure. I was able to find the prep for surgery but it doesn't look like it has been scheduled yet. Advised patient will route to Dr. Alonso that she is requesting to push his procedure back to mid-January. JANICE ALVAREZ RN 12/20/2024 1:31 PM Janice Alvarez RN [facility] 2024-12-13 13:10:06 Clarified with Neurosurgery no need for neck brace prior to discharge. Sylvie Hawkins RN [facility] 2024-12-13 12:55:58 Patient discharge home. Discharge instructions and education given to patient and family at bedside, all questions answered. IV removed. Patient waiting on a walker to be deliver at bedside and family to pick her up. [facility] 2024-12-13 12:28:28 Problem: Falls, Risk of Goal: Absence of falls Outcome: Resolved Problem: Infection Risk Goal: Absence of infection Outcome: Resolved Problem: Pain Goal: Control of pain at or below patient's documented comfort goal Outcome: Resolved Goal: Reduction in pain sensation Outcome: Resolved Problem: Bleeding, Risk of Goal: Absence of impaired coagulation signs and symptoms Outcome: Resolved Goal: Absence of active bleeding Outcome: Resolved Problem: Discharge Planning Goal: Adequate for discharge Outcome: Resolved Goal: Effective communication Outcome: Resolved Problem: Skin integrity Impaired (Risk or Actual) Goal: Wound healing Outcome: Resolved Goal: Prevention of new skin breakdown Outcome: Resolved [facility] 2024-12-13 09:44:09 Problem: Falls, Risk of Goal: Absence of falls Outcome: Progressing as expected Problem: Infection Risk Goal: Absence of infection Outcome: Progressing as expected Problem: Pain Goal: Control of pain at or below patient's documented comfort goal Outcome: Progressing as expected Goal: Reduction in pain sensation Outcome: Progressing as expected Problem: Bleeding, Risk of Goal: Absence of impaired coagulation signs and symptoms Outcome: Progressing as expected Goal: Absence of active bleeding Outcome: Progressing as expected Problem: Discharge Planning Goal: Adequate for discharge Outcome: Progressing as expected Goal: Effective communication Outcome: Progressing as expected Problem: Skin integrity Impaired (Risk or Actual) Goal: Wound healing Outcome: Progressing as expected Goal: Prevention of new skin breakdown Outcome: Progressing as expected Anastasiya Strickland RN [facility] 2024-12-12 22:55:20 Problem: Falls, Risk of Goal: Absence of falls Outcome: Progressing as expected Problem: Infection Risk Goal: Absence of infection Outcome: Progressing as expected Problem: Pain Goal: Control of pain at or below patient's documented comfort goal Outcome: Progressing as expected Goal: Reduction in pain sensation Outcome: Progressing as expected Problem: Bleeding, Risk of Goal: Absence of impaired coagulation signs and symptoms Outcome: Progressing as expected Goal: Absence of active bleeding Outcome: Progressing as expected Problem: Skin integrity Impaired (Risk or Actual) Goal: Wound healing Outcome: Progressing as expected Goal: Prevention of new skin breakdown Outcome: Progressing as expected Karlie Mosquera RN [facility] 2024-12-12 15:32:43 Problem: Falls, Risk of Goal: Absence of falls Outcome: Progressing as expected Problem: Infection Risk Goal: Absence of infection Outcome: Progressing as expected Problem: Pain Goal: Control of pain at or below patient's documented comfort goal Outcome: Progressing as expected Goal: Reduction in pain sensation Outcome: Progressing as expected Problem: Bleeding, Risk of Goal: Absence of impaired coagulation signs and symptoms Outcome: Progressing as expected Goal: Absence of active bleeding Outcome: Progressing as expected Problem: Discharge Planning Goal: Adequate for discharge Outcome: Progressing as expected Goal: Effective communication Outcome: Progressing as expected Problem: Skin integrity Impaired (Risk or Actual) Goal: Wound healing Outcome: Progressing as expected Goal: Prevention of new skin breakdown Outcome: Progressing as expected [facility] 2024-12-11 21:02:31 Problem: Falls, Risk of Goal: Absence of falls Outcome: Progressing as expected Problem: Infection Risk Goal: Absence of infection Outcome: Progressing as expected Problem: Pain Goal: Control of pain at or below patient's documented comfort goal Outcome: Progressing as expected Goal: Reduction in pain sensation Outcome: Progressing as expected Problem: Bleeding, Risk of Goal: Absence of impaired coagulation signs and symptoms Outcome: Progressing as expected Goal: Absence of active bleeding Outcome: Progressing as expected Problem: Skin integrity Impaired (Risk or Actual) Goal: Wound healing Outcome: Progressing as expected Goal: Prevention of new skin breakdown Outcome: Progressing as expected [facility] 2024-12-11 10:24:07 Problem: Falls, Risk of Goal: Absence of falls Outcome: Progressing as expected Problem: Infection Risk Goal: Absence of infection Outcome: Progressing as expected Problem: Pain Goal: Control of pain at or below patient's documented comfort goal Outcome: Progressing as expected Goal: Reduction in pain sensation Outcome: Progressing as expected Problem: Bleeding, Risk of Goal: Absence of impaired coagulation signs and symptoms Outcome: Progressing as expected Goal: Absence of active bleeding Outcome: Progressing as expected Problem: Discharge Planning Goal: Adequate for discharge Outcome: Progressing as expected Goal: Effective communication Outcome: Progressing as expected Problem: Skin integrity Impaired (Risk or Actual) Goal: Wound healing Outcome: Progressing as expected Goal: Prevention of new skin breakdown Outcome: Progressing as expected [facility] 2024-12-11 09:00:00 Dr. Mariama Gutiérrez notified regarding 100.3 temp during AM POCR rounds [facility] Aurelia Borges RN [facility] 2024-12-11 00:09:00 Problem: Falls, Risk of Goal: Absence of falls Outcome: Progressing as expected Problem: Infection Risk Goal: Absence of infection Outcome: Progressing as expected Problem: Pain Goal: Control of pain at or below patient's documented comfort goal Outcome: Progressing as expected Goal: Reduction in pain sensation Outcome: Progressing as expected Problem: Bleeding, Risk of Goal: Absence of impaired coagulation signs and symptoms Outcome: Progressing as expected Goal: Absence of active bleeding Outcome: Progressing as expected Problem: Skin integrity Impaired (Risk or Actual) Goal: Wound healing Outcome: Progressing as expected Goal: Prevention of new skin breakdown Outcome: Progressing as expected Problem: Discharge Planning Goal: Adequate for discharge Outcome: Progressing as expected Goal: Effective communication Outcome: Progressing as expected Renae Cobb RN [facility] 2024-12-10 15:16:38 Problem: Falls, Risk of Goal: Absence of falls Outcome: Progressing as expected Problem: Infection Risk Goal: Absence of infection Outcome: Progressing as expected Problem: Pain Goal: Control of pain at or below patient's documented comfort goal Outcome: Progressing as expected Sheri Salazar RN [facility] 2024-12-10 12:34:14 Images from the original note were not included. Pharmacy Recommendations for Patient Admission: No recommendations. The [facility] medication list has been updated and reflected in the chart below. Please use the [facility] Med List for ordering home doses during admission. Patient Adherence: Adherent to all medications. Source(s) used in interview: Patient and Medical Records Interview limitations: None RX Transitions of Care Risk Score: 9 Medications Added Medications Removed Medications Modified None Benzoyl peroxide Clindamycin lotion Doxycycline Prednisone None Allergies as of 11/29/2024 - Reviewed 11/29/2024 Allergen Reaction Noted Iodinated contrast media Itching 08/02/2024 Metformin Other - See comments 01/05/2024 Pharmacy Updated [facility] Med List Medication Sig gabapentin 100 mg capsule Take 1 capsule by mouth in the morning and 1 capsule at noon and 1 capsule in the evening. levothyroxine 125 mcg tablet Take 1 tablet by mouth every morning. pregabalin (LYRICA) 50 mg capsule Take 1 capsule by mouth in the morning and 1 capsule in the evening. spironolactone 50 mg tablet Take 3 tablets by mouth in the morning. pioglitazone (ACTOS) 30 mg tablet Take 1 tablet by mouth in the morning. ondansetron 4 mg disintegrating tablet Take 1 tablet by mouth every 12 (twelve) hours as needed for Nausea and Vomiting (N/V). glipiZIDE 5 mg tablet Take 1 tablet by mouth 2 (two) times daily before breakfast and dinner. losartan 50 mg tablet Take 1 tablet by mouth in the morning. Outpatient Pharmacy Contact Information: [facility] - [address] [place] [id number] [facility] [id number] [place] [address] [place] [address] [place] [id number] Thank you for the opportunity to participate in the care of this patient. Thiago Pozo PharmGalilea 12:33 PM, 12/10/2024 [facility] Department of Pharmacy - [facility] Phone: [phone] Thiago Pozo PharmD [facility] 2024-12-09 23:32:11 Problem: Falls, Risk of Goal: Absence of falls Outcome: Progressing as expected Problem: Infection Risk Goal: Absence of infection Outcome: Progressing as expected Problem: Pain Goal: Control of pain at or below patient's documented comfort goal Outcome: Progressing as expected Goal: Reduction in pain sensation Outcome: Progressing as expected Problem: Bleeding, Risk of Goal: Absence of impaired coagulation signs and symptoms Outcome: Progressing as expected Goal: Absence of active bleeding Outcome: Progressing as expected Problem: Skin integrity Impaired (Risk or Actual) Goal: Wound healing Outcome: Progressing as expected Goal: Prevention of new skin breakdown Outcome: Progressing as expected Problem: Discharge Planning Goal: Adequate for discharge Outcome: Progressing as expected Goal: Effective communication Outcome: Progressing as expected [facility] 2024-12-09 16:34:26 Problem: Falls, Risk of Goal: Absence of falls Outcome: Not Met Problem: Infection Risk Goal: Absence of infection Outcome: Not Met Problem: Pain Goal: Control of pain at or below patient's documented comfort goal Outcome: Not Met Goal: Reduction in pain sensation Outcome: Not Met Problem: Discharge Planning Goal: Adequate for discharge Outcome: Not Met Goal: Effective communication Outcome: Not Met T Thiago Singh RN [facility] 2024-12-09 01:24:08 Problem: Falls, Risk of Goal: Absence of falls Outcome: Progressing as expected Problem: Infection Risk Goal: Absence of infection Outcome: Progressing as expected Problem: Pain Goal: Control of pain at or below patient's documented comfort goal Outcome: Progressing as expected Goal: Reduction in pain sensation Outcome: Progressing as expected Problem: Bleeding, Risk of Goal: Absence of impaired coagulation signs and symptoms Outcome: Progressing as expected Goal: Absence of active bleeding Outcome: Progressing as expected Problem: Discharge Planning Goal: Adequate for discharge Outcome: Progressing as expected Goal: Effective communication Outcome: Progressing as expected [facility] 2024-12-08 11:57:56 Problem: Falls, Risk of Goal: Absence of falls Outcome: Progressing as expected Problem: Infection Risk Goal: Absence of infection Outcome: Progressing as expected Problem: Pain Goal: Control of pain at or below patient's documented comfort goal Outcome: Progressing as expected Goal: Reduction in pain sensation Outcome: Progressing as expected T Dayday Crystal RN [facility] 2024-12-07 22:15:19 Problem: Falls, Risk of Goal: Absence of falls Outcome: Progressing as expected Problem: Infection Risk Goal: Absence of infection Outcome: Progressing as expected Problem: Pain Goal: Control of pain at or below patient's documented comfort goal Outcome: Progressing as expected Goal: Reduction in pain sensation Outcome: Progressing as expected [facility] 2024-12-07 11:51:00 BRIEF NEUROSURGERY OPERATIVE NOTE Date of Surgery: 12/07/2024 Faculty: Girish Ramirez MD Resident(s): Vanna Frausto MD Anesthesia Type: General Pre-operative diagnosis: 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 Post-operative diagnosis: same Procedures: C4-T2, Left no C6-7 lateral mass, PSIF, C6-7 laminectomy and L facetectomy, 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 Item Serial No. Packing Machine Feeder Lot No. LRB No. Used Action DURASEAL COVIDIEN IMPROVED DURAL SEALANT SYSTEM 5ML #[id number] - SN/A DURASEAL COVIDIEN IMPROVED DURAL SEALANT SYSTEM 5ML #[id number] N/A [employer] [id number] 1 Implanted SCREW BONE QUARTEX 14MM POLYAXIAL 3.5MM SPINE NS LF #[id number] - SN/A Spine SCREW BONE QUARTEX 14MM POLYAXIAL 3.5MM SPINE NS LF #[id number] N/A [employer] N/A 5 Implanted Qaertex 4.5 x 28mm screw N/A [employer] N/A N/A 3 Implanted Quartex 4.5 26mm N/A [employer] N/A N/A 1 Implanted CAP LCK QUARTEX SPINE THREAD #1149.0001 - SN/A Spine CAP LCK QUARTEX SPINE THREAD #1149.0001 N/A [facility] N/A 9 Implanted MATRIX TISSUE DRGN PLUS DRPLS 3X1IN PATCH RGNRT RESRBLE #[id number] - SN/A Tissue, Biological MATRIX TISSUE DRGN PLUS DRPLS 3X1IN PATCH RGNRT RESRBLE #[id number] N/A [employer] [id number] N/A 1 Implanted BONE GRAFT DMNZ BONE MATRIX 10CC ALLOGRFT PUTTY CRR VG #[id number] - [id number] Tissue, Human BONE GRAFT DMNZ BONE MATRIX 10CC ALLOGRFT PUTTY CRR VG #[id number] [facility] N/A N/A 1 Implanted Drains: HV drain Patient was extubated and transferred to the PACU without complication in stable condition. Plan: HV drain Ancefx3 PT/OT Post-Procedure Sedation Addendum Immediately prior to start of sedation, the patient was evaluated and there was no change from the pre-procedure evaluation. I was present and directed medical care. The patient underwent moderate sedation for the procedure. The medications administered were recorded in the MAR; oxygenation, ventilation and circulation were monitored continuously and were recorded in the EMR. I evaluated the patient after the procedure. The patient was evaluated immediately as recovering from sedation. @CTOSIG@ Cosigned by Girish Ramirez MD at 12/08/2024 8:57 AM CDT Associated attestation - Girish Ramirez MD - 12/08/2024 8:57 AM CDT I was present for all estes portions of the procedure. CPT 21587 and 64121 x 4 for C4-T2 posterolateral arthrodesis,78631 for post segmental instrumentation, 51359 for lami for intradural extramedullary neoplasty, 83900 for local autograft harvest, 70310 for operating microscope, 94154 for O arm navigation. Girish Ramirez Neurosurgery [facility] 2024-12-07 00:09:00 FACULTY SURGEON: Girish Ramirez MD RESIDENT SURGEON: RELATIONSHIP BANKER OR TEACHING RESIDENT: VANNA FRAUSTO MD PREOPERATIVE DIAGNOSIS: Left C6-C7 nerve sheath tumor. POSTOPERATIVE DIAGNOSIS: Left C6-C7 nerve sheath tumor. OPERATION: C4 to T2 posterolateral fusion, C6-C7 laminectomy, facetectomy, and debulking of nerve sheath tumor, CPT codes 43172, 85053 x4 for C4-T2 posterolateral arthrodesis, 17627 for posterior segmental instrumentation, 67280 for laminectomy at C6-7 for intradural extramedullary neoplasm resection, 83232 for local autograft harvest, 31716 for operating microscope, 6173 for O-arm navigation. HISTORY: This is a 59-year-old female with a history of renal cell carcinoma as well as pancreatic neuroendocrine tumor who was referred to Neurosurgery due to PET scan imaging showing a left-sided nerve sheath tumor at C6-7. A subsequent MRI was completed which showed a large left foraminal extraforaminal mass concerning for a peripheral nerve sheath tumor with Radiology considering this to have a significant risk of being malignant. She developed worsening radicular pain as well and wished to proceed with surgery. We recommended decompression and instrumented fusion given the need for extensive facet resection in order to visualize the lesion, creating iatrogenic instability, and she wished to proceed with surgery. All risks, benefits, and alternatives were explained in detail, and informed consent was obtained. PROCEDURE: Complications: None immediate. Postoperative condition: Stable. The patient was brought to the operating room, intubated and sedated by the anesthesia service. Neuro monitoring was utilized during this procedure. Pre and post position signals were obtained after the patient was flipped prone. We then padded all pressure points appropriately and prepped and draped in a typical fashion. A pre-incision time-out was performed. We then used a 10 blade knife to make a midline skin incision from C4-C2. We then completely used Bovie electrocautery to complete a subperiosteal exposure at these levels. We then obtained an intraoperative O-arm spin and using O arm guidance we placed screws at C4 and C5 bilaterally. We also instrumented right C6 and we skipped C7 due to cecilia contouring and placed pedicle screws at T1 and 2 bilaterally. We left out C6 and C7 on the left as well due to the plan to resect the facet and lateral mass in this area. After we were satisfied with placement of our hardware, we then began the decompression portion of our procedure. We used Leksell rongeurs to remove the C6 and C7 spinous process and preserved this bone for autograft. We then used a high-speed drill to drill the remaining portion of the lamina and the left C6 and C7 facet down to eggshell thickness. We then used Kerrison rongeurs to complete removal of this bone and the ligamentum flavum underneath. After completing this portion of the procedure, we were then able to visualize an enlarged and abnormal nerve rootlet in the left C6-7 foramen. After exposing this adequately, we then used an 11 blade knife to open the root sleeve. At this point, we immediately were able to identify a very large amount of fluffy tumor that was quite vascular. There were no normal or healthy nerve rootlets visualized. We used stimulation along the portion of the tumor we were visualizing to ensure no motor function and we did not initially observe motor function at these levels. We then removed a portion of the lesion and sent this for frozen and permanent pathology. Our frozen pathology was inconclusive, but our pathologist felt that this likely did not favor a malignant peripheral nerve sheath tumor and potentially favored metastatic renal cell carcinoma. At this point, we were able to dissect circumferentially around the nerve root and placed a cottonoid behind the nerve root to protect the vertebral artery underneath. We then used a Sonopet to debride tumor with frequent use of our stimulator probe to ensure no motor function. After significant debulking of the tumor, both in the foramina and extraforaminal space, our stimulation began showing lower or greater proximity to the grade 2 motor function, and as such at this point we obtained hemostasis and stopped with our tumor debulking at this point. We then placed rods of appropriate length and secured these using locking set screws. We then irrigated copiously, obtained meticulous hemostasis. We covered the opening along the root sleeve with a DuraGen and with DuraSeal glue. We then placed a medium Hemovac drain and closed in the usual fashion using 0 Vicryls for fascia, 2-0 Vicryl for dermis, and flaquito for skin. There were no immediate complications. The patient awoke with a stable exam postoperatively. ESTIMATED BLOOD LOSS: 100 cc. MD GOKUL CarterL/MODL J#: [id number] T [facility] 2024-12-03 10:19:56 Faith called and left a voicemail with call back number in re to scheduling a follow-up appointment with Cali Smith GC. If patient calls back, please have them call Faith at [phone]. Faith Mobley RN [facility] 2024-12-01 13:45:00 Summary: initial ts collected 12/01/24 Images from the original note were not included. Venipuncture collection performed by clean technique on the left anticubitus. Total of 1 attempts were made. Slight pressure and a bandage/dressing were applied to the site(s). The patient experienced no complications. The following specimens were processed according to instructions and sent to [facility] laboratories per lab order on 12/01/2024 : LT BLUE SST 1 RED LAV 1 PPT DK GREEN (LiHep) DK GREEN (SodH) HERNANDEZ DK BLUE (K2) DK BLUE (S) ACD Blood Culture NIPT/NTD Per lola in BB, initial ts done today for baseline. No ts was done post last transfusion. DOS 12/07/24, too soon for armbanding. Advised pt to return sat for armbanding. Patient stated she will not have a ride Friday to get it done. [facility] 2024-11-17 13:37:06 Patient is alert and oriented,NAD,Vital Signs Stable. Educated and instructed with discharge instructions and provided with Discharge papers. Ride is confirmed waiting in the waiting area/ mushroom picker and drop off [place]. Patient was seen by GI MD at bedside.Patient denies any pain, N/V. No questions/concerns at this time. Patient left unit, stable. Kelley Gordon RN [facility] 2024-11-17 10:53:52 BRIEF OPERATIVE NOTE Date of Surgery: 11/17/2024 Surgeons and Role: * Kandi Loja MD - Primary Pre-Op Diagnosis: Primary pancreatic neuroendocrine tumor [D3A.8] Post-Op Diagnosis Codes: * Primary pancreatic neuroendocrine tumor [D3A.8] Procedures: Procedure(s) (LRB): ESOPHAGOGASTRODUODENOSCOPY (N/A) UPPER ULTRASOUND (N/A) COLONOSCOPY (N/A) CPT: CODINGHELP, 02106, CODINGHELP, Any Complications Encounters: None Estimated Blood Loss: Nil Specimens Removed: ID Type Source Tests Collected by Time Destination 1 : Antral gastric Bx to R/O H.Pylori Tissue STOMACH SURGICAL PATHOLOGY EXAM Kandi Loja MD 11/17/2024 1123 2 : Pancreatic focal lesion FNA to R/O pathology Aspirate PANCREAS CYTO ORGAN ASPIRATION-FNA Kandi Loja MD 11/17/2024 1136 3 : Ascending colon polypectomy eval for adenoma Tissue LARGE INTESTINE, RIGHT-ASCENDING COLON SURGICAL PATHOLOGY EXAM Kandi Loja MD 11/17/2024 1220 4 : Cecal polypectomy eval for adenoma Tissue LARGE INTESTINE, CECUM SURGICAL PATHOLOGY EXAM Kandi Loja MD 11/17/2024 1221 * No implants in log * Patient's Condition: Stable Findings: EGD- ANtral gastritis - biopsied for H pylori EUS - 1.4cms lesion in pancreatic body with excess vascularity - EUS-FNB done. Await path - NET vs Mets (prior renal ca). Colonoscopy - prior sigmoid resection - healthy anastomosis ~10mms allowing slim pediatric scope. 5mms polyp in AC; 4 and 8mms polyps in cecum. Any other important information: Follow up in clinic regarding path. Please see dictated operative report for additional detail. [facility] 2024-11-03 13:36:41 Patient contacted for pre op phone call. Patient given procedural prep instructions (EGD/EUS/SuPrep), NPO status/timing for procedure, medication instructions : instructed to hold pioglitazone, glipizide, and spironolactone the morning of procedure. Denies anticoagulant therapy, any other diuretics, diabetic or weight loss medications. Patient verbalized understanding of instructions. Discussed with patient they will need a responsible adult, 18 years old or older, to provide transportation on the day of procedure. Patient also informed that they will be contacted the day before their procedure with arrival time. Pre op call complete. Prep and medication instructions sent via V[employer]. Gabrielle Napier RN [facility] 2024 22:03:14 GC risk intern, Lindsay Delacruz, and I contacted Ms. Wheeler to let her know that we received her hereditary cancer genetic test results and that they were negative for the 77 genes analyzed associated with an increased risk for cancer. A variant of uncertain significance was identified in the MARIANNE gene. We discussed that some hereditary conditions associated with neuroendocrine disorders may not have identifiable variants on genetic testing. Diagnoses of these conditions are sometimes made based on clinical criteria. Ms. Wheeler does not meet clinical criteria for a specific condition at this time, but we will follow up once further information is available after her upcoming consults. We discussed that at this point it is unclear whether the MARIANNE variant is associated with an increased risk for cancer or is a benign gene change that does not affect gene function. We discussed that the laboratory will continue to study this variant in other patients until they have enough data to reclassify it as negative (benign) or positive (pathogenic). This variant will not impact Ms. Wheeler's management, and she will continue to be followed based on her personal and family history of cancer. We reminded Ms. Wheeler of the limitations of testing unaffected individuals, and that her genetic testing results are informative for her and her children. Her negative testing does not rule out a hereditary cause for her affected family members. Ms. Wheeler had no further questions at this time. A copy of her results will be uploaded to her chart and released to her via the [employer] portal. We reminded her that she has my contact information in case she has any questions or updates to her personal or family history in the meantime. We will follow up with genetics after her consults with GI and neurosurgery. Recommendations and Decisions: 1) Ms. Wheeler's hereditary cancer genetic test results were negative for the 77 genes analyzed. A VUS was identified in the MARIANNE gene. 2) Follow up with genetics after GI and Neurosurgery consults. [facility] 2024 12:00:26 risk intern Lindsay Delacruz and I called Ms. Wheeler with the results of her genetic testing, but there was no answer so we left a voicemail with a call back number and will try contacting her again at a future time. [facility] 2024-09-20 08:57:33 [employer] lab results scanned to chart. Faith Mobley RN [facility] 2024-09-08 15:48:25 Vazquez Wheeler is a 58 year old female Patient has been contacted and scheduled Please sign and close encounter Lola Davies [facility] 2024-09-07 13:37:36 Vazquez Wheeler is a 58 year old female Pt has an CARI referral to schedule with Dr. Loja. Provider was booked out offered pt an appt with a different provider but she wants to see Dr. Loja. Please advise Renae Lynch [facility] 2024-08-05 16:37:02 Patient notified of results/recommendations, understanding was verbalized via teach back. Routing to PSS to schedule patient with Dr. Alonso per referral. [facility] 2024-08-05 07:40:55 Please follow up with patient again later this week Thanks URO-UROLOGY STAFF [facility] 2024-08-04 17:01:57 Attempted to call patient regarding CT result, no answer, left a voice mail to call the clinic. Patient has been referred to surgical oncology due to pancreatic lesion. IMPRESSION 1. Status post total left nephrectomy and partial right nephrectomy. No recurrent/residual renal masses. 2. Pancreatic body 1.4 cm enhancing lesion, larger than prior with adjacent smaller similar lesion as described, suspicious of neuroendocrine tumors. Recommend gallium-68 DOTATATE PET-CT for further evaluation. Given history of bilateral renal cell carcinoma, the possibility of Von Hippel-Lindau disease may be considered for further investigation. 3. Pelvic fluid attenuation tubular structure, larger than prior and likely representing hydrosalpinx. Further assessment by ultrasound pelvis may BE considered. 4. Left lower abdomen ventral hernia is larger than prior and currently containing nondilated small bowel loops. 5. Multiple ill-defined small slightly hypoenhancing areas in the right kidney, may be artifactual. Please correlate clinically to exclude the possibility of pyelonephritis. 6. Stable additional findings. IShadi MD., have reviewed this study and agree with the above report. [facility] 2024-08-02 16:10:40 Pt given printed and verbal discharge instructions regarding allergic reaction, encouraged hydration, 1 Prescriptions sent. Pt verbalized understanding of instructions, pt awake alert oriented, resp reg unlabored, skin w/d, color appropriate for race, moves all ext well,pt encouraged to follow up with pcp Advised to seek medical attention for new/prolonged/worsening of symptoms, Symptoms improved. No adverse reaction to meds given in ER noted upon discharge Awake, alert oriented, resp reg unlabored, skin w/d, pt leaving amb with steady gait, in no apparent distress, Trang Hathaway RN [facility] 2024-08-02 14:57:28 Pt arrived ambulatory with complaints of allergic reaction after receiving CT contrast. Pt was fine until she got in her car. Has had contrast before without issues [facility] 2024-08-02 14:48:00 [facility] Emergency Department Note Patient Name: Vazquez Wheeler Date of : 1965 58 year old female Treatment Room: Room/bed info not found Primary Care Physician: Roopa Garcia Patient Escorted by: Self [9] Mode of Arrival: Personal means [1] EMS Treatment Prior to ED Arrival: Travel and Exposure Screening: Symptoms Does patient have any of these symptoms?: (not recorded) Exposure Screening Has patient had contact with someone with a communicable disease in the last month?: (not recorded) Diseases exposed to:: (not recorded) Is Patient ?: (not recorded) Exposure Date: (not recorded) Chief Complaint: Chief Complaint Patient presents with Allergic reaction History of Present Illness: The patient presents for evaluation for swelling and itchiness of her face that started just prior to arrival. Has had a CT scan as an outpatient and was walking back to her car when the symptoms started. She then came to the ER for evaluation. No shortness of breath. No throat swelling or tightness. No change in her voice. No medication taken prior to arrival. She denies any symptoms like this in the past and reports she has had a CT scan with contrast previously. She does have a history of diabetes and high blood pressure and admits to compliance with her medication. Here for evaluation. Past Medical History/Immunizations: Past Medical History: Diagnosis Date Colitis Diverticulitis Hypertension PID (pelvic inflammatory disease) Renal cell carcinoma, unspecified laterality 04/09/2022 Thyroid disease Transfusion history 1986 & 1999- w/ childbirth Type 2 diabetes mellitus without complication, without long-term current use of insulin 09/25/2023 Tetanus received in last 5 years: Unknown Allergies: Allergies Allergen Reactions Iodinated Contrast Media Itching Metformin Other - See comments gastritis Past Social History: Tobacco Use Never smoked or used smokeless tobacco. Comments: Non smoker Vaping Use Never used Alcohol Use Yes; 2.0 standard drinks of alcohol per week; 0 Glasses of wine, 2 Cans of beer, 0 Shots of liquor, 0 Drinks containing 0.5 oz of alcohol. Comments: couple beers after work daily Drug Use Never. Sexual Activity Sexually active; Partners: Male; Control/Protection: None. Past Surgical History: Past Surgical History: Procedure Laterality Date CHOLECYSTECTOMY COLECTOMY N/A 08/21/2021 Surgeon: Terence Burks MD; Location: [facility] OR LOCATION COLONOSCOPY N/A 08/14/2020 Surgeon: Terence Burks MD; Location: [facility] ([facility]) OR Location COLONOSCOPY N/A 01/08/2022 Surgeon: Terence Burks MD; Location: [facility] OR LOCATION COLOSTOMY CLOSURE N/A 01/08/2022 Surgeon: Terence Burks MD; Location: [facility] LOCATION COLOSTOMY LOOP N/A 08/21/2021 Surgeon: Terence Burks MD; Location: [facility]ATION COLPOSCOPY ESOPHAGOGASTRODUODENOSCOPY N/A 09/13/2020 Surgeon: Smiley Marina MD; Location: [facility] OR Location EXPLORATORY LAPAROTOMY N/A 08/21/2021 Surgeon: Terence Burks MD; Location: [facility] OR LOCATION LAPAROSCOPIC ROBOTIC ASSISTED PARTIAL NEPHRECTOMY (SHX) Right 04/26/2022 Surgeon: Bonilla Morrow MD; Location: [facility] NEPHRECTOMY Left TUBAL LIGATION Review of Systems: Review of Systems Constitutional: Negative for chills and fever. HENT: Positive for facial swelling. Respiratory: Negative for cough and shortness of breath. Cardiovascular: Negative for chest pain. Gastrointestinal: Negative for abdominal pain and vomiting. Genitourinary: Negative for dysuria. Musculoskeletal: Negative for arthralgias, neck pain and neck stiffness. Skin: Negative for wound. Neurological: Negative for dizziness. Endocrine: Negative for goiter. Physical Exam: ED Triage Vitals [08/02/24 1500] Weight 82.8 kg (182 lb 8 oz) Actual or estimated Actual Height 1.524 m (5') BP (!) 157/96 Pulse 103 Resp 20 Temp 36.8 ?C (98.2 ?F) Temp source Oral SpO2 100 % Measured on Room air Physical Exam Vitals and nursing note reviewed. Constitutional: Appearance: Normal appearance. She is obese. HENT: Head: Normocephalic and atraumatic. Mouth/Throat: Mouth: Mucous membranes are moist. Pharynx: Oropharynx is clear. No oropharyngeal exudate or posterior oropharyngeal erythema. Comments: No swelling of her posterior pharynx. Her airway is patent. She is able to control secretions without difficulty. Cardiovascular: Rate and Rhythm: Normal rate and regular rhythm. Pulses: Normal pulses. Pulmonary: Effort: Pulmonary effort is normal. No respiratory distress. Breath sounds: No stridor. No wheezing or rhonchi. Musculoskeletal: General: Normal range of motion. Cervical back: Normal range of motion and neck supple. Skin: General: Skin is warm and dry. Neurological: General: No focal deficit present. Mental Status: She is alert and oriented to person, place, and time. Radiology: No orders to display Lab Results: Lab Results - No data to display EKG: If EKG completed, see Procedure Note. Orders and Treatments: No orders of the defined types were placed in this encounter. Orders Placed This Encounter Medications famotidine (PEPCID AC) tablet 20 mg dexamethasone sod phos PF injection 10 mg diphenhydrAMINE (BENADRYL) tablet 25 mg predniSONE 50 mg tablet First Provider Eval: ED Events Date/Time Event User Comments 08/02/24 5928 Medical Screening Begins RENAE MACARIO DO -- 08/02/24 1458 First Provider Evaluation RENAE MACARIO DO -- ED COURSE Diagnosis/Impression as of 08/02/24 1601 Allergic reaction, initial encounter Procedures: Procedures MDM: Medical Decision Making The patient presents for evaluation for swelling and itchiness of her face that started just prior to arrival. Has had a CT scan as an outpatient and was walking back to her car when the symptoms started. She then came to the ER for evaluation. No shortness of breath. No throat swelling or tightness. No change in her voice. No medication taken prior to arrival. She denies any symptoms like this in the past and reports she has had a CT scan with contrast previously. She does have a history of diabetes and high blood pressure and admits to compliance with her medication. Control her secretions without difficulty. Her lungs are clear bilaterally. She does have mild erythema noted to her upper face. Will give Benadryl, Decadron as well as Pepcid and monitor for signs of improvement. Anticipate discharge home later. 1601 - the patient is doing well here in the ER. Her swelling and itchiness has resolved. She remained stable here in the ER and is okay for discharge home with PCP follow-up. Problems Addressed: Allergic reaction, initial encounter: acute illness or injury Risk OTC drugs. Prescription drug management. Flowsheet Documentation: Scoring Tools: No data recorded Disposition/Condition: ED Disposition ED Disposition Discharge Condition Stable Comment -- Discharge Medications: Patient's Medications START taking these medications PREDNISONE 50 MG TABLET Take 1 tablet by mouth in the morning for 4 days. CONTINUE taking these medications which have NOT CHANGED BENZOYL PEROXIDE 10 % EXTERNAL WASH Apply daily to the armpits and groin in the shower CLINDAMYCIN 1 % LOTION Apply to affected area(s) 2 (two) times daily. DOXYCYCLINE HYCLATE 100 MG TABLET Take 1 tablet by mouth in the morning and 1 tablet in the evening. ERGOCALCIFEROL, VITAMIN D2, 1,250 MCG (50,000 UNIT) CAPSULE Take 1 capsule by mouth weekly. GLIPIZIDE 5 MG TABLET Take 1 tablet by mouth 2 (two) times daily before breakfast and dinner. LEVOTHYROXINE 125 MCG TABLET Take 1 tablet by mouth every morning. LOSARTAN 50 MG TABLET Take 1 tablet by mouth in the morning. MUPIROCIN 2 % OINTMENT Apply to area(s) 3 (three) times daily. NYSTATIN 100,000 UNIT/GRAM POWDER Apply to area(s) 2 (two) times daily. ONDANSETRON 4 MG DISINTEGRATING TABLET Take 1 tablet by mouth every 12 (twelve) hours as needed for Nausea and Vomiting (N/V). PIOGLITAZONE (ACTOS) 30 MG TABLET Take 1 tablet by mouth in the morning. SPIRONOLACTONE 50 MG TABLET Take 2 tablets by mouth in the morning. Start taking 1 tablet daily, then in 2 weeks, increase to 2 tablets daily. START taking Modified Medications as Prescribed No medications on file STOP taking these medications No medications on file Follow-up: Electronically signed by: Renae Macario DO 08/02/24 1601 [facility] 2024-07-21 12:15:00 Images from the original note were not included. Venipuncture collection performed by clean technique on the left anticubitus. Total of 1 attempts were made. Slight pressure and a bandage/dressing were applied to the site(s). The patient experienced no complications. The following specimens were processed according to instructions and sent to [facility] laboratories per lab order on 07/21/2024 : LT BLUE SST 1 RED LAV 2 PPT DK GREEN (LiHep) DK GREEN (SodH) HERNANDEZ DK BLUE (K2) DK BLUE (S) ACD Blood Culture NIPT/NTD Patient has been identified by and name and was provided with cup, antiseptic towelette, and clean catch instructions. 1 urine specimen(s) sent. Unpreserved 1 Urine Culture Aptima tube Other urine [facility] 2024-07-15 16:25:48 Images from the original note were not included. Routed to provider for review. Unable to refill per ambulatory refill guidelines. pioglitazone (ACTOS) 30 mg tablet Sig: Take 1 tablet by mouth in the morning. Disp: 90 tablet Refills: 1 Start: 07/15/2024 Class: eRX Non-formulary For: Type 2 diabetes mellitus without complication, without long-term current use of insulin Last ordered: 6 months ago (01/05/2024) by Roopa Garcia MD Endocrinology: Diabetes - Glitazones & Glitazone / Sulfonylurea Combo [id number]/15/2024 08:14 AM Protocol Details Cr in normal range and within 360 days Valid encounter within last 12 months HBA1C within 180 days levothyroxine 125 mcg tablet Sig: Take 1 tablet by mouth every morning. Disp: 90 tablet Refills: 0 Start: 07/15/2024 Class: eRX Non-formulary For: Acquired hypothyroidism Last ordered: 3 months ago (04/16/2024) by Roopa Garcia MD To be filled at: [facility] [id number] [address] Recent Labs 02/25/24 1213 TSH 0.50 Last Refilled: 06/2024 Recent Visits Date Type Provider Dept 05/12/24 Office Visit Roopa Garcia MD [facility] Medicine 01/05/24 Office Visit Roopa Garcia MD [facility] 09/25/23 Office Visit Roopa Garcia MD [facility] 06/24/23 Office Visit Roopa Garcia MD [facility] Showing recent visits within past 540 days with a meds authorizing provider and meeting all other requirements Future Appointments Date Type Provider Dept 09/09/24 Appointment Roopa Garcia MD [facility] Showing future appointments within next 150 days with a meds authorizing provider and meeting all other requirements Jordyn Stearns MA [facility] 2024-06-03 11:30:00 Images from the original note were not included. Venipuncture collection performed by clean technique on the right anticubitus. Total of 1 attempts were made. Slight pressure and a bandage/dressing were applied to the site(s). The patient experienced no complications. The following specimens were processed according to instructions and sent to [facility] laboratories per lab order on 06/03/2024 : LT BLUE SST 1 RED LAV PPT DK GREEN (LiHep) DK GREEN (SodH) HERNANDEZ DK BLUE (K2) DK BLUE (S) ACD Blood Culture NIPT/NTD Patient only wanted labs for toño [facility] 2024-05-10 14:21:58 Images from the original note were not included. Last OV: 01/05/2024 with Roopa Garcia Last Refill: 02/06/2024 prescribed by Roopa Garcia Last Labs Pertaining to Med: HGB A1C (%) Date Value 02/25/2024 6.1 (H) CREATININE (mg/dL) Date Value 02/25/2024 1.16 (H) Future Appt: Future Appointments Provider Department Dept Phone 05/12/2024 1:00 PM Roopa Garcia MD [facility] [phone] 06/03/2024 9:45 AM Kerrie Bernal MD [facility] [phone] 07/21/2024 11:15 AM Suhail Quinn MD [phone] Routed to provider for review. Unable to refill per ambulatory refill guidelines. glipiZIDE 5 mg tablet Sig: Take 1 tablet by mouth 2 (two) times daily before breakfast and dinner. Disp: 180 tablet Refills: 0 Start: 05/08/2024 Class: eRX Non-formulary For: Type 2 diabetes mellitus without complication, without long-term current use of insulin Last ordered: 3 months ago (02/06/2024) by Roopa Garcia MD Endocrinology: Diabetes - Sulfonylureas [id number]/08/2024 09:31 AM Protocol Details Cr in normal range and within 360 days Valid encounter within last 12 months HBA1C within 180 days G Lozano RN [facility] 2024-02-25 12:15:00 Images from the original note were not included. Venipuncture collection performed by clean technique on the left anticubitus. Total of 1 attempts were made. Slight pressure and a bandage/dressing were applied to the site(s). The patient experienced no complications. The following specimens were processed according to instructions and sent to [facility] laboratories per lab order on 02/25/2024: LT BLUE SST 2 RED LAV 2 PPT DK GREEN (LiHep) DK GREEN (SodH) HERNANDEZ DK BLUE (K2) DK BLUE (S) ACD Blood Culture NIPT/NTD G[employer] [facility] 2024-02-06 11:45:13 Images from the original note were not included. Refill request refilled per ambulatory refill guidelines. Notes: glipiZIDE 5 mg tablet Sig: Take 1 tablet by mouth 2 (two) times daily before breakfast and dinner. Disp: 180 tablet Refills: 0 Start: 02/06/2024 Class: eRX For: Type 2 diabetes mellitus without complication, without long-term current use of insulin Last ordered: 4 months ago (09/25/2023) by Roopa Garcia MD Endocrinology: Diabetes - Sulfonylureas [id number]/06/2024 11:07 AM Protocol Details Valid encounter within last 12 months HBA1C within 180 days Cr in normal range and within 360 days To be filled at: [facility] [id number] [address] Last Refilled: 09/25/2023 Recent Visits Date Type Provider Dept 01/05/24 Office Visit Roopa Garcia MD [facility] Medicine 09/25/23 Office Visit Roopa Garcia MD [facility] 06/24/23 Office Visit Roopa Garcia MD [facility] Showing recent visits within past 540 days with a meds authorizing provider and meeting all other requirements Future Appointments Date Type Provider Dept 04/13/24 Appointment Roopa Garcia MD [facility] Showing future appointments within next 150 days with a meds authorizing provider and meeting all other requirements Jordyn Stearns MA [facility] 2024-01-27 16:25:12 1. H/O renal cell carcinoma - Consult/Referral Casebook [facility] 2024-01-27 15:46:11 Please see TE dated 01/27/2024. Elisa Hawkins RN [facility] 2024-01-27 15:00:22 Per SW note: SW sent msg to provider that if Pt is requesting help with casebook, provider will need to put in a referral/request for casebook status and then financial dept will handle the rest Elisa Hawkins RN [facility] 2024-01-27 14:51:40 Vazquez Wheeler is a 58 year old female Patient returning call from nurse about referrals for Continuous care per patient to be sent to casebook. Esmer Duke [facility] 2024-01-27 10:56:05 2nd attempt, no answer, LVM to call back. Nuvia Salvador MA [facility] 2024-01-26 08:58:14 LVM to determine which referrals she is needing. Elisa Hawkins RN [facility] 2024-01-26 08:23:41 Addended by: ALIS FLORES NP on: 01/26/2024 08:23 AM Modules accepted: Orders [facility] 2024-01-25 21:48:34 Okay to send the referral she needs [facility] 2024-01-23 11:23:35 Vazquez Wheeler is a 58 year old female and pt is needing a referral to be able to renew her casebook. She stated that she has finished the forms needed for financials and they are now requesting a referral from the PCP office. Kenia Mejia [facility] 2024-01-21 11:27:46 Vazquez Wheeler is a 58 year old female Pt calling to speak with nurse regarding case book forms previously provided. Lázaro Mclaughlin [facility] 2024-01-14 10:17:31 Images from the original note were not included. Routed to provider for review. Unable to refill per ambulatory refill guidelines. Notes: levothyroxine 125 mcg tablet Sig: Take 1 tablet by mouth every morning. Disp: 90 tablet Refills: 0 Start: 01/14/2024 Class: eRX For: Acquired hypothyroidism Last ordered: 3 months ago (09/25/2023) by Roopa Garcia MD Endocrinology: Hypothyroid Agents Asftyt3001/14/2024 10:04 AM Protocol Details Manual Review: ENT providers forward refill request to PCP. TSH in normal range and within 360 days Valid encounter within last 12 months To be filled at: [facility] [id number] [address] Recent Labs 10/15/23 1344 TSH 0.35* Last Refilled: 09/25/2023 Recent Visits Date Type Provider Dept 01/05/24 Office Visit Roopa Garcia MD [facility] Medicine 09/25/23 Office Visit Roopa Garcia MD [facility] 06/24/23 Office Visit Roopa Garcia MD [facility] Showing recent visits within past 540 days with a meds authorizing provider and meeting all other requirements Future Appointments Date Type Provider Dept 04/13/24 Appointment Roopa Garcia MD [facility] Showing future appointments within next 150 days with a meds authorizing provider and meeting all other requirements Jordyn Stearns MA [facility] 2024-01-06 11:01:47 Call placed to pt to inform we are unable to provide providers email address, can give fax number. Pt states she will call [employer] to find out if she can bypass this option. Informed we can print paper application out and have her complete if needed as well. Pt verbalizes understanding and agrees w/POC. Elisa Hawkins RN [facility] 2024-01-06 09:32:[address] is supposed to help her get on a program for Ozempic but they need the drs email address. Please Advise. Madisyn Fleming [facility] 2023-10-21 11:53:23 Received erx refill request for: Requested Prescriptions Pending Prescriptions Disp Refills LOSARTAN 25 mg tablet [Pharmacy Med Name: LOSARTAN POTASSIUM 25 MG TAB] 90 tablet 0 Sig: TAKE ONE TABLET BY MOUTH EVERY MORNING Last filled: 06/11/23 Follow up scheduled for : 11/03/23 Last office visit: 06/16/23 Continue losartan 25 mg daily. Refilled per Guidelines Anamaria Elise RN [facility] 2023-10-15 13:30:00 Images from the original note were not included. Venipuncture collection performed by clean technique on the right anticubitus. Total of 1 attempts were made. Slight pressure and a bandage/dressing were applied to the site(s). The patient experienced no complications. The following specimens were processed according to instructions and sent to [facility] laboratories per lab order on 10/15/2023 : LT BLUE SST 1 RED LAV 1 PPT DK GREEN (LiHep) DK GREEN (SodH) HERNANDEZ DK BLUE (K2) DK BLUE (S) ACD Blood Culture NIPT/NTD [facility] 2023-09-22 08:21:45 Images from the original note were not included. [facility] 2023-09-08 14:00:00 Images from the original note were not included. Venipuncture collection performed by clean technique on the left anticubitus. Total of 1 attempts were made. Slight pressure and a bandage/dressing were applied to the site(s). The patient experienced no complications. The following specimens were processed according to instructions and sent to [facility] laboratories per lab order on 09/08/2023 : LT BLUE SST 3 RED LAV 2 PPT DK GREEN (LiHep) DK GREEN (SodH) HERNANDEZ DK BLUE (K2) DK BLUE (S) ACD Blood Culture NIPT/NTD Patient has been identified by and name and was provided with cup, antiseptic towelette, and clean catch instructions. 2 urine specimen(s) sent. Unpreserved 2 Urine Culture Aptima tube Other urine [facility] 2023-08-11 08:34:55 Requested Prescriptions Pending Prescriptions Disp Refills ERGOCALCIFEROL, VITAMIN D2, 1,250 mcg (50,000 unit) capsule [Pharmacy Med Name: VITAMIN D2 1.25MG(50,000 UNIT)] 8 capsule 0 Sig: TAKE 1 CAPSULE BY MOUTH ONCE WEEKLY There is no refill protocol information for this order Recent Visits Date Type Provider Dept 06/16/23 Office Visit Mili Jang NP [facility] Nephrology 09/24/22 Office Visit Lucy Grant MBBS [facility] Showing recent visits within past 365 days and meeting all other requirements Future Appointments Date Type Provider Dept 10/16/23 Appointment [facility] Showing future appointments within next 365 days and meeting all other requirements Hospital Outpatient Visit on 07/28/2023 Component Date Value Case Report 07/28/2023 Value:Surgical Pathology Case: [id number] Authorizing Provider: Roopa Garcia MD Collected: 07/28/2023 1420 Ordering Location: [facility] M[facility], Received: 07/28/2023 1701 [facility] Pathologist: Jason Marquez MD PhD Specimen: BREAST, RIGHT, right breast focal asymmetry one o'clock middle depth 5cm from nipple Final Diagnosis 07/28/2023 Value:This result contains rich text formatting which cannot be displayed here. Clinical Information 07/28/2023 Value:right breast focal asymmetry one o'clock middle depth 5cm from nipple Gross Description 07/28/2023 Value:This result contains rich text formatting which cannot be displayed here. Disclaimer 07/28/2023 Value:This result contains rich text formatting which cannot be displayed here. Director Money Visit on 06/13/2023 Component Date Value NA 06/13/2023 140 K 06/13/2023 4.8 CL 06/13/2023 103 CO2 TOTAL 06/13/2023 29 AGAP 06/13/2023 8 BUN 06/13/2023 7 GLUCOSE 06/13/2023 245 (H) CREATININE 06/13/2023 0.99 CALCIUM 06/13/2023 9.7 eGFR 06/13/2023 67.1 WBC 06/13/2023 7.16 RBC 06/13/2023 5.91 (H) HGB 06/13/2023 17.2 (H) HCT 06/13/2023 52.6 (H) MCH 06/13/2023 29.1 MCV 06/13/2023 89.0 MCHC 06/13/2023 32.7 PLT 06/13/2023 272 MPV 06/13/2023 9.4 (L) RDW-CV 06/13/2023 14.9 RDW-SD 06/13/2023 47.6 NRBC x10 3 06/13/2023 <0.01 NRBC/100 WBC 06/13/2023 0.0 MAGNESIUM 06/13/2023 1.9 CREAT U 06/13/2023 122.8 MICROALB U 06/13/2023 16 MICROAL/CR 06/13/2023 13 PHOSPHORUS 06/13/2023 3.1 T. PROT U 06/13/2023 11 CREAT U 06/13/2023 119.0 Protein/Creatinine Ratio* 06/13/2023 0.1 PTH-INTACT 06/13/2023 64.5 PTH-CA Interpretation 06/13/2023 CALCIUM 06/13/2023 9.7 APPEARANCE 06/13/2023 Hazy (A) COLOR 06/13/2023 Yellow PH 06/13/2023 5.0 SP GRAVITY 06/13/2023 1.012 GLU U QUAL 06/13/2023 Normal BLOOD 06/13/2023 Negative KETONES 06/13/2023 Negative PROTEIN 06/13/2023 Negative UROBILIN 06/13/2023 Normal BILIRUBIN 06/13/2023 Negative NITRITE 06/13/2023 Negative LEUK CHRIS 06/13/2023 Negative RBC/HPF 06/13/2023 1 WBC/HPF 06/13/2023 1 BACTERIA 06/13/2023 Few (A) SQ EPITH 06/13/2023 12 HYAL CAST 06/13/2023 2 VIT D 25OH 06/13/2023 <13 (L) Director Money Visit on 05/29/2023 Component Date Value HGB A1C 05/29/2023 6.6 (H) ICD-10-CM 1. Low serum vitamin D R79.89 Notes from last office visit: Metabolic bone disease PTH, Phos, and Ca are WNL as of 09/20/2022. Vit D is low at <13. Start Ergocalciferol, vitamin d2, 1,250 mcg (50,000 unit) capsule once a week. Medication last sent on: Refill sent to patient's preferred pharmacy; refilled based on current protocol and last office visit note. KATEY BATEMAN MA 08/11/2023 8:34 AM Katey Bateman MA [facility] 2023-07-30 14:21:19 1. Abnormal mammogram - BI DIAGNOSTIC TOMOSYNTHESIS BILATERAL; Future [facility] 2023-07-17 08:30:13 Images from the original note were not included. Pt notified of results and recommendations, order was placed by provider. Pt denies questions or concerns. Roopa Garcia MD 07/17/2023 7:55 AM CDT mpression: Right: There is a subcentimeter focal asymmetry in the right breast at 1 o'clock, middle depth, 5 cm from the nipple; best seen on RSCC image 33 of 46 and R MLO image 39 of 55 (no sonographic correlate). 3D guided biopsy is recommended; BI-RADS 4A. Left: There is a focal asymmetry in the left breast at 12 o'clock, anterior depth; best seen on LSCC image 29 of 48 and LSML image 23 of 51. This is favored to correlate with a ridge of normal-appearing breast tissue. Short interval follow-up 3 the mammogram and ultrasound is recommended in 6 months to document stability and exclude an underlying abnormality. BI-RADS 3. Recommendation: Short interval follow-up 3D mammogram 6 months - Left Short interval follow-up ultrasound 6 months - Left Tomosynthesis Biopsy - Right Will order the the tomosynthesis biopsy for right Elisa Hawkins RN [facility] 2023-07-17 07:55:18 Abnormal mammogram (primary encounter diagnosis) Comment: Plan: BI YANNA GUIDED CORE BREAST BIOPSY RIGHT [facility] 2023-07-02 09:13:08 Pt notified of results and need for additional imaging. Number given for scheduling, Pt verbalizes understanding and agrees w/POC. Roopa Garcia MD 07/01/2023 8:07 PM CDT The mammogram appeared to have some abnormal findings concerning for mass. Will order the recommended image study for further diagnostic purposes Orders place in TE Elisa Hawkins RN [facility] 2023-07-02 08:48:11 Copied from [facility] #[id number]. 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 Abnormal mammogram - BI DIAGNOSTIC TOMOSYNTHESIS BILATERAL; Future - BI ULTRASOUND BREAST COMPLETE BILATERAL; Future [facility] 2023-06-13 14:45:00 Images from the original note were not included. Venipuncture collection performed by clean technique on the right anticubitus. Total of 2 attempts were made. Slight pressure and a bandage/dressing were applied to the site(s). The patient experienced no complications. The following specimens were processed according to instructions and sent to [facility] laboratories per lab order on 06/13/2023 : LT BLUE SST 3 RED LAV 1 PPT DK GREEN (LiHep) DK GREEN (SodH) HERNANDEZ DK BLUE (K2) DK BLUE (S) ACD Blood Culture NIPT/NTD Patient has been identified by and name and was provided with cup, antiseptic towelette, and clean catch instructions. 3 urine specimen(s) sent. Unpreserved 3 Urine Culture Aptima tube Other urine [facility] 2023-06-11 15:16:19 Received eRx refill request for: Requested Prescriptions Pending Prescriptions Disp Refills LOSARTAN 25 mg tablet [Pharmacy Med Name: LOSARTAN POTASSIUM 25 MG TAB] 90 tablet 0 Sig: TAKE ONE TABLET BY MOUTH EVERY MORNING Last filled: 11/06/22 Follow up scheduled for : 06/16/23 Last office visit: 09/24/22 Plan: Continue losartan 25 mg daily. Refilled approval sent to: Refilled per Guidelines G Abrams RN [facility] 2023-06-02 08:41:22 Patient called clinic to go over lab results. G Kemp [facility] 2023-05-29 15:15:00 Images from the original note were not included. Per pt request only dr bae orders Venipuncture collection performed by clean technique on the right anticubitus. Total of 1 attempts were made. Slight pressure and a bandage/dressing were applied to the site(s). The patient experienced no complications. The following specimens were processed according to instructions and sent to [facility] laboratories per lab order on 05/29/2023 : LT BLUE SST RED LAV 1 PPT DK GREEN (LiHep) DK GREEN (SodH) HERNANDEZ DK BLUE (K2) DK BLUE (S) ACD Blood Culture NIPT/NTD [facility] 2023-05-29 15:06:36 Patient seen today in office. Nelson Fox RN 05/29/2023 3:06 PM GER OF SOFTWARE Nelson Fox RN [facility] 2023-04-02 09:50:46 Requested Prescriptions Pending Prescriptions Disp Refills LEVOTHYROXINE 150 mcg tablet [Pharmacy Med Name: LEVOTHYROXINE 150 MCG TABLET] 30 tablet Sig: TAKE ONE TABLET BY MOUTH EVERY MORNING There is no refill protocol information for this order Recent Visits Date Type Provider Dept 09/24/22 [facility]22 [facility] Showing recent visits within past 365 days and meeting all other requirements Future Appointments Date Type Provider Dept 04/29/23 Appointment [facility] Showing future appointments within next 365 days and meeting all other requirements No visits with results within 6 Month(s) from this visit. Latest known visit with results is: Director Money Visit on 09/20/2022 Component Date Value WBC 09/20/2022 7.10 RBC 09/20/2022 5.08 HGB 09/20/2022 14.0 HCT 09/20/2022 42.4 MCH 09/20/2022 27.6 MCV 09/20/2022 83.5 MCHC 09/20/2022 33.0 PLT 09/20/2022 226 MPV 09/20/2022 8.9 (L) RDW-CV 09/20/2022 18.3 (H) RDW-SD 09/20/2022 54.4 (H) NRBC x10 3 09/20/2022 <0.01 NRBC/100 WBC 09/20/2022 0.0 MAGNESIUM 09/20/2022 1.9 ALBUMIN 09/20/2022 4.5 CALCIUM 09/20/2022 9.7 CO2 TOTAL 09/20/2022 28 CREATININE 09/20/2022 0.98 GLUCOSE 09/20/2022 106 K 09/20/2022 4.5 NA 09/20/2022 142 BUN 09/20/2022 13 PHOSPHORUS 09/20/2022 3.9 eGFR 09/20/2022 58.9 PTH-INTACT 09/20/2022 74.8 PTH-CA Interpretation 09/20/2022 CALCIUM 09/20/2022 9.7 VIT D 25OH 09/20/2022 <13 (L) T. PROT U 09/20/2022 12 CREAT U 09/20/2022 67.6 Protein/Creatinine Ratio* 09/20/2022 0.2 APPEARANCE 09/20/2022 Clear COLOR 09/20/2022 Yellow PH 09/20/2022 5.0 SP GRAVITY 09/20/2022 1.010 GLU U QUAL 09/20/2022 Normal BLOOD 09/20/2022 Negative KETONES 09/20/2022 Negative PROTEIN 09/20/2022 Negative UROBILIN 09/20/2022 Normal BILIRUBIN 09/20/2022 Negative NITRITE 09/20/2022 Negative LEUK CHRIS 09/20/2022 500/uL (A) RBC/HPF 09/20/2022 4 (H) WBC/HPF 09/20/2022 5 BACTERIA 09/20/2022 Few (A) SQ EPITH 09/20/2022 2 ICD-10-CM 1. Acquired hypothyroidism E03.9 Medication last sent on: Refill sent to patient's preferred pharmacy; refilled based on current protocol and last office visit note. KATEY BATEMAN MA 04/02/2023 9:50 AM [employer]ER [employer] SOFTWARE Katey Bateman MA [facility] 2022-11-06 14:40:41 Formatting of this n ote is different from the original. Requested Prescriptions Pending Prescriptions Disp Refills LOSARTAN 25 mg tablet [Pharmacy Med Name: LOSARTAN POTASSIUM 25 MG TAB] 90 tablet 0 Sig: TAKE ONE TABLET BY MOUTH EVERY MORNING There is no refill protocol information for this order Recent Visits Date Type Provider Dept 09/24/22 Office Visit Lucy Grant [facility] 05/14/22 Office Visit Lucy Grant [facility] Showing recent visits within past 365 days and meeting all other requirements Future Appointments Date Type Provider Dept 03/25/23 Appointment Lucy Grant [facility] Showing future appointments within next 365 days and meeting all other requirements Director Money Visit on 09/20/2022 Component Date Value WBC 09/20/2022 7.10 RBC 09/20/2022 5.08 HGB 09/20/2022 14.0 HCT 09/20/2022 42.4 MCH 09/20/2022 27.6 MCV 09/20/2022 83.5 MCHC 09/20/2022 33.0 PLT 09/20/2022 226 MPV 09/20/2022 8.9 (L) RDW-CV 09/20/2022 18.3 (H) RDW-SD 09/20/2022 54.4 (H) NRBC x10^3 09/20/2022 <0.01 NRBC/100 WBC 09/20/2022 0.0 MAGNESIUM 09/20/2022 1.9 ALBUMIN 09/20/2022 4.5 CALCIUM 09/20/2022 9.7 CO2 TOTAL 09/20/2022 28 CREATININE 09/20/2022 0.98 GLUCOSE 09/20/2022 106 K 09/20/2022 4.5 NA 09/20/2022 142 BUN 09/20/2022 13 PHOSPHORUS 09/20/2022 3.9 eGFR 09/20/2022 58.9 PTH-INTACT 09/20/2022 74.8 PTH-CA Interpretation 09/20/2022 CALCIUM 09/20/2022 9.7 VIT D 25OH 09/20/2022 <13 (L) T. PROT U 09/20/2022 12 CREAT U 09/20/2022 67.6 Protein/Creatinine Ratio* 09/20/2022 0.2 APPEARANCE 09/20/2022 Clear COLOR 09/20/2022 Yellow PH 09/20/2022 5.0 SP GRAVITY 09/20/2022 1.010 GLU U QUAL 09/20/2022 Normal BLOOD 09/20/2022 Negative KETONES 09/20/2022 Negative PROTEIN 09/20/2022 Negative UROBILIN 09/20/2022 Normal BILIRUBIN 09/20/2022 Negative NITRITE 09/20/2022 Negative LEUK CHRIS 09/20/2022 500/uL (A) RBC/HPF 09/20/2022 4 (H) WBC/HPF 09/20/2022 5 BACTERIA 09/20/2022 Few (A) SQ EPITH 09/20/2022 2 Director Money Visit on 05/14/2022 Component Date Value TSH 05/14/2022 0.55 IRON 05/14/2022 64 TIBC 05/14/2022 460 (H) % FE SAT 05/14/2022 14 (L) APPEARANCE 05/14/2022 Hazy (A) COLOR 05/14/2022 Yellow PH 05/14/2022 5.0 SP GRAVITY 05/14/2022 1.015 GLU U QUAL 05/14/2022 Normal BLOOD 05/14/2022 2+ (A) KETONES 05/14/2022 Negative PROTEIN 05/14/2022 Negative UROBILIN 05/14/2022 Normal BILIRUBIN 05/14/2022 Negative NITRITE 05/14/2022 Negative LEUK CHRIS 05/14/2022 75/uL (A) RBC/HPF 05/14/2022 22 (H) WBC/HPF 05/14/2022 11 (H) BACTERIA 05/14/2022 Few (A) MUCOUS 05/14/2022 Slight (A) SQ EPITH 05/14/2022 8 (H) PHOSPHORUS 05/14/2022 4.0 WBC 05/14/2022 8.54 RBC 05/14/2022 4.17 HGB 05/14/2022 11.7 HCT 05/14/2022 38.1 MCH 05/14/2022 28.1 MCV 05/14/2022 91.4 MCHC 05/14/2022 30.7 (L) PLT 05/14/2022 429 (H) MPV 05/14/2022 10.2 RDW-CV 05/14/2022 15.9 (H) RDW-SD 05/14/2022 51.8 (H) NRBC x10^3 05/14/2022 <0.01 NRBC/100 WBC 05/14/2022 0.0 NA 05/14/2022 141 K 05/14/2022 4.4 CL 05/14/2022 108 CO2 TOTAL 05/14/2022 23 AGAP 05/14/2022 10 BUN 05/14/2022 16 GLUCOSE 05/14/2022 112 (H) CREATININE 05/14/2022 1.25 (H) CALCIUM 05/14/2022 9.8 eGFR 05/14/2022 44.5 ICD-10-CM 1. Acquired hypothyroidism E03.9 2. Renal mass N28.89 Notes from last office visit: . Essential hypertension Comment: Patient's BP is 124/87 and 119/88 in the clinic. Well controlled on current regimen. Education: Reviewed the importance of a low salt diet. Plan: Continue losartan 25 mg daily. Will continue to monitor blood pressure at home BID. Take AM readings prior to medications and PM readings around dinner time. Call office with systolic readings > 150 or < 100 or if patient becomes symptomatic such as dizziness when standing. Discussed proper blood pressure monitoring including arm at heart level and rested. JULIO: 09/24/2022 LR: 06/19/2022 NOV: 03/25/2023 Medication last sent on: Refill sent to patient's preferred pharmacy; refilled based on current protocol and last office visit note. KATEY BATEMAN MA 11/06/2022 2:40 PM T [facility] 2022-11-06 13:32:32 Formatting of this n ote is different from the original. Requested Prescriptions Pending Prescriptions Disp Refills LEVOTHYROXINE 150 mcg tablet [Pharmacy Med Name: LEVOTHYROXINE 150 MCG TABLET] 30 tablet 1 Sig: TAKE ONE TABLET BY MOUTH EVERY MORNING There is no refill protocol information for this order Recent Visits Date Type Provider Dept 09/24/22 Office Visit Lucy Grant [facility] 05/14/22 Office Visit Lucy Grant [facility] Showing recent visits within past 365 days and meeting all other requirements Future Appointments Date Type Provider Dept 03/25/23 Appointment Lucy Grant [facility] Showing future appointments within next 365 days and meeting all other requirements Director Money Visit on 09/20/2022 Component Date Value WBC 09/20/2022 7.10 RBC 09/20/2022 5.08 HGB 09/20/2022 14.0 HCT 09/20/2022 42.4 MCH 09/20/2022 27.6 MCV 09/20/2022 83.5 MCHC 09/20/2022 33.0 PLT 09/20/2022 226 MPV 09/20/2022 8.9 (L) RDW-CV 09/20/2022 18.3 (H) RDW-SD 09/20/2022 54.4 (H) NRBC x10^3 09/20/2022 <0.01 NRBC/100 WBC 09/20/2022 0.0 MAGNESIUM 09/20/2022 1.9 ALBUMIN 09/20/2022 4.5 CALCIUM 09/20/2022 9.7 CO2 TOTAL 09/20/2022 28 CREATININE 09/20/2022 0.98 GLUCOSE 09/20/2022 106 K 09/20/2022 4.5 NA 09/20/2022 142 BUN 09/20/2022 13 PHOSPHORUS 09/20/2022 3.9 eGFR 09/20/2022 58.9 PTH-INTACT 09/20/2022 74.8 PTH-CA Interpretation 09/20/2022 CALCIUM 09/20/2022 9.7 VIT D 25OH 09/20/2022 <13 (L) T. PROT U 09/20/2022 12 CREAT U 09/20/2022 67.6 Protein/Creatinine Ratio* 09/20/2022 0.2 APPEARANCE 09/20/2022 Clear COLOR 09/20/2022 Yellow PH 09/20/2022 5.0 SP GRAVITY 09/20/2022 1.010 GLU U QUAL 09/20/2022 Normal BLOOD 09/20/2022 Negative KETONES 09/20/2022 Negative PROTEIN 09/20/2022 Negative UROBILIN 09/20/2022 Normal BILIRUBIN 09/20/2022 Negative NITRITE 09/20/2022 Negative LEUK CHRIS 09/20/2022 500/uL (A) RBC/HPF 09/20/2022 4 (H) WBC/HPF 09/20/2022 5 BACTERIA 09/20/2022 Few (A) SQ EPITH 09/20/2022 2 Director Money Visit on 05/14/2022 Component Date Value TSH 05/14/2022 0.55 IRON 05/14/2022 64 TIBC 05/14/2022 460 (H) % FE SAT 05/14/2022 14 (L) APPEARANCE 05/14/2022 Hazy (A) COLOR 05/14/2022 Yellow PH 05/14/2022 5.0 SP GRAVITY 05/14/2022 1.015 GLU U QUAL 05/14/2022 Normal BLOOD 05/14/2022 2+ (A) KETONES 05/14/2022 Negative PROTEIN 05/14/2022 Negative UROBILIN 05/14/2022 Normal BILIRUBIN 05/14/2022 Negative NITRITE 05/14/2022 Negative LEUK CHRIS 05/14/2022 75/uL (A) RBC/HPF 05/14/2022 22 (H) WBC/HPF 05/14/2022 11 (H) BACTERIA 05/14/2022 Few (A) MUCOUS 05/14/2022 Slight (A) SQ EPITH 05/14/2022 8 (H) PHOSPHORUS 05/14/2022 4.0 WBC 05/14/2022 8.54 RBC 05/14/2022 4.17 HGB 05/14/2022 11.7 HCT 05/14/2022 38.1 MCH 05/14/2022 28.1 MCV 05/14/2022 91.4 MCHC 05/14/2022 30.7 (L) PLT 05/14/2022 429 (H) MPV 05/14/2022 10.2 RDW-CV 05/14/2022 15.9 (H) RDW-SD 05/14/2022 51.8 (H) NRBC x10^3 05/14/2022 <0.01 NRBC/100 WBC 05/14/2022 0.0 NA 05/14/2022 141 K 05/14/2022 4.4 CL 05/14/2022 108 CO2 TOTAL 05/14/2022 23 AGAP 05/14/2022 10 BUN 05/14/2022 16 GLUCOSE 05/14/2022 112 (H) CREATININE 05/14/2022 1.25 (H) CALCIUM 05/14/2022 9.8 eGFR 05/14/2022 44.5 ICD-10-CM 1. Acquired hypothyroidism E03.9 JULIO: 09/24/2022 LR: 09/11/2022 NOV: 03/25/2023 Medication last sent on: Refill sent to patient's preferred pharmacy; refilled based on current protocol and last office visit note. KATEY BATEMAN MA 11/06/2022 1:32 PM [facility]
[2024-12-27] MEDS ORDERED: LORazepam 2 MG/ML VIAL ONE (03:54)
[2024-12-27 04:10] LABS: Absolute Lymphocytes (CBC) 2.2 K/uL (0.7-4.9); Hematocrit 37.9 % (36.0-45.0); Hemoglobin 13.0 g/dL (12.0-15.0); MCH 30.6 pg (27.0-35.0); MCHC 34.3 g/dL (32.0-36.0); MCV 89.4 fL (80-100); MPV 7.9 fL (7.6-11.3); Nucleated RBC Absolute Count 0.0 (0-0); Nucleated Red Blood Cells % 0.1 % (0-0); RBC Red Blood Cell Count 4.24 M/uL (3.86-4.86); White Blood Count 9.00 thou/uL (4.3-10.9)
[2024-12-27 04:40] LABS: Anion Gap 10.1 mEq/L (5.0-15.0); BUN Blood Urea Nitrogen 8.0 mg/dL (7-18); Glucose Level 192.0 mg/dL (74-106); Potassium 4.1 mEq/L (3.5-5.1); Thyroid Stimulating Hormone 1.91 uIU/mL (0.358-3.740); Troponin High Sensitivity 6.8 pg/mL (<58.9)
--- NOTE | 2024-12-27 05:30 | EDPHYS ---
Physician Documentation [facility] Name: Gaby Wheeler Age: 59 yrs Sex: Female : 1965 Arrival Date: 12/27/2024 Time: 03:03 Bed 5 Private MD: ED Physician Rafael Tirado HPI: 12/27 08:09 This 59 yrs old Female presents to ER via Ambulatory with complaints of tt7 Anxiety. 08:09 Patient reports that approximately 1 hour prior to arrival she began to feel very tt7 anxious and "jittery ". She then started to feel kind of short of breath and like her chest was tight when she was breathing. 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 Currently she is denying any chest pain. She still feels very anxious but not having that shortness of breath sensation anymore. Denies calf or leg swelling. Historical: - Allergies: 04:06 metformin; jj7 04:06 Iodine; jj7 - PMHx: 04:06 cyst fallopian tube; Diverticulitis; Hypertension; Hypothyroidism; jj7 - PSHx: 04:06 Colostomy; L kidney removed; MASS REMOVED FROM NECK (L kidney removed); jj7 - Immunization history:: Adult Immunizations up to date. - Infectious Disease History:: Denies. - Social history:: Smoking status: Patient denies any tobacco usage or history of. Patient/guardian denies using alcohol, street drugs, IV drugs. ROS: 08:10 Constitutional: negative for fever. Cardiovascular: negative for chest pain. tt7 Abdomen/GI: negative for abdominal pain, nausea, vomiting, diarrhea. MS/Extremity: negative for injury and deformity. Skin: negative for rash. Neuro: negative for focal weakness. 08:10 Respiratory: Positive for shortness of breath, 08:10 Psych: Positive for anxiety, tt7 Exam: 08:10 Constitutional: vital signs reviewed, well appearing. Head/Face: normocephalic, tt7 atraumatic. Eyes: no conjunctival injection, anicteric sclerae. ENT: mucus membranes moist. Neck: trachea midline, no JVD, no meningismus. Chest/axilla: normal chest wall appearance and motion, nontender, no crepitus. Cardiovascular: regular rate and rhythm, no murmurs, no rubs, no lower extremity edema. Respiratory: normal respiratory effort, no accessory muscle use, lungs CTAB. Abdomen/GI: soft, nondistended, nontender, no guarding or rebound, negative Ponce's sign, no McBurney point tenderness. Back: normal ROM. Skin: warm, dry, intact, normal turgor, normal color, no rash. MS/ Extremity: normal ROM of extremities, no gross deformities. Neuro: alert and oriented with appropriate mental status, normal speech, follows commands, no focal neurologic deficits. Psych: Anxious Vital Signs: 03:45 BP 174 / 109; Pulse 99; Resp 20; Temp 98.9; Pulse Ox 100% on R/A; Weight 76.66 kg; jj7 Height 5 ft. 0 in. ; Pain 9/10; 05:00 BP 139 / 98; Pulse 90; Resp 16; Pulse Ox 98% ; vc1 03:45 Body Mass Index 33.01 (76.66 kg, 152.4 cm) j 03:45 Pain Scale: Adult jj7 MDM: 03:40 Medical Screening Exam initiated tt7 08:11 Differential diagnosis: Anemia Anxiety Reaction Myocardial Infarction pneumonia, tt7 Pneumothorax Psychogenic pulmonary edema. Antibiotic administration: Not indicated. Data reviewed: vital signs, nurses notes, lab test result(s), cardiac enzymes, CBC, electrolytes. I considered the following discharge prescriptions or medication management in the emergency department Antibiotics: At this time antibiotics are not recommended, Antihypertensives: At this time antihypertensives are not recommended. We recommend home blood pressure checks and following up with primary care provider, Medications were administered in the Emergency Department. See MAR. Test considered but Not performed: CT: . Historians other than the Patient: Spouse/Significant Other: . Care significantly affected by the following chronic conditions: Hypertension, Anxiety. Counseling: I had a detailed discussion with the patient and/or guardian regarding the historical points, exam findings, and any diagnostic results supporting the discharge/admit diagnosis, the presence of at least one elevated blood pressure reading (>120/80) during this emergency department visit, lab results, radiology results, the need for outpatient follow up, to return to the emergency department if symptoms worsen or persist or if there are any questions or concerns that arise at home. ED course: I have reviewed and independently interpreted the patient's EKG performed on 12/27/2024 at 305. On my interpretation, normal sinus rhythm, ventricular rate 86 bpm, normal axis, normal QRS interval, normal ST segments, no STEMI. I have reviewed and independently interpreted the patient's chest x-ray. On my interpretation, chest x-ray demonstrates no radiographic evidence of acute cardiopulmonary disease. Very low suspicion for ACS, no ischemic findings on EKG, troponin negative, low risk heart score. I reassessed the patient after IV Ativan and her symptoms totally resolved and she feels much better, emergency department evaluation is reassuring. I do not suspect life-threatening process. Patient is stable and not in need of emergent medical intervention. I had a detailed discussion with the patient regarding the historical points, exam findings, emergency department evaluation, diagnostic results, and the discharge diagnosis. I discussed outpatient management of the patient's condition. I discussed the need for outpatient follow-up with primary care and relevant specialist. I discussed return precautions including the need to return to the ED if symptoms do not improve, worsen, or if there are any questions or concerns that arise at home. The patient was discharged in stable condition. 12/27 03:51 Order name: Basic Metabolic Panel; Complete Time: 05:06 12/27 03:51 Order name: CBC with Diff; Complete Time: 05:06 12/27 03:51 Order name: Troponin HS; Complete Time: 05:06 12/27 03:51 Order name: TSH; Complete Time: 05:06 12/27 03:51 Order name: T4 Free; Complete Time: 05:06 12/27 03:51 Order name: XRAY Chest (1 view) 12/27 03:51 Order name: Cardiac monitoring; Complete Time: 04:11 12/27 03:51 Order name: EKG - Nurse/Tech; Complete Time: 04:11 12/27 03:51 Order name: IV Saline Lock; Complete Time: 03:58 12/27 03:51 Order name: Labs collected and sent; Complete Time: 04:11 12/27 03:51 Order name: O2 Per Protocol; Complete Time: 03:58 tt7 09/22 03:51 Order name: O2 Sat Monitoring; Complete Time: 03:58 tt7 Administered Medications: 04:11 Drug: Ativan IVP 0.5 mg IVP once Route: IVP; Site: right antecubital; vc1 05:31 Follow up: Response: No adverse reaction; Marked relief of symptoms vc1 05:34 CANCELLED (Duplicate Order): hydrocortisone Ointment 1 % 1 application Topical once tt7 05:52 CANCELLED (Inappropriate at this time): hydrocortisone Ointment 0.1 % 1 application vc1 Topical once 05:52 Drug: diphenhydrAMINE PO 25 mg PO once Route: PO; vc1 05:53 Follow up: Response: Medication administered at discharge. vc1 Disposition: 08:14 Co-signature as Attending Physician, Rafael Tirado DO. tt7 Disposition Summary: 12/27/24 05:29 Discharge Ordered Notes: Location: Home tt7 Problem: new tt7 Symptoms: are resolved tt7 Condition: Stable tt7 Diagnosis - Anxiety disorder, unspecified tt7 Followup: tt7 - With: Emergency Department - When: As needed - Reason: Followup: tt7 - With: Private Physician - When: 1 - 2 days - Reason: Recheck today's complaints, Re-evaluation by your physician Discharge Instructions: - Discharge Summary Sheet tt7 - Managing Anxiety, Adult tt7 Forms: - Medication Reconciliation Form tt7 - Antibiotic Education tt7 - Prescription Opioid Use tt7 - Patient Portal Instructions tt7 - Leadership Thank You Letter tt7 Signatures: Dispatcher [employer] EDKathleen Rodriguez RN RN vc1 Carlos Barclay RN RN jj7 Rafael Tirado DO DO tt7 Corrections: (The following items were deleted from the chart) 03:51 03:51 BASIC METABOLIC PANEL+C.LAB.BRZ ordered. EDMS EDMS 03:51 03:51 CBC+H.LAB.BRZ ordered. EDMS EDMS 03:51 03:51 Troponin High Sensitivity+C.LAB.BRZ ordered. EDMS EDMS 03:51 03:51 THYROID STIMULAT HORMONE+C.LAB.BRZ ordered. EDMS EDMS 03:51 03:51 T4 FREE+C.LAB.BRZ ordered. EDMS EDMS 03:51 03:51 Chest Single View+RAD.RAD.BRZ ordered. EDMS EDMS 05:34 05:28 hydrocortisone Ointment 1 % 1 application Topical once ordered. tt7 tt7 05:52 05:34 hydrocortisone Ointment 0.1 % 1 application Topical once ordered. tt7 vc1
--- NOTE | 2024-12-27 05:30 | ER ---
Nurse's Notes [facility] Name: Gaby Wheeler Age: 59 yrs Sex: Female : 1965 Arrival Date: 12/27/2024 Time: 03:03 Bed 5 Private MD: Diagnosis: Anxiety disorder, unspecified Presentation: 12/27 03:45 Chief complaint: Patient states: SOB, JITTERY, ANXIETY STARTED 30 MINUTES AGO. STATES jj7 SHE HAD SURGERY ON HER NECK/SPINE ON THE 12/07/24. TOOK LYRICA FOR THE PAIN. Coronavirus screen: At this time, the client does not indicate any symptoms associated with coronavirus-19. Ebola Screen: No symptoms or risks identified at this time. Initial Sepsis Screen: Does the patient meet any 2 criteria? HR > 90 bpm. Yes Does the patient have a suspected source of infection? No. Patient's initial sepsis screen is negative. Risk Assessment: Do you want to hurt yourself or someone else? Patient reports no desire to harm self or others. Onset of symptoms was December 27, 2024 at 03:00. 03:45 Method Of Arrival: Ambulatory [facility] 03:45 Acuity: RAFA 3 jj7 Triage Assessment: 03:45 General: Appears in no apparent distress. uncomfortable, Behavior is cooperative, jj7 appropriate for age, anxious. Pain: Complains of pain in back of neck. Neuro: No deficits noted. Level of Consciousness is awake, alert, obeys commands, Oriented to person, place, time, situation, Appropriate for age. Cardiovascular: No deficits noted. Respiratory: Reports shortness of breath at rest Airway is patent Respiratory effort is even, unlabored, Respiratory pattern is regular, symmetrical, Onset: The symptoms/episode began/occurred just prior to arrival, the patient has mild shortness of breath. Musculoskeletal: Reports pain in back of neck. Historical: - Allergies: 04:06 metformin; jj7 04:06 Iodine; jj7 - PMHx: 04:06 cyst fallopian tube; Diverticulitis; Hypertension; Hypothyroidism; jj7 - PSHx: 04:06 Colostomy; L kidney removed; MASS REMOVED FROM NECK (L kidney removed); jj7 - Immunization history:: Adult Immunizations up to date. - Infectious Disease History:: Denies. - Social history:: Smoking status: Patient denies any tobacco usage or history of. Patient/guardian denies using alcohol, street drugs, IV drugs. Screenin:45 [facility] ED Fall Risk Assessment (Adult) History of falling in the last 3 months, vc1 including since admission No falls in past 3 months (0 pts) Confusion or Disorientation No (0 pts) Intoxicated or Sedated No (0 pts) Impaired Gait No (0 pts) Mobility Assist Device Used No (0 pt) Altered Elimination No (0 pt) Score/Fall Risk Level 0 - 2 = Low Risk Oriented to surroundings, Maintained a safe environment, Educated pt \T\ family on fall prevention, incl call for assistance when getting out of bed, Assessed \T\ reinforced patient's understanding of fall precautions, Hourly rounding (assess needs \T\ fall precautionary measures) done. Abuse screen: Denies threats or abuse. Nutritional screening: No deficits noted. Tuberculosis screening: No symptoms or risk factors identified. Assessment: 03:45 General: Appears in no apparent distress. uncomfortable, Behavior is cooperative, vc1 anxious. Pain: Denies pain. Neuro: Level of Consciousness is awake, alert, obeys commands, Oriented to person, place, time, situation, Appropriate for age. Cardiovascular: Heart tones S1 S2 present Patient's skin is warm and dry. Rhythm is regular. Respiratory: Airway is patent Respiratory effort is even, unlabored, Respiratory pattern is regular, symmetrical, Breath sounds are clear bilaterally. GI: No deficits noted. No signs and/or symptoms were reported involving the gastrointestinal system. : No deficits noted. No signs and/or symptoms were reported regarding the genitourinary system. EENT: No deficits noted. No signs and/or symptoms were reported regarding the EENT system. Derm: Skin is intact, is healthy with good turgor, Skin is dry, Skin is normal, Skin temperature is warm. Musculoskeletal: Circulation, motion, and sensation intact. Range of motion: intact in all extremities. 05:23 Reassessment: Patient appears in no apparent distress at this time. Patient and/or vc1 family updated on plan of care and expected duration. Pain level reassessed. Patient is alert, oriented x 3, equal unlabored respirations, skin warm/dry/pink. Patient states feeling better. Patient states symptoms have improved. Vital Signs: 03:45 BP 174 / 109; Pulse 99; Resp 20; Temp 98.9; Pulse Ox 100% on R/A; Weight 76.66 kg; jj7 Height 5 ft. 0 in. ; Pain 9/10; 05:00 BP 139 / 98; Pulse 90; Resp 16; Pulse Ox 98% ; vc1 03:45 Body Mass Index 33.01 (76.66 kg, 152.4 cm) j7 03:45 Pain Scale: Adult [facility] ED Course: 03:07 Patient arrived in ED. gm2 03:40 Rafael Tirado DO is Attending Physician. tt7 03:40 Patient has correct armband on for positive identification. Bed in low position. Call vc1 light in reach. Provided Education on: PLan of care. media monitor on. Pulse ox on. NIBP on. 03:45 Arm band placed on right wrist. Patient placed in an exam room, on a stretcher. 7 03:58 Basic Metabolic Panel Sent. vc1 03:58 CBC with Diff Sent. vc1 03:58 Troponin HS Sent. vc1 04:03 Triage completed. 7 04:26 XRAY Chest (1 view) In Process Unspecified. EDMS 05:17 Kathleen Lorenzo, RN is Primary Nurse. vc1 05:56 No provider procedures requiring assistance completed. IV discontinued, intact, vc1 bleeding controlled, No redness/swelling at site. Pressure dressing applied. Administered Medications: 04:11 Drug: Ativan IVP 0.5 mg IVP once Route: IVP; Site: right antecubital; vc1 05:31 Follow up: Response: No adverse reaction; Marked relief of symptoms vc1 05:34 CANCELLED (Duplicate Order): hydrocortisone Ointment 1 % 1 application Topical once tt7 05:52 CANCELLED (Inappropriate at this time): hydrocortisone Ointment 0.1 % 1 application vc1 Topical once 05:52 Drug: diphenhydrAMINE PO 25 mg PO once Route: PO; vc1 05:53 Follow up: Response: Medication administered at discharge. vc1 Medication: 05:19 VIS not applicable for this client. vc1 Outcome: 05:29 Discharge ordered by . tt7 05:56 Discharged to home ambulatory, vc1 05:56 Condition: stable 05:56 Discharge instructions given to patient, Instructed on discharge instructions, follow up and referral plans. Demonstrated understanding of instructions, follow-up care, 05:56 Patient left the ED. vc1 Signatures: Dispatcher [employer] EDMS Kathleen Lorenzo RN RN vc1 Carlos Barclay RN RN jj7 Vinita Spicer gm2 Rafael Tirado DO DO tt7
[2024-12-27] MEDS ORDERED: DIPHENHYDRAMINE 25 MG TAB/CAP ONE (05:48)
[2024-12-27 06:01] VITALS: TEMP 98.9
[2024-12-27 06:03] VITALS: BP 139/98; O2SAT 98
--- NOTE | 2024-12-27 06:33 | RAD REPORT ---
EXAM DESCRIPTION: Chest Single View CLINICAL HISTORY: SOB COMPARISON: 04/14/2020 FINDINGS: 1 view(s) of the chest. Tubes and lines: Leads overlie the chest. Cardiomediastinal silhouette: Normal size and contour. Lungs: No consolidation, pneumothorax, or pleural effusion. Bones: No acute osseous abnormality. Partial visualization of cervical fixation hardware. Upper abdomen: No abnormality identified. IMPRESSION: 1. No acute pulmonary process identified. Electronically signed by: Roger Lockhart DO 12/27/2024 05:59 AM CDT 4ZDM Due to temporary technical issues with the PACS/Veezeon reporting system, reports are being rosi d by the in-house radiologist without review as a courtesy to ensure prompt reporting the interpreting radiologist is fully responsible for the content of the report. Transcribed Date/Time: 12/27/2024 6:33 AM
== END 2024-12-27 05:56 | disposition home or self-care (01) ==
LOC: ER 03:03
DX: F41.9 Anxiety disorder, unspecified (principal)
CPT/HCPCS: 36415; 71045; 80048; 84439; 84443; 84484; 85025; 96374; 99285